=== PATIENT | female | born 1990 | race Caucasian/White ===

== ENCOUNTER 2022-11-10 21:10 | Emergency (ER) | payer OTHER, SELFPAY ==
[2022-11-10 21:17] VITALS: BP 153/91; PULSE 108; RESP 16; O2SAT 99; BMI 35.7
[2022-11-10 21:27] VITALS: TEMP 36.8
--- NOTE | 2022-11-10 22:03 | PC.NURSE ---
pt presents to ED c/o of left and right sided upper quadrant abdominal pain and swelling to bilateral lower extremities that started 2-3 days ago. pt is 18 weeks at this time. pt states that she does have spotting but her OB told her it was normal because her placenta is not attacked to the umbilical cord and pt shouldn't become concerned unless she soaks through a pad. pt also c/o sob for last 3 days. pt had chest pain 3 days ago but it is now resolved. heart tones at 164 at this time.
--- NOTE | 2022-11-10 22:37 | ED.GENADUL1 ---
HPI - General Adult General Chief complaint: Shortness of Breath/Dyspnea Stated complaint: UNDER 20-WEEKS Time Seen by Provider: 11/10/22 22:07 Source: patient Mode of arrival: walk-in History of Present Illness HPI narrative: [id number]. 18 weeks . Presents complaining of pain across her upper abdomen and lower ext. edema. Admits her lower extremity edema has improved. she feels short of breath when she is supine. She has a pulse ox at home and even when she feels short of breath supine her Pulse ox is normal. No headache. No urinary symptoms. Her last was over 11 years ago Related Data Allergies Allergy/AdvReac Type Severity Reaction Status Date / Time zonisamide [[facility] AdvReac Mild Rash Verified 11/10/22 21:25 Review of Systems ROS Status of ROS 10 or more systems reviewed and unremarkable except as noted in history and below [facility] PFS Social History Smoking status: Former smoker Exam Constitutional Vital Signs - 24 hr 11/10/22 21:17 11/10/22 21:27 11/11/22 00:09 Temperature 98.3 F Pulse Rate [Monitor] 108 H Respiratory Rate 16 Blood Pressure 136/82 H Blood Pressure [Right Arm] 153/91 H Pulse Oximetry 99 Oxygen Delivery Method Room Air 11/11/22 00:49 Temperature Pulse Rate [Monitor] Respiratory Rate Blood Pressure 137/85 H Blood Pressure [Right Arm] Pulse Oximetry Oxygen Delivery Method Common normals: no apparent distress [facility] Common normals: normocephalic and head/scalp atraumatic Eye Common normals: PERRL, EOMs intact bilaterally and conjunctivae normal Chest Common normals: inspection of chest normal Respiratory Common normals: normal respiratory effort and no retractions Cardio Common normals: regular rate, regular rhythm, S1 normal heart sound and S2 normal heart sound GI Other: gravid. Mild tenderness RUQ Extremity Common normals: normal to inspection and full ROM Other: trace ankle edema Neuro Common normals: oriented x3, CN's II-XII intact bilaterally and moves all extremities Psych Appearance: grossly normal Course Vital Signs Vital signs: Vital Signs Pulse Rate 108 H 11/10/22 21:17 Respiratory Rate 16 11/10/22 21:17 Blood Pressure 153/91 H 11/10/22 21:17 Pulse Oximetry 99 11/10/22 21:17 Oxygen Delivery Method Room Air 11/10/22 21:17 Temperature 98.3 F 11/10/22 21:27 Pulse Rate 108 H 11/10/22 21:17 Respiratory Rate 16 11/10/22 21:17 Blood Pressure 137/85 H 11/11/22 00:49 Pulse Oximetry 99 11/10/22 21:17 Oxygen Delivery Method Room Air 11/10/22 21:17 Medical Decision Making MDM Narrative Medical decision making narrative: patient 18 weeks . Presented complaining of lower extremity edema but admits the edema has improved. Also complaining of pain across her upper abdomen. labs unremarkalbe except her potassium was low and this was supplemented. Her BP initially was elevated but returned to normal without intervention. Her abdominal pain improved after GI cocktail. She was discharged home with a prescription of Protonix and working diagnosis of GERD Lab Data Labs: Lab Results 11/10/22 11/10/22 11/10/22 Range/Units 22:48 22:55 23:11 WBC 10.1 (4.0-11.0) 10^3/uL RBC 3.51 L (4.20-5.40) 10^6/uL Hgb 10.6 L (12.0-16.0) g/dL Hct 30.3 L (36.0-48.0) % MCV 86.3 (81.0-99.0) fL MCH 30.2 (26.7-34.0) pg MCHC 35.0 (29.9-35.2) g/dL RDW 14.3 (11.0-15.0) % Plt Count 173 (150-450) 10^3/uL MPV 11.3 (9.5-13.5) fL Neut % (Auto) 66.8 (43.0-75.0) % Lymph % (Auto) 25.4 (20.5-60.0) % [place] % (Auto) 4.6 (1.7-12.0) % Eos % (Auto) 1.5 (0.9-7.0) % Baso % (Auto) 0.4 (0.2-2.0) % Neut # (Auto) 6.8 H (1.4-6.5) 10^3/uL Lymph # (Auto) 2.6 (1.2-3.8) 10^3/uL [place] # (Auto) 0.5 (0.3-0.8) 10^3/uL Eos # (Auto) 0.2 (0.0-0.7) 10^3/uL Baso # (Auto) 0.0 (0.0-0.1) 10^3/uL Abs Immat Gran (auto) 0.13 H (0.00-0.03) 10^3/uL Imm/Tot Granulo (auto) 1.3 H (0.0-0.5) % Sodium 137 (136-145) mmol/L Potassium 2.5 L* (3.5-5.1) mmol/L Chloride 102 (98-107) mmol/L Carbon Dioxide 24.2 (21.0-32.0) mmol/L Anion Gap 13.3 BUN 4.0 L (7.0-18.0) mg/dL Creatinine 0.54 L (0.55-1.02) mg/dL Est GFR ( Amer) >60 (>=60) Est GFR (Non-Af Amer) >60 (>=60) BUN/Creatinine Ratio 7.4 Glucose 108 H (74-106) mg/dL Calcium 8.6 (8.5-10.1) mg/dL Total Bilirubin 0.1 L (0.2-1.0) mg/dL AST 10 L (15-37) U/L ALT 12 L (14-59) U/L Alkaline Phosphatase 54 (46-116) U/L Total Protein 6.0 L (6.4-8.2) g/dL Albumin 2.5 L (3.4-5.0) g/dL Globulin 3.5 g/dL Albumin/Globulin Ratio 0.7 Lipase 100.0 (73.0-393.0) U/L Urine Color Lt. yellow (YELLOW) Urine Clarity Clear (CLEAR) Urine pH 7.0 (5.0-9.0) Ur Specific [place] 1.010 (1.005-1.025) Urine Protein Negative (NEG/TRACE) mg/dL Urine Glucose (UA) Negative (NEGATIVE) mg/dL Urine Ketones Negative (NEGATIVE) mg/dL Urine Occult Blood Negative (NEGATIVE) Urine Nitrite Negative (NEGATIVE) Urine Bilirubin Negative (NEGATIVE) Urine Urobilinogen 0.2 (0.2-1.0) EU/dL Ur Leukocyte Esterase Small A (NEGATIVE) Urine RBC 0-2 (0-2) #/HPF Urine WBC 5-10 A (NONE SEEN) #/HPF Ur Squamous Epith Cells Many A (NONE/RARE) #/LPF Urine Crystals None seen (None Seen) #/HPF Urine Bacteria Moderate A (NONE SEEN) #/HPF Urine Casts None seen (NONE SEEN) #/LPF Urine Mucus None seen (NONE SEEN) Ur Culture Indicated? Yes Discharge Plan Discharge Chief Complaint: Shortness of Breath/Dyspnea Clinical Impression: Edema during in second trimester, Gastroesophageal reflux disease Instructions: GERD (Gastroesophageal Reflux Disease) (ED), Edema (ED) Additional Instructions: follow up with Dr Alegre for recheck Stand Alone Forms: Portal Instructions Referrals: Physician,Non-Staff, [Primary Care Provider] - 1 week
[2022-11-10 22:59] LABS: Basophils Percent Auto 0.4 % (0.2-2.0); Eosinophils Absolute Auto 0.2 10^3/uL (0.0-0.7); Eosinophils Percent Auto 1.5 % (0.9-7.0); Hematocrit 30.3 % (36.0-48.0); Hemoglobin 10.6 g/dL (12.0-16.0); Immature Granulocytes Abs Auto 0.13 10^3/uL (0.00-0.03); Immature Granulocytes Pct Auto 1.3 % (0.0-0.5); Lymphocytes Absolute Auto 2.6 10^3/uL (1.2-3.8); Lymphocytes Percent Auto 25.4 % (20.5-60.0); Mean Corpuscular Hemoglobin 30.2 pg (26.7-34.0); Mean Corpuscular Volume 86.3 fL (81.0-99.0); Mean Platelet Volume 11.3 fL (9.5-13.5); Monocytes Absolute Auto 0.5 10^3/uL (0.3-0.8); Monocytes Percent Auto 4.6 % (1.7-12.0); Neutrophils Absolute Auto 6.8 10^3/uL (1.4-6.5); Neutrophils Percent Auto 66.8 % (43.0-75.0); Platelet Count 173 10^3/uL (150-450); Red Blood Count 3.51 10^6/uL (4.20-5.40); Red Cell Distribution Width 14.3 % (11.0-15.0); White Blood Count 10.1 10^3/uL (4.0-11.0)
[2022-11-10 23:08] LABS: Bilirubin Urine NEGATIVE (NEGATIVE); Blood Urine NEGATIVE (NEGATIVE); Clarity Urine CLEAR (CLEAR); Color Urine LT. YELLOW (YELLOW); Glucose Urine UA NEGATIVE (NEGATIVE); Ketones Urine NEGATIVE (NEGATIVE); Leukocyte Esterase Urine SMALL (NEGATIVE); Nitrite Urine NEGATIVE (NEGATIVE); Protein Urine NEGATIVE (NEG/TRACE); Urobilinogen Urine 0.2 EU/dL (0.2-1.0)
[2022-11-10 23:11] LABS: Urine Microscopic Indicated YES
[2022-11-10 23:16] LABS: Bacteria Urine MODERATE #/HPF (NONE SEEN); Cast Seen? NONE SEEN #/LPF (NONE SEEN); Crystals Seen? None Seen #/HPF (None Seen); Mucus Urine NONE SEEN (NONE SEEN); RBC Urine 0-2 #/HPF (0-2); Squamous Epithelial Cell Urine MANY #/LPF (NONE/RARE); Urine Culture Indicated YES
[2022-11-10 23:26] LABS: Alanine Aminotransferase 12 U/L (14-59); Albumin Globulin Ratio 0.7; Albumin Level 2.5 g/dL (3.4-5.0); Alkaline Phosphatase 54 U/L (46-116); Anion Gap 13.3; Aspartate Amino Transferase 10 U/L (15-37); BUN Creatinine Ratio 7.4; Bilirubin Total 0.1 mg/dL (0.2-1.0); Calcium 8.6 mg/dL (8.5-10.1); Carbon Dioxide 24.2 mmol/L (21.0-32.0); Chloride 102 mmol/L (98-107); Estimated GFR (African America >60 (>=60); Estimated GFR (Non-African Ame >60 (>=60); Globulin 3.5 g/dL; Glucose 108 mg/dL (74-106); Sodium 137 mmol/L (136-145)
[2022-11-10 23:29] LABS: Potassium 2.5 mmol/L (3.5-5.1)
[2022-11-11] MEDS: POTASSIUM CHLORIDE 10 MEQ ER TABLET 40 MEQ PO (00:04)
[2022-11-11] MEDS: lidocaine HCL 15 ML, MAG HYDROX/ALUMINUM HYD/SIMETH 30 ML, HYOSCYAMINE SULFATE 0.25 MG PO (00:08)
[2022-11-11 00:09] VITALS: BP 136/82
[2022-11-11 00:49] VITALS: BP 137/85
== END 2022-11-11 01:02 | disposition home or self-care (01) ==
LOC: ER 21:23
PROVIDERS: Emergency Provider Internal Medicine
DX: O26.892 Other specified pregnancy related conditions, second trimester (principal); R60.9 Edema, unspecified; O99.612 Diseases of the digestive system complicating pregnancy, second trimester; K21.9 Gastro-esophageal reflux disease without esophagitis; Z3A.18 18 weeks gestation of pregnancy; Z87.891 Personal history of nicotine dependence
CPT/HCPCS: 36415; 80053; 81003; 81015; 83690; 85025; 87086; 99283

== ENCOUNTER 2022-11-18 11:43 | Observation (INO) | payer OTHER, SELFPAY ==
--- NOTE | 2022-11-18 12:56 | US_ITS ---
[address] [address] Patient Name: SIMIN SAUCEDA MRN: [id number] date: 1990 Sex: F Assigned Patient Location: [facility] Current Patient Location: [facility] Accession/Order Number: [id number] Exam Date: 11/18/2022 13:10 Report Date: 11/18/2022 14:44 At the request of: CORONA MCINTOSH Procedure: US OB anatomy STUDY: US OB anatomy, [id number] HISTORY: srom? COMPARISON: None. Technique: Transabdominal grayscale, Doppler, and M-mode ultrasound images of the fetus were obtained. Transvaginal images were obtained to better evaluate the cervical length. FINDINGS: number: Ortiz. position: Breech. Uterus: No fibroids. Cervical length: Closed, measuring 2.90 cm. Placenta to cervix distance: Borderline low lying placenta with the placental edge measuring 2.01 cm from the internal os. Placental location: The placenta is located anteriorly. Placental thickness: 2.47 cm (normal is less than 3.3 cm if the placenta is located anteriorly and 4 cm if located posteriorly) Placental morphology: Normal. Cord insertion: Borderline velamentous insertion with the cord inserting approximately 8 mm from the proximal edge. heart rate: 168 bpm Anatomic Survey: i. Head, face, neck: Cerebellum, choroid plexus, cisterna magna, lateral cerebral ventricles, midline falx, cavum septum pellucidum, and upper lip are sonographically within normal limits. No nuchal fold thickening. ii. Chest: Small focal area of hypoechogenicity in the membranous portion of the ventricular septum. The outflow tracts were not seen. iii. Abdomen: Stomach, kidneys, urinary bladder, umbilical cord are within normal limits. Abdominal cord insertion was not visualized. iv. Spine: Spine and overlying skin are within normal limits. v. Extremities: Legs and arms are present. biometry: Biparietal diameter (BPD): 4.60 cm, EGA: 19 weeks 6 days Head circumference (HC): 16.83 cm, EGA: 19 weeks 3 days Abdominal circumference (AC): 14.78 cm, EGA: 20 weeks 0 days Femur length (FL): 3.20 cm, EGA: 20 weeks 0 days Estimated weight: 323.16 g Estimated weight percentile ([place]lock): 88.5 percentile MAHNAZ: Measurements were obtained however, the amniotic fluid is subjectively within normal limits. Cephalic index (CI): 78.08 (normal range 70.00-86.00) Head circumference/abdominal circumference ratio (HC/AC): 1.14 (normal range 1.08-1.26) Estimated Gestational Age (EGA) by history: 19 weeks 1 day Estimated Date of Delivery (MICHAEL) by history: 04/13/2023 Estimated Gestational Age (EGA) by ULTRASOUND: 19 weeks 6 days +/- 1 week 3 days Estimated Date of Delivery (MICHAEL) by ULTRASOUND: 04/08/2023 IMPRESSION: 1. Single, viable intrauterine at 19 weeks 6 days by today's second trimester scan which is concordant with clinical dating. 2. The cervix is closed and measures 2.9 cm in length. 3. Small focal area of hypoechogenicity in the membranous portion of the ventricular septum which could represent septal defect or artifact. Recommend correlation with maternal medicine imaging. If no dedicated cardiac imaging has been obtained then recommend echocardiogram for further evaluation. 4. The cardiac outflow tracts and abdominal cord insertion not visualized on this exam. Remainder of the basic anatomic survey is within normal limits. 5. Borderline low-lying placenta which measures 2.01 cm from the internal os. 6. Borderline velamentous cord insertion with the cord inserting approximately 8 mm from the placental edge. Electronically authenticated by: ANNETTE JUAREZ Date: 11/18/2022 14:44
[2022-11-18 14:05] VITALS: BP 121/78; PULSE 100
[2022-11-18 14:39] LABS: Bilirubin Urine NEGATIVE (NEGATIVE); Blood Urine NEGATIVE (NEGATIVE); Clarity Urine CLEAR (CLEAR); Color Urine LT. YELLOW (YELLOW); Glucose Urine UA NEGATIVE (NEGATIVE); Ketones Urine NEGATIVE (NEGATIVE); Leukocyte Esterase Urine TRACE (NEGATIVE); Nitrite Urine NEGATIVE (NEGATIVE); Protein Urine NEGATIVE (NEG/TRACE); Specific Gravity Urine <=1.005 (1.005-1.025); Urobilinogen Urine 0.2 EU/dL (0.2-1.0); pH Urine 6.5 (5.0-9.0)
[2022-11-18 14:40] LABS: Urine Microscopic Indicated YES
[2022-11-18 14:50] LABS: Bacteria Urine TRACE #/HPF (NONE SEEN); Cast Seen? NONE SEEN #/LPF (NONE SEEN); Crystals Seen? None Seen #/HPF (None Seen); Mucus Urine NONE SEEN (NONE SEEN); RBC Urine 0-2 #/HPF (0-2); Squamous Epithelial Cell Urine FEW #/LPF (NONE/RARE); Urine Culture Indicated NO; WBC Urine 0-2 #/HPF (NONE SEEN)
== END 2022-11-18 14:51 | disposition home or self-care (01) ==
PROVIDERS: Admitting Provider Obstetrics & Gynecology; PCP Nurse Practitioner Family; Visit Provider Obstetrics & Gynecology
DX: Z03.71 Encounter for suspected problem with amniotic cavity and membrane ruled out (principal); O26.892 Other specified pregnancy related conditions, second trimester; M54.9 Dorsalgia, unspecified; Z3A.19 19 weeks gestation of pregnancy
CPT/HCPCS: 76805; 76817; 81003; 81015; 84112; G0378; G0379

== ENCOUNTER 2023-01-02 09:53 | Outpatient (OUT) | payer OTHER, SELFPAY ==
--- NOTE | 2023-01-02 10:14 | CT_ITS ---
The [address] [address] Patient Name: SIMIN SAUCEDA MRN: [id number] date: 1990 Sex: F Assigned Patient Location: CT Current Patient Location: CT Accession/Order Number: [id number] Exam Date: 01/02/2023 10:09 Report Date: 01/02/2023 18:48 At the request of: AMY COLEMAN Procedure: CT head/brain wo con EXAMINATION: CT head/brain wo con HISTORY: HX OF CONCUSSION. Z87.820. COMPARISON: None. TECHNIQUE: Unenhanced helical imaging was acquired from skull base to vertex. Multiplanar images are submitted. Dose reduction techniques were achieved by using: automated exposure control and/or adjustment of mA and /or kV according to patient size and/or use of iterative reconstruction technique. FINDINGS: No acute intraaxial or extraaxial mass, shift, or bleed. Kay-white junctions are well defined. The ventricles and sulci are age-appropriate. The pituitary and sella turcica are normal. The orbit and ocular contents are normal. Prominent adenoidal tissue is noted. The paranasal sinuses are clear. Calvarium is intact. CT/CT head/brain wo con IMPRESSION: 1. No acute intracranial event. 2. No calvarial injury. 3. Clear sinuses. Electronically authenticated by: DINORA CRUZ Date: 01/02/2023 18:48
== END 2023-01-02 09:54 | disposition home or self-care (01) ==
LOC: CT 09:55
PROVIDERS: PCP Nurse Practitioner Family; Visit Provider Physician Assistant
DX: Z87.820 Personal history of traumatic brain injury (principal)
CPT/HCPCS: 70450

== ENCOUNTER 2023-01-20 14:30 | Observation (INO) | payer OTHER, SELFPAY ==
[2023-01-20 15:02] VITALS: BP 125/76; PULSE 106; RESP 16; TEMP 36.2
[2023-01-20 15:33] VITALS: BP 129/62; PULSE 110
[2023-01-20 15:33] LABS: Bilirubin Urine NEGATIVE (NEGATIVE); Blood Urine NEGATIVE (NEGATIVE); Clarity Urine CLEAR (CLEAR); Color Urine LT. YELLOW (YELLOW); Glucose Urine UA 100 mg/dL (NEGATIVE); Ketones Urine NEGATIVE (NEGATIVE); Leukocyte Esterase Urine TRACE (NEGATIVE); Nitrite Urine NEGATIVE (NEGATIVE); Protein Urine NEGATIVE (NEG/TRACE); Urobilinogen Urine 0.2 EU/dL (0.2-1.0)
[2023-01-20 15:38] LABS: Urine Microscopic Indicated YES
[2023-01-20 15:47] LABS: Amphetamine Screen Urine NEGATIVE (NEGATIVE); Barbiturates Screen Urine NEGATIVE (NEGATIVE); Cannabinoid Screen Urine NEGATIVE (NEGATIVE); Cocaine Screen Urine NEGATIVE (NEGATIVE); Methadone Screen Urine NEGATIVE (NEGATIVE); Methamphetamines Screen Urine NEGATIVE (NEGATIVE); Opiate Screen Urine NEGATIVE (NEGATIVE); Oxycodone Screen Urine NEGATIVE (NEGATIVE); Phencyclidine Screen Urine NEGATIVE (NEGATIVE); Tricyclic Antidepressant Urine NEGATIVE (NEGATIVE)
[2023-01-20 15:48] LABS: Benzodiazepines Screen Urine POSITIVE (NEGATIVE); Buprenorphine Screen Urine POSITIVE (NEGATIVE)
[2023-01-20 15:53] LABS: Thyroid Stimulating Hormone 0.391 uIU/mL (0.358-3.740)
[2023-01-20 16:06] LABS: Bacteria Urine TRACE #/HPF (NONE SEEN); Cast Seen? NONE SEEN #/LPF (NONE SEEN); Crystals Seen? None Seen #/HPF (None Seen); Mucus Urine NONE SEEN (NONE SEEN); RBC Urine 0-2 #/HPF (0-2); Squamous Epithelial Cell Urine FEW #/LPF (NONE/RARE); Urine Culture Indicated NO
[2023-01-20 16:26] VITALS: BP 119/60; PULSE 106
[2023-02-22 14:08] LABS: Benzodiazepines Negative (Cutoff=300); Buprenorphine Positive (.); Buprenorphine Conf, MS, UR 16 ng/mL (Cutoff=10); Norbuprenorphine Positive (.); Norbuprenorphine Conf, MS,UR 253 ng/mL (Cutoff=10)
== END 2023-01-20 16:30 | disposition home or self-care (01) ==
PROVIDERS: Admitting Provider Obstetrics & Gynecology; PCP Nurse Practitioner Family; Visit Provider Obstetrics & Gynecology
DX: O16.9 Unspecified maternal hypertension, unspecified trimester (principal); Z3A.00 Weeks of gestation of pregnancy not specified
CPT/HCPCS: 36415; 59025; 80307; 80346; 80348; 81001; 84443; G0378; G0379

== ENCOUNTER 2023-02-08 13:10 | Observation (INO) | payer OTHER, SELFPAY ==
[2023-02-08] VITALS (12 sets, daily range): BP systolic 87–126; BP diastolic 50–75; PULSE 98–113
[2023-02-08 15:10] LABS: Bilirubin Urine NEGATIVE (NEGATIVE); Blood Urine TRACE-I (NEGATIVE); Clarity Urine SLIGHTLY CLOUDY (CLEAR); Color Urine LT. YELLOW (YELLOW); Glucose Urine UA NEGATIVE (NEGATIVE); Ketones Urine NEGATIVE (NEGATIVE); Leukocyte Esterase Urine LARGE (NEGATIVE); Nitrite Urine NEGATIVE (NEGATIVE); Protein Urine NEGATIVE (NEG/TRACE); Specific Gravity Urine <=1.005 (1.005-1.025); Urine Microscopic Indicated YES; Urobilinogen Urine 0.2 EU/dL (0.2-1.0)
[2023-02-08 15:17] LABS: Bacteria Urine TRACE #/HPF (NONE SEEN); Cast Seen? NONE SEEN #/LPF (NONE SEEN); Crystals Seen? None Seen #/HPF (None Seen); Mucus Urine NONE SEEN (NONE SEEN); RBC Urine 0-2 #/HPF (0-2); Squamous Epithelial Cell Urine RARE #/LPF (NONE/RARE); Urine Culture Indicated YES
[2023-02-08 15:23] LABS: Glucometer 124 mg/dL (74-106)
[2023-02-08 15:24] LABS: Basophils Percent Auto 0.2 % (0.2-2.0); Eosinophils Absolute Auto 0.1 10^3/uL (0.0-0.7); Eosinophils Percent Auto 1.1 % (0.9-7.0); Hematocrit 30.5 % (36.0-48.0); Hemoglobin 10.6 g/dL (12.0-16.0); Immature Granulocytes Abs Auto 0.18 10^3/uL (0.00-0.03); Immature Granulocytes Pct Auto 1.5 % (0.0-0.5); Lymphocytes Absolute Auto 2.5 10^3/uL (1.2-3.8); Lymphocytes Percent Auto 19.9 % (20.5-60.0); Mean Corpuscular HGB Conc 34.8 g/dL (29.9-35.2); Mean Corpuscular Hemoglobin 29.7 pg (26.7-34.0); Mean Corpuscular Volume 85.4 fL (81.0-99.0); Mean Platelet Volume 11.6 fL (9.5-13.5); Monocytes Absolute Auto 0.6 10^3/uL (0.3-0.8); Monocytes Percent Auto 4.9 % (1.7-12.0); Neutrophils Percent Auto 72.4 % (43.0-75.0); Platelet Count 203 10^3/uL (150-450); Red Blood Count 3.57 10^6/uL (4.20-5.40); White Blood Count 12.4 10^3/uL (4.0-11.0)
[2023-02-08 15:27] LABS: Creatinine Urine Random 17.43 mg/dL (20.00-300.00); Protein Creatinine Ratio Urine 0.59; Total Protein Urine Random 10.2 mg/dL (<=11.9)
[2023-02-08 15:39] LABS: INR 0.93; Partial Thromboplastin Time 25.8 sec (22.3-36.2); Prothrombin Time 9.9 sec (9.0-11.6)
[2023-02-08 15:45] LABS: Alanine Aminotransferase 11 U/L (14-59); Albumin Globulin Ratio 0.6; Albumin Level 2.3 g/dL (3.4-5.0); Alkaline Phosphatase 91 U/L (46-116); Anion Gap 11.2; Aspartate Amino Transferase 9 U/L (15-37); BUN Creatinine Ratio 8.1; Bilirubin Total 0.2 mg/dL (0.2-1.0); Calcium 8.8 mg/dL (8.5-10.1); Carbon Dioxide 22.8 mmol/L (21.0-32.0); Chloride 104 mmol/L (98-107); Estimated GFR (African America >60 (>=60); Estimated GFR (Non-African Ame >60 (>=60); Globulin 3.8 g/dL; Glucose 106 mg/dL (74-106); Sodium 135 mmol/L (136-145); Total Protein 6.1 g/dL (6.4-8.2)
[2023-02-08] MEDS: ACETAMINOPHEN 500 MG TABLET 1000 MG PO (15:49)
[2023-02-08 16:11] LABS: Amphetamine Screen Urine NEGATIVE (NEGATIVE); Barbiturates Screen Urine NEGATIVE (NEGATIVE); Buprenorphine Screen Urine NEGATIVE (NEGATIVE); Cannabinoid Screen Urine NEGATIVE (NEGATIVE); Cocaine Screen Urine NEGATIVE (NEGATIVE); Methadone Screen Urine NEGATIVE (NEGATIVE); Methamphetamines Screen Urine NEGATIVE (NEGATIVE); Opiate Screen Urine NEGATIVE (NEGATIVE); Oxycodone Screen Urine NEGATIVE (NEGATIVE); Phencyclidine Screen Urine NEGATIVE (NEGATIVE); Tricyclic Antidepressant Urine NEGATIVE (NEGATIVE)
[2023-02-08 16:12] LABS: Benzodiazepines Screen Urine POSITIVE (NEGATIVE)
[2023-02-12 08:12] LABS: Benzodiazepines Negative (Cutoff=300)
== END 2023-02-08 17:15 | disposition home or self-care (01) ==
LOC: FBC 13:13
PROVIDERS: Admitting Provider Obstetrics & Gynecology; PCP Nurse Practitioner Family; Visit Provider Obstetrics & Gynecology
DX: O16.3 Unspecified maternal hypertension, third trimester (principal); Z3A.30 30 weeks gestation of pregnancy
CPT/HCPCS: 36415; 59025; 80053; 80307; 80346; 81001; 82570; 84156; 85025; 85610; 85730; 87086; 87150; G0378; G0379

== ENCOUNTER 2023-02-10 10:26 | Outpatient (OUT) | payer OTHER, SELFPAY ==
[2023-02-10 10:29] VITALS: BP 119/69; PULSE 111
--- NOTE | 2023-02-10 10:56 | US_ITS ---
[address] [address] Patient Name: SIMIN SAUCEDA MRN: [id number] date: 1990 Sex: F Assigned Patient Location: [facility] Current Patient Location: Accession/Order Number: [id number] Exam Date: 02/10/2023 11:00 Report Date: 02/10/2023 15:24 At the request of: VITO CONNORS Procedure: US OB BPP w non-stress EXAMINATION: US OB BPP w non-stress HISTORY: O24.414 GESTATIONAL DIABETES MELLITUS COMPARISON: Ultrasound OB anatomy 11/18/2022 TECHNIQUE: Ultrasound biophysical profile was performed in the radiology department. BREATHING MOVEMENTS: 2.0 GROSS BODY MOVEMENTS: 2.0 TONE: 2.0 QUALITATIVE AMNIOTIC FLUID VOLUME: 2.0 PRESENTATION: CEPHALIC HEART RATE: 164.6 bpm bpm. AMNIOTIC FLUID VOLUME: 14.4 cm GESTATIONAL AGE: 30 weeks 6 days CONCLUSION: Total biophysical profile score 8.0. Electronically authenticated by: GAIL RAMSEY Date: 02/10/2023 15:24
== END 2023-02-10 11:40 | disposition home or self-care (01) ==
LOC: US 10:26 → FBC 10:26
PROVIDERS: PCP Nurse Practitioner Family; Visit Provider Obstetrics & Gynecology
DX: O24.414 Gestational diabetes mellitus in pregnancy, insulin controlled (principal); Z3A.30 30 weeks gestation of pregnancy
CPT/HCPCS: 76818

== ENCOUNTER 2023-02-13 11:40 | Outpatient (OUT) | payer OTHER, SELFPAY ==
[2023-02-13 12:02] VITALS: BP 111/63; PULSE 121
== END 2023-02-13 12:25 | disposition home or self-care (01) ==
LOC: FBCO 11:55 → FBC 11:56
PROVIDERS: PCP Nurse Practitioner Family; Visit Provider Obstetrics & Gynecology
DX: O24.414 Gestational diabetes mellitus in pregnancy, insulin controlled (principal); Z3A.00 Weeks of gestation of pregnancy not specified
CPT/HCPCS: 59025

== ENCOUNTER 2023-02-17 08:30 | Outpatient (OUT) | payer OTHER, SELFPAY ==
--- NOTE | 2023-02-17 11:00 | US_ITS ---
[address] [address] Patient Name: SIMIN SAUCEDA MRN: [id number] date: 1990 Sex: F Assigned Patient Location: [facility] Current Patient Location: [facility] Accession/Order Number: [id number] Exam Date: 02/17/2023 11:01 Report Date: 02/17/2023 18:27 At the request of: VITO CONNORS Procedure: US OB BPP w non-stress EXAMINATION: US OB BPP w non-stress HISTORY: GESTATIONAL DIABETES MELLITUS O24.414 COMPARISON: No relevant comparison available. TECHNIQUE: Ultrasound biophysical profile was performed in the radiology department. FINDINGS: BREATHING MOVEMENTS: 2.0 GROSS BODY MOVEMENTS: 2.0 TONE: 2.0 QUALITATIVE AMNIOTIC FLUID VOLUME: 2.0 PRESENTATION: CEPHALIC HEART RATE: 160.7 bpm H.B./min AMNIOTIC FLUID VOLUME: 14.0 cm cm GESTATIONAL AGE: 31 weeks 6 days CONCLUSION: Total biophysical profile score: 8.0 Electronically authenticated by: IVÁN NG Date: 02/17/2023 18:27
[2023-02-17 11:39] VITALS: BP 118/75; PULSE 113
== END 2023-02-17 12:13 | disposition home or self-care (01) ==
LOC: US 08:30 → FBC 10:56
PROVIDERS: PCP Nurse Practitioner Family; Visit Provider Obstetrics & Gynecology
DX: O24.414 Gestational diabetes mellitus in pregnancy, insulin controlled (principal); Z3A.31 31 weeks gestation of pregnancy
CPT/HCPCS: 76818

== ENCOUNTER 2023-02-20 07:30 | Outpatient (OUT) | payer OTHER, SELFPAY ==
[2023-02-20 12:00] VITALS: BP 128/66; PULSE 118
== END 2023-02-20 12:25 | disposition home or self-care (01) ==
LOC: FBCO 07:30 → FBC 11:58
PROVIDERS: PCP Nurse Practitioner Family; Visit Provider Obstetrics & Gynecology
DX: O24.414 Gestational diabetes mellitus in pregnancy, insulin controlled (principal)
CPT/HCPCS: 59025

== ENCOUNTER 2023-02-24 07:34 | Outpatient (OUT) | payer OTHER, SELFPAY ==
--- NOTE | 2023-02-24 11:02 | US_ITS ---
[address] [address] Patient Name: SIMIN SAUCEDA MRN: [id number] date: 1990 Sex: F Assigned Patient Location: US Current Patient Location: Accession/Order Number: [id number] Exam Date: 02/24/2023 11:03 Report Date: 02/24/2023 19:53 At the request of: VITO CONNORS Procedure: US OB BPP w non-stress EXAMINATION: US OB BPP w non-stress HISTORY: GESTATIONAL DIABETES MELLITUS O24.414 COMPARISON: No relevant comparison available. TECHNIQUE: Ultrasound biophysical profile was performed in the radiology department. FINDINGS: BREATHING MOVEMENTS: 2.0 GROSS BODY MOVEMENTS: 2.0 TONE: 2.0 QUALITATIVE AMNIOTIC FLUID VOLUME: 2.0 PRESENTATION: BREECH HEART RATE: 139.2 bpm H.B./min AMNIOTIC FLUID VOLUME: 17.6 cm cm GESTATIONAL AGE: 32 weeks 6 days CONCLUSION: Total biophysical profile score: 8.0 Electronically authenticated by: IVÁN NG Date: 02/24/2023 19:53
== END 2023-02-24 11:56 | disposition home or self-care (01) ==
LOC: US 07:34 → FBC 11:04
PROVIDERS: PCP Nurse Practitioner Family; Visit Provider Obstetrics & Gynecology
DX: O24.414 Gestational diabetes mellitus in pregnancy, insulin controlled (principal); Z3A.32 32 weeks gestation of pregnancy
CPT/HCPCS: 76818

== ENCOUNTER 2023-03-03 07:05 | Outpatient (OUT) | payer OTHER, SELFPAY ==
--- NOTE | 2023-03-03 10:51 | US_ITS ---
[address] [address] Patient Name: SIMIN SAUCEDA MRN: [id number] date: 1990 Sex: F Assigned Patient Location: [facility] Current Patient Location: Accession/Order Number: [id number] Exam Date: 03/03/2023 10:55 Report Date: 03/03/2023 22:20 At the request of: VITO CONNORS Procedure: US OB BPP w non-stress EXAMINATION: US OB BPP w non-stress HISTORY: INSULIN CONTROLLED GESTATIONAL DIABETES MELLITUS O24.414 COMPARISON: No relevant comparison available. TECHNIQUE: Ultrasound biophysical profile was performed in the radiology department. BREATHING MOVEMENTS: 2.0 GROSS BODY MOVEMENTS: 2.0 TONE: 2.0 QUALITATIVE AMNIOTIC FLUID VOLUME: 2.0 PRESENTATION: CEPHALIC HEART RATE: 154.3 bpm bpm. AMNIOTIC FLUID VOLUME: 19.3 cm GESTATIONAL AGE: 33 weeks 6 days CONCLUSION: Total biophysical profile score 8.0. Electronically authenticated by: GAIL RAMSEY Date: 03/03/2023 22:20
[2023-03-03 11:20] VITALS: BP 118/66; PULSE 113
== END 2023-03-03 11:45 | disposition home or self-care (01) ==
LOC: US 07:05 → FBC 10:52
PROVIDERS: PCP Nurse Practitioner Family; Visit Provider Obstetrics & Gynecology
DX: O24.414 Gestational diabetes mellitus in pregnancy, insulin controlled (principal); Z3A.33 33 weeks gestation of pregnancy
CPT/HCPCS: 76818

== ENCOUNTER 2023-03-06 09:13 | Outpatient (OUT) | payer OTHER, SELFPAY | END 2023-03-06 12:25 | disposition home or self-care (01) | LOC: FBCO 09:20 → FBC 11:59 | PROVIDERS: PCP Nurse Practitioner Family; Visit Provider Obstetrics & Gynecology Gynecology | DX: O24.414 Gestational diabetes mellitus in pregnancy, insulin controlled (principal) | CPT/HCPCS: 59025 ==

== ENCOUNTER 2023-03-10 07:13 | Outpatient (OUT) | payer OTHER, SELFPAY ==
--- NOTE | 2023-03-10 10:56 | US_ITS ---
[address] [address] Patient Name: SIMIN SAUCEDA MRN: [id number] date: 1990 Sex: F Assigned Patient Location: [facility] Current Patient Location: Accession/Order Number: [id number] Exam Date: 03/10/2023 11:00 Report Date: 03/11/2023 07:14 At the request of: VITO CONNORS Procedure: US OB BPP w non-stress EXAMINATION: US OB BPP w non-stress HISTORY: Insulin controlled gestational diabetes mellitus COMPARISON: No relevant comparison available. TECHNIQUE: Ultrasound biophysical profile was performed in the radiology department. non-reactive stress testing was performed by nursing staff in the birthing center. FINDINGS: BREATHING MOVEMENTS: 2.0 GROSS BODY MOVEMENTS: 2.0 TONE: 2.0 QUALITATIVE AMNIOTIC FLUID VOLUME: 2.0 PRESENTATION: BREECH HEART RATE: 156.1 bpm H.B./min AMNIOTIC FLUID VOLUME: 24.3 cm cm GESTATIONAL AGE: 34 weeks 6 days CONCLUSION: Total biophysical profile score: 8.0 Electronically authenticated by: IVÁN NG Date: 03/11/2023 07:14
[2023-03-10 11:16] VITALS: BP 124/83; PULSE 113; TEMP 36
== END 2023-03-10 12:03 | disposition home or self-care (01) ==
LOC: US 07:13 → FBC 10:44
PROVIDERS: PCP Nurse Practitioner Family; Visit Provider Obstetrics & Gynecology
DX: O24.414 Gestational diabetes mellitus in pregnancy, insulin controlled (principal); Z3A.34 34 weeks gestation of pregnancy
CPT/HCPCS: 76818; 87081

== ENCOUNTER 2023-03-10 21:55 | Outpatient (REF) | payer OTHER, SELFPAY | END 2023-03-10 21:56 | disposition home or self-care (01) | LOC: LAB 21:55 | PROVIDERS: PCP Nurse Practitioner Family; Visit Provider Obstetrics & Gynecology | DX: O24.414 Gestational diabetes mellitus in pregnancy, insulin controlled (principal) | CPT/HCPCS: 87081 ==

== ENCOUNTER 2023-03-13 01:41 | Outpatient (OUT) | payer OTHER, SELFPAY ==
[2023-03-13 12:08] VITALS: BP 124/63; PULSE 121
== END 2023-03-13 12:33 | disposition home or self-care (01) ==
LOC: FBCO 01:41 → FBC 12:04
PROVIDERS: PCP Nurse Practitioner Family; Visit Provider Obstetrics & Gynecology
DX: O24.414 Gestational diabetes mellitus in pregnancy, insulin controlled (principal); Z3A.00 Weeks of gestation of pregnancy not specified
CPT/HCPCS: 59025

== ENCOUNTER 2023-03-17 07:35 | Outpatient (OUT) | payer OTHER, SELFPAY ==
--- NOTE | 2023-03-17 | US_ITS ---
[address] [address] Patient Name: SIMIN SAUCEDA MRN: [id number] date: 1990 Sex: F Assigned Patient Location: [facility] Current Patient Location: Accession/Order Number: [id number] Exam Date: 03/17/2023 14:00 Report Date: 03/17/2023 21:16 At the request of: VITO CONNORS Procedure: US OB BPP w non-stress EXAMINATION: US OB BPP w non-stress HISTORY: INSULIN CONTROLLED GESTATIONAL DIABETES MELLITUS 024.414 COMPARISON: Ultrasound OB biophysical 03/10/2023 TECHNIQUE: Ultrasound biophysical profile was performed in the radiology department. BREATHING MOVEMENTS: 2.0 GROSS BODY MOVEMENTS: 2.0 TONE: 2.0 QUALITATIVE AMNIOTIC FLUID VOLUME: 2.0 PRESENTATION: CEPHALIC HEART RATE: 150.0 bpm bpm. AMNIOTIC FLUID VOLUME: 17.4 cm GESTATIONAL AGE: 35 weeks 6 days CONCLUSION: Total biophysical profile score 8.0. Electronically authenticated by: GAIL RAMSEY Date: 03/17/2023 21:16
[2023-03-17 14:29] VITALS: BP 126/63; PULSE 106
== END 2023-03-17 14:59 | disposition home or self-care (01) ==
LOC: US 07:36 → FBC 13:53
PROVIDERS: PCP Nurse Practitioner Family; Visit Provider Obstetrics & Gynecology
DX: O24.414 Gestational diabetes mellitus in pregnancy, insulin controlled (principal); Z3A.35 35 weeks gestation of pregnancy
CPT/HCPCS: 76818

== ENCOUNTER 2023-03-24 08:11 | Outpatient (OUT) | payer OTHER, SELFPAY ==
--- NOTE | 2023-03-24 11:06 | US_ITS ---
[address] [address] Patient Name: SIMIN SAUCEDA MRN: [id number] date: 1990 Sex: F Assigned Patient Location: [facility] Current Patient Location: Accession/Order Number: [id number] Exam Date: 03/24/2023 11:07 Report Date: 03/24/2023 16:44 At the request of: VITO CONNORS Procedure: US OB BPP w non-stress EXAMINATION: US OB BPP w non-stress HISTORY: Insulin controlled gestational diabetes mellitus COMPARISON: No relevant comparison available. TECHNIQUE: Ultrasound biophysical profile was performed in the radiology department. . FINDINGS: BREATHING MOVEMENTS: 2.0 GROSS BODY MOVEMENTS: 2.0 TONE: 2.0 QUALITATIVE AMNIOTIC FLUID VOLUME: 2.0 PRESENTATION: CEPHALIC HEART RATE: 139.9 bpm H.B./min AMNIOTIC FLUID VOLUME: 17.8 cm cm GESTATIONAL AGE: 36 weeks 6 days CONCLUSION: Total biophysical profile score: 8.0 Electronically authenticated by: IVÁN NG Date: 03/24/2023 16:44
[2023-03-24 11:27] VITALS: BP 132/64; PULSE 116
== END 2023-03-24 11:50 | disposition home or self-care (01) ==
LOC: US 08:11 → FBC 10:07
PROVIDERS: PCP Nurse Practitioner Family; Visit Provider Obstetrics & Gynecology
DX: O24.414 Gestational diabetes mellitus in pregnancy, insulin controlled (principal); Z3A.36 36 weeks gestation of pregnancy
CPT/HCPCS: 76818

== ENCOUNTER 2023-03-25 04:19 | Inpatient (IN) | payer OTHER, SELFPAY ==
[2023-03-25] VITALS (39 sets, daily range): BP systolic 104–149; BP diastolic 66–96; PULSE 87–110; RESP 8–27; TEMP 35.9–37; O2SAT 98–100
[2023-03-25] MEDS: 0.9 % SODIUM CHLORIDE 1,000 ML 125 ML IV (05:36)
[2023-03-25 06:15] LABS: Hematocrit 31.1 % (36.0-48.0); Hemoglobin 10.3 g/dL (12.0-16.0); Mean Corpuscular HGB Conc 33.1 g/dL (29.9-35.2); Mean Corpuscular Hemoglobin 28.1 pg (26.7-34.0); Mean Platelet Volume 11.6 fL (9.5-13.5); Platelet Count 193 10^3/uL (150-450); Red Blood Count 3.66 10^6/uL (4.20-5.40); Red Cell Distribution Width 14.8 % (11.0-15.0); White Blood Count 10.5 10^3/uL (4.0-11.0)
[2023-03-25 06:25] LABS: Amphetamine Screen Urine NEGATIVE (NEGATIVE); Barbiturates Screen Urine NEGATIVE (NEGATIVE); Benzodiazepines Screen Urine NEGATIVE (NEGATIVE); Buprenorphine Screen Urine POSITIVE (NEGATIVE); Cannabinoid Screen Urine NEGATIVE (NEGATIVE); Cocaine Screen Urine NEGATIVE (NEGATIVE); Methadone Screen Urine NEGATIVE (NEGATIVE); Methamphetamines Screen Urine NEGATIVE (NEGATIVE); Opiate Screen Urine NEGATIVE (NEGATIVE); Oxycodone Screen Urine NEGATIVE (NEGATIVE); Phencyclidine Screen Urine NEGATIVE (NEGATIVE); Tricyclic Antidepressant Urine NEGATIVE (NEGATIVE)
[2023-03-25] MEDS: OXYTOCIN/0.9 % SODIUM CHLORIDE 10 UNITS/500 ML PLAST..BAG 6 UNIT IV (06:44)
--- NOTE | 2023-03-25 07:14 | US_ITS ---
[address] [address] Patient Name: SIMIN SAUCEDA MRN: [id number] date: 1990 Sex: F Assigned Patient Location: [facility] Current Patient Location: [facility] Accession/Order Number: [id number] Exam Date: 03/25/2023 07:18 Report Date: 03/25/2023 08:10 At the request of: VITO CONNORS Procedure: US OB limited EXAMINATION: US OB limited HISTORY: Verify presentation COMPARISON: No relevant comparison available. FINDINGS: position: Breech presentation, longitudinal lie Heart rate: 124 bpm US/US OB limited IMPRESSION: Breech presentation Electronically authenticated by: IVÁN NG Date: 03/25/2023 08:10
--- NOTE | 2023-03-25 07:29 | W.PC.ACHO ---
Registration Status: ADM IN Primary Language: Australian Preferred Language: Australian Active Medications Generic Name Dose Route Start Last Admin Trade Name Micheal PRN Reason Stop Dose Admin Carboprost Tromethamine 250 mcg 03/25/23 04:22 Carboprost Tromethamine 250 Mcg/Ml 1 Ml Vial IM 03/27/23 04:22 Q15M PRN Bleeding Sodium Chloride 1,000 mls @ 125 mls/hr 03/25/23 04:30 03/25/23 05:36 Sodium Chloride 0.9% 1,000 Ml IV 125 mls/hr .Q8H ROB Administration Oxytocin/Sodium Chloride 10 units in 500 mls @ 6 mls/hr 03/25/23 04:30 03/25/23 06:44 Pitocin 10 Unit/500 Ml-Ns IV 2 milliunit/min CONT ROB 6 mls/hr Administration Protocol 2 MILLIUNIT/MIN Oxytocin/Sodium Chloride 20 units in 1,000 mls @ 125 mls/hr 03/25/23 04:30 Pitocin 20 Unit/1,000 Ml-Ns IV ONCE PRN delivery Lidocaine 5 ml 03/25/23 04:28 Lidocaine Viscous 2% 15 Ml Solution TOPICAL ONCE PRN Pain Lidocaine 1 ml 03/25/23 04:28 Lidocaine Hcl 1% 200 Mg/20 Ml Mdv INJ ONCE PRN Pain Methylergonovine Maleate 0.2 mg 03/25/23 04:22 Methylergonovine Maleate 0.2 Mg/Ml Ampule IM 03/27/23 04:22 ONCE PRN Uterine Contractility/Contract Methylergonovine Maleate 0.2 mg 03/25/23 04:22 Methylergonovine Maleate 0.2 Mg Tablet PO 03/27/23 04:22 Q4H PRN Uterine Contractility/Contract Misoprostol 600 mcg 03/25/23 04:22 Misoprostol 100 Mcg Tablet PO 03/27/23 04:22 ONCE PRN Uterine Bleeding Misoprostol 800 mcg 03/25/23 04:22 Misoprostol 100 Mcg Tablet SL 03/27/23 04:22 ONCE PRN Uterine Bleeding Misoprostol 1,000 mcg 03/25/23 04:22 Misoprostol 100 Mcg Tablet IA 03/27/23 04:22 ONCE PRN Uterine Bleeding Ondansetron HCl 4 mg 03/25/23 04:22 Ondansetron Pf 4 Mg/2 Ml Vial IV Q6H PRN Nausea And Vomiting Ondansetron HCl 4 mg 03/25/23 04:22 Ondansetron 4 Mg Rapdis Tablet SL Q6H PRN Nausea And Vomiting Oxytocin 10 unit 03/25/23 04:22 Oxytocin 10 Unit/Ml Vial IM 03/27/23 04:22 ONCE PRN Bleeding Diet Category Date Time Status Regular Consistency Diet Diet 03/25/23 04:27 Active Consults Category Date Time Status Consult to Anesthesiology Routine Cons 03/25/23 Ordered IV Insertion/Site Date of IV Line Insertion [ 03/25/23 Short PIV (<1.75 in) 20g right Antecubital] IV Insertion Time [Short PIV ( 05:20 <1.75 in) 20g right Antecubital] Neurology Patient orientation (short person,place,time,situation list) Respiratory Oxygen Delivery Method Room Air
[2023-03-25 09:29] LABS: Glucometer 102 mg/dL (74-106)
--- NOTE | 2023-03-25 09:49 | PC.NURSE ---
IV tubing changed to gravity tubing
--- NOTE | 2023-03-25 10:14 | SWNOTE1 ---
Letter from [facility] CPS was on file in FB for pt. They are requesting we notify when pt is here and baby is delivered. SW called and notified [facility] CPS that pt was here and having today. SW did review her toxicology reports with CPS, pt was positive for buprenorpine on admission. Back in January she was positive for Benzos, and back in December she was positive for norbuprenorphine, buprenorphine, and benzos. Nursing did confirm her scripts/medications and pt is prescribed subutex through [facility], and is also on xanax and gabapentin. SW did let CPS know that SW has not spoken to pt at this time as she is getting prepped for . CPS asked to be notified when baby was born. SW to notify once baby is born.
[2023-03-25] MEDS: 0.9 % SODIUM CHLORIDE 1,000 ML 1000 ML IV (10:40)
[2023-03-25 10:43] LABS: Glucometer 91 mg/dL (74-106)
[2023-03-25 11:08] LABS: Bilirubin Urine NEGATIVE (NEGATIVE); Blood Urine NEGATIVE (NEGATIVE); Clarity Urine CLEAR (CLEAR); Color Urine LT. YELLOW (YELLOW); Glucose Urine UA NEGATIVE (NEGATIVE); Ketones Urine NEGATIVE (NEGATIVE); Leukocyte Esterase Urine TRACE (NEGATIVE); Nitrite Urine NEGATIVE (NEGATIVE); Protein Urine NEGATIVE (NEG/TRACE); Urobilinogen Urine 0.2 EU/dL (0.2-1.0)
[2023-03-25 11:13] LABS: Urine Microscopic Indicated YES
[2023-03-25 11:24] LABS: Bacteria Urine TRACE #/HPF (NONE SEEN); Cast Seen? NONE SEEN #/LPF (NONE SEEN); Crystals Seen? None Seen #/HPF (None Seen); Mucus Urine NONE SEEN (NONE SEEN); Squamous Epithelial Cell Urine FEW #/LPF (NONE/RARE); Urine Culture Indicated NO
[2023-03-25] MEDS: 0.9 % SODIUM CHLORIDE 1,000 ML 999 ML IV (11:57)
[2023-03-25 12:01] LABS: Glucometer 93 mg/dL (74-106)
[2023-03-25] MEDS: CEFAZOLIN SODIUM/DEXTROSE,ISO 2 GM/50 ML PIGGYBACK IV ×2 (12:08→18:41)
[2023-03-25] MEDS: LACTATED RINGER'S SOLUTION 1,000 ML 50 ML IV (12:44)
--- NOTE | 2023-03-25 13:15 | P.ON_ITS ---
Brief Operative Note Date of procedure: 03/25/23 Pre-op diagnosis: iup at 37wks, substance abuse, type 2 dm uncontrolled, breech presentation Post-op diagnosis: same as pre-op Procedure: NAME OF PROCEDURE: [ section with bilateral salpingectomy ] PROCEDURE: Patient was taken back to the Operating Room where she was given a spinal anesthesia with Duramorph without difficulty. She was prepped and draped in the normal sterile fashion. A Pfannenstiel skin incision was then made 2?cm above the symphysis pubis and carried down to underlying rectus fascia using a Bovie. The fascia was incised in the midline and extended laterally using Guerrero scissors. Two Oscar clamps were placed on the superior aspect of the fascia and dissected off the underlying rectus muscles. The same was performed on the inferior aspect as well. The muscles were then in the midline. Peritoneum was identified and entered bluntly. The peritoneum was then extended superiorly and inferiorly with good visualization of the bladder. The bladder blade was inserted. Vesicouterine peritoneum was identified, tented up, and entered with Metzenbaum scissors. A bladder flap was then created digitally. The bladder blade was reinserted. A low transverse incision was made on the patient's uterus and extended laterally digitally. The was then delivered atraumatically after the bladder blade was removed in the transverse position. The cord was clamped and cut. Cord blood was obtained. The was handed off to awaiting team. The patient's placenta was spontaneously delivered. The uterus was then exteriorized. The uterus was cleared of all clots and debr is. The bladder blade was reinserted. The patient's uterine incision was closed using #0 Vicryl in a running lock fashion. Excellent hemostasis was assured.? The rt tube was identified and grasped with babock, the ligasure was used to transect and ligate the tube in its entirity, this was done on the contralateral side as well. The uterus was then returned to the patient's abdomen. The patient's abdomen was copiously irrigated using warm saline. Peritoneal gutters were cleared of all clots and debris. Again excellent hemostasis was assured. The patient's fascia was closed using #0 Vicryl in a running fashion. The patient's skin was closed using 4-0 Vicryl subcuticularly. The patient tolerated the procedure well. Sponge, lap, and needle counts were correct x2. The patient was taken to the Recovery Room in stable condition. Anesthesia: spinal Surgeon: Danial Alegre Metal Sprayer Protective Coating: Fay Martinez Estimated blood loss (mL): 600 Pathology: other (placenta and tubes) Condition: stable Disposition: PACU
--- NOTE | 2023-03-25 13:18 | PM.OBPRCCS ---
Procedure Pre-op/Post-op diagnoses: Pre-Op/Post-Op Diagnoses Operation Date: 03/25/23 11:00 <No data on this case meets the specified criteria> Procedure: Procedures Operation Date: 03/25/23 11:00 Actual Procedure Side Surgeon p , salpingectomy Not Applicable Danial Alegre DO Community Relations Representative: Fay Martinez Estimated blood loss (mL): 600 Disposition: PACU Anesthesia type: Spinal
[2023-03-25] MEDS: OXYTOCIN/0.9 % SODIUM CHLORIDE 20 UNITS/1,000 ML PLAST..BAG 125 UNIT IV (13:36)
--- NOTE | 2023-03-25 16:00 | SWNOTE1 ---
LEONA called [facility] CPS to update them. LEONA spoke to Isabel. LEONA let her know baby is on vapotherm at this time. LEONA to call with update tomorrow morning.
--- NOTE | 2023-03-25 16:28 | PC.NURSE ---
Pt eating at this time.
--- NOTE | 2023-03-25 16:32 | PC.NURSE ---
Pt complaining of burning sensation from incision especially on the right side. RN discussing pain management options at this time. Pt states she would like ice pack at this time for incision.
--- NOTE | 2023-03-25 16:36 | PC.NURSE ---
Carole-care and pad changed at this time.
[2023-03-25 17:16] LABS: Glucometer 148 mg/dL (74-106)
--- NOTE | 2023-03-25 17:41 | W.PC.ACHO ---
Registration Status: ADM IN Primary Language: Latvian Preferred Language: Latvian Report given to Erin Madsen at 1700. Active Medications Generic Name Dose Route Start Last Admin Trade Name Freq PRN Reason Stop Dose Admin Al Hydroxide/Mg Hydroxide 2,400 mg 03/25/23 13:10 Magnesium Hydroxide 2,400 Mg/10 Ml Oral.Susp PO Q6H PRN Dyspepsia Alprazolam 0.5 mg 03/25/23 22:00 Alprazolam 0.5 Mg Tablet PO HS ROB Baclofen 10 mg 03/25/23 22:00 Baclofen 10 Mg Tablet PO QHS ROB Carboprost Tromethamine 250 mcg 03/25/23 04:22 Carboprost Tromethamine 250 Mcg/Ml 1 Ml Vial IM 03/26/23 13:00 Q15M PRN Bleeding Diphenhydramine HCl 25 mg 03/25/23 13:10 Diphenhydramine Hcl 50 Mg/Ml (1ml) Vial IV 03/26/23 13:14 Q6H PRN Itching Docusate Sodium 100 mg 03/26/23 09:00 Docusate Sodium 100 Mg Capsule PO BID ROB Duloxetine HCl 60 mg 03/25/23 22:00 Duloxetine Hcl 60 Mg Capsule.Dr PO HS ROB Enoxaparin Sodium 40 mg 03/25/23 01:00 Enoxaparin Sodium 40 Mg/0.4 Ml Syringe SUBQ Q24H ROB Gabapentin 800 mg 03/25/23 16:00 Gabapentin 400 Mg Capsule PO TID ROB Hydroxyzine Pamoate 50 mg 03/25/23 22:00 Hydroxyzine Pamoate 25 Mg Capsule PO HS ROB Sodium Chloride 1,000 mls @ 125 mls/hr 03/25/23 04:30 03/25/23 11:57 Sodium Chloride 0.9% 1,000 Ml IV 999 mls/hr .Q8H ROB Administration Cefazolin Sodium/Dextrose 2 gm in 50 mls @ 100 mls/hr 03/25/23 18:00 Ancef IV 03/25/23 18:29 ONCE ONE Oxytocin/Sodium Chloride 20 units in 1,000 mls @ 200 mls/hr 03/25/23 13:10 Pitocin 20 Unit/1,000 Ml-Ns IV 03/25/23 18:09 ONCE ONE Protocol Ibuprofen 800 mg 03/25/23 13:10 Ibuprofen 400 Mg Tablet PO Q8H PRN Pain Insulin Human Isoph/Insulin Regular 11 unit 03/25/23 16:30 Insulin Nph Hum/Reg Insulin Hm 1,000 Unit/10 Ml Vial SUBQ 03/25/23 16:31 HS ONE Insulin Human NPH 11 unit 03/25/23 22:00 Insulin Nph Human Isophane 300 Unit/3 Ml Vial SUBQ QHS ROB Ketorolac Tromethamine 30 mg 03/25/23 13:10 Ketorolac Tromethamine 30 Mg/Ml Vial IVP 03/27/23 13:11 Q6H PRN Pain Levothyroxine Sodium 100 mcg 03/26/23 06:30 Levothyroxine Sodium 100 Mcg Tablet PO ACB ROB Methylergonovine Maleate 0.2 mg 03/25/23 04:22 Methylergonovine Maleate 0.2 Mg/Ml Ampule IM 03/26/23 13:00 ONCE PRN Uterine Contractility/Contract Methylergonovine Maleate 0.2 mg 03/25/23 04:22 Methylergonovine Maleate 0.2 Mg Tablet PO 03/26/23 13:00 Q4H PRN Uterine Contractility/Contract Misoprostol 600 mcg 03/25/23 04:22 Misoprostol 100 Mcg Tablet PO 03/26/23 13:00 ONCE PRN Uterine Bleeding Misoprostol 800 mcg 03/25/23 04:22 Misoprostol 100 Mcg Tablet SL 03/26/23 13:00 ONCE PRN Uterine Bleeding Misoprostol 1,000 mcg 03/25/23 04:22 Misoprostol 100 Mcg Tablet MS 03/26/23 13:00 ONCE PRN Uterine Bleeding Humalog Kwikpen 5 unit 03/26/23 07:00 Insulin 100 Units/Ml SUBQ QD@0700 ROB Humalog Kwikpen 6 unit 03/26/23 17:00 Insulin 100 Unit/Ml SUBQ QD@1700 ROB Humalog Kwikpen 5 unit 03/25/23 22:00 Insulin 100 Units/Ml SUBQ HS ROB Buprenorphine Hcl 8 2 each 03/26/23 09:00 Mg Tablet PO QD ROB Non-Formulary Medication 3 mg 03/25/23 22:00 Vralar PO HS ROB Mirtazipine 7.5 Mg 1 each 03/25/23 22:00 Tablet PO QHS ROB Ondansetron HCl 4 mg 03/25/23 04:22 Ondansetron Pf 4 Mg/2 Ml Vial IV Q6H PRN Nausea And Vomiting Ondansetron HCl 4 mg 03/25/23 04:22 Ondansetron 4 Mg Rapdis Tablet SL Q6H PRN Nausea And Vomiting Oxytocin 10 unit 03/25/23 04:22 Oxytocin 10 Unit/Ml Vial IM 03/25/23 18:00 ONCE PRN Bleeding Promethazine HCl 12.5 mg 03/25/23 12:02 Promethazine Hcl 25 Mg/Ml Vial IV Q6H PRN Nausea And Vomiting Ropinirole HCl 2 mg 03/25/23 22:00 Ropinirole Hcl 1 Mg Tablet PO HS [facility] Senna 17.2 mg 03/25/23 20:00 Sennosides 8.6 Mg Tablet PO QHS PRN Constipation Simethicone 80 mg 03/25/23 13:10 Simethicone 80 Mg Tab.Chew PO QID PRN Abdominal Distention Spironolactone 50 mg 03/25/23 22:00 Spironolactone 100 Mg Tablet PO HS [facility] Diet Category Date Time Status Regular Consistency Diet Diet 03/25/23 13:10 Active Consults Category Date Time Status Consult to Anesthesiology Routine Cons 03/25/23 Ordered IV Insertion/Site Date of IV Line Insertion [ 03/25/23 Short PIV (<1.75 in) 20g right Antecubital] IV Insertion Time [Short PIV ( 05:20 <1.75 in) 20g right Antecubital] IV Catheter Type [Right Peripheral IV Antecubital] IV Catheter Type [Right Peripheral IV Antecubital] IV Catheter Type [Right Peripheral IV Antecubital] Neurology Patient orientation (short person,place,time,situation list) [place] coma scale total score 15 Samir coma scale total score 15 Samir coma scale total score 15 Respiratory Lung sounds [Throughout] clear Lung sounds [Throughout] clear Lung sounds [Throughout] clear Pulse Oximetry 98 Pulse Oximetry 98 Pulse Oximetry 98 Pulse Oximetry 98 Pulse Oximetry 99 Pulse Oximetry 99 Pulse Oximetry 99 Pulse Oximetry 99 Pulse Oximetry 98 Pulse Oximetry 99 Pulse Oximetry 99 Pulse Oximetry 99 Pulse Oximetry 99 Pulse Oximetry 99 Pulse Oximetry 99 Pulse Oximetry 100 Pulse Oximetry 100 Pulse Oximetry 100 Pulse Oximetry 100 Pulse Oximetry 100 Pulse Oximetry 99 Oxygen Delivery Method Room Air Oxygen Delivery Method Room Air Oxygen Delivery Method Nasal Cannula Oxygen Delivery Method Room Air Oxygen Delivery Flow Rate 4.5
[2023-03-25] MEDS: KETOROLAC TROMETHAMINE 30 MG/ML VIAL IVP (18:41)
[2023-03-25] MEDS: ONDANSETRON 4 MG RAPDIS TABLET SL (18:44)
--- NOTE | 2023-03-25 22:50 | W.PC.ACHO ---
Registration Status: ADM IN Primary Language: Japanese Preferred Language: Japanese Active Medications Generic Name Dose Route Start Last Admin Trade Name Freq PRN Reason Stop Dose Admin Al Hydroxide/Mg Hydroxide 2,400 mg 03/25/23 13:10 Magnesium Hydroxide 2,400 Mg/10 Ml Oral.Susp PO Q6H PRN Dyspepsia Alprazolam 0.5 mg 03/25/23 22:00 Alprazolam 0.5 Mg Tablet PO HS ROB Baclofen 10 mg 03/25/23 22:00 Baclofen 10 Mg Tablet PO QHS ROB Carboprost Tromethamine 250 mcg 03/25/23 04:22 Carboprost Tromethamine 250 Mcg/Ml 1 Ml Vial IM 03/26/23 13:00 Q15M PRN Bleeding Diphenhydramine HCl 25 mg 03/25/23 13:10 Diphenhydramine Hcl 50 Mg/Ml (1ml) Vial IV 03/26/23 13:14 Q6H PRN Itching Docusate Sodium 100 mg 03/26/23 09:00 Docusate Sodium 100 Mg Capsule PO BID ROB Duloxetine HCl 60 mg 03/25/23 22:00 Duloxetine Hcl 60 Mg Capsule.Dr PO HS [facility] Enoxaparin Sodium 40 mg 03/25/23 01:00 Enoxaparin Sodium 40 Mg/0.4 Ml Syringe SUBQ Q24H [facility] Gabapentin 800 mg 03/25/23 22:00 Gabapentin 400 Mg Capsule PO TID [facility] Hydroxyzine Pamoate 50 mg 03/25/23 22:00 Hydroxyzine Pamoate 25 Mg Capsule PO HS [facility] Sodium Chloride 1,000 mls @ 125 mls/hr 03/25/23 04:30 03/25/23 11:57 Sodium Chloride 0.9% 1,000 Ml IV 999 mls/hr .Q8H ROB Administration Ibuprofen 800 mg 03/25/23 13:10 Ibuprofen 400 Mg Tablet PO Q8H PRN Pain Insulin Human NPH 11 unit 03/25/23 22:00 Insulin Nph Human Isophane 300 Unit/3 Ml Vial SUBQ QHS ROB Ketorolac Tromethamine 30 mg 03/25/23 13:10 03/25/23 18:41 Ketorolac Tromethamine 30 Mg/Ml Vial IVP 03/27/23 13:11 30 mg Q6H PRN Administration Pain Levothyroxine Sodium 100 mcg 03/26/23 06:30 Levothyroxine Sodium 100 Mcg Tablet PO ACB ROB Methylergonovine Maleate 0.2 mg 03/25/23 04:22 Methylergonovine Maleate 0.2 Mg/Ml Ampule IM 03/26/23 13:00 ONCE PRN Uterine Contractility/Contract Methylergonovine Maleate 0.2 mg 03/25/23 04:22 Methylergonovine Maleate 0.2 Mg Tablet PO 03/26/23 13:00 Q4H PRN Uterine Contractility/Contract Misoprostol 600 mcg 03/25/23 04:22 Misoprostol 100 Mcg Tablet PO 03/26/23 13:00 ONCE PRN Uterine Bleeding Misoprostol 800 mcg 03/25/23 04:22 Misoprostol 100 Mcg Tablet SL 03/26/23 13:00 ONCE PRN Uterine Bleeding Misoprostol 1,000 mcg 03/25/23 04:22 Misoprostol 100 Mcg Tablet CA 03/26/23 13:00 ONCE PRN Uterine Bleeding Humalog Kwikpen 5 unit 03/26/23 07:00 Insulin 100 Units/Ml SUBQ QD@0700 [facility] Humalog Kwikpen 6 unit 03/26/23 17:00 Insulin 100 Unit/Ml SUBQ QD@1700 [facility] Humalog Kwikpen 5 unit 03/25/23 22:00 Insulin 100 Units/Ml SUBQ HS [facility] Buprenorphine Hcl 8 2 each 03/26/23 09:00 Mg Tablet PO QD [facility] Non-Formulary Medication 3 mg 03/25/23 22:00 Vralar PO HS [facility] Mirtazipine 7.5 Mg 1 each 03/25/23 22:00 Tablet PO QHS [facility] Ondansetron HCl 4 mg 03/25/23 04:22 Ondansetron Pf 4 Mg/2 Ml Vial IV Q6H PRN Nausea And Vomiting Ondansetron HCl 4 mg 03/25/23 04:22 03/25/23 18:44 Ondansetron 4 Mg Rapdis Tablet SL 4 mg Q6H PRN Administration Nausea And Vomiting Promethazine HCl 12.5 mg 03/25/23 12:02 Promethazine Hcl 25 Mg/Ml Vial IV Q6H PRN Nausea And Vomiting Ropinirole HCl 2 mg 03/25/23 22:00 Ropinirole Hcl 1 Mg Tablet PO HS [facility] Senna 17.2 mg 03/25/23 20:00 Sennosides 8.6 Mg Tablet PO QHS PRN Constipation Simethicone 80 mg 03/25/23 13:10 Simethicone 80 Mg Tab.Chew PO QID PRN Abdominal Distention Spironolactone 50 mg 03/25/23 22:00 Spironolactone 100 Mg Tablet PO HS ROB Diet Category Date Time Status Regular Consistency Diet Diet 03/25/23 13:10 Active Consults Category Date Time Status Consult to Anesthesiology Routine Cons 03/25/23 Ordered IV Insertion/Site Date of IV Line Insertion [ 03/25/23 Short PIV (<1.75 in) 20g right Antecubital] IV Insertion Time [Short PIV ( 05:20 <1.75 in) 20g right Antecubital] IV Catheter Type [Right Peripheral IV Antecubital] IV Catheter Type [Right Peripheral IV Antecubital] IV Catheter Type [Right Peripheral IV Antecubital] Neurology Patient orientation (short person,place,time,situation list) Samir coma scale total score 15 Samir coma scale total score 15 Samir coma scale total score 15 Respiratory Lung sounds [Throughout] clear Lung sounds [Throughout] clear Lung sounds [Throughout] clear Pulse Oximetry 98 Pulse Oximetry 98 Pulse Oximetry 98 Pulse Oximetry 98 Pulse Oximetry 99 Pulse Oximetry 99 Pulse Oximetry 99 Pulse Oximetry 99 Pulse Oximetry 98 Pulse Oximetry 99 Pulse Oximetry 99 Pulse Oximetry 99 Pulse Oximetry 99 Pulse Oximetry 99 Pulse Oximetry 99 Pulse Oximetry 100 Pulse Oximetry 100 Pulse Oximetry 100 Pulse Oximetry 100 Pulse Oximetry 100 Pulse Oximetry 99 Oxygen Delivery Method Room Air Oxygen Delivery Method Room Air Oxygen Delivery Method Nasal Cannula Oxygen Delivery Method Room Air Oxygen Delivery Flow Rate 4.5
[2023-03-25] MEDS: HYDROXYZINE PAMOATE 25 MG CAPSULE 50 MG PO (22:58)
[2023-03-25] MEDS: GABAPENTIN 400 MG CAPSULE 800 MG PO (22:59)
[2023-03-25] MEDS: DULOXETINE HCL 60 MG CAPSULE.DR PO (23:00)
[2023-03-25] MEDS: ALPRAZOLAM 0.5 MG TABLET PO (23:01)
[2023-03-25] MEDS: SPIRONOLACTONE 100 MG TABLET 50 MG PO (23:05)
[2023-03-25] MEDS: ROPINIROLE HCL 1 MG TABLET 2 MG PO (23:05)
[2023-03-26 00:48] VITALS: BP 137/67; PULSE 111; RESP 16; TEMP 36.6
[2023-03-26] MEDS: ENOXAPARIN SODIUM 40 MG/0.4 ML SYRINGE SUBQ (00:51)
[2023-03-26] MEDS: BACLOFEN 10 MG TABLET PO (00:52)
[2023-03-26] MEDS: KETOROLAC TROMETHAMINE 30 MG/ML VIAL IVP (02:56)
[2023-03-26 04:45] VITALS: BP 123/63; PULSE 110
[2023-03-26 05:52] LABS: Basophils Percent Auto 0.1 % (0.2-2.0); Eosinophils Absolute Auto 0.1 10^3/uL (0.0-0.7); Eosinophils Percent Auto 0.7 % (0.9-7.0); Hemoglobin 8.8 g/dL (12.0-16.0); Immature Granulocytes Abs Auto 0.08 10^3/uL (0.00-0.03); Immature Granulocytes Pct Auto 0.8 % (0.0-0.5); Lymphocytes Absolute Auto 2.3 10^3/uL (1.2-3.8); Lymphocytes Percent Auto 21.6 % (20.5-60.0); Mean Corpuscular HGB Conc 32.6 g/dL (29.9-35.2); Mean Corpuscular Hemoglobin 28.3 pg (26.7-34.0); Mean Corpuscular Volume 86.8 fL (81.0-99.0); Mean Platelet Volume 11.2 fL (9.5-13.5); Monocytes Absolute Auto 0.6 10^3/uL (0.3-0.8); Monocytes Percent Auto 5.4 % (1.7-12.0); Neutrophils Absolute Auto 7.5 10^3/uL (1.4-6.5); Neutrophils Percent Auto 71.4 % (43.0-75.0); Platelet Count 169 10^3/uL (150-450); Red Blood Count 3.11 10^6/uL (4.20-5.40); Red Cell Distribution Width 15.2 % (11.0-15.0); White Blood Count 10.5 10^3/uL (4.0-11.0)
[2023-03-26] MEDS: GABAPENTIN 400 MG CAPSULE 800 MG PO (06:42)
--- NOTE | 2023-03-26 07:47 | P.OBPN_ITS ---
OB - PN: Subj Subjective Patient comments: no complaints and pain well controlled [place] status: doing well Exam Constitutional Vital Signs, click to edit/add: Last Vital Signs Temp 97.9 F 03/26/23 00:48 Pulse 110 H 03/26/23 04:45 Resp 16 03/26/23 00:48 BP 123/63 03/26/23 04:45 Pulse Ox 98 03/25/23 15:20 O2 Del Method Room Air 03/25/23 13:54 O2 Flow Rate 4.5 03/25/23 13:24 Documenting provider has reviewed patient's vital signs: yes Common normals: no apparent distress Respiratory Common normals: normal respiratory effort and clear to auscultation bilaterally Cardio Common normals: regular rate and regular rhythm GI Common normals: Normal to inspection, nondistended, normoactive bowel sounds present Extremity Common normals: no clubbing, cyanosis or edema Results Labs Labs: Short CBC 03/26/23 Range/Units 05:42 WBC 10.5 (4.0-11.0) 10^3/uL Hgb 8.8 L (12.0-16.0) g/dL Hct 27.0 L (36.0-48.0) % Plt Count 169 (150-450) 10^3/uL Urine 03/25/23 Range/Units 09:45 Urine Color Lt. yellow (YELLOW) Urine Clarity Clear (CLEAR) Urine pH 7.0 (5.0-9.0) Ur Specific [place] 1.010 (1.005-1.025) Urine Protein Negative (NEG/TRACE) mg/dL Urine Glucose (UA) Negative (NEGATIVE) mg/dL OB - PN: A/P Plan - Plan: routine postop care Time Spent with Patient Time: Total time spent is greater than 50% in coordination of care (as documented) at patient's floor/unit and/or counseling patient: Total time spent with greater than 50% in coordination of care (as documented) at patient's floor/unit and/or counseling patient: less than 15 minutes
[2023-03-26 07:52] VITALS: BP 125/74; PULSE 117
[2023-03-26 08:00] VITALS: RESP 18; TEMP 36.7
--- NOTE | 2023-03-26 09:38 | PC.NURSE ---
0835 refuses insulin this am, states does not take at home and did FBS this am and was 112
--- NOTE | 2023-03-26 09:40 | PC.NURSE ---
0900 Refused am insulin, fbs 128 per pt, states does not take insulin at home as it gives her blisters on her tongue, up to shower and dsg removed, steristrips dry and intact, pt anxious for discharge
--- NOTE | 2023-03-26 09:42 | PC.NURSE ---
6015 Dr Alegre in and talks with pt
--- NOTE | 2023-03-26 09:48 | SWNOTE1 ---
SW was able to speak with pt. Baby was transferred to [facility]. Pt and father of baby did move to [place] and live in [facility] now. Pt is prescribed the subutex. Initially it was Shila Owen prescribing. Pt states she now does it through a tablet through [facility]. She is also drug screened. She plans to wean off of subutex and be completely clean. 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 Pt also goes to counseling and sees Grisel at [place] in [place] 2x weekly. SW did ask how baby was doing in [place]. She stated he is on room air now and doing well. Pt voiced she is going to go up there to see him once she leaves today. Pt did voice she has a good support system. Lives with father of baby. Pt did voice they have everything at home for baby. SW did ask about her other children. She has a 14, 12, and 11 year old. She has 50/50 custody of 14 year old with the father. Pt voiced she sees her all the time. The 12 and 11 year old have a different father. Her sister has custody of them. She is working on getting custody of them. SW did let her know as mandated reported SW has to call report in to CPS. Pt did voice some frustrations with [facility] CPS. SW let her know since she is in [facility] now, the report will be made to them. No current open cases with CPS. SW called [facility] to let them know pt is in [facility] now and SW to report to them. LEONA called in report to [facility]. HIPAA form filled out and sent to Lisa. LEONA called LEONA Shoemaker at [place], to update her as well. Cord was sent out.
--- NOTE | 2023-04-12 | DS_ITS ---
DISCHARGE DATE: ??04/12/2023 PRIMARY DIAGNOSES: 1.? Intrauterine at 37 weeks. 2.? Type 2 diabetes, uncontrolled. 3.? Breech presentation. PROCEDURE:? section with bilateral salpingectomy. HOSPITAL COURSE:? As expected.? Please see chart for full details.? LABORATORY DATA:? Please see chart. COMPLICATIONS:? None. DISCHARGE CONDITION:? Stable. CONSULTATION:? Anesthesia. DISCHARGE INSTRUCTIONS: 1.? Diet:? Regular. 2.? Medications: a.? Percocet 5/325 one to two p.o. every 4-6 hours p.r.n. pain. b.? Motrin 800 one p.o. every 8 hours p.r.n. pain. 3.? Followup in one week. Restrictions:? Pelvic rest for 6 weeks.? No heavy lifting.? May drive when pain free and no longer on narcotics. MTDD
== END 2023-03-26 10:35 | disposition home or self-care (01) | DRG 539 ==
PROVIDERS: Admitting Provider Obstetrics & Gynecology; PCP Nurse Practitioner Family; Visit Provider Obstetrics & Gynecology
PROC: 10D00Z1 Extraction of Products of Conception, Low, Open Approach (ICD-10-PCS; CPT 59514; principal; 2023-03-25 11:00)
DX: O32.1XX0 Maternal care for breech presentation, not applicable or unspecified (principal); O24.414 Gestational diabetes mellitus in pregnancy, insulin controlled; O99.324 Drug use complicating childbirth; F11.20 Opioid dependence, uncomplicated; O99.344 Other mental disorders complicating childbirth; F31.9 Bipolar disorder, unspecified; F41.9 Anxiety disorder, unspecified; O99.284 Endocrine, nutritional and metabolic diseases complicating childbirth; E03.9 Hypothyroidism, unspecified; O99.62 Diseases of the digestive system complicating childbirth; K21.9 Gastro-esophageal reflux disease without esophagitis; O99.892 Other specified diseases and conditions complicating childbirth; M79.7 Fibromyalgia; Z3A.37 37 weeks gestation of pregnancy; Z37.0 Single live birth; Z30.2 Encounter for sterilization; Z82.49 Family history of ischemic heart disease and other diseases of the circulatory system; Z82.61 Family history of arthritis; Z82.5 Family history of asthma and other chronic lower respiratory diseases; Z81.8 Family history of other mental and behavioral disorders; Z80.9 Family history of malignant neoplasm, unspecified
CPT/HCPCS: 36415; 51702; 76815; 76818; 80307; 81001; 85025; 85027; 86850; 86900; 86901; 87522; 88302; 88307; 94667; 96372; 96374

== ENCOUNTER 2023-03-30 09:14 | Outpatient (OUT) | payer OTHER, SELFPAY ==
--- NOTE | 2023-03-30 12:36 | PC.NURSE ---
Doris declines to have assessment and VS completed. States is only here to get assistance with feeding the baby.
== END 2023-03-30 11:45 | disposition home or self-care (01) ==
LOC: FBCO 09:16
PROVIDERS: PCP Nurse Practitioner Family; Visit Provider Obstetrics & Gynecology
DX: Z39.2 Encounter for routine postpartum follow-up (principal)

== ENCOUNTER 2023-03-31 17:17 | Emergency (ER) | payer OTHER, SELFPAY ==
[2023-03-31 17:30] VITALS: BP 130/95; PULSE 103; RESP 18; TEMP 36.5; O2SAT 99; BMI 40.1
--- NOTE | 2023-03-31 17:54 | ECG_ITS ---
[facility] Test Date: 2023-03-31 Pat Name: SIMIN SAUCEDA Department: Room: - Gender: Female Spice Fumigator: : 1990 Requested By: MARCELA LUTZ Order Number: [id number] Reading MD: MARCELA LUTZ Measurements Intervals [place] Rate: 98 P: 67 AK: 144 QRS: 72 QRSD: 82 T: 36 QT: 362 QTc: 417 Interpretive Statements 1100 Sinus rhythm 9110 normal ECG No previous ECG available for comparison Electronically Signed On 04-02-2023 6:20:57 EST by MARCELA LUTZ
--- NOTE | 2023-03-31 18:01 | ED_ITS ---
HPI - Chest Pain General Chief Complaint: Chest Pain Stated Complaint: ABD PAIN CHEST PAIN Time Seen by Provider: 03/31/23 17:40 Source: patient Mode of arrival: walk-in Limitations: no limitations History of Present Illness HPI narrative: 33-year-old female presents with chief complaint of cough congestion chest pain. She is post on 03/25/2023. She was seen yesterday by her UNDERGROUND DISTRIBUTION ENGINEER for pain. She states she continues to have pain today and was seen by her primary care physician sent here to the emergency room for evaluation. Patient's lung sounds are clear. She does have a history of asthma. Patient is currently afebrile. Related Data Home Medications Medication Instructions Recorded Confirmed albuterol sulfate 90 mcg/actuation 2 puff inhalation Q6H PRN 11/18/22 11/18/22 aerosol inhaler (Ventolin HFA) shortness of breath or wheezing alprazolam 0.5 mg tablet 0.5 mg PO QPM PRN anxiety 11/18/22 03/25/23 baclofen 10 mg tablet 10 mg PO BEDTIME 11/18/22 03/25/23 buprenorphine 8 mg-naloxone 2 mg 2 tab sublingual QDAY 11/18/22 03/25/23 sublingual tablet buprenorphine HCl 8 mg sublingual 16 mg sublingual DAILY 11/18/22 03/25/23 tablet bupropion HCl 150 mg 24 hr tablet, 150 mg PO DAILY 11/18/22 11/18/22 extended release cariprazine 3 mg capsule (Vraylar) 3 mg PO Q24H 11/18/22 03/25/23 gabapentin 800 mg tablet 800 mg PO TID 11/18/22 03/25/23 hydrocodone 5 mg-acetaminophen 325 1 tab PO Q6H PRN pain 11/18/22 11/18/22 mg tablet hydroxyzine pamoate 50 mg capsule 50 mg PO Q8H 11/18/22 03/25/23 levothyroxine 100 mcg tablet 100 mcg PO .ACB 11/18/22 03/25/23 mirtazapine 15 mg tablet 7.5 mg PO QPM 11/18/22 03/25/23 pregabalin 150 mg capsule 450 mg PO Q12H 11/18/22 11/18/22 ropinirole 1 mg tablet 1 mg PO BEDTIME 11/18/22 11/18/22 spironolactone 100 mg tablet 50 mg PO QAM 11/18/22 03/25/23 duloxetine 60 mg capsule,delayed 60 mg PO DAILY 03/25/23 03/25/23 release (Cymbalta) hydroxyzine pamoate 50 mg capsule 50 mg PO DAILY 03/25/23 03/25/23 (Vistaril) vits no.23-iron psac 155 cap PO 03/25/23 mg iron-folic acid 1,000 mcg capsule ropinirole 2 mg tablet 2 mg PO DAILY 03/25/23 03/25/23 Previous Rx's Medication Instructions Recorded hydrocodone 5 mg-acetaminophen 325 1 tab PO Q4H PRN pain 4 days #16 03/26/23 mg tablet tabs ibuprofen 800 mg tablet 800 mg PO Q8H PRN pain 14 days #40 03/26/23 tabs Allergies Allergy/AdvReac Type Severity Reaction Status Date / Time acetaminophen [From Fioricet] Allergy Unknown Verified 03/31/23 17:30 butalbital [From Fioricet] Allergy Unknown Verified 03/31/23 17:30 caffeine [From Fioricet] Allergy Unknown Verified 03/31/23 17:30 zonisamide [From Zonegran] AdvReac Mild Rash Verified 03/31/23 17:30 Review of Systems ROS Narrative All Systems are negative except as noted/marked.All systems reviewed and otherwise negative [facility] Medical History (Updated 03/31/23 @ 19:06 by Sharron Toure) Current every day vaping ?Z72.89 - Other problems related to lifestyle (ICD-10) Diabetes ?E11.9 - Type 2 diabetes mellitus without complications (ICD-10) Drug abuse ?F19.10 - Other psychoactive substance abuse, uncomplicated (ICD-10) H/O nephrolithotomy with removal of calculi ?Z98.890 - Other specified postprocedural states (ICD-10) ?Z87.442 - Personal history of urinary calculi (ICD-10) Kim's thyroiditis ?E06.3 - Autoimmune thyroiditis (ICD-10) Hepatitis C ?B19.20 - Unspecified viral hepatitis C without hepatic coma (ICD-10) Hx LEEP (loop electrosurgical excision procedure), cervix, ?O34.40 - Maternal care for other abnormalities of cervix, unspecified trimester (ICD-10) ?Z98.890 - Other specified postprocedural states (ICD-10) Miscarriage ?O03.9 - Complete or unspecified spontaneous without complication (ICD-10) Umbilical cord, velamentous insertion ?O43.129 - Velamentous insertion of umbilical cord, unspecified trimester (ICD-10) Surgical History (Updated 03/25/23 @ 06:04 by Moses Pete) H/O dilation and curettage ?Z98.890 - Other specified postprocedural states (ICD-10) History of tonsillectomy ?Z90.89 - Acquired absence of other organs (ICD-10) Social History Smoking status: Current every day smoker Exam Narrative Exam Narrative: Nurses note and vital signs reviewed and patient is not hypoxic. General: The patient appears well and in no apparent distress. Patient is resting comfortably on cart. Skin: Warm, dry, no pallor noted. pfannenstiel incision healing well Head: Normocephalic, atraumatic Eye: Normal conjunctiva, no drainage, EOMI. PERRL Ears, Nose, Mouth, and Throat: oral mucosa is moist. Nares patent. Mouth without vesicles. Ear canals patent. Tm's without Erythema Cardiovascular: Regular Rate and Rhythm Respiratory: Patient is in no distress, no accessory muscle use, lungs are clear to auscultation, no wheezing, rales or rhonchi GI: Normal bowel sounds, no tenderness to palpation, no masses appreciated. No rebound, guarding, or rigidity noted. Musculoskeletal: Chronic bilateral lower extremity edema, no calf tenderness, lower extremities equal bilaterally Neurological: A&O x4, normal speech Psychiatric: Cooperative Constitutional Vital Signs, click to edit/add: Last Vital Signs Temp 97.7 F 03/31/23 17:30 Pulse 103 H 03/31/23 17:30 Resp 18 03/31/23 17:30 BP 130/95 H 03/31/23 17:30 Pulse Ox 99 03/31/23 17:30 O2 Del Method Room Air 03/31/23 17:30 Course Vital Signs Vital signs: Vital Signs Temperature 97.7 F 03/31/23 17:30 Pulse Rate 103 H 03/31/23 17:30 Respiratory Rate 18 03/31/23 17:30 Blood Pressure 130/95 H 03/31/23 17:30 Pulse Oximetry 99 03/31/23 17:30 Oxygen Delivery Method Room Air 03/31/23 17:30 Temperature 97.7 F 03/31/23 17:30 Pulse Rate 103 H 03/31/23 17:30 Respiratory Rate 18 03/31/23 17:30 Blood Pressure 130/95 H 03/31/23 17:30 Pulse Oximetry 99 03/31/23 17:30 Oxygen Delivery Method Room Air 03/31/23 17:30 MDM - Chest Pain Medical Records Data Attestation: I reviewed the patient's medical records. Medical records narrative: Patient presented to the emergency room chief complaint bilateral lower extremity swelling that she has had since . She is post . CBC BMP troponin are all within normal limits chest x-ray is also normal. Patient was seen by her UNDERGROUND DISTRIBUTION ENGINEER yesterday discharged home with pain medicine. She states she then followed up today with her primary care physician who sent her here to rule out cellulitis. I do not appreciate cellulitis redness or infection to her lower extremities or abdomen. Steri-Strips from her friend seal incision were removed by myself. Incision is healing well. Patient was given prescription of [place] yesterday. Patient told to take as prescribed. Follow up as necessary. Lab Data Attestation: I reviewed the patient's lab results. Labs: Lab Results 03/31/23 Range/Units 17:25 WBC 9.4 (4.0-11.0) 10^3/uL RBC 3.34 L (4.20-5.40) 10^6/uL Hgb 9.3 L (12.0-16.0) g/dL Hct 29.1 L (36.0-48.0) % MCV 87.1 (81.0-99.0) fL MCH 27.8 (26.7-34.0) pg MCHC 32.0 (29.9-35.2) g/dL RDW 14.3 (11.0-15.0) % Plt Count 289 (150-450) 10^3/uL MPV 10.6 (9.5-13.5) fL Neut % (Auto) 66.7 (43.0-75.0) % Lymph % (Auto) 23.2 (20.5-60.0) % [place] % (Auto) 6.6 (1.7-12.0) % Eos % (Auto) 1.8 (0.9-7.0) % Baso % (Auto) 0.2 (0.2-2.0) % Neut # (Auto) 6.3 (1.4-6.5) 10^3/uL Lymph # (Auto) 2.2 (1.2-3.8) 10^3/uL [place] # (Auto) 0.6 (0.3-0.8) 10^3/uL Eos # (Auto) 0.2 (0.0-0.7) 10^3/uL Baso # (Auto) 0.0 (0.0-0.1) 10^3/uL Abs Immat Gran (auto) 0.14 H (0.00-0.03) 10^3/uL Imm/Tot Granulo (auto) 1.5 H (0.0-0.5) % Sodium 137 (136-145) mmol/L Potassium 3.3 L (3.5-5.1) mmol/L Chloride 100 (98-107) mmol/L Carbon Dioxide 29.3 (21.0-32.0) mmol/L Anion Gap 11.0 BUN 9.0 (7.0-18.0) mg/dL Creatinine 0.71 (0.55-1.02) mg/dL Est GFR ( Amer) >60 (>=60) Est GFR (Non-Af Amer) >60 (>=60) BUN/Creatinine Ratio 12.7 Glucose 111 H (74-106) mg/dL Calcium 8.6 (8.5-10.1) mg/dL Total Bilirubin 0.2 (0.2-1.0) mg/dL AST 20 (15-37) U/L ALT 19 (14-59) U/L Alkaline Phosphatase 99 (46-116) U/L Troponin I High Sens 4.9 (4.0-51.3) pg/mL Total Protein 6.4 (6.4-8.2) g/dL Albumin 2.4 L (3.4-5.0) g/dL Globulin 4.0 g/dL Albumin/Globulin Ratio 0.6 Imaging Data Chest x-ray: Attestation: I have reviewed the pertinent imaging results. My impression: neg ECG Data Attestation: ?I have reviewed the pertinent ECG results. Interpretation: 1736 Sinus rhythm with a rate of 98 bpm, CA interval 144 ms qrs 82 ms, no STEMI Heart Score History: Slightly/Non-Suspicious ECG: Normal Age: <45 years Risk Factors: 1 or 2 Risk Factors Troponin: <Normal Limit Total Heart Score Recommendations & Risks:: 1 Discharge Plan Discharge Chief Complaint: Chest Pain Clinical Impression: Chest wall pain, Post-op pain Patient Disposition: Home, Self-Care Time of Disposition Decision: 19:06 Condition: Good Prescriptions / Home Meds: No Action ropinirole 1 mg tablet 1 mg PO BEDTIME hydrocodone-acetaminophen 5-325 mg tablet 1 tab PO Q6H PRN (Reason: pain) spironolactone 100 mg tablet 50 mg PO QAM hydroxyzine pamoate 50 mg capsule 50 mg PO Q8H Hold Instructions: Doctor's Order levothyroxine 100 mcg tablet 100 mcg PO .ACB alprazolam 0.5 mg tablet 0.5 mg PO QPM PRN (Reason: anxiety) gabapentin 800 mg tablet 800 mg PO TID baclofen 10 mg tablet 10 mg PO BEDTIME mirtazapine 15 mg tablet 7.5 mg PO QPM albuterol sulfate [Ventolin HFA] 90 mcg/actuation HFA aerosol inhaler 2 puff INHALATION Q6H PRN (Reason: shortness of breath or wheezing) buprenorphine-naloxone 8-2 mg tablet, sublingual 2 tab SUBLINGUAL QDAY Hold Instructions: Order Change buprenorphine HCl 8 mg tablet, sublingual 16 mg sublingual DAILY bupropion HCl 150 mg tablet extended release 24 hr 150 mg PO DAILY pregabalin 150 mg capsule 450 mg PO Q12H Vraylar 3 mg capsule 3 mg PO Q24H duloxetine [Cymbalta] 60 mg capsule,delayed release(DR/EC) 60 mg PO DAILY ropinirole 2 mg tablet 2 mg PO DAILY multivit no.50-iron comp-folic 155-1,000 mg iron-mcg capsule PO hydroxyzine pamoate [Vistaril] 50 mg capsule 50 mg PO DAILY ibuprofen 800 mg tablet 800 mg PO Q8H PRN (Reason: pain) 14 Days Qty: 40 0RF hydrocodone-acetaminophen 5-325 mg tablet 1 tab PO Q4H PRN (Reason: pain) 4 Days Qty: 16 0RF Instructions: Chest Wall Pain (ED), Pain Management After Surgery (DC) Stand Alone Forms: Portal Instructions Referrals: ROXANNE SELLERS [Primary Care Provider] - 1 week
[2023-03-31 18:06] LABS: Basophils Percent Auto 0.2 % (0.2-2.0); Eosinophils Absolute Auto 0.2 10^3/uL (0.0-0.7); Eosinophils Percent Auto 1.8 % (0.9-7.0); Hematocrit 29.1 % (36.0-48.0); Hemoglobin 9.3 g/dL (12.0-16.0); Immature Granulocytes Abs Auto 0.14 10^3/uL (0.00-0.03); Immature Granulocytes Pct Auto 1.5 % (0.0-0.5); Lymphocytes Absolute Auto 2.2 10^3/uL (1.2-3.8); Lymphocytes Percent Auto 23.2 % (20.5-60.0); Mean Corpuscular Hemoglobin 27.8 pg (26.7-34.0); Mean Corpuscular Volume 87.1 fL (81.0-99.0); Mean Platelet Volume 10.6 fL (9.5-13.5); Monocytes Absolute Auto 0.6 10^3/uL (0.3-0.8); Monocytes Percent Auto 6.6 % (1.7-12.0); Neutrophils Absolute Auto 6.3 10^3/uL (1.4-6.5); Neutrophils Percent Auto 66.7 % (43.0-75.0); Platelet Count 289 10^3/uL (150-450); Red Blood Count 3.34 10^6/uL (4.20-5.40); Red Cell Distribution Width 14.3 % (11.0-15.0); White Blood Count 9.4 10^3/uL (4.0-11.0)
[2023-03-31 18:24] LABS: Alanine Aminotransferase 19 U/L (14-59); Albumin Globulin Ratio 0.6; Albumin Level 2.4 g/dL (3.4-5.0); Alkaline Phosphatase 99 U/L (46-116); Aspartate Amino Transferase 20 U/L (15-37); BUN Creatinine Ratio 12.7; Bilirubin Total 0.2 mg/dL (0.2-1.0); Calcium 8.6 mg/dL (8.5-10.1); Carbon Dioxide 29.3 mmol/L (21.0-32.0); Chloride 100 mmol/L (98-107); Estimated GFR (African America >60 (>=60); Estimated GFR (Non-African Ame >60 (>=60); Glucose 111 mg/dL (74-106); Potassium 3.3 mmol/L (3.5-5.1); Sodium 137 mmol/L (136-145); Total Protein 6.4 g/dL (6.4-8.2)
[2023-03-31 18:26] LABS: Troponin I High Sensitivity 4.9 pg/mL (4.0-51.3)
--- NOTE | 2023-03-31 18:45 | XR_ITS ---
The [address] [address] Patient Name: SIMIN SAUCEDA MRN: [id number] date: 1990 Sex: F Assigned Patient Location: ER Current Patient Location: ED.MAIN Accession/Order Number: [id number] Exam Date: 03/31/2023 18:40 Report Date: 03/31/2023 19:16 At the request of: AMY COLEMAN Procedure: XR chest 2V EXAM: XR chest 2V HISTORY: cough COMPARISON: None. TECHNIQUE: PA and lateral views FINDINGS: The cardiovascular silhouette is normal. Lung lam are well-expanded and clear. Pleural spaces are clear. The bony structures are unremarkable. XR/XR chest 2V IMPRESSION: No evidence for acute cardiopulmonary disease. Electronically authenticated by: Brielle BRITTON Date: 03/31/2023 19:16
[2023-03-31] MEDS: KETOROLAC TROMETHAMINE 30 MG/ML VIAL IVP (19:25)
[2023-03-31 19:29] VITALS: BP 130/95; PULSE 93; RESP 18; O2SAT 97
== END 2023-03-31 19:47 | disposition home or self-care (01) ==
PROVIDERS: Physician Assistant; Emergency Provider Emergency Medicine; PCP Nurse Practitioner Family
DX: O90.89 Other complications of the puerperium, not elsewhere classified (principal); G89.18 Other acute postprocedural pain; R07.9 Chest pain, unspecified; O99.285 Endocrine, nutritional and metabolic diseases complicating the puerperium; E06.3 Autoimmune thyroiditis; Z87.442 Personal history of urinary calculi; O99.325 Drug use complicating the puerperium; F19.10 Other psychoactive substance abuse, uncomplicated; O99.335 Smoking (tobacco) complicating the puerperium; F17.290 Nicotine dependence, other tobacco product, uncomplicated; O24.93 Unspecified diabetes mellitus in the puerperium; J45.909 Unspecified asthma, uncomplicated; Z79.899 Other long term (current) drug therapy; Z98.890 Other specified postprocedural states
CPT/HCPCS: 36415; 71046; 80053; 84484; 85025; 93005; 96374; 99285

== ENCOUNTER 2023-09-13 08:09 | Emergency (ER) | payer OTHER, SELFPAY ==
[2023-09-13 08:14] VITALS: BP 121/76; PULSE 90; TEMP 36.8; O2SAT 100; BMI 40.6
--- NOTE | 2023-09-13 09:04 | ED_ITS ---
HPI HPI - General Adult General Chief complaint: Headache Stated complaint: HEADACHE/ ITCHY EYE Time Seen by Provider: 09/13/23 08:19 Source: patient Mode of arrival: walk-in History of Present Illness HPI narrative: A 33-year-old female with history of migraines in the emergency department with migraine. Patient reports that she had onset of a typical migraine over the last twenty-four hours. He has not responded to conservative therapy at home. Reports it is typical in nature for her, no vision change, numbness, weakness, tingling, difficulty walking. Patient reports that she has had some discomfort in her right upper eyelid and some redness which she believes has set off the migraines. She denies any fever, sweats, chills. Denies any neck stiffness. Related Data Home Medications ?Medication ?Instructions ?Recorded ?Confirmed albuterol sulfate 90 mcg/actuation 2 puff inhalation Q6H PRN 11/18/22 11/18/22 aerosol inhaler (Ventolin HFA) shortness of breath or wheezing alprazolam 0.5 mg tablet 0.5 mg PO QPM PRN anxiety 11/18/22 03/25/23 baclofen 10 mg tablet 10 mg PO BEDTIME 11/18/22 03/25/23 buprenorphine 8 mg-naloxone 2 mg 2 tab sublingual QDAY 11/18/22 03/25/23 sublingual tablet buprenorphine HCl 8 mg sublingual 16 mg sublingual DAILY 11/18/22 03/25/23 tablet bupropion HCl 150 mg 24 hr tablet, 150 mg PO DAILY 11/18/22 11/18/22 extended release cariprazine 3 mg capsule (Vraylar) 3 mg PO Q24H 11/18/22 03/25/23 gabapentin 800 mg tablet 800 mg PO TID 11/18/22 03/25/23 hydrocodone 5 mg-acetaminophen 325 1 tab PO Q6H PRN pain 11/18/22 11/18/22 mg tablet hydroxyzine pamoate 50 mg capsule 50 mg PO Q8H 11/18/22 03/25/23 levothyroxine 100 mcg tablet 100 mcg PO .ACB 11/18/22 03/25/23 mirtazapine 15 mg tablet 7.5 mg PO QPM 11/18/22 03/25/23 pregabalin 150 mg capsule 450 mg PO Q12H 11/18/22 11/18/22 ropinirole 1 mg tablet 1 mg PO BEDTIME 11/18/22 11/18/22 spironolactone 100 mg tablet 50 mg PO QAM 11/18/22 03/25/23 duloxetine 60 mg capsule,delayed 60 mg PO DAILY 03/25/23 03/25/23 release (Cymbalta) hydroxyzine pamoate 50 mg capsule 50 mg PO DAILY 03/25/23 03/25/23 (Vistaril) vits no.23-iron psac 155 cap PO 03/25/23 mg iron-folic acid 1,000 mcg capsule ropinirole 2 mg tablet 2 mg PO DAILY 03/25/23 03/25/23 Previous Rx's ?Medication ?Instructions ?Recorded hydrocodone 5 mg-acetaminophen 325 1 tab PO Q4H PRN pain 4 days #16 03/26/23 mg tablet tabs ibuprofen 800 mg tablet 800 mg PO Q8H PRN pain 14 days #40 03/26/23 tabs cephalexin 500 mg capsule 500 mg PO Q6H 5 days #20 caps 09/13/23 erythromycin 5 mg/gram (0.5 %) eye 1 applic ophthalmic (eye) Q6H #3.5 09/13/23 ointment grams Allergies Allergy/AdvReac Type Severity Reaction Status Date / Time acetaminophen [From Fioricet] Allergy Unknown Verified 03/31/23 17:30 butalbital [From Fioricet] Allergy Unknown Verified 03/31/23 17:30 caffeine [From Fioricet] Allergy Unknown Verified 03/31/23 17:30 zonisamide [From Zonegran] AdvReac Mild Rash Verified 03/31/23 17:30 Opioid HPI Opioid Management Most Recent Opioid Data: Last Pain Scale 6 03/26/23 02:56 Ur Phencyclidine Scrn Negative (NEGATIVE) 03/25/23 04:30 Review of Systems ROS Status of ROS 10 or more systems reviewed and unremark able except as noted in history and below [facility] Medical History (Updated 09/13/23 @ 09:55 by Wicho Christian MD) H/O nephrolithotomy with removal of calculi ?Z98.890 - Other specified postprocedural states (ICD-10) ?Z87.442 - Personal history of urinary calculi (ICD-10) Hx LEEP (loop electrosurgical excision procedure), cervix, ?O34.40 - Maternal care for other abnormalities of cervix, unspecified trimester (ICD-10) ?Z98.890 - Other specified postprocedural states (ICD-10) Umbilical cord, velamentous insertion ?O43.129 - Velamentous insertion of umbilical cord, unspecified trimester (ICD-10) Drug abuse ?F19.10 - Other psychoactive substance abuse, uncomplicated (ICD-10) Current every day vaping ?Z72.89 - Other problems related to lifestyle (ICD-10) Kim's thyroiditis ?E06.3 - Autoimmune thyroiditis (ICD-10) Miscarriage ?O03.9 - Complete or unspecified spontaneous without complication (ICD-10) Diabetes ?E11.9 - Type 2 diabetes mellitus without complications (ICD-10) Hepatitis C ?B19.20 - Unspecified viral hepatitis C without hepatic coma (ICD-10) Surgical History (Updated 03/25/23 @ 06:04 by Moses Pete) H/O dilation and curettage ?Z98.890 - Other specified postprocedural states (ICD-10) History of tonsillectomy ?Z90.89 - Acquired absence of other organs (ICD-10) Social History Smoking status: Current every day smoker Exam Narrative Exam Narrative: VITALS: I have reviewed the triage vital signs. GENERAL: Well developed, well appearing adult in no acute distress. NEURO: Alert and oriented x4. Moves all extremities. Face is symmetric and expressive. Cranial nerves II through XII grossly intact as tested. Muscular strength and sensation grossly intact upper and lower extremities bilaterally. No dysarthria. No aphasia. No ataxia. Normal gait. NIHSS 0. EYES: PERRL. No scleral icterus or conjunctival injection. No discharge. There is a small amount of redness at the margin of the right upper eyelid concerning for blepharitis/early chalazion. HENT: Normocephalic, atraumatic. Hearing is grossly intact. Nares grossly patent and without discharge. Mucous membranes moist. NECK: No JVD. Patient moves neck without restriction. CARDIO: Rhythm regular. Normal rate. No murmur, rub, or gallop. Pulses equal bilaterally in the upper and lower extremity. No lower extremity edema. PULM: Lungs clear to auscultation in all lam. No wheezes, rales, or rhonchi. No conversational dyspnea. No splinting, stridor, or accessory muscle use. GI/: Abdomen is soft and non-tender. Normoactive bowel sounds. EXTREMITIES: Symmetric muscle bulk. No joint swelling. No clubbing, cyanosis, or deformity. SKIN: Warm and dry. Normal turgor. No rash or lesions appreciated. PSYCH: Mood, affect, and interaction is appropriate to the setting. Constitutional Vital Signs, click to edit/add: Last Vital Signs Temp 98.2 F 09/13/23 08:14 Pulse 90 09/13/23 08:14 Resp 18 09/13/23 08:14 BP 121/76 09/13/23 08:14 Pulse Ox 100 09/13/23 08:14 O2 Del Method Room Air 09/13/23 08:14 Course Vital Signs Vital signs: Vital Signs Temperature 98.2 F 09/13/23 08:14 Pulse Rate 90 09/13/23 08:14 Respiratory Rate 18 09/13/23 08:14 Blood Pressure 121/76 09/13/23 08:14 Pulse Oximetry 100 09/13/23 08:14 Oxygen Delivery Method Room Air 09/13/23 08:14 Temperature 98.2 F 09/13/23 08:14 Pulse Rate 90 09/13/23 08:14 Respiratory Rate 18 09/13/23 08:14 Blood Pressure 121/76 09/13/23 08:14 Pulse Oximetry 100 09/13/23 08:14 Oxygen Delivery Method Room Air 09/13/23 08:14 Medical Decision Making [facility] Narrative Medical decision making narrative: 33-year-old female emergency department complaining of typical migraine. Concern about right eye. Stable, patient is afebrile. Neurologic examination is nonfocal. There is no indication for further imaging or workup of her typical migraines. She agrees with this plan. We'll treat with migraine cocktail. We'll proceed with fluorescein and tetracaine staining of the right eye. Patient's migraine resolved with her migraine cocktail. Fluorescein staining revealed no acute abnormality of the right eye. Will treat for Chalazion with surrounding cellulitis/ Blepharitis. She will follow-up with her eye doctor. Erythromycin and Keflex are prescribed. Return precautions were discussed. All questions were answered. The patient was discharged home. Discharge Plan Discharge Stand Alone Forms: Portal Instructions Chief Complaint: Headache Clinical Impression: Chalazion of right eyelid, Migraine, Blepharitis of eyelid of right eye Patient Disposition: Home, Self-Care Time of Disposition Decision: 09:56 Condition: Good Mode of Transportation: Private Vehicle Prescriptions / Home Meds: New cephalexin 500 mg capsule 500 mg PO Q6H 5 Days Qty: 20 0RF erythromycin 5 mg/gram (0.5 %) ointment 1 applic ophthalmic (eye) Q6H Qty: 3.5 0RF No Action ropinirole 1 mg tablet 1 mg PO BEDTIME hydrocodone-acetaminophen 5-325 mg tablet 1 tab PO Q6H PRN (Reason: pain) spironolactone 100 mg tablet 50 mg PO QAM hydroxyzine pamoate 50 mg capsule 50 mg PO Q8H Hold Instructions: Doctor's Order levothyroxine 100 mcg tablet 100 mcg PO .ACB alprazolam 0.5 mg tablet 0.5 mg PO QPM PRN (Reason: anxiety) gabapentin 800 mg tablet 800 mg PO TID baclofen 10 mg tablet 10 mg PO BEDTIME mirtazapine 15 mg tablet 7.5 mg PO QPM albuterol sulfate [Ventolin HFA] 90 mcg/actuation HFA aerosol inhaler 2 puff INHALATION Q6H PRN (Reason: shortness of breath or wheezing) buprenorphine-naloxone 8-2 mg tablet, sublingual 2 tab SUBLINGUAL QDAY Hold Instructions: Order Change buprenorphine HCl 8 mg tablet, sublingual 16 mg sublingual DAILY bupropion HCl 150 mg tablet extended release 24 hr 150 mg PO DAILY pregabalin 150 mg capsule 450 mg PO Q12H Vraylar 3 mg capsule 3 mg PO Q24H duloxetine [Cymbalta] 60 mg capsule,delayed release(DR/EC) 60 mg PO DAILY ropinirole 2 mg tablet 2 mg PO DAILY multivit no.50-iron comp-folic 155-1,000 mg iron-mcg capsule PO hydroxyzine pamoate [Vistaril] 50 mg capsule 50 mg PO DAILY ibuprofen 800 mg tablet 800 mg PO Q8H PRN (Reason: pain) 14 Days Qty: 40 0RF hydrocodone-acetaminophen 5-325 mg tablet 1 tab PO Q4H PRN (Reason: pain) 4 Days Qty: 16 0RF Print Language: Irish Instructions: Migraine Headache (ED), Chalazion (ED), Blepharitis (ED) Additional Instructions: Follow-up with your eye doctor later this week to ensure resolution. Do not wear contacts. Wear glasses this week. Referrals: ROXANNE SELLERS [Primary Care Provider] - 1 week Discharge Date/Time: 09/13/23 10:12
[2023-09-13] MEDS: DIPHENHYDRAMINE HCL 50 MG/ML (1ML) VIAL 25 MG IV (09:21)
[2023-09-13] MEDS: 0.9 % SODIUM CHLORIDE 1,000 ML 999 ML IV (09:21)
[2023-09-13] MEDS: METOCLOPRAMIDE HCL 10 MG/2 ML VIAL IVP (09:21)
[2023-09-13] MEDS: KETOROLAC TROMETHAMINE 30 MG/ML VIAL 15 MG IVP (09:21)
[2023-09-13] MEDS: TETRACAINE HCL 0.5% OP SOL 80 DROP/4 ML BOTTLE OP (09:21)
[2023-09-13] MEDS: FLUORESCEIN SODIUM 1 MG STRIP OP (09:22)
== END 2023-09-13 10:12 | disposition home or self-care (01) ==
PROVIDERS: Emergency Provider Student in an Organized Health Care Education/Training Program; PCP Nurse Practitioner Family
DX: G43.909 Migraine, unspecified, not intractable, without status migrainosus (principal); H00.11 Chalazion right upper eyelid; H01.001 Unspecified blepharitis right upper eyelid; Z79.899 Other long term (current) drug therapy; Z79.890 Hormone replacement therapy; Z98.890 Other specified postprocedural states; Z87.442 Personal history of urinary calculi; E06.3 Autoimmune thyroiditis; E11.9 Type 2 diabetes mellitus without complications; B19.20 Unspecified viral hepatitis C without hepatic coma; Z90.89 Acquired absence of other organs; F17.210 Nicotine dependence, cigarettes, uncomplicated
CPT/HCPCS: 96374; 96375; 99284

== ENCOUNTER 2024-03-10 06:44 | Outpatient (OUT) | payer OTHER, SELFPAY ==
--- OUTSIDE RECORDS SUMMARY | 2024-03-10 06:47 | XMS_ITS | CCD ---
Author Organization [facility] Care Team Providers Care Director Of Investigations Name Role Phone PHYSICIAN, DEFAULT Unavailable Unavailable PHYSICIAN, DEFAULT Unavailable Unavailable JEREMY RODRIGUEZ Referring Unavailable Unavailable Primary Care Provider UnavailTalia Gallegos Unavailable FAWWAD, BOYLE H Primary Care Unavailable JOSE, BOYLE H Attending Unavailable JOSE BOYLE H Admitting Unavailable EZEKIEL GERBER Consulting Unavailabl e [facility] Primary Care Unava jesenia SALINAS, DR DOTTIE Rush Attending Unavailabl william ASLINAS, DR DOTTIE Rush Admitting Unavailabl RADHA King Consulting Unavailable WAYLON ., DR PADRON Consulting Unavailable REQUEST, DR NONE LISTED Primary Care Unavaila ble WAYLON ., DR PADRON Attending Unavailable WAYLON ., DR PADRON Admitting Unavailable ZIEBER, DR GAIL Junior Consulting Unavailable JARED .AMY Consulting Unavailable LILY LEIJA Attending Unavailable LILY LEIJA Admitting Unavailable JOSE, BOYLE H Primary Care Unavailable BRAD, DR DOTTIE Rush Consulting Unavailabl william SALINAS, DR DOTTIE Rush Attending Unavailabl william SALINAS, DR DOTTIE Rush Admitting Unavailabl e REQUEST, NONE LISTED Primary Care Unavaila ble WAYLON ., DR PADRON Consulting Unavailable CHRISTINE ENGLAND Consulting Unavailable LILY LEIJA Consulting Unavailable PORTILLO POLO Attending Unavailable PORTILLO POLO Admitting Unavailable REQUEST, NONE LISTED Primary Care Unavaila ble STRAWSER, SHREE Consulting Unavailable JOYCE ., PORTILLO Consulting Unavailable FAWWAD, BOYLE H Primary Care Unavailable FAWWAD, BOYLE H Attending Unavailable FAWWAD, BOYLE H Admitting Unavailable FAWWAD, BOYLE H Consulting Unavailable REQUEST, DR NONE LISTED Primary Care Unavaila ble FAWWAD, BOYLE H Referring Unavailable FAWWAD, BOYLE H Attending Unavailable FAWWAD, BOYLE H Admitting Unavailable SHAMMO, OCTAVIO Consulting Unavailable FAWWAD, BOYLE H Primary Care Unavailable SHAMMO, OCTAVIO Attending Unavailable SHAMMO, OCTAVIO Admitting Unavailable FAWWAD, BOYLE H Consulting Unavailable FAWWAD, BOYLE H Primary Care Unavailable FAWWAD, BOYLE H Attending Unavailable FAWWAD, BOYLE H Admitting Unavailable REQUEST, DR NONE LISTED Primary Care Unavaila ble SHAMMO, OCTAVIO Consulting Unavailable SHAMMO, OCTAVIO Attending Unavailable SHAMMO, OCTAVIO Admitting Unavailable WAYLON ., DR PADRON Consulting Unavailable REQUEST, DR NONE LISTED Primary Care Unavaila ble WAYLON ., DR PADRON Attending Unavailable WAYLON ., DR PADRON Admitting Unavailable WAYLON ., DR PADRON Consulting Unavailable REQUEST, DR NONE LISTED Primary Care Unavaila ble WAYLON ., DR PADRON Attending Unavailable WAYLON ., DR PADRON Admitting Unavailable FAWWAD, BOYLE H Primary Care Unavailable FAWWAD, BOYLE H Attending Unavailable FAWWAD, BOYLE H Admitting Unavailable REQUEST, NONE LISTED Primary Care Unavaila ble FAWWAD, BOYLE H Attending Unavailable FAWWAD, BOYLE H Admitting Unavailable ZIEBER, DR GAIL Junior Consulting Unavailable FAWWAD, BOYLE H Attending Unavailable FAWWAD, BOYLE H Admitting Unavailable FAWWAD, BOYLE H Primary Care Unavailable STACIE ., EZEKIEL DUKE Consulting Unavailabl e FAWWAD, BOYLE H Consulting Unavailable AMANDA COOK Referring Unavailable Dallin Arteaga Primary Care Physician [phone] SARIKA OLIVAREZ Attending Unavailable REENA FLOYD Consulting Unavailable MIR BRADSHAW Referring Unavailable MIR BRADSHAW Referring Unavailable Kuns CHILD WELFARE WORKER-STEVEDORING SUPERVISOR, Raulito Sierra Primary Care Provider Urbano LAGUERRE Attending Unavailable Kera Lord Attending Unavailable Danial CONNORS Referring Unavailable YUHAS, DEWAYNE L Attending Unavailable YUHAS, DEWAYNE L Admitting Unavailable YUHAS, DEWAYNE L Primary Care Unavailable Provider, None Primary Care Unavailable Omley, Mamadou H Attending Unavailable Omley, Mamadou H Admitting Unavailable JARED, Attending Unavailable JARED, Attending Unavailable RUSHER, DANTE S Attending Unavailable YUHAS, DEWAYNE L Referring Unavailable RUSHER, DANTE S Referring Unavailable RUSHER, DANTE S Referring Unavailable JARED, Attending Unavailable KUNS, ALVA Referring Unavailable KUNS, ALVA Primary Care Unavailable ANA BANKS Attending Unavailable YUHAS, DEWAYNE L Referring Unavailable YUHAS, DEWAYNE L Primary Care Unavailable DARRENANA Attending Unavailable YUHAS, DEWAYNE L Referring Unavailable YUHAS, DEWAYNE L Primary Care Unavailable Yuhas DO, Dewayne L Primary Care Provider [phone] RAULITO SELLERS Attending Unavailable KUNS, ALVA Referring Unavailable KUNS, ALVA Primary Care Unavailable YUHAS, DEWAYNE L Attending Unavailable KUNS, ALVA Referring Unavailable KUNS, ALVA Primary Care Unavailable JOCE, RUFINO L Attending Unavailable KUNS, ALVA Referring Unavailable KUNS, ALVA Primary Care Unavailable YUHAS, DEWAYNE L Attending Unavailable YUHAS, DEWAYNE L Referring Unavailable YUHAS, DEWAYNE L Primary Care Unavailable YUHAS, DEWAYNE L Attending Unavailable YUHAS, DEWAYNE L Referring Unavailable YUHAS, DEWAYNE L Primary Care Unavailable YUHAS, DEWAYNE L Attending Unavailable YUHAS, DEWAYNE L Referring Unavailable YUHAS, DEWAYNE L Primary Care Unavailable JOCE, RUFINO L Attending Unavailable KUNSRAULITOALVA Referring Unavailable KUNS, ALVA Primary Care Unavailable KUNSRAULITO Attending Unavailable KUNSRAULITO Referring Unavailable KUNS, ALVA Primary Care Unavailable JOCE, RUFINO L Attending Unavailable KUNS, ALVA Referring Unavailable KUNS, ALVA Primary Care Unavailable KUNS, RAULITO SIERRA Attending Unavailable KUNS, ALVA Referring Unavailable KUNS, ALVA Primary Care Unavailable YUHAS, DEWAYNE L Attending Unavailable YUHAS, DEWAYNE L Referring Unavailable YUHAS, DEWAYNE L Primary Care Unavailable YUHAS, DEWAYNE L Attending Unavailable YUHAS, DEWAYNE L Referring Unavailable YUHAS, DEWAYNE L Primary Care Unavailable DEWAYNE WILLIS Attending Unavailable DEWAYNE WILLIS Referring Unavailable DEWAYNE WILLIS Primary Care Unavailable RAULITO SELLERS Referring Unavailable RAULITO SELLERS Primary Care Unavailable RAULITO SELLERS Referring Unavailable RAULITO SELLERS Primary Care Unavailable MARIBELLSDEWAYNE Referring Unavailable MARIBELLSDEWAYNE Primary Care Unavailable DEWAYNE WILLIS Referring Unavailable DEWAYNE WILLIS Primary Care Unavailable Allergies Allergy Classification Reported Allergen(s) Allergy Type Date of Onset Reaction(s) Facility (20 sources) Acetaminophen / butalbital / Caffeine; Translations: [APAP/butalbital/ caffeine] Drug Allergy [address] [facility] (20 sources) zonisamide; Translations: [zonisamide] Drug Allergy [address] [facility] (4 sources) Acetaminophen / butalbital / Caffeine; Translations: [Fioricet] Drug Allergy 6 [facility] (4 sources) zonisamide; Translations: [Zonegran] Drug Allergy 6 [facility] (1 source) ALLERGIES NOT ON FILE; Translations: [ALLERGIES NOT ON FILE] Propensity to adverse reactions (disorder) [facility] Rep[facility] (3 sources) BUTALBITAL-ACETAM INOPHEN-CAFF; Translations: [BUTALBITAL-ACETA MINOPHEN-CAFF] Propensity to adverse reactions to drug (disorder) 8 [facility] Repository Medications Current Medications Medication Drug Class(es) Dates Sig (Normalized) Sig (Original) [id number] 200 actuat albuterol 0.09 mg/actuat metered dose inhaler (20 sources) beta2-Adrenergic Agonist Start: 02-14-2024 take 3 mL by inhalation four times daily as needed for wheezing albuterol (PROVENTIL,VENTOLIN ) 2.5 mg /3 mL (0.083 %) nebulizer solution Indications: Mild intermittent asthma without complication Inhale 3 mL (2.5 mg total) by nebulization 4 (four) times a day as needed for wheezing or shortness of breath. 75 mL 1 02/14/2024 Active Start: 02-14-2024 take 2 puff(s) by in halation four times daily as needed for wheezing albuterol (PROVENTIL HFA;VENTOLIN HFA) 90 mcg/actuation inhaler Indications: Mild intermittent asthma without complication , Shortness of breath Inhale 2 puffs 4 (four) times a day as needed for wheezing or shortness of breath. 18 g 1 02/14/2024 Active Start: 07-19-2023 take 2 puff(s) by in halation every four hours as needed for wheezing albuterol (PROVENTIL HFA;VENTOLIN HFA) 90 mcg/actuation inhaler Indications: Mild intermittent asthma without complication , Shortness of breath Inhale 2 puffs every 4 (four) hours as needed for wheezing or shortness of breath. 8.5 g 1 07/19/2023 Active Start: 06-17-2023 End: 07-06-2023 take 3 mL by inhalation every six hours as needed for wheezing albuterol (PROVENTIL,VENTOLIN) 2.5 mg /3 mL (0.083 %) nebulizer solution Indications: Mild intermittent asthma without complication Inhale 3 mL (2.5 mg total) by nebulization every 6 (six) hours as needed for wheezing. 75 mL 1 07/06/2023 Active Start: 04-10-2023 End: 06-03-2023 take 2 puff(s) by mouth every six hours for wheezing albuterol (PROVENTIL HFA;VENTOLIN HFA) 90 mcg/actuation inhaler Indications: Mild intermittent asthma without complication inhale 2 puffs by mouth every 6 hours if needed for wheezing 8.5 g 1 06/03/2023 Active Start: 10-10-2020 albuterol Refi lls(s) 0 Start Date: 10/10/20 Status: Ordered ALPRAZolam 0.5 mg oral tablet (20 sources) Benzodiazepine Start: 02-21-2024 take 1 tablet by mouth twice daily as needed for anxiety ALPRAZolam (XANAX) 0.5 mg tablet Indications: Anxiety Take 1 tablet (0.5 mg total) by mouth 2 (two) times a day as needed for anxiety. 60 tablet 02/21/2024 Active Start: 07-20-2023 End: 08-24-2023 take 1 tablet by mouth twice daily as needed for anxiety ALPRAZolam (XANAX) 0.5 mg tablet Indications: Anxiety Take 1 tablet (0.5 mg total) by mouth 2 (two) times a day as needed for anxiety. 60 tablet 0 08/24/2023 Active Start: 05-04-2023 End: 07-20-2023 take 1 tablet by mouth once daily as needed for anxiety ALPRAZolam (XANAX) 0.5 mg tablet Indications: Anxiety Take 1 tablet (0.5 mg total) by mouth nightly as needed for anxiety. 30 tablet 0 07/01/2023 07/20/2023 Discontinued (Reorder) baclofen 10 mg oral tablet (20 sources) gamma-Aminobutyric Acid-ergic Agonist Start: 12-20-2023 take 1 tablet by mouth once daily at bedtime baclofen (LIORESAL) 10 mg tablet Indications: Fibromyalgia , Bilateral occipital neuralgia Take 1 tablet (10 mg total) by mouth once daily at bedtime. 90 tablet 1 12/20/2023 Active Start: 04-25-2023 End: 07-01-2023 take 1 tablet by mouth once daily at bedtime baclofen (LIORESAL) 10 mg tablet Indications: Fibromyalgia , Bilateral occipital neuralgia Take 1 tablet (10 mg total) by mouth once daily at bedtime. 90 tablet 1 07/01/2023 Active take 1 tablet by lala th every twelve hours benzocaine 7.5 mg / dextromethorphan hydrobromide 5 mg oral lozenge (9 sources) Uncompetitive A-qtuadp-I-aspartate Receptor Antagonist, Sigma-1 Agonist, Standardized Chemical Allergen Start: 07-14-2023 dextromethorphan-benzocaine (CEPACOL SORE THROAT-COUGH) 5-7.5 mg lozenge Dissolve 1 lozenge in the mouth every 4 (four) hours. 16 lozenge 1 07/14/2023 Active blood-glucose meter (TRUE METRIX AIR GLUCOSE METER) kit (20 sources) Start: 07-14-2022 blood-glucose meter (TRUE METRIX AIR GLUCOSE METER) kit See Admin Instructions. 07/14/2022 Active Start: 07-14-2022 blood-glucose meter (TRUE METRIX AIR GLUCOSE METER) kit See Admin Instructions. 0 07/14/2022 Active blood-glucose meter,continuo us (DEXCOM G7 MUSIC THERAPIST) misc (18 sources) Start: 09-10-2023 blood-glucose meter,continuous (DEXCOM G7 MUSIC THERAPIST) misc Indications: Type 2 diabetes mellitus with hyperglycemia, with long-term current use of insulin ([facility]) 1 each by miscellaneous route every 10 days. 9 each 1 09/10/2023 Active Start: 06-29-2023 blood-glucose meter,continuous (DEXCOM G7 MUSIC THERAPIST) misc Indications: Type 2 diabetes mellitus with hyperglycemia, with long-term current use of insulin (CMS-HCC) 1 each by miscellaneous route every 10 days. 12 each 1 06/29/2023 Active blood-glucose sensor (DEXCOM G7 SENSOR) device (19 sources) Start: 03-06-2024 blood-glucose sensor (DEXCOM G7 SENSOR) device Indications: Type 2 diabetes mellitus with diabetic neuropathy, with long-term current use of insulin (CMS-HCC) 1 each by miscellaneous route every 10 days. 9 each 1 03/06/2024 Active Start: 11-29-2023 End: 03-06-2024 blood-glucose sensor (DEXCOM G7 SENSOR) device Indications: Type 2 diabetes mellitus with diabetic neuropathy, with long-term current use of insulin (CMS-HCC) 1 each by miscellaneous route every 10 days. 9 each 1 11/29/2023 03/06/2024 Discontinued (Reorder) Start: 11-29-2023 blood-glucose sensor (DEXCOM G7 SENSOR) device Indications: Type 2 diabetes mellitus with diabetic neuropathy, with long-term current use of insulin ([facility]) 1 each by miscellaneous route every 10 days. 9 each 1 11/29/2023 Active Start: 06-29-2023 blood-glucose sensor (DEXCOM G7 SENSOR) device Indications: Type 2 diabetes mellitus with hyperglycemia, with long-term current use of insulin ([facility]) 1 each by miscellaneous route every 10 days. 5 each 5 06/29/2023 Active buprenorphine 8 mg sublingual tablet (19 sources) Partial Opioid Agonist Start: 09-15-2022 take 2 tablets under the tongue once daily buprenorphine (SUBUTEX) 8 mg tablet, sublingual place 2 tablets under the tongue and ALLOW to dissolve once daily 0 09/15/2022 Active buprenorphine 8 mg / naloxone 2 mg sublingual film (20 sources) Partial Opioid Agonist, Opioid Antagonist Start: 10-10-2020 buprenorphine-nalox one 8 mg-2 mg sublingual film film, SubLingual, Daily, Refill(s) 0 Start Date: 10/10/20 Status: Ordered buprenorphine-na loxone (SUBOXONE) 8-2 mg per SL tablet place 1 take under the tongue three times a day Active busPIRone hydrochloride 15 mg oral tablet (1 source) Start: 10-10-2020 take 1 mg by mouth twice daily busPIRone 15 mg Tab mg tab(s), Oral, BID, Refills(s) 0 Start Date: 10/10/20 Status: Ordered cariprazine 6 mg oral capsule (20 sources) Atypical Antipsychotic Start: 02-04-2024 take 1 capsule by mouth in the morning cariprazine (VRAYLAR) 6 mg capsule Indications: Bipolar 1 disorder ([facility]) Take 6 mg by mouth in the morning. 90 capsule 1 02/04/2024 Active Start: 05-03-2023 take 1 capsule by mo uth once daily in the morning VRAYLAR 3 mg capsule Indications: Bipolar 2 disorder ([facility]) take 1 capsule by mouth every morning 90 capsule 1 05/03/2023 Active take 1 capsule by mo uth every twenty-four hours cetirizine hydrochloride 10 mg oral tablet (20 sources) Histamine-1 Receptor Antagonist Start: 03-05-2023 take 1 tablet by mouth in the morning cetirizine (ZyrTEC) 10 mg tablet Take 1 tablet (10 mg total) by mouth in the morning. 30 tablet 03/05/2023 Active 0.5 ml dulaglutide 3 mg/ml auto-injector (20 sources) GLP-1 Receptor Agonist Start: 04-26-2023 End: 07-01-2023 dulaglutide (TRULICITY) 1.5 mg/0.5 mL pen injector Indications: Diabetes mellitus without complication ([facility]) Inject 1.5 mg under the skin every 7 days. 6 mL 1 07/01/2023 Active DULoxetine 60 mg delayed release oral capsule (20 sources) Serotonin and Norepinephrine Reuptake Inhibitor Start: 01-19-2024 take 1 capsule by mouth in the morning DULoxetine (CYMBALTA) 60 mg capsule Indications: Bipolar 2 disorder (CMS-HCC) , Bilateral occipital neuralgia Take 1 capsule (60 mg total) by mouth in the morning. 90 capsule 1 01/19/2024 Active Start: 05-03-2023 take 1 capsule by mo uth once daily in the morning DULoxetine (CYMBALTA) 60 mg capsule Indications: Bipolar 2 disorder (CMS-HCC) , Bilateral occipital neuralgia take 1 capsule by mouth every morning 90 capsule 1 05/03/2023 Active take 1 capsule by mo uth every twenty-four hours fluticasone propionate 0.05 mg/actuat metered dose nasal spray (11 sources) Corticosteroid Start: 12-20-2023 take 1 spray(s) nasal route in the morning fluticasone propionate (FLONASE) 50 mcg/actuation nasal spray Administer 1 spray into each nostril in the morning. 9.9 mL 1 12/20/2023 Active Start: 07-14-2023 take 1 spray(s) nasa l route in the morning fluticasone propionate (FLONASE) 50 mcg/actuation nasal spray Administer 1 spray into each nostril in the morning. 9.9 mL 1 07/14/2023 Active furosemide 40 mg oral tablet (20 sources) Loop Diuretic Start: 12-20-2023 take 1 tablet by mouth once daily as needed for edema furosemide (LASIX) 40 mg tablet Indications: Restless legs syndrome (RLS) Take 1 tablet (40 mg total) by mouth daily as needed (Leg edema). 30 tablet 1 12/20/2023 Active Start: 06-29-2023 take 1 tablet by lala once daily furosemide (LASIX) 20 mg tablet Indications: Localized edema take 1 tablet by mouth once daily 90 tablet 1 06/29/2023 Active Start: 04-28-2023 End: 07-18-2023 take 1 tablet by mouth once daily furosemide (LASIX) 40 mg tablet take 1 tablet by mouth once daily 30 tablet 5 07/18/2023 Active gabapentin 600 mg oral tablet (16 sources) Anti-epileptic Agent Start: 02-19-2024 take 1 tablet by mouth four times daily at mealtime gabapentin (NEURONTIN) 600 mg tablet Indications: Bilateral occipital neuralgia Take 1 tablet (600 mg total) by mouth 4 (four) times a day with meals and nightly. 120 tablet 02/19/2024 Active Start: 08-02-2023 take 1 tablet by lala th three times daily gabapentin (NEURONTIN) 800 mg tablet Indications: Bilateral occipital neuralgia Take 1 tablet (800 mg total) by mouth 3 (three) times a day. 270 tablet 0 08/02/2023 Active Start: 06-29-2023 End: 07-03-2023 take 1 capsule by mouth three times daily gabapentin (NEURONTIN) 300 mg capsule Indications: Diabetic autonomic neuropathy associated with type 2 diabetes mellitus (CMS-HCC) Take 1 capsule (300 mg total) by mouth 3 (three) times a day for 4 days. This is a weaning dose of gabapentin to be taken with an initial dose of lyrica 25 mg three times daily for 4 days, then the lyrica will be increased to 50 mg and the gabapentin will be stopped 12 capsule 0 06/29/2023 07/03/2023 Active Start: 05-04-2023 End: 06-29-2023 take 1 tablet by mouth three times daily gabapentin (NEURONTIN) 800 mg tablet Indications: Bilateral occipital neuralgia take 1 tablet by mouth three times a day 270 tablet 0 05/04/2023 06/29/2023 Discontinued Start: 10-10-2020 gabapentin Ora l, Refills(s) 0 Start Date: 10/10/20 Status: Ordered take 1 tablet by lala th every twenty-four hours Glucometer Device (1 source) hydrOXYzine pamoate 50 mg oral capsule (20 sources) Antihistamine Start: 02-04-2024 take 1 capsule by mouth twice daily as needed hydrOXYzine (VISTARIL) 50 mg capsule Indications: Bipolar 1 disorder (CMS-HCC) Take 1 capsule (50 mg total) by mouth 2 (two) times a day as needed for itching. 180 capsule 1 02/04/2024 Active Start: 11-11-2022 End: 07-29-2023 take 1 capsule by mouth once daily at bedtime hydrOXYzine (VISTARIL) 50 mg capsule Indications: Bipolar 2 disorder (CMS-HCC) Take 1 capsule (50 mg total) by mouth once daily at bedtime. 90 capsule 1 07/29/2023 Active Start: 10-10-2020 hydrOXYzine Re fills(s) 0 Start Date: 10/10/20 Status: Ordered take 1 tablet by lala th every twenty-four hours ibuprofen 800 mg oral tablet (20 sources) Nonsteroidal Anti-inflammatory Drug Start: 12-20-2023 take 1 tablet by mouth every eight hours for pain ibuprofen (MOTRIN) 800 mg tablet take 1 tablet by mouth every 8 hours if needed for pain 30 tablet 1 12/20/2023 Active Start: 03-26-2023 End: 07-14-2023 take 1 tablet by mouth every eight hours for pain ibuprofen (MOTRIN) 800 mg tablet take 1 tablet by mouth every 8 hours if needed for pain 30 tablet 1 07/14/2023 Active take 1 tablet by lala th every eight hours at mealtime as needed insulin isophane, human 100 unt/ml injectable suspension (20 sources) Start: 12-02-2023 End: 03-06-2024 inject 0.25 mL by subcutaneous injection once daily HumuLIN N NPH U-100 Insulin 100 unit/mL injection Indications: Type 2 diabetes mellitus with diabetic neuropathy, with long-term current use of insulin ([facility]) Inject 0.25 mL (25 Units total) under the skin nightly. 10 mL 1 03/06/2024 Active Start: 07-20-2023 inject 0.3 mL by sub cutaneous injection once daily HumuLIN N NPH U-100 Insulin 100 unit/mL injection Inject 0.3 mL (30 Units total) under the skin nightly. 12 mL 1 07/20/2023 Active Start: 11-20-2022 End: 07-20-2023 HumuLIN N NPH U-100 Insulin 100 unit/mL injection inject 25 units subcutaneously at bedtime 0 11/20/2022 07/20/2023 Discontinued (Reorder) isopropyl alcohol 0.7 ml/ml medicated pad (20 sources) Start: 03-06-2024 alcohol swabs pads, medicated Indications: Type 2 diabetes mellitus with diabetic neuropathy, with long-term current use of insulin ([facility]) Apply 1 Pad topically 4 (four) times a day. 400 each 3 03/06/2024 Active Start: 12-02-2023 End: 03-06-2024 alcohol swabs pads, medicate d Indications: Type 2 diabetes mellitus with diabetic neuropathy, with long-term current use of insulin ([facility]) Apply 1 Pad topically See Admin Instructions. 100 each 3 12/02/2023 03/06/2024 Discontinued (Reorder) Start: 07-20-2023 alcohol swabs pads, medicated Indications: Type 2 diabetes mellitus with hyperglycemia, with long-term current use of insulin ([facility]) Apply 1 Pad topically See Admin Instructions. 100 each 3 07/20/2023 Active Start: 11-19-2022 End: 07-20-2023 alcohol swabs pads, medicate d See Admin Instructions. 0 11/19/2022 07/20/2023 Discontinued (Reorder) Mirena (1 source) Progestin, Progestin-containing Intrauterine Device Start: 10-10-2020 Mirena IntraUteral, Once, Refills(s) 0 Start Date: 10/10/20 Status: Ordered levothyroxine sodium 0.1 mg oral tablet (20 sources) l-Thyroxine Start: 12-20-2023 take 1 tablet by mouth in the morning levothyroxine (SYNTHROID, LEVOTHROID) 100 MCG tablet Indications: Acquired hypothyroidism Take 1 tablet (100 mcg total) by mouth in the morning. 90 tablet 1 12/20/2023 Active Start: 11-11-2022 take 1 tablet by lala th in the morning levothyroxine (SYNTHROID, LEVOTHROID) 100 MCG tablet Indications: Acquired hypothyroidism Take 1 tablet (100 mcg total) by mouth in the morning. 90 tablet 1 11/11/2022 Active Start: 10-17-2018 take 1 tablet by lala th once daily Synthroid 100 mcg Tab 100 microgram = 1 tab(s), Oral, Daily, Refills(s) 0 Start Date: 10/17/18 Status: Ordered loratadine 10 mg oral tablet (11 sources) Start: 12-20-2023 take 1 tablet by mouth once daily as needed loratadine (CLARITIN) 10 mg tablet Take 1 tablet (10 mg total) by mouth daily as needed for allergies. 30 tablet 2 12/20/2023 Active Start: 07-14-2023 take 1 tablet by lala th once daily as needed loratadine (CLARITIN) 10 mg tablet Take 1 tablet (10 mg total) by mouth daily as needed for allergies. 30 tablet 2 07/14/2023 Active methocarbamol 500 mg oral tablet (1 source) Muscle Relaxant Start: 10-17-2018 take 1 tablet by mouth twice daily Robaxin 500 mg Tab 500 mg = 1 tab(s), Oral, BID, Refills(s) 0 Start Date: 10/17/18 Status: Ordered metoclopramide 10 mg oral tablet (19 sources) Dopamine-2 Receptor Antagonist Start: 02-04-2023 take 1 tablet by mouth three times daily as needed metoclopramide (REGLAN) 10 mg tablet Take 1 tablet (10 mg total) by mouth 3 (three) times a day as needed. 0 02/04/2023 Active mirtazapine 7.5 mg oral tablet (1 source) take 2 tablets by mouth every twenty-four hours mometasone furoate 1 mg/ml topical cream (2 sources) Corticosteroid Start: 01-04-2024 mometasone (ELOCON) 0.1 % cream Indications: Irritant contact dermatitis due to plants, except food Apply 1 Application topically in the morning. 45 g 01/04/2024 Active ondansetron 8 mg oral tablet (20 sources) Serotonin-3 Receptor Antagonist Start: 01-14-2024 take 1 tablet by mouth every eight hours as needed for nausea ondansetron (ZOFRAN) 8 mg tablet Indications: Gastroesophageal reflux disease without esophagitis Take 1 tablet (8 mg total) by mouth every 8 (eight) hours as needed for nausea or vomiting. 30 tablet 01/14/2024 Active Start: 03-05-2023 End: 07-01-2023 take 1 tablet by mouth every eight hours as needed for nausea and vomiting ondansetron (ZOFRAN) 8 mg tablet Take 1 tablet (8 mg total) by mouth every 8 (eight) hours as needed for nausea or vomiting. 30 tablet 1 07/01/2023 Active Start: 10-10-2020 ondansetron Re fills(s) 0 Start Date: 10/10/20 Status: Ordered pantoprazole 40 mg delayed release oral tablet (20 sources) Proton Pump Inhibitor Start: 02-08-2024 take 1 tablet by mouth in the morning pantoprazole (PROTONIX) 40 mg EC tablet Indications: Gastroesophageal reflux disease without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 Comment: METH OD TRACEABLE TO IDMS STANDARD Performed By: #### C JOB, 65625-2, THYR, 2132-01, HA1C #### [facility] ([id number]) [address], [address] [place] [address] eGFR (CKD-EPI) NON-RACE DEPENDENT >90 Normal >59 [facility] Comment on above: Result Comment: Reported eGFR is based on the CKD-EPI 2020 equation that does not use a race coefficient. Performed By: #### C JOB, 06668-5, THYR, 2132-01, HA1C #### [facility] ([id number]) [address], [address] [place] [address] Glucose [Mass/Vol] 117 mg/dL High 65-99 [facility] Comment on above: Performed By: #### C JOB, 85015-4, THYR, 2132-01, HA1C #### [facility] ([id number]) [address], [address] [place] [address] Potassium [Moles/Vol] 4.0 mmol/L Normal 3.5-5.0 [facility] Comment on above: Performed By: #### C JOB, 82755-8, THYR, 2132-01, HA1C #### [facility] ([id number]) [address], [address] [place] [address] Protein [Mass/Vol] 6.8 g/dL Normal 6.0-8.0 [facility] Comment on above: Performed By: #### C JOB, 71915-4, THYR, 2132-01, HA1C #### [facility] ([id number]) [address], [address] [place] [address] Sodium [Moles/Vol] 140 mmol/L Normal 134-146 [facility] Comment on above: Performed By: #### C JOB, 55467-2, THYR, 2132-01, HA1C #### [facility] ([id number]) [address], [address] [place] [address] Urea nitrogen [Mass/Vol] 8 mg/dL Normal 5-23 [facility] Comment on above: Performed By: #### C JOB, 37314-2, THYR, 2132-01, HA1C #### [facility] ([id number]) [address], [address] [place] [address] HGB A1C (GLYCO-HGB)on 2023 Glucose [Mass/Vol] 126 mg/dL Normal [facility] Comment on above: Performed By: #### Gwendolyn MOREL CMP, THYR, 2132-01 #### [facility] ([id number]) [address], [address] [place] [address] HbA1c (Bld) [Mass fraction] 6.0 % High 4.4-5.6 [facility] Comment on above: Result Comment: NOTE ADA Guidelines Result HgbA1c Normal : less than 5.7 % Prediabetes : 5.7 % to 6.4 % Diabetes : > 6.4 % Use with caution in patients with abnormal hemoglobin variants as the half-life of red blood cells and in vivo glycation rates are affected. Performed By: #### Gwendolyn MOREL CMP, [facility], 2132-01 #### [facility] ([id number]) [address], [address] [place] [address] Lipid 1996 panelon Cholesterol [Mass/Vol] 182 mg/dL Normal 150-200 [facility] Comment on above: Performed By: ###[place], [address]-5, THYR, 2132-01, HA1C #### [facility] ([id number]) [address], [address] [place] [address] Cholesterol in HDL [Mass/Vol] 39 mg/dL Low >39 [facility] Comment on above: Result Comment: HDL <40 mg/dL - High Risk HDL > or = 40mg/dL- Desirable HDL >60 mg/dL - Negative Risk Performed By: #### Gwendolyn KAISER, 27470-9, THYR, 2132-01, HA1C #### [facility] ([id number]) [address], [address] [place] [address] Cholesterol in LDL [Mass/Vol] 86 mg/dL Normal <130 [facility] Comment on above: Result Comment: LDL <100 mg/dL - Desirable LDL >160 mg/dL - High Risk Performed By: #### C MP, 98824-0, THYR, 2132-01, HA1C #### [facility] ([id number]) [address], [address] [place] [address] Cholesterol in VLDL [Mass/Vol] 57 mg/dL High 0-30 [facility] Comment on above: Performed By: #### C JOB, 12679-6, THYR, 2132-01, HA1C #### [facility] ([id number]) [address], [address] [place] [address] CHOLESTEROL:HDL 4.7 Normal 1.0-5.0 [facility] Comment on above: Performed By: #### C JOB, 13057-2, THYR, 2132-01, HA1C #### [facility] ([id number]) [address], [address] [place] [address] Triglyceride [Mass/Vol] 287 mg/dL High 27-150 [facility] Comment on above: Performed By: #### C MP, 96024-4, THYR, 2132-01, HA1C #### [facility] ([id number]) [address], [address] [place] [address] MICROALBUMIN - ALBUMIN:CREAT ININE URINE RATIOon 11-28-2023 ALB/CREAT RATIO 16.0 mg/g creat Normal 0.0-30.0 [facility] Comment on above: Performed By: #### C BCA, CMP, THYR, 2132-01 #### [facility] ([id number]) [address], [address] [place] [address] Albumin DL <= 20 mg/L (U) [Mass/Vol] 1.5 mg/dL Normal 0.0-1.9 [facility] Comment on above: Performed By: #### C BCA, CMP, THYR, 2132-01 #### [facility] ([id number]) [address], [address] [place] [address] URINE CREAT 93.61 mg/dL Normal [facility] Comment on above: Performed By: #### C BCA, CMP, THYR, 2132-01 #### [facility] ([id number]) [address], [address] [place] [address] THYROID PROFILEon 11-29-2023 Free T4 [Mass/Vol] 0.78 ng/dL Normal 0.61-1.60 [facility] Comment on above: Performed By: #### C JOB, 27547-4, THYR, 2132-01, HA1C #### [facility] ([id number]) [address], [address] [place] [address] TSH 1.06 uIU/mL Normal 0.49-4.67 [facility] Comment on above: Performed By: #### C JOB, 19622-9, THYR, 2132-01, HA1C #### [facility] ([id number]) [address], [address] [place] [address] VITAMIN B12on 11-29-2023 Cobalamin (Vitamin B12) [Mass/Vol] 215 pg/mL Normal 180-914 [facility] Comment on above: Performed By: #### C MP, 94234-0, THYR, 2132-01, HA1C #### [facility] ([id number]) [address], [address] [place] [address] XR LUMBAR SPINE COMPLETE 4+ VIEWSon 09-22-2023 XR LUMBAR SPINE COMPLETE 4+ VIEWS FINDINGS: Vertebral body heights are normal. Mild disc space loss thoracolumbar region. Subtle lucency pars interarticularis of L5 seen only on the lateral view, defect not confirmed on the oblique views. Sclerosis involves posterior elements of the mid and distal lumbar spine and sacroiliac joints; however, no spondylolisthesis is seen. No acute fracture is identified. Soft tissues are relatively unremarkable. IMPRESSION: Distal lumbar arthritis, normal alignment, minimal disc space loss throughout the lumbar spine. If localizing symptoms are present, MRI would be of assistance for further characterization. TRANSCRIBED BY: ELECTRONICALLY SIGNED BY: Aden Fairbanks MD Normal Not Available [facility] US PVR/SEGMENTAL PRESSU RES LOWERon 09-17-2023 [facility] US PVR/SEGMENTAL PRESSURES LOWER CLINICAL HISTORY: Left leg pain with nonpalpable pulses, atrophic appearing skin, current smoker. Concern for ischemia.. COMPARISON: None available. FINDINGS: On the right, the brachial systolic pressure is 105, index 0.95 the high thigh pressure could not be obtained the low thigh pressure is 135, index 1.23 the calf pressure is 127, index 1.15 the posterior tibial ankle pressure is 140, index 1.27 the dorsalis pedis ankle pressure is 130, index 1.18 The plethysmography waveforms are essentially normal. On the left, the brachial systolic pressure is 110, index 1.00 the high thigh pressure is 141, index 1.28 the low thigh pressure is 143, index 1.30 the calf pressure is 128, index 1.16 the posterior tibial ankle pressure is 130, index 1.18 the dorsalis pedis ankle pressure is 125, index 1.14 The plethysmography waveforms are essentially normal. IMPRESSION: NO EVIDENCE OF SIGNIFICANT ARTERIAL STENOTIC DISEASE INVOLVING THE RIGHT AND LEFT LEGS. ELECTRONICALLY SIGNED BY: Gail Ocasio MD Normal Not Available Comment on above: Order Comment: Reque sting segmental pressures with PVRs and TBIs. Thank you. Coding Summaryon 09-15-2023 Coding Summary HTMLBase 64 PkidsyteULc5mEj+PGhlYWQ+PE1 FMESxQ03sfWAaxA9nN5SCOJpRXp aoOIELOPzBZqDyxbItIN9nsBEwC XJu IC8+RP1zHIPoNtbrmXWqx1I2vZH 5C83xmd4gROawgFF0QMLbBnZaej soi1wvyUg0XTcaJnmcMnEt AODydL89JWG1kE71An92xGVxqNF js3ziiSi2QkWsDRZxQFM8hSxdHZ gyb5PtGZMdQ40zlVIrf8F4 OAZvyTagdPGpNhQdiOQ1uV2fLGc qgryfc9foeiziRzv8qb03tKHno1 P0lZH7F0QwjbT2ZSAsjDOe RmvxzWVJtJ9tmfsig1rgglriBuA gDQGjDSa5LTm8LUSclKcjEvQpKV 63GXQ5FQIzflKbK5UdJZDw aYavGsW7p9N7Iz9WY2HOIalrX0B NTUFSWTwvdGQ+LK57il78M8GeSt igRae9NAEhAXF5zWQ7jD6o BCBlOXirv0S9cZK8M7MclyDubc1 wi5xbWXVaTGqsT48luYZzg1D1KK VnbMP2MJLzvNilKfUtdH92 Oyc+OVNraKnbw3YrHxgwc0osv5c saCr5MxxkCBVtvzXstGyeANR4o6 AbGq2iNDPhyWF7uLU6nH8w MvOkDkX3GKgpF085TpWmnTQwMny qO02pD5RyvEH+HJQvNow6BZEceA ivCD2bL9BlNMDhqmavfBWx dYsoGY9vLRWwjihjHPJhxK4gTWE iI9j5BlEpBkC9PJyxU3UmBSEaho qsZy93hU2uHbHlGpY9WSxt Q6MgbmE4OWFxoFQxHAfwVIE7D51 og7H6HSQpQUUrLQF5wBT3rM2suF lnbjogbGVmdDsgdmVydGlj JReiNUmvR419VALasUnmTfGsUXi uZyBEYXRlOiAgMDQvMjQvMjAyND wvdGQ+ZNGqIGJ6oDnhZYBz bYWmYEbfUk6aoEbygCrdAI3sWPL tvjrpBOLqlB8aUYHwyKUazBzdXS 6iITEgehbac307GwUqOAM0 ZPKpjMYyO6RhgJ9kZfMfKSRjITJ pO2YywHUwXEhrH538TDcyTuE4WQ QewfOkU6YjCWEpzUbrNlP0 o6O0Lc7Kp3NeueitD2OfgOXmKqQ eThzfMOl0P5CpRzgogRF+PC90YW IiJN94YFl8MEL0xGyeKYfc BXPlN9UneX1jAeCuZLPqIUBzVrk +PHRhYmxlIHdpZHRoPScxMDAlJy RmrOfaTW2fWk4yNWYiQYMl pEbncFFrIuTzu9glIBDhFWuiQX0 deFmtR7XprHH6BXDxh5w9Ht70V9 9oV2RclZW+AWUcyZS8jDT4 rJ5jTmRsOoQ2FVkuI413LkVqhMC wMqbcq8kqm8skmNn9YyS8GPMjwh GuvYjoBFS1x3YwKo55X85f IHdpZHRoPSIxNSUiIHZhbGlnbj0 syM0yOg3+JBLviAO0iHZ0rJ2eFh RiUzI0WFxiN782VhGjkWIw Zjqfw8kmo3dgkGh4LlIxWQTgjyP irGggZQZ9x6OnFv34E6DgnYavz7 XkIbx1yi75yBEhs3S7tUA9 H7XeLLJxgcojrRTggIvyML0aJAK shqhsMQJcsT8kUXHtZ1h8GqDfMs O5RUjdE1FzczM2ZYLkkGAx BYZzkLXZmU4jtukrs6zzfnpyOgK eQAPjLVf8JTj3FPEwaGupOaJhPE E8CtR5JES4lDDtmJ7ueCzh orpesQ6yTnx+FER7iNKxiPPCZV7 lOjwvdGQ+NIXoKKT2gAzwPLkzQO CvkJ2pDAOpZ6i0RyRaGoR3 CWqkT1QbqvX1PLLhyJPeAHBucFY TzI7oyytvk3hvxixcKpEyJPWkWB y2GLy2WTJemGlyUcQjQQQ4 LbK8CWC4rFOjhO5ucPbrpmswnN3 wOyc+MocpsTdnARW2SAa8K5JcFo d3DBGqeBmvLK5ifCDkWWut Oq9yxKcogBcnXK0kTZHnrvacy50 2XiBsr7joSVPswGBmHYonQYD6I2 5ic6Y1KIGqBKBwYMT0jOS3 yY5ycIjiyfdziGFjbLjmpyNxcSr zHHluDNmxV116NFJtqBenIaEsQU g5I6XyAmu9VWUalMrjTI1l kBCtGYcsPl3flVerwRfaHM1iZNJ ilnrds510JyFoz3czPWTulICxJY xeDBJ5W87nb7O5BVIuPCXy RQJ5iFQ9qQ2mqTkwzqpekSTeuNx qaxYukWpsYSesPQrkR992CKZhaU raQrUkjXw7H8VyLma3HPAx wVajLC7eoSLtKAkaKf7bhRzxlBk sRO8lRQWdntnnb959BrUth8phDQ BmwPStDLhoWSY6Z85wh3X2 HWTlLNFuNMZ6yKW1nF6ilNzxpnc gbGVmdDsgdmVydGljYWwtYWxpZ2 46IHRvcDsnPlBhdGllbnQg YYzpHEj7P6GlLqdplQY+TC15JZD iXS61hNUtcWFju5myrLm5GaWnSR RfUQM7eFfnRMtxd2ChSAXc F56njEYxl4L7OXVqoBdkqYPhKkY itEK0pK4bVKfrmingd0ybzmudYk xie4opme82pG34T60fQDpf CVYoJSQuEKHyMNOppEcndx0wsS1 wIi8+FSUrvCG6dLY6zV4fKUAcIk O5MJzvP512VzBwaREdMyzl q8gew1htuYb5BwC0XXTitlVogUk vXYW9f1BbQo06S70gUUyoXUPyIV DjRZAoCCCdeIrvlq3dpA6z Ii8+FAIqoQD0rXR9mM6dAfHjBaT 9RQzmR081TpTuiMZhUkogD83aP5 JvdXA+HHRgCuy9VLYriYoc IW7gjIMjNUejIr2wBQQ5UcSxEjW rLUqcK6WjRONbliaqbhimkFU5UI MqENSmtA19An9moYrcIGPy cWTIcU9fircgt9diivnxTtXeDTD jPMq5ATo2MGKahKwgQkFzDYC9Bx T7HOB0cLWhcU7cfGdgehaz hW4pZ1PeOFDusbheBk77tB2oFsF bQsP8VDhqChy+QklMTEVSLCBLUk gABPXGDIMCEjB0T5XwEzw2 CBOuvYkjYS0gwTJtTCjcDu3seRp dyNcwZP7cNUEibauhSKKlnV6qQT LloCDryQmkLB0kBCHfmdom e133ScNlZUT4WCZpvVKjD3DctN6 tEhIlDONqVEIpN3WotPXyTDxmP0 56BBbpYmE4HXYpjiQqZ9Km DGSytRjqRdU5o5Q4Ng9aHQ9wXu5 iUZhiRM03WO73sZZzs8C5yAL9U1 SeMJOxkuunxmayhKY7MTCi FBNswZ92hTDqLFwkIm8lr2U6t56 1MUZwFNSoyZ19Ux9dtHeqSYVfjY TNzF9crvjsn7djsvnkUlEf DHOcQRo8BKo3IOXqvFcmUkQoEUM 1KaY8SLC9vRDjnA6ioZshnzodmU 9wOyc+MvLhHAKucvI6J2Rl Rob1CCTaaIuoPA3dqSPwJNtmKm4 wiXtleEleDV7rUGShmlnvLCNqaM 2vGVDukNRxzVfvAR8uTQYq mdqhb716NpIuQAL9QFPihKWlU5X lxN3bUwEtQDApGTWlF9VttXOtPA hlA092KRctDkC6APOdltKy M7AoIGTnpOgkVpU3q7B4Kq0REO0 HRME5D3LlXla9SAYxwBqhLW9zbI AdZGngUi3tbErbaMecSG1f RWExlhytWJCkcJ3hGMPhnJAtwBx vQH7cSCPmsgdbd039VjWjJYK8GU CenCIbF0LqjW3qOrBmHIDg GXXuZ3LkxJNzOWxmX543KUrkSnL 3ZXHsxzJiJ5RlGSFreFbeXsQ2u8 K7Oh5JAZjayTN+CD37pf25 P9OxDbblOfg5ZXWyXRG7rGS8sB3 gOGEiNZsnl5M2mDG4Y8KnvgVskg 2qi0nmFCTfGXelZ10kfKIm f5Y9TFChmCA8POUxlGfwTnAziR9 3Oyc+QUFnwCrxo2VoLknek8wzg3 gsrEf1WcRoGSLfteEkgRco KSL0g6CoWj81A08uMUskTJTdJTN nPZFqTHOcmLlvkb1whJ8pIp8+PG VexPS5gWP0yV4fYjIaCyL3 MXjwC598GxZvtVNqVqdvt0pod0p riRg7WzGdPWPipuVirYrjFMK1w5 GhPl19J8OfhTigx0QpUsv2 co94yHFtw8P2jZN6J7GqEVSebro reVWcyXynDP1sRQAzbdwwFKMasI 5dCDPvO9m1KtZqBvT8OVvl E3KiqmI8PQMgkQHgDMHdsFDRfZ8 bgzkcl7kfiuzcDtMbJSApYDr1UL j7VLGirNadWkZbCWX7BvH3 FTH9gLKrfN6sjMhhmfutcG3aVct +HZd4n9rpdSJcEX0gyUG5YQ87ZR 70kBAdv8X3pDW7S5RxLSIq jfwgspxnwTP5ZPBuVLQbbL36Lo9 euOybJq2wWHHnWIN1ZWAibMBdF6 RicG7kRbScWYHwSDMiS4Ac pNEoOItdO214WCufBvK4VUSxcsM hQ9QjEJWnwRllInT8z8G6Dl9DOC 57SF50KU18oOTth1P2wUJ0 I9PtDBUswyjwngdbgNT9HHMqVKP jtS23Ng0urEgaQg0tKGIxSTF2ZD DtxJAwA2BreK4zQkJwDCOl QHGiL2JbnLQoYIrhJ992EMacBkY 2OBIcjsOkP3VjDNDngPjiGcF1c5 V6Hw4YOd29SU67SO78iFPy u9K6kDT6B9GvDYKyhrpntswtkDY 8UOYcUTBncJ99Ni1vhMyzBw1zBU PbPBE4HXGriJPkA2OgfE4w VlXbLPUwUAYxW0ObdFHcLOooF48 0EHxyLwL4XMAgilOqB1PlGLLrdL ijRlK8p9D0Uo4SFRtqsrd5 F7IgWlhsmLD+JZ78HCXxMQ25fJB ucNNpt0levGj1HbJgOFQiGBD7qK dwAFtfk3XfIVGrE30icDBp c2U (more content not included)... [facility] Consent Formson 09-13-2023 Consent Forms [id number][facility] 09-10-2023 Provider Orders [id number]#[facility] Registration[facility] 09-08-2023 Registration [id number]#[facility] 09-01-2023 Consent [id number]#1.[facility] MICROALBUMIN - ALBUMIN:CREAT ININE URINE RATIOon 08-19-2023 ALB/CREAT RATIO 15.2 mg/g creat Normal 0.0-30.0 [facility] Comment on above: Performed By: #### M ALBU #### [facility] ([id number]) [address], [address] [place] [address] Albumin DL <= 20 mg/L (U) [Mass/Vol] 1.5 mg/dL Normal 0.0-1.9 [facility] Comment on above: Performed By: #### M ALBU #### [facility] ([id number]) [address], [address] [place] [address] URINE CREAT 98.90 mg/dL Normal [facility] Comment on above: Performed By: #### M ALBU #### [facility] ([id number]) [address] [place] [address] CBC AND AUTO DIFFon 07-20-19 24 Basophils/100 WBC (Bld) 0.3 % Normal [facility] Comment on above: Performed By: #### C BCA, CMP, THYR, 2132-01 #### [facility] ([id number]) [address], [address] [place] [address] Eosinophils (Bld) [#/Vol] 0.2 10*3/uL Normal 0.0-0.4 [facility] Comment on above: Performed By: #### C BCA, CMP, THYR, 2132-01 #### [facility] ([id number]) [address], [address] [place] [address] Eosinophils/100 WBC (Bld) 2.4 % Normal [facility] Comment on above: Performed By: #### C BCA, CMP, THYR, 2132-01 #### [facility] ([id number]) [address], [facility] [address] [place] [address] Erythrocyte distribution width (RBC) [Ratio] 15.2 % High 11.5-15.0 [facility] Comment on above: Performed By: #### C BCA, CMP, THYR, 2132-01 #### [facility] ([id number]) [address], [address] [place] [address] Hematocrit (Bld) [Volume fraction] 44.4 % Normal 35-47 [facility] Comment on above: Performed By: #### C BCA, CMP, THYR, 2132-01 #### [facility] ([id number]) [address], [address] [place] [address] Hemoglobin (Bld) [Mass/Vol] 14.8 g/dL Normal 11.7-15.5 [facility] Comment on above: Performed By: #### C BCA, CMP, THYR, 2132-01 #### [facility] ([id number]) [address], [address] [place] [address] Lymphocytes (Bld) [#/Vol] 2.8 10*3/uL Normal 1.0-3.5 [facility] Comment on above: Performed By: #### C BCA, CMP, THYR, 2132-01 #### [facility] ([id number]) [address], [address] [place] [address] Lymphocytes/100 WBC (Bld) 39.5 % Normal [facility] Comment on above: Performed By: #### C BCA, CMP, THYR, 2132-01 #### [facility] ([id number]) [address], [address] [place] [address] MCH (RBC) [Entitic mass] 27.9 pg Normal 27-34 [facility] Comment on above: Performed By: #### C BCA, CMP, THYR, 2132-01 #### [facility] ([id number]) [address], [address] [place] [address] MCHC (RBC) [Mass/Vol] 33.4 g/dL Normal 32-36 [facility] Comment on above: Performed By: #### C BCA, CMP, THYR, 2132-01 #### [facility] ([id number]) [address], [address] [place] [address] MCV (RBC) [Entitic vol] 83 fL Normal 80-100 [facility] Comment on above: Performed By: #### C BCA, CMP, THYR, 2132-01 #### [facility] ([id number]) [address], [address] [place] [address] Monocytes (Bld) [#/Vol] 0.5 10*3/uL Normal 0-0.9 [facility] Comment on above: Performed By: #### C BCA, CMP, THYR, 2132-01 #### [facility] ([id number]) [address], [address] [place] [address] Monocytes/100 WBC (Bld) 7.5 % Normal [facility] Comment on above: Performed By: #### C BCA, CMP, THYR, 2132-01 #### [facility] ([id number]) [address], [address] [place] [address] Neutrophils/100 WBC (Bld) 50.3 % Normal [facility] Comment on above: Performed By: #### C BCA, CMP, THYR, 2132-01 #### [facility] ([id number]) [address], [address] [place] [address] Platelet mean volume (Bld) [Entitic vol] 9.8 fL Normal 7-12 [facility] Comment on above: Performed By: #### C BCA, CMP, THYR, 2132-01 #### [facility] ([id number]) [address], [address] [place] [address] Platelets (Bld) [#/Vol] 226 10*3/uL Normal 150-450 [facility] Comment on above: Performed By: #### C BCA, CMP, THYR, 2132-01 #### [facility] ([id number]) [address], [address] [place] [address] ABSOLUTE BASOPHIL 0.0 X10E9/L Normal 0.0-0.2 [facility] Comment on above: Performed By: #### C BCA, CMP, THYR, 2132-01 #### [facility] ([id number]) [address], [address] [place] [address] ABSOLUTE NEUTROPHIL 3.6 X10E9/L Normal 1.5-6.6 [facility] Comment on above: Performed By: #### C BCA, CMP, THYR, 2132-01 #### [facility] ([id number]) [address], [address] [place] [address] RBC COUNT 5.33 X10E12/L High 3.80-5.20 [facility] Comment on above: Performed By: #### C BCA, CMP, THYR, 2132-01 #### [facility] ([id number]) [address], [address] [place] [address] WBC (Bld) [#/Vol] 7.1 10*3/uL Normal 4.0-11.0 [facility] Comment on above: Performed By: #### C BCA, CMP, THYR, 2132-01 #### [facility] ([id number]) [address], [address] [place] [address] CBC auto differentialon 06-25 Basophils (Bld) [#/Vol] 0.0 10*3/uL [facility] Interpretation and review of laboratory results Abnormal [facility] Neutrophils (Bld) [#/Vol] 3.6 10*3/uL [facility] RBC (Bld) [#/Vol] 5.33 10*6/uL [facility] WBC corrected for nucl RBC Auto (Bld) [#/Vol] 7.1 [facility] COMPREHENSIVE METABOLIC PANE Mihir 07-20-2023 Albumin [Mass/Vol] 4.4 g/dL Normal 3.2-5.3 [facility] Comment on above: Performed By: #### C BCA, CMP, THYR, 2132-01 #### [facility] ([id number]) [address], [address] [place] [address] ALP [Catalytic activity/Vol] 69 U/L Normal 39-130 [facility] Comment on above: Performed By: #### C BCA, CMP, THYR, 2132-01 #### [facility] ([id number]) [address], [address] [place] [address] Anion gap [Moles/Vol] 8 mmol/L Normal 5-15 [facility] Comment on above: Performed By: #### C BCA, CMP, THYR, 2132-01 #### [facility] ([id number]) [address], [address] [place] [address] AST [Catalytic activity/Vol] 22 U/L Normal 0-41 [facility] Comment on above: Performed By: #### C BCA, CMP, THYR, 2132-01 #### [facility] ([id number]) [address], [address] [place] [address] Bilirubin [Mass/Vol] 0.3 mg/dL Normal 0.3-1.2 [facility] Comment on above: Performed By: #### C BCA, CMP, THYR, 2132-01 #### [facility] ([id number]) [address], [address] [place] [address] Calcium [Mass/Vol] 9.3 mg/dL Normal 8.5-10.5 [facility] Comment on above: Performed By: #### C BCA, CMP, THYR, 2132-01 #### [facility] ([id number]) [address], [address] [place] [address] Chloride [Moles/Vol] 105 mmol/L Normal 98-109 [facility] Comment on above: Performed By: #### C BCA, CMP, THYR, 2132-01 #### [facility] ([id number]) [address], [address] [place] [address] CO2 [Moles/Vol] 28 mmol/L Normal 22-32 [facility] Comment on above: Performed By: #### C BCA, CMP, THYR, 2132-01 #### [facility] ([id number]) [address], [address] [place] [address] Creatinine [Mass/Vol] 0.61 mg/dL Normal 0.40-1.00 [facility] Comment on above: METHOD TRACEABLE TO IDMS STANDARD Result Comment: METH OD TRACEABLE TO IDMS STANDARD Performed By: #### C BCA, CMP, THYR, 2132-01 #### [facility] ([id number]) [address] [place] [address] Glucose [Mass/Vol] 83 mg/dL Normal 65-99 [facility] Comment on above: Performed By: #### C BCA, CMP, THYR, 2132-01 #### [facility] ([id number]) [address], [address] [place] [address] Potassium [Moles/Vol] 3.9 mmol/L Normal 3.5-5.0 [facility] Comment on above: Performed By: #### C BCA, CMP, THYR, 2132-01 #### [facility] ([id number]) [address], [address] [place] [address] Protein [Mass/Vol] 7.5 g/dL Normal 6.0-8.0 [facility] Comment on above: Performed By: #### C BCA, CMP, THYR, 2132-01 #### [facility] ([id number]) [address], [facility] [address] [place] [address] Sodium [Moles/Vol] 141 mmol/L Normal 134-146 [facility] Comment on above: Performed By: #### C BCA, CMP, THYR, 2132-01 #### [facility] ([id number]) [address], [address] [place] [address] Urea nitrogen [Mass/Vol] 10 mg/dL Normal 5-23 [facility] Comment on above: Performed By: #### C BCA, CMP, THYR, 2132-01 #### [facility] ([id number]) [address], [address] [place] [address] ALT [Catalytic activity/Vol] 31 U/L Normal 0-31 [facility] Comment on above: Performed By: #### C BCA, CMP, THYR, 2132-01 #### [facility] ([id number]) [address] [address] [place] [address] eGFR (CKD-EPI) NON-RACE DEPENDENT >90 Normal >59 [facility] Comment on above: Result Comment: Reported eGFR is based on the CKD-EPI 2020 equation that does not use a race coefficient. Performed By: #### C BCA, CMP, THYR, 2132-01 #### [facility] ([id number]) [address], [address] [place] [address] Cobalamin (Vitamin B12) [Mas s/Vol]on 07-20-2023 [facility] Comprehensive metabolic pane mihir 07-20-2023 ALT No additional P-5'-P [Catalytic activity/Vol] 31 U/L 0 - 31 U/L [facility] eGFR (CKD-EPI)non-race dependent - PINF [facility] Comment on above: Reported eGFR is based on the CKD-EPI 2020 equation that does not use a race coefficient. [facility] HGB A1C (GLYCO-HGB)on 2023 Glucose [Mass/Vol] 134 mg/dL Normal [facility] Comment on above: Performed By: #### C BCA, CMP, THYR, 2132-01 #### [facility] ([id number]) [address] [place] [address], [facility] [address] [place] [address] HbA1c (Bld) [Mass fraction] 6.3 % High 4.4-5.6 [facility] Comment on above: Result Comment: NOTE ADA Guidelines Result HgbA1c Normal : less than 5.7 % Prediabetes : 5.7 % to 6.4 % Diabetes : > 6.4 % Use with caution in patients with abnormal hemoglobin variants as the half-life of red blood cells and in vivo glycation rates are affected. Performed By: #### C BCA, CMP, THYR, 2132-01 #### [facility] ([id number]) [address] [place] [address], [facility] [address] [place] [address] Laboratory - Chemistry and C hemistry - challengeon 07-20-2023 Cobalamin (Vitamin B12) [Mass/Vol] 328 pg/mL Normal 180-914 [facility] Comment on above: Performed By: #### C BCA, CMP, THYR, 2132-01 #### [facility] ([id number]) [address] [place] [address], [address] [place] [address] THYROID PROFILEon 07-20-2023 Free T4 [Mass/Vol] 1.16 ng/dL Normal 0.61-1.60 [facility] Comment on above: Performed By: #### C BCA, CMP, THYR, 2132-01 #### [facility] ([id number]) [address] [facility] [place] [address] TSH 0.03 uIU/mL Low 0.49-4.67 [facility] Comment on above: Performed By: #### C BCA, CMP, THYR, 2132-01 #### [facility] ([id number]) [address] [facility] [place] [address] Thyroid profile includes TSH FT4on 07-20-2023 Interpretation and review of laboratory results Abnormal [facility] TSH Qn 0.03 m[IU]/L Low [facility] POCT Influenza A/Influenza B /SARS-COV-2 Veritoron 07-14-2023 External Poct Influenza A Antigen Negative [facility] External Poct Influenza B Antigen Negative [facility] Interpretation and review of laboratory results Normal [facility] SARS-CoV-2 (COVID-19) Ag IA.rapid Ql (Resp) Negative [facility] POCT rapid strep Aon 024 S. pyogenes Ag IA Ql (Unsp spec) Negative Negative [facility] Coding Summaryon 02-13-2023 Coding Summary HTMLBase 64 RcqzoattWEb4rOk+PGhlYWQ+PE1 FPCEgK53flPTfnD2mE9WJNFqIHh uwVZLVAOoWMjIjbkTjXV2vgZEwA XJu IC8+BK1tQMUcHsxmtIZxy5Q3yEN 7P00vhw0yZLkggZC8ZGMcWgNupg bth4tmhLe6FEcxRkejXeIu BBMptN92AEW6zA23Ku94nVYxoUS cz6dxpYc9AvObLTZcYYU5xNekBJ dkg5ZeTEKlJ23wmXPtb6U3 SLCfeKdlhSAgImPcfGF4iQ5jWTf hsoyhm9zjkbezJic2vj41gYLvc8 J7sSD5W5GjmkW4JXXhyRAh FpmbwBMRvC9icpffa2ruqlqkHtG cVLSfINv5FUi2QGCfdNdbDvFoBN 51HHX5IUKygpQjD1TyKILk mKymRmK6v4B9Sg7RT2EZMbcxF4L NTUFSWTwvdGQ+LI09yf32K6XqLh azRqo0CHUyVLJ7hXT1oD1c VHSfLNgtz1O3nLO8W0GiocAksb6 mk1tfIVBbVVqcD40dnPGik4K7FS KziEP8TRIvsHmzCoDcrC90 Oyc+LOMlzCiuz3DjFltwf9txl9s cvBx6RicvEBCsrqWvoZzcWFB1c8 DhHp0gSRMknJB2lRM7cM1h KoCpGrB3KYhcZ361RuSzmVOmMtj cF12fR6EdpAF+CKDmVby0OAPeyW osPW6dV9AuIDLqvzmdaDFf mEqzYQ6dFEBibvyaQBGeoY7sKUG fL8d5BmBjSdI7RQtvQ9OwQIVbvb kdHw08yB4xBlYzDjZ0EEql W1VqpwN0QLQgaXGaBOobIBZ1S38 wm0J4UXNzWRFtWIV5lUB6cN1ldX lnbjogbGVmdDsgdmVydGlj MGtgXUdoD759DPVnmBflOrJwAEh uZyBEYXRlOiAgMDkvMjMvMjAyMz wvdGQ+DNZqTYB4rXldRWCa yTVtNNkqTs9mnXhsbGhpQH4aFQC qwiuuXVQnbH0kSLSllCPklLjaCL 3dTXLqimkgr691AaRmMAF3 LRAmrXCzT0IcwV0cCwQtEIUfDCG kM1QndAHfMDdyS683WYkiFfT8LI DbuxJhQ7VoEWHrfDsuDiF8 t5V4Gv9Ze4VlfhmnE6KloNBkJaF mTxkqHOw4M7AyUfqmySD+PC90YW ObRV37PCr7JCQ3mPqhRQnm UDIrN9NgdT1iBmPpERYmTVReNrk +PHRhYmxlIHdpZHRoPScxMDAlJy CizBxcTC2rVv1mTWRyPQXb xPxifCCpMyTih4rfBNTrIGjmYI1 kaLqeN5SsgKQ8WEKne3e1Sh97A6 6oC5PejTL+JQZleVU0zJM3 rO1iLzSsBtQ5HZabQ516RaWknTT eVacco9otc1vzrKc7LrZ3XXTxzn LroSdhGKG5f5PcHa04O98e IHdpZHRoPSIxNSUiIHZhbGlnbj0 xjM6oKx4+GQSqeLC4zFU2dC1dFo YlXrQ1XKxgH818PfVguCFx Zinvy2cnw0mpdCg2SvNySUVzghA yhAmdKHO2z1QuKp48F3UfxBguz0 IqEnt8dw06cDQtp7R2xUJ3 H2MbGSZwsenzqYRdeLdsYY0xUOK jvskaEGGkeZ8hGJCsZ8e4YxTsBz D1TJmeP7GbqcU8RONqkDFj ODYpnBUSyY3snbhmm4polfqfXkT mCYNuGGc5YNz6MXSqlDruAoAlYU M6YrX1RCQ6sQAvhG4ogQpu ymgcxF1aSep+HGZ0mXOgdEMQWB5 lOjwvdGQ+JRFuVOE7sFezTQivCN OtaI9mQMKsF6a9IrOzPoM9 RMwgM4UrbmL4XBQhdGLyQHUiyDD ZfV8eduaql9cnvgcxQwHcGEZlCY u0CXo3SZRglXauOgJdZHG7 BoT3TLI9tZRgbZ8miVrvqlsoeP7 wOyc+HlzdtKyvYJF3RKw4S6MvAi r8HCIsnKisQU8ynFZuUEtd Tr4urSxvnEmgWY1zKUCmiuqkx84 8RiOxd7lsNGSeaOIeJYrrFSE3I9 1tk3H6RWNaXENdJAN2dTN3 mO9hzTgstsyytYDseRmstmTiiRh fLAlmJBjsD381UZJvuPdyUdQjTY f3I5HzWhp7BDUjzWyqLX0q pKKfFQgwMc2fcUqotAjjUT4bZFO kpolaw847SyUui8gcHQRlwENkRG ebYPB6W83fi1G2OGHuXHPe MIB7cMI2oA1vsOjybdhwgUBirSt qyeLcjNwbJEtrLIrsG385GGXdgQ uqRyCwpNo6X8OgJom6AMDo bNbhUR4ccDEyZNgxPf8ckGidxBm rFA8dCCFyryoel281RyXmu0gqZW YirSCkAMigAEO7K46lo9V6 MFPuKFPlMAM3xQX0mQ8znMaggnl gbGVmdDsgdmVydGljYWwtYWxpZ2 46IHRvcDsnPlBhdGllbnQg JQalTVz3H6QaVmfylJI+GH66EFF qTN45uGIkgEWfh9kpkNx6XrJzJP NjXZU1uKxyLYcpn5PtVNPy K87ytKKpv1T0JMVjxZdbgBKdApT ycLS8sV4vUDgceyuid2wouyciGe hgl4boas86qC60Y67aTUtu FYLpYHXtXFFgIVPnjEaboq7evX1 wIi8+WWJpdRG2xPJ5gG6qAJJxJx Q1ULyqZ946XcIhiQJnRssl z7fnf1eelIb7XbX9ICVdenTbxEd aHXJ3x0CvCc44L57bCPymCNJmGB EaNERcOKBagDdrpk3ptL8l Ii8+JKTddGX5uIN2nQ7aPyCsQiW 5MKuvJ508UuJfrWHpYmfiI61sL7 JvdXA+AIYfNum3MMSovHuh MJ6gbZXoAZvxNv7kCIM3QwTkIvL jPAntR5EwJYUhyxsmdowgiNF0SJ IvMDQlpI61Nk0ftOlaTHWb jUNNyN1qwqvst4avhixeVeVsDYI xYUj8XBl0VKBgpXsvLmUfHVS1Ib B1RLI0mZTtwL8kzJgvvcpe nD7mN1NsXAGktvpxEw31lY0dPoM eRyZ9JSxuRbs+QklMTEVSLCBLUk bTMUDONHKSPqJ9T5DuXsf7 RHVgtYarAN3pqTRlPVqqLt2obOc nqVpdGP1mDALougqqDZXuyL7wHI DalMDtjEshBO7eDUMvyaam d572CkCwYGQ7CGAugXCyN2XeqU7 yBxWaNUEpMNBcE2HoxEHzQXohY1 44ZTbaMuS1TAFmerOyR5Zf LZWvuZpcQgP2m9D8Yu9wSU9aSp9 xRRsnMA28IZ95wFQwb7K3aKI6E3 DyXOMnjofyytmlgUX9SAOa WUKcjK35eTEhOWwsAy8xh4M1q02 3MYIpSIXcdP11Kl2xnXbbGGIzcK DZmB8mafjwv0dtjgdqTpMy JJVsRCy5EBo6JNRsfBcgEuHiBFJ 7YcP9QFI4zLUjdT7oxAgklxtgeL 9wOyc+LqFlBZYdxeH1F9Cb Xfr2RHXofWkuDV4crMKyROrfUn7 slXvdjVcjOB0tIOKrlfaeEGVppX 2wBSMbpZHcrEwsBQ5wCRZl ejngt528GlXjCTX4VKCmgZZcN9Z ddM3fSuDrRXAyYKJsS6AfaATiQV geR610FCdeOlA0NKQydbKh K7VvCJVlpSinGrY3y3G9Gp5XVZ7 CBYV3O8YqIwm2XVUojXkzLZ1neI IlMTdzBy0hoAionUymBP4p GOUhoommDYYbkS8sVYUiiOIyqCh aJH3tZGHnziwgt806GlApYET4SO SosGFmJ6FiiT0lEsYzSPRc FTIkD0TmtKBuUDzcM251YYwbUlM 4OIXiejRwU9JxWVCbjGafVkT2w4 I5Kl5MfVXoF0HeL5k7X0Zh PjwvdHI+FI44BZZdXR91qFNcjVT cm9naaVi5OyLaWIYeBJY5uTmjNV yac3FjYDWtM75gbPOhb1F3 AHAegTpkhEPrAnAnxZQ4wT4tGNc tqjtev1ospersIxrta6eycg09gW 16X72qPNyiYFUnMHBmPOOh EVQzfXrwex0teI2rZr6+PGNvbCB 4wNI9zX0vZqUjPeJ8JQhhI202Gi YmiIQdCctah1wir5gpwRq8 ZnBeYCQsfeUrsLxeTSV4v5VwPr4 5T13rONbpJQTdALQmPQAyQLYcfA ylah0ueT0qRt0+BT6cw5dt qa08hX94yUC+TCZuVHM4jKydBVq rADHzzG9kINdyOyI6JFDtYsEjyJ 11vZMhHSadIt1krFzugCsr DM5yVQXgphzhx516MeWwm6yePMP vbMDxTCfbEYX6I02nz3I7ESJmQJ WlDSZ3yPE6jI6vcHkblsdv oMQpqPekejLdqUdbPQmqYRauP49 0PBGxkMaoVhIaoQWkX2pmwdBEVF 1lOjwvdGQ+OUUpCZS9cMba MQnuQVNpyH5bGWDaW6k0RvVeHdK 3TAqcE8GhjgQ1HEUgkAFoKAKwrE NDhC3umyemv2vydwrgXsPk VAChFBz7GWe7UMRkcXrvXjUpZNP 6UjK1ZCF2gXNpuS2hjYfrbmfjsY 9wOyc+RklOOjwvdGQ+PHRk CLB1eSldWCewFBJrhZ9rFSRlP7k 9PhDtHxX4SFxzR5AyajO4USLnaZ JsORAdvCLUxK9davxcv3pm atvwVkRwSXTsXFu3HYt8QOHjxKd nDpRvQGH2HnW4UBP9dOXayJ6ztM jphtkiiJ1oEjt+TVJOOjwv dGQ+QZLwZIF6vFrsGBvsFIOfuR2 eISHrJ4c5AwUkEiH1JJffC0Onpg F7DFHrpZQeCPGvrCIEnQ0a npucp1lckkqiGfHkMXYeKMc3LRa 0PNZslZkpGfQpIFV2CbJ4IPS1sM SxeF1ugCzlwvixsD1vDmn+ YIG7KTB3BO35BE48B5QnBxkndTF ibGU+PHRhYmxlIHdpZHRoPScxMD KiElXweMjjHJ3zWa3qKRBu LWN (more content not included)... Normal [facility] ED Clinical Summaryon 2022 ED Clinical Summary [facility] - Emergency Department [address] [place] [address] [id number] ED Clinical Summary PERSON INFORMATION Name: DORIS PAT Age: 32 Years Sex: FEMALE : 1990 MRN: Acct#: Visit Reason: Hyperglycemia; Abdominal pain; Mouth pain; Weakness or fatigue; 30 WEEKS - ABD PAIN Arrival: 02/02/2023 19:48:04 Discharge: 02/02/2023 21:15:00 LOS: 000 01:27 Check In: 02/02/2023 19:48:04 Checkout:02/02/2023 21:15:00 Address: [address] [place] [address] PCP: Provider, None PROVIDER INFORMATION Provider Role Assigned Unassigned Risa Batres [employer]AL SUPPORT EMPLOYEE Nurse 02/02/2023 19:54:13 Mamadou Penn DO ED Provider 02/02/2023 20:57:25 VITALS INFORMATION Vital Sign Triage Latest Temperature Tympanic Temperature Temporal Artery Pulse Rate O2 Sat 99 % 99 % Respiratory Rate 18 br/min 18 br/min Blood Pressure /62 mmHg /62 mmHg MEDICAL INFORMATION Medications Given: Allergy Information: Zonegran; Fioricet PHYSICIAN DOCUMENTATION DISCHARGE INFORMATION: Discharge Disposition: Against Medical Advice Discharge Location: PATIENT EDUCATION INFORMATION Instructions: Follow-Up: DIAGNOSIS: Dehydration; Patient Understands: Yes - Patient/family/caregiver verbalizes understanding of instructions given Comment: [facility] ED Note - Physicianon 2022 ED Note - Physician Patient: AMANDA PAT Age: 32 years Sex: FEMALE : 1990 Associated Diagnoses: Dehydration; Author: Mamadou Penn DO Basic Information Time seen: Date & time 02/02/2023 20:58:00. History source: Patient. Arrival mode: Private vehicle, walking. History limitation: None. History of Present Illness The patient presents with This patient presents to the emergency room for an evaluation of the tongue which she states that she occasionally takes blood on her tongue (she has not seen blood, but believes to have tasted it today), and a dry mouth, she states she has had thrush before, but does not think this is thrush because the tongue is redder today and not white. She states she had vomiting x5 and multiple episodes of diarrhea yesterday, little bit of diarrhea this morning, her blood pressure was noted to be up and down the last couple days, is currently okay. She denies any chest pain or abdominal pain urinary symptoms rash, fever, cold-like symptoms, states she vapes, states she talk to the nurse of her primary MEETING/EVENT PLANNER who said that the doctor was going to call her back regarding at home glucose and blood pressure measurements, when she called there today. She states her tongue feels dry, she has not put anything on. Her glucose has also been going up and down., Sometimes into the 300 and 400 range, she states she has never been acidotic, she has been taking her medications for her diabetes. Patient is 5, para 3, 1 spontaneous AB, and is a diabetic for about 3 years, and has a high risk professional in [place], who has been adjusting her insulins this week because of her sugar going too low at home. She states she has not contacted that doctor regarding her sugars over the past couple days. On exam, she is pleasant, well disposed, good eye contact, her neck is supple, there is no anterior posterior supraclavicular nodes, her lungs are clear, she is not tachypneic, she ventilates equally bilaterally, heart rate and rhythm is regular without murmur, PMI left chest, she has good dorsalis pedis pulses, no peripheral edema, her abdomen is soft gravid and nontender to palpate. Her skin is warm and dry; HEENT reveals no evidence of bleeding in the mouth, tongue appears to have a little glossitis to it, that is some flattening of the normal grooves of the tongue no excessive swelling, no areas of bleeding or ulceration, no sublingual masses or irritations, and flexible tongue without any pain, but no white discharge, and she moves her tongue and speaks normally, hypopharynx is without swelling or injection there is no RPA PPA or MOLASSES AND CARAMEL OPERATOR. Her dentition is excellent. There is no submandibular swelling, she has no Ludewig's. The patient in general appears as a patient who has dehydration, from vomiting and diarrhea, her blood pressure is excellent, we will check her labs to make sure she does not have any serum ketones and I think she can go home, I have told her we will see about finding something to help her glossitis.. Medical Decision Making Orders Launch Orders Laboratory: Lactic Acid (Order): Blood, Stat collect, 02/02/2023 21:00 EDT, Lab Collect Urinalysis with Culture, if indicated Standard (Order): Urine, Stat collect, 02/02/2023 21:00 EDT, Nurse collect CBC w/ Auto Diff (Order): Blood, Stat collect, 02/02/2023 20:59 EDT, Lab Collect CMP Standard (Order): Blood, Stat collect, 02/02/2023 20:59 EDT, Lab Collect Urinalysis with Culture, if indicated Standard (Order): Urine, Stat collect, 02/02/2023 20:59 EDT, Nurse collect Women's Services: Heart Tones (Order): 02/02/2023 21:00 EDT, Launch Orders Laboratory: Ketone Serum (Order): Blood, Stat collect, 02/02/2023 21:01 EDT, Lab Collect, Launch Orders Patient Care: Glucose POC (RE) (Order): 02/02/2023 21:13 EDT Pharmacy: Sodium Chloride 0.9% intravenous solution 1000 mL (Order): 500 mL/hr, IV. Impression and Plan Diagnosis Dehydration ([id number] E86.0, Discharge, Medical) ([id number] Z34.90, Discharge, Medical) Plan Disposition: Eloped. Notes: Patient was very pleasant, no acuity on exam, blood pressure 117/72, no distress; eloped after exam; Markus PENN< ER PHYSICIAN/Margot Ingram [phone]. [Electronically Signed on: 02/02/2023 21:23 EDT] Mamadou Penn DO [Electronically Signed on: 02/02/2023 21:33 EDT] Mamadou Penn DO [Verified on: 02/02/2023 21:23 EDT] Mamadou Penn DO [facility] ED Patient Education Noteon 09-12-2023 ED Patient Education Note Education Materials Normal [facility] ED Patient Summaryon 023 ED Patient Summary [facility] - Emergency Department [address] [place] [address] PATIENT DISCHARGE INSTRUCTIONS Patient Information Name: DORIS PAT Age: 32 Years Date of : 1990 Reason For Visit: Hyperglycemia; Abdominal pain; Mouth pain; Weakness or fatigue; 30 WEEKS - ABD PAIN Arrival Time: 02/02/2023 19:48:04 Primary Care Physician: Provider, None Attending Physician: Mamadou Penn DO Comment: Visit Diagnosis: Diagnoses This Visit Abdominal pain ([id number]) Dehydration (E86.0) Hyperglycemia ([id number]) Mouth pain ([id number]) (Z34.90) Weakness or fatigue ([id number]) The Pharmacy at [facility] is open Wednesday through Wednesday from 9A to 6P and Wednesday and Wednesday from 9A to 5P Prescription Information: If you have been given a prescription for narcotics, seek immediate medical attention if you have any difficulty breathing or any sudden status changes such as confusion and sleepiness. If you or anyone you know is experiencing suicidal thoughts, mental health, alcohol and/or drug addiction problems; contact the Mental Health & Recovery Board [facility] 14/12 Crisis Hotline -Text 6WGJH yz 669213. If you received any narcotics, sedation, or any other medication that causes drowsiness for the next 24 hours, unless otherwise directed: ? Do not drive a car. ? Do not operate machinery such as power tools, lawn mowers, drills, sewing machines, or stoves ? Avoid alcoholic beverages and drugs for allergies, nerves, or sleep ? Do not make important personal or business decisions or sign any legal documents Medication Information: The exam and treatment you received today in the [facility] Emergency Department were for an urgent problem and are not intended as complete care. It is important for you to follow up with a doctor, nurse practitioner, or physician?s news assistant for ongoing care. If your symptoms become worse or you do not improve as expected and you are unable to reach your usual health care provider, you should return to the Emergency Department, we are available 24 hours a day. For those patients who have received Radiology results, the interpretation of your X-ray as given to you by our Emergency Department physician is only a preliminary report. The Radiologist will review your films and if there is a change in the diagnosis you will be notified by phone. Please make sure you have provided a working phone number so we can reach you if necessary. In the event that you had a lab culture while you were a patient in the Emergency Department, you will be notified by phone if there is a need to change your antibiotic. Please make sure you have provided a working phone number so we can reach you if necessary. [facility] Emergency Department has provided you with a complete list of medications post discharge. Please inform your marketing education teacher/provider of your visit and for further instruction on these medications. Any specific questions regarding your chronic medications and dosages should be discussed with your primary care physician(s) and/or pharmacist. Medications to Continue That Have Not Changed Other Medications insulin isophane (NPH) (NovoLIN N) insulin lispro (HumaLOG 100 units/mL injectable solution) 5 unit(s) Subcutaneous 3 times a day before meals. Visit Information Allergies: Substance Reaction Symptoms Type Comments Fioricet Drug Zonegran Drug Vital Signs: Vitals and Measurements this Visit (last charted value for your 02/02/2023 visit) Vital Signs This Visit Temperature Oral: 36.6 DegC Heart Rate Monitored: 107 bpm Respiratory Rate: 18 br/min Systolic Blood Pressure: 128 mmHg Diastolic Blood Pressure: 62 mmHg SpO2: 99 % Oxygen Therapy: Room air Measurements This Visit Height/Length Dosin.400 cm Height/Length Estimated: 152.400 cm Weight Dosin.810 kg Weight Estimated: 89.810 kg Problems List: Problem Onset Comments No Problems found Patient Education Viruses or Bacteria What?s got you sick? Antibiotics only treat bacterial infections. Viral illnesses cannot be treated with antibiotics. When an antibiotic is not prescribed, ask your healthcare professional for tips on how to relieve symptoms and feel better. Usual Cause Illness Viruses Bacteria Antibiotic Needed Cold/Runny Nose ? NO Bronchitis/Chest Cold (in otherwise healthy children and adults) ? NO Whooping Cough ? Yes Flu ? NO Strep Throat ? Yes Sore Throat (except strep) ? NO Fluid in the middle ear (otitis media with effusion) ? NO Urinary Tract Infection ? Yes Antibiotics Aren?t Always the Answer www.cdc.gov/getsmart GET SMART Know When Antibiotics Work U.S. Department of Health and Human Services Centers for Disease Control and Preventi (more content not included)... [facility] AFP, Maternalon 11-22-2022 Determined by Ultrasound [facility] Comment on above: Performed By: #### A AFPM #### [address] [address] Tire Adjuster: Ruddy Carver MD [employer] [address] [place], [place] [phone] Tire Adjuster: Bob Brooks MD Due Date SEE NOTE [facility] Comment on above: Result Comment: Resu lts for Estimated Due Date: 04 15 23 Performed By: #### A AFPM #### [address] [address] Tire Adjuster: Ruddy Carver MD [facility] [address] [place] [address] Tire Adjuster: Bob Brooks MD Family History Unknown [facility] Comment on above: Performed By: #### A AFPM #### [facility] [address] [place] [id number] Tire Adjuster: Ruddy Carver MD [facility] [address] [place] [address] Tire Adjuster: Bob Brooks MD Gestat Age (exact) 19 wks, 0 days Normal [facility] Comment on above: Performed By: #### A AFPM #### [facility] [address] [place] [id number] Tire Adjuster: Ruddy Carver MD [facility] [address] [place] [phone] Tire Adjuster: Bob Brooks MD Ins Req Matern Diab Yes [facility] Comment on above: Performed By: #### A AFPM #### [address] [address] Tire Adjuster: Ruddy Carver MD [address] [phone] Tire Adjuster: Bob Brooks MD Interpretation Screen Neg [facility] Comment on above: Result Comment: (NOT E) INTERPRETATION: SCREEN NEGATIVE for open spina bifida Neural Tube Defects (NTD) Negative Pre-Test Post-Test Cutoff Neural Tube Defects Risks 1:258 1:344 1:250 Comments: The risk of an open neural tube defect is less than the screening cut-off. The information provided indicates that the patient had diabetes at the time of conception. Due to diabetic status, the risk of neural tube defect is increased 4 times. This test was developed and its performance characteristics determined by [employer]. It has not been cleared or approved by the [place] Food and Drug Administration. This test was performed in a CLIA certified laboratory and is intended for clinical purposes. Performed By: #### A AFPM #### [address] [address] Tire Adjuster: Ruddy Carver MD [address] [phone] Tire Adjuster: Bob Brooks MD [age] [facility] Comment on above: Performed By: #### A AFPM #### [address] [address] Tire Adjuster: Ruddy Carver MD [address] [phone] Tire Adjuster: Bob Brooks MD Maternal Race Nonblack [facility] Comment on above: Performed By: #### A AFPM #### [address] [address] Tire Adjuster: Ruddy Carver MD [facility] [address], [place] [id number] Tire Adjuster: Bob Brooks MD Maternal Weight 194.0 lbs. Normal [facility] Comment on above: Performed By: #### A AFPM #### [address] [address] Tire Adjuster: Ruddy Carver MD [facility] [address], [place] [phone] Tire Adjuster: Bob Brooks MD MoM for AFP 1.77 [facility] Comment on above: Performed By: #### A AFPM #### [address] [address] Tire Adjuster: Ruddy Carver MD [address] [phone] Tire Adjuster: Bob Brooks MD Number of Fetuses Ortiz Normal [facility] Comment on above: Performed By: #### A AFPM #### [address] [address] Tire Adjuster: Ruddy Carver MD [facility] [address], [place] [phone] Tire Adjuster: Bob Brooks MD Patient's AFP 61 ng/mL [facility] Comment on above: Performed By: #### A AFPM #### [address] [address] Tire Adjuster: Ruddy Carver MD [facility] [address], [place] [phone] Tire Adjuster: Bob Brooks MD Smoking No [facility] Comment on above: Performed By: #### A AFPM #### [address] [address] Tire Adjuster: Ruddy Carver MD [address] [phone] Tire Adjuster: Bob Brooks MD Specimen See Note [facility] Comment on above: Result Comment: (NOT E) Initial sample Performed by [facility], [address] [place] [address],[place] [address] [email or web address], Triston Saucedo MD, PHD, Lab. Director Performed By: #### A AFPM #### [address] [address] Tire Adjuster: Ruddy Carver MD [address] [id number] Tire Adjuster: Bob Brooks MD AFP, Maternalon 11-20-2022 Current Smoking N [facility] Comment on above: Performed By: #### A AFPM #### [address] [address] Tire Adjuster: Ruddy Carver MD [address] [phone] Tire Adjuster: Bob Brooks MD Dating [facility] Comment on above: Performed By: #### A AFPM #### [address] [address] Tire Adjuster: Ruddy Carver MD [address] [phone] Tire Adjuster: Bbo Brooks MD Diabetic YES [facility] Comment on above: Performed By: #### A AFPM #### [address] [address] Tire Adjuster: Ruddy Carver MD [facility] [address] [place] [address] Tire Adjuster: Bob Brooks MD Donor Egg INFORMATION NOT PROVIDED [facility] Comment on above: Performed By: #### A AFPM #### [address] [address] Tire Adjuster: Ruddy Carver MD [facility] [address] [place] [address] Tire Adjuster: Bob Brooks MD Estimated Due Date [facility] Comment on above: Performed By: #### A AFPM #### [address] [address] Tire Adjuster: Ruddy Carver MD [address] [address] Tire Adjuster: Bob Brooks MD Family History INFORMATION NOT PROVIDED [facility] Comment on above: Performed By: #### A AFPM #### [address] [address] Tire Adjuster: Ruddy Carver MD [facility] [address] [place] [address] Tire Adjuster: Bob Brooks MD In Vitro Fertalizat INFORMATION NOT PROVIDED [facility] Comment on above: Performed By: #### A AFPM #### [address] [address] Tire Adjuster: Ruddy Carver MD [address] [address] Tire Adjuster: Bob Brooks MD LMP date [id number] [facility] Comment on above: Performed By: #### A AFPM #### [address] [address] Tire Adjuster: Ruddy Carver MD [facility] [address] [place] [address] Tire Adjuster: Bob Brooks MD Maternal date [facility] Comment on above: Performed By: #### A AFPM #### [address] [address] Tire Adjuster: Ruddy Carver MD [facility] [address] [place] [address] Tire Adjuster: Bob Brooks MD Maternal Weight 194 Normal [facility] Comment on above: Performed By: #### A AFPM #### [address] [address] Tire Adjuster: Ruddy Carver MD [facility] [address] [place] [address] Tire Adjuster: Bob Brooks MD Monochorionic Twins INFORMATION NOT PROVIDED [facility] Comment on above: Performed By: #### A AFPM #### [address] [address] Tire Adjuster: Ruddy Carver MD [address] [address] Tire Adjuster: Bob Brooks MD Patient Weight Units LBS Normal [facility] Comment on above: Performed By: #### A AFPM #### [address] [address] Tire Adjuster: Ruddy Carver MD [address] [address] Tire Adjuster: Bob Brooks MD Race (Maternal) WHITE Normal [facility] Comment on above: Performed By: #### A AFPM #### [address] [address] Tire Adjuster: Ruddy Carver MD [facility] [address] [place] [address] Tire Adjuster: Bob Brooks MD Repeat Specimen INFORMATION NOT PROVIDED [facility] Comment on above: Performed By: #### A AFPM #### [address] [address] Tire Adjuster: Ruddy Carver MD [address] [address] Tire Adjuster: Bob Brooks MD Valproic/Carbamazep INFORMATION NOT PROVIDED [facility] Comment on above: Performed By: #### A AFPM #### [address] [address] Tire Adjuster: Ruddy Carver MD [address] [address] Tire Adjuster: Bob Brooks MD [facility]-2022 Send Out Report [employer] [facility] Comment on above: Result Comment: UNIT Y Performed By: #### V AGP #### [address] [address] Tire Adjuster: Ruddy Carver MD [facility] 11-19-2022 Test Name UNITY [facility] Comment on above: Performed By: #### V AGP #### [address] [address] Tire Adjuster: Ruddy Carver MD Lupus Anticoagulanton 2022 Dilute Gera Viper Negative Normal [facility] Comment on above: Performed By: #### U MICAO, UA #### [address] [address] Tire Adjuster: Ruddy Carver MD Protein S Activityon 023 Protein S Activity 74 % Normal 59-130 [facility] Comment on above: Result Comment: Patients on warfarin will have decreased functional protein C/S values. Warfarin therapy should be discontinued for two weeks for accurate measurement of functional protein C/S levels. Artifactually elevated levels of functional protein C/S may be seen in patients receiving heparin,rivaroxaban,apixaban,edozaban,and dabiqatran. Decreased functionality may be seen in patients with abnormally elevated levels of Factor VIII. Performed By: #### V AGP #### [address] [address] Tire Adjuster: Ruddy Carver MD Chlamydia/GC,DNA Ampon 10-12 Chlamydia Probe Negative Normal NEG [facility] Comment on above: Result Comment: CHLA MYDIA TRACHOMATIS DNA not detected by nucleic acid amplification. This test is intended for medical purposes only and is not valid for the evaluation of suspected sexual abuse or for other forensic purposes. In certain contexts, culture may be required to meet applicable laws and regulations for diagnosis of C. trachomatis and N. gonorrhoeae infections. Per 2014 CDC recommendations, this test does not include confirmation of positive results by an alternative nucleic acid target. Performed By: #### S WCGP #### [address] [address] Tire Adjuster: Ruddy Carver MD Gonorrhea Probe Negative Normal [facility] Comment on above: Result Comment: NEIS SERIA GONORRHOEAE DNA not detected by nucleic acid amplification. This test is intended for medical purposes only and is not valid for the evaluation of suspected sexual abuse or for other forensic purposes. In certain contexts, culture may be required to meet applicable laws and regulations for diagnosis of C. trachomatis and N. gonorrhoeae infections. Per 2014 CDC recommendations, this test does not include confirmation of positive results by an alternative nucleic acid target. Performed By: #### S WCGP #### [address] [address] Tire Adjuster: Ruddy Carver MD PT Mutation [id number] 10-11-19 PT [id number] VARIANT Negative Normal [facility] Comment on above: Result Comment: (NOT E) Indication for testing: Assess genetic risk for thrombosis. NEGATIVE: The Factor II, prothrombin [id number] mutation, was not detected. Other causes of elevated prothrombin levels and hereditary forms of venous thrombosis have not been excluded. Recommendations: If clinically indicated, testing for other inherited or acquired thrombophilic disorders is recommended including DNA testing for the factor V Leiden mutation, measurement of total plasma homocysteine concentration, serological assays for anticardiolipin antibodies, multiple phospholipid-dependent coagulation assays for lupus inhibitor, protein C activity, protein S activity or free protein S antigen, and antithrombin activity. This result has been reviewed and approved by Francesca Gutierrez M.D. 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 The expression of Factor II thrombophilia is impacted by coexisting genetic thrombophilic disorders, acquired thrombophilic disorders (eg, malignancy, hyperhomocysteinemia, high factor VIII levels), and circumstances including: , oral contraceptive use, hormone replacement therapy, selective estrogen receptor modulators, travel, central venous catheters, surgery, and organ transplantation. INCIDENCE: Approximately 2 percent of Caucasians and 0.3 percent of Americans are heterozygous; homozygosity occurs in 1 in 10,000 individuals. INHERITANCE: Incomplete autosomal dominant. PENETRANCE: The risk of thrombosis is increased 2-4 fold for heterozygotes and further increased for homozygotes. CAUSE: Homozygosity or heterozygosity for F2 c.*97G>A (U63436I). PATHOGENIC VARIANT TESTED: F2 c.*97G>A (K63745Q). CLINICAL SENSITIVITY FOR VENOUS THROMBOSIS: Approximately 10 percent. METHODOLOGY: Polymerase chain reaction and fluorescence monitoring. ANALYTICAL SENSITIVITY AND SPECIFICITY: 99 percent. LIMITATIONS: Diagnostic errors can occur due to rare sequence variations. F2 gene variants, other than c.*97G>A ([id number]), will not be detected. This test was developed and its performance characteristics determined by [facility]. It has not been cleared or approved by the US Food and Drug Administration. This test was performed in a CLIA certified laboratory and is intended for clinical purposes. Counseling and informed consent are recommended for genetic testing. Consent forms are available online. Performed by [facility], [address] [place] [address] [email or web address], Triston Saucedo MD, PHD, Lab. Director Performed By: #### U EDINSON CHOWDARY #### [address] [address] Tire Adjuster: Ruddy Carver MD PT PCR SPECIMEN Whole Blood Normal [facility] Comment on above: Performed By: #### U EPI UA #### [address] [address] Tire Adjuster: Ruddy Carver MD Beta Hydroxybutyrateon 10-092 Beta Hydroxybutyrate 0.08 mmol/L Normal 0.02-0.27 [facility] Comment on above: Performed By: #### V AGP #### [address] [address] Tire Adjuster: Ruddy Carver MD CBC with Diffon 10-09-2022 Abs. Basophil <0.03 Normal 0.00-0.20 [facility] Comment on above: Performed By: #### V AGP #### [address] [address] Tire Adjuster: Ruddy Carver MD Abs.Imm.Granulocyte 0.06 k/uL Normal 0.00-0.30 [facility] Comment on above: Performed By: #### V AGP #### [address] [address] Tire Adjuster: Ruddy Carver MD Abs.Neutrophil (Seg) 6.06 k/uL Normal 1.50-8.10 [facility] Comment on above: Performed By: #### V AGP #### [address] [address] Tire Adjuster: Ruddy Carver MD Basophils/100 WBC (Bld) 0 % Normal 0-2 [facility] Comment on above: Performed By: #### V AGP #### [address] [address] Tire Adjuster: Ruddy Carver MD Eosinophils (Bld) [#/Vol] 0.06 10*3/uL Normal 0.00-0.44 [facility] Comment on above: Performed By: #### V AGP #### [address] [place] [address] Tire Adjuster: Ruddy Carver MD Eosinophils/100 WBC (Bld) 1 % Normal 1-4 [facility] Comment on above: Performed By: #### V AGP #### [address] [address] Tire Adjuster: Ruddy Carver MD Erythrocyte distribution width (RBC) [Ratio] 13.3 % Normal 11.8-14.4 [facility] Comment on above: Performed By: #### V AGP #### [address] [address] Tire Adjuster: Ruddy Carver MD Hematocrit (Bld) [Volume fraction] 43.5 % Normal 36.3-47.1 [facility] Comment on above: Performed By: #### V AGP #### [address] [address] Tire Adjuster: Ruddy Carver MD Hemoglobin (Bld) [Mass/Vol] 15.4 g/dL High 11.9-15.1 [facility] Comment on above: Performed By: #### V AGP #### [address] [address] Tire Adjuster: Ruddy Carver MD Immature granulocytes/100 WBC (Bld) 1 % High 0 [facility] Comment on above: Performed By: #### V AGP #### [address] [address] Tire Adjuster: Ruddy Carver MD Lymphocytes (Bld) [#/Vol] 1.31 10*3/uL Normal 1.10-3.70 [facility] Comment on above: Performed By: #### V AGP #### [address] [address] Tire Adjuster: Ruddy Carver MD Lymphocytes/100 WBC (Bld) 17 % Low 24-43 [facility] Comment on above: Performed By: #### V AGP #### [address] [address] Tire Adjuster: Ruddy Carver MD MCH (RBC) [Entitic mass] 30.1 pg Normal 25.2-33.5 [facility] Comment on above: Performed By: #### V AGP #### [place] [address] Tire Adjuster: Ruddy Carver MD MCHC (RBC) [Mass/Vol] 35.4 g/dL High 28.4-34.8 [facility] Comment on above: Performed By: #### V AGP #### [place] [address] Tire Adjuster: Ruddy Carver MD MCV (RBC) [Entitic vol] 85.0 fL Normal 82.6-102.9 [facility] Comment on above: Performed By: #### V AGP #### [place] [address] Tire Adjuster: Ruddy Carver MD Monocytes (Bld) [#/Vol] 0.27 10*3/uL Normal 0.10-1.20 [facility] Comment on above: Performed By: #### V AGP #### [place] [address] Tire Adjuster: Ruddy Carver MD Monocytes/100 WBC (Bld) 4 % Normal 3-12 [facility] Comment on above: Performed By: #### V AGP #### [address] [address] Tire Adjuster: Ruddy Carver MD Neutrophil (Seg) 78 % High 36-65 [facility] Comment on above: Performed By: #### V AGP #### [address] [address] Tire Adjuster: Ruddy Carver MD NRBC Automated 0.0 per 100 WBC Normal 0.0 [facility] Comment on above: Performed By: #### V AGP #### [address] [address] Tire Adjuster: Ruddy Carver MD Platelet Count See Reflexed IPF Result Normal 138-453 [facility] Comment on above: Performed By: #### V AGP #### [address] [address] Tire Adjuster: Ruddy Carver MD RBC (Bld) [#/Vol] 5.12 10*6/uL High 3.95-5.11 [facility] Comment on above: Performed By: #### V AGP #### [address] [address] Tire Adjuster: Ruddy Carver MD WBC (Bld) [#/Vol] 7.8 10*3/uL Normal 3.5-11.3 [facility] Comment on above: Performed By: #### V AGP #### [address] [address] Tire Adjuster: Ruddy Carver MD Comp Metabolic Profon 2022 Albumin [Mass/Vol] 3.7 g/dL Normal 3.5-5.2 [facility] Comment on above: Performed By: #### V AGP #### [address] [address] Tire Adjuster: Ruddy Carver MD Albumin/Glob Ratio 1.4 Normal 1.0-2.5 [facility] Comment on above: Performed By: #### V AGP #### [address] [address] Tire Adjuster: Ruddy Carver MD Alkaline Phos 55 U/L Normal 35-104 [facility] Comment on above: Performed By: #### V AGP #### [address] [address] Tire Adjuster: Ruddy Carver MD ALT [Catalytic activity/Vol] 8 U/L Normal 5-33 [facility] Comment on above: Performed By: #### V AGP #### [address] [address] Tire Adjuster: Ruddy Carver MD Anion gap [Moles/Vol] 13 mmol/L Normal 9-17 [facility] Comment on above: Performed By: #### V AGP #### [address] [address] Tire Adjuster: Ruddy Carver MD AST [Catalytic activity/Vol] 11 U/L Normal <32 [facility] Comment on above: Performed By: #### V AGP #### [address] [address] Tire Adjuster: Ruddy Carver MD Bilirubin [Mass/Vol] 0.2 mg/dL Low 0.3-1.2 [facility] Comment on above: Performed By: #### V AGP #### [address] [address] Tire Adjuster: Ruddy Carver MD Calcium [Mass/Vol] 8.7 mg/dL Normal 8.6-10.4 [facility] Comment on above: Performed By: #### V AGP #### [address] [address] Tire Adjuster: Ruddy Carver MD Chloride [Moles/Vol] 101 mmol/L Normal 98-107 [facility] Comment on above: Performed By: #### V AGP #### [facility] [address] [place] [address] Tire Adjuster: Ruddy Carver MD CO2 [Moles/Vol] 21 mmol/L Normal 20-31 [facility] Comment on above: Performed By: #### V AGP #### [facility] [address] [place] [address] Tire Adjuster: Ruddy Carver MD Creatinine [Mass/Vol] 0.39 mg/dL Low 0.50-0.90 [facility] Comment on above: Performed By: #### V AGP #### [address] [address] Tire Adjuster: Ruddy Carver MD GFR/1.73 sq M.predicted among non-blacks MDRD (S/P/Bld) [Vol rate/Area] mL/min/{1.73_m2} Normal >60 [facility] Comment on above: Result Comment: These results are not intended for use in patients <18 years of age. eGFR results are calculated without a race factor using the 2020 CKD-EPI equation. Careful clinical correlation is recommended, particularly when comparing to results calculated using previous equations. The CKD-EPI equation is less accurate in patients with extremes of muscle mass, extra-renal metabolism of creatine, excessive creatine ingestion, or following therapy that affects renal tubular secretion. Performed By: #### V AGP #### [address] [address] Tire Adjuster: Ruddy Carver MD Glucose [Mass/Vol] 98 mg/dL Normal 70-99 [facility] Comment on above: Performed By: #### V AGP #### [facility] [address] [place] [address] Tire Adjuster: Ruddy Carver MD Potassium [Moles/Vol] 3.1 mmol/L Low 3.7-5.3 [facility] Comment on above: Performed By: #### V AGP #### [facility] [address] [place] [address] Tire Adjuster: Ruddy Carver MD Protein [Mass/Vol] 6.4 g/dL Normal 6.4-8.3 [facility] Comment on above: Performed By: #### V AGP #### [facility] [address] [place] [address] Tire Adjuster: Ruddy Carver MD Sodium [Moles/Vol] 135 mmol/L Normal 135-144 [facility] Comment on above: Performed By: #### V AGP #### [facility] [address] [place] [address] Tire Adjuster: Ruddy Carver MD Urea nitrogen [Mass/Vol] 10 mg/dL Normal 6-20 [facility] Comment on above: Performed By: #### V AGP #### [facility] [address] [place] [address] Tire Adjuster: Ruddy Carver MD Factor V Mutationon 10-10-19 23 F 5 SPECIMEN Whole Blood Normal [facility] Comment on above: Performed By: #### U MICAO, UA #### [address] [address] Tire Adjuster: Ruddy Carver MD FACTOR 5 MUTATION Negative Normal [facility] Comment on above: Result Comment: (NOT E) Indication for testing: Assess genetic risk for thrombosis. NEGATIVE: The factor V Leiden variant, c.1601G>A; p.Qeq131Tbz, was not detected. This does not exclude a genetic cause for thrombophilia. If this individual has had a previous venous thromboembolism, this negative result is unlikely to significantly reduce the risk for recurrence; thus, future clinical management to reduce recurrence should not be altered. This result has been reviewed and approved by Francesca Gutierrez M.D. BACKGROUND INFORMATION: Factor V Leiden (F5) R506Q Mutation CHARACTERISTICS: Venous thromboembolism (VTE) is multifactorial caused by a combination of genetic and environmental factors. The Factor V Leiden (FVL) variant is the most common cause of inherited VTEs, accounting for over 90 percent of activated protein C (APC) resistance. Because the FVL variant eliminates the APC cleavage site, factor V is inactivated slower, thus persisting longer in blood circulation, leading to more thrombin production. Other genetic risk factors for VTE include, male sex and variants in antithrombin, protein C, protein S, or factor XIII. Non-genetic risk factors include, age, smoking, prolonged immobilization, malignant neoplasms, surgery, , oral contraceptives, estrogen replacement therapy, tamoxifen and raloxifene therapy. INCIDENCE OF FACTOR V LEIDEN VARIANT: Approximately 5 percent of Caucasians, 2 percent of Hispanics, 1 percent of Americans and 0.5 percent of Asians are heterozygous; homozygosity occurs in 1 in 1500 Caucasians. INHERITANCE: Semi-dominant; both heterozygotes and homozygotes are at increased risk for VTE. PENETRANCE: Lifetime risk of VTE is 10 percent for heterozygotes and 80 percent of homozygotes. 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 Legacy nomenclature: R506Q (1691G>A) CLINICAL SENSITIVITY: 20-50 percent of individuals with an isolated VTE have the FVL variant. METHODOLOGY: Polymerase chain reaction and fluorescence monitoring. ANALYTICAL SENSITIVITY AND SPECIFICITY: 99 percent. LIMITATIONS: Diagnostic errors can occur due to rare sequence variations. F5 gene mutations, other than p.[id number], will not be detected. This test was developed and its performance characteristics determined by [facility]. It has not been cleared or approved by the [place] Food and Drug Administration. This test was performed in a CLIA certified laboratory and is intended for clinical purposes. Counseling and informed consent are recommended for genetic testing. Consent forms are available online. Performed by [facility], [address] [place] [id number] [email or web address], Triston Saucedo MD, PHD, Lab. Director Performed By: #### U EDINSON CHOWDARY #### [facility] [place] [address] Tire Adjuster: Ruddy Carver MD Lipaseon 10-09-2022 Lipase [Catalytic activity/Vol] 23 U/L Normal 13-60 [facility] Comment on above: Performed By: #### V AGP #### [facility] [address] [place] [address] Tire Adjuster: Ruddy Carver MD MTHFR Gene Mutationon 2022 MTHFR 1286 A>C Mut Negative Normal [facility] Comment on above: Performed By: #### U MICAO, UA #### [facility] [address] [place] [address] Tire Adjuster: Ruddy Carver MD MTHFR 655C>T Mut Negative Normal [facility] Comment on above: Performed By: #### U MICAO, UA #### [facility] [address] [place] [address] Tire Adjuster: Ruddy Carver MD MTHFR Interpretation See Note Normal [facility] Comment on above: Result Comment: (NOT E) Indication for testing: Determine genetic contribution to hyperhomocysteinemia. Negative: Neither of the common MTHFR gene variants tested, c.665C>T (previously designated C677T) and c.1286A>C (previously designated N0752C), were detected. Other causes of elevated homocysteine levels were not evaluated. This result has been reviewed and approved by Francesca Gutierrez M.D. Background Information: Methylenetetrahydrofolate Reductase (MTHFR) 2 Variants Characteristics: Variants in the MTHFR gene may reduce enzyme activity contributing to hyperhomocysteinemia. Although hyperhomocysteinemia was previously reported to be a risk factor for many conditions, especially venous thrombosis and cardiovascular disease, recent meta-analysis casts doubt on whether lifelong moderate homocysteine elevation has an effect on cardiovascular disease. The [employer] Practice Guidelines indicate that individuals with elevated homocysteine and two copies of the c.665C>T variant have an odds ratio of 1.27 for venous thromboembolism. Thus, they recommend MTHFR genotyping not be ordered as part of a routine evaluation for recurrent loss or thromobophilia due to questionable clinical significance. Incidence: The allele frequency of the c.665C>T variant is 0.35 in Caucasians, 0.5 in Hispanics, and 0.12 in Americans. Inheritance: Autosomal recessive; two copies of the c.665C>T variant may be a contributing factor to hyperhomocysteinemia. Variants Tested: c.665C>T(p.Rsi004Vyz) and c.1286A>C(p.Xdk990Dxu). (legacy names C677T and D7051W, respectively). Clinical Sensitivity: Undefined; hyperhomocysteinemia is caused by genetic, physiologic and environmental factors. MTHFR variants are only one contributing factor. Methodology: Polymerase chain reaction (PCR) and fluorescence monitoring. Analytical Sensitivity and Specificity: 99 percent. Limitations: Only two MTHFR gene variants (c.665C>T and c.1286A>C) are tested. Diagnostic errors can occur due to rare sequence variations. This test was developed and its performance characteristics determined by [facility]. It has not been cleared or approved by the [place] Food and Drug Administration. This test was performed in a CLIA certified laboratory and is intended for clinical purposes. Counseling and informed consent are recommended for genetic testing. Consent forms are available online. Performed by [facility], [address] [place] [id number] [email or web address], Triston Saucedo MD, PHD, Lab. Director Performed By: #### EDINSON AMBROSE #### [address] [address] Tire Adjuster: Ruddy Carver MD MTHFR SPECIMEN Whole Blood Normal [facility] Comment on above: Performed By: #### EDINSON AMBROSE #### [facility] [address] [place] [id number] Tire Adjuster: Ruddy Carver MD Osmolalityon 10-09-2022 Osmolality [Osmolality] 278 mosm/kg Normal 275-295 [facility] Comment on above: Performed By: #### O SMO #### [facility] [address] [place] [address] [employer] Adjuster: Ruddy Carver MD PLT, Immature Fract.on 10-09 Platelet, Fluoresc. Platelet clumps pres ent, count appears decreased. Normal 138-453 [facility] Comment on above: Result Comment: ORDE RED BY LAB Performed By: #### V AGP #### [address] [address] T[employer] Adjuster: Ruddy Carver MD Urinalysis, Routineon 2022 Bilirubin, SemiQt,Ur Negative Normal NEG [facility] Comment on above: Performed By: #### U MICAO, UA #### [facility] [address] [place] [address] T[employer] Adjuster: Ruddy Carver MD Blood, Urine Negative Normal NEG [facility] Comment on above: Performed By: #### U MICAO, UA #### [facility] [address] [place] [address] T[employer] Adjuster: Ruddy Carver MD Clarity (U) Clear Normal CLEAR [facility] Comment on above: Performed By: #### U MICAO, UA #### [facility] [address] [place] [address] [employer] Adjuster: Ruddy Carver MD Color (U) Yellow Normal YEL [facility] Comment on above: Performed By: #### U MICAO, UA #### [facility] [address] [place] [address] [employer] Adjuster: Ruddy Carver MD Glucose Ql (U) Negative Normal NEG [facility] Comment on above: Performed By: #### U MICAO, UA #### [facility] [address] [place] [address] T[employer] Adjuster: Ruddy Carver MD Ketones Ql (U) Negative Normal NEG [facility] Comment on above: Performed By: #### U MICAO, UA #### [facility] [address] [place] [address] T[employer] Adjuster: Ruddy Carver MD Leukocyte esterase Test strip Ql (U) SMALL Abnormal NEG [facility] Comment on above: Performed By: #### U MICAO, UA #### [facility] [address] [place] [address] T[employer] Adjuster: Ruddy Carver MD Nitrite,Ur Negative Normal NEG [facility] Comment on above: Performed By: #### U MICAO, UA #### [address] [address] T[employer] Adjuster: Ruddy Carver MD PH,Ur 6.5 Normal 5.0-8.0 [facility] Comment on above: Performed By: #### U MICAO, UA #### [address] [address] T[employer] Adjuster: Ruddy Carver MD Protein Ql (U) Negative Normal NEG [facility] Comment on above: Performed By: #### U MICAO, UA #### [address] [address] T[employer] Adjuster: Ruddy Carver MD Spec. [place],Ur 1.013 Normal 1.005-1.030 [facility] Comment on above: Performed By: #### U MICAO, UA #### [address] [address] T[employer] Adjuster: Ruddy Carver MD Urobilinogen,Ur Normal Normal NORM [facility] Comment on above: Performed By: #### U MICAO, UA #### [address] [address] T[employer] Adjuster: Ruddy Carver MD Urinalysis,Microon 3 Bacteria MODERATE Abnormal NONE [facility] Comment on above: Performed By: #### U MICAO, UA #### [address] [address] T[employer] Adjuster: Ruddy Carver MD Casts 2 TO 5 HYALINE Normal 0-8 [facility] Comment on above: Result Comment: Refe rence range defined for non-centrifuged specimen. Performed By: #### U MICAO, UA #### [address] [address] T[employer] Adjuster: Ruddy Carver MD Epithelial cells LM Ql (Urine sed) 5 TO 10 Normal 0-5 [facility] Comment on above: Performed By: #### U MICAO, UA #### [address] [address] [employer] Adjuster: Ruddy Carver MD Urine RBC's 2 TO 5 Normal 0-4 [facility] Comment on above: Result Comment: Refe rence range defined for non-centrifuged specimen. Performed By: #### U MICAO, UA #### [facility] [address] [place] [address] [employer] Adjuster: Ruddy Carver MD Urine WBC's 5 TO 10 Normal 0-5 [facility] Comment on above: Performed By: #### U MICAO, UA #### [address] [address] T[employer] Adjuster: Ruddy Carver MD Vaginitis DNA Probeon 2022 Graciela Negative Normal NEG [facility] Comment on above: Result Comment: for Graciela sp. Method of testing is a DNA probe intended for detection and identification of Graciela species, Gardnerella vaginalis, and Trichomonas vaginalis nucleic acid in vaginal fluid specimens from patients with symptoms of vaginitis/vaginosis. Performed By: #### V AGP #### [address] [address] Tire Adjuster: Ruddy Carver MD Gardnerella Negative Normal NEG [facility] Comment on above: Result Comment: for Gardnerella vaginalis Performed By: #### V AGP #### [address] [address] Tire Adjuster: Ruddy Carver MD Trichomonas Negative Normal NEG [facility] Comment on above: Result Comment: for Trichomonas Vaginalis Performed By: #### V AGP #### [address] [address] Tire Adjuster: Ruddy Carver MD Source .VAGINAL SWAB Normal [facility] Comment on above: Performed By: #### V AGP #### [facility] [address] [place] [address] T[employer] Adjuster: Ruddy Carver MD Lupus Anticoagulanton 2022 Anticardiolipin IgG 0.8 GPL Normal 0.0-10.0 [facility] Comment on above: Result Comment: Reference Range: <10.0 Negative 10.0-40.0 Equivocal >40.0 Positive Performed By: #### U FRANCYO UA #### [facility] [address] [place] [address] T[employer] Adjuster: Ruddy Carver MD SSAon 10-08-2022 SSA <0.3 Normal <7.0 [facility] Comment on above: Result Comment: Reference Range: <7.0 Negative 7.0-10.0 Equivocal >10.0 Positive Performed By: #### U FRANCYO UA #### [facility] [address] [place] [address] T[employer] Adjuster: Ruddy Carver MD SSBon 8 SSB <0.3 Normal <7.0 [facility] Comment on above: Result Comment: Reference Range: <7.0 Negative 7.0-10.0 Equivocal >10.0 Positive Performed By: #### U EPI UA #### [facility] [address] [place] [address] [employer] Adjuster: Ruddy Carver MD Antithrombin III [place] 10-07 Antithrombin III Act 91 % Normal 83-122 [facility] Comment on above: Result Comment: Patients receiving Hirudin may have a falsely decreased Antitrombin III Activity. Performed By: #### U EPI UA #### [facility] [address] [place] [address] T[employer] Adjuster: Ruddy Carver MD Hemoglobin A1Con 10-07-2022 Glucose [Mass/Vol] 100 mg/dL Normal [facility] Comment on above: Result Comment: The ADA and AACC recommend providing the estimated average glucose result to permit better patient understanding of their HBA1c result. Performed By: #### U EPI UA #### [facility] [address] [place] [address] T[employer] Adjuster: Ruddy Carver MD HbA1c (Bld) [Mass fraction] 5.1 % Normal 4.0-6.0 [facility] Comment on above: Performed By: #### U EPI UA #### [facility] [place] [address] Tire Adjuster: Ruddy Carver MD Lupus Anticoagulanton 2022 Anticardiolipin IgA 0.5 APL Normal 0.0-14.0 [facility] Comment on above: Result Comment: Reference Range: <14.0 Negative 14.0-20.0 Equivocal >20.0 Positive When results are Equivocal, it is recommended to retest after 4-6 weeks. Performed By: #### Nilesh CHOWDARY UA #### [facility] [place] [address] Tire Adjuster: Ruddy Carver MD Anticardiolipin IgM 4.2 MPL Normal 0.0-10.0 [facility] Comment on above: Result Comment: Reference Range: <10.0 Negative 10.0-40.0 Equivocal >40.0 Positive Performed By: #### U EPI UA #### [facility] [place] [address] Tire Adjuster: Ruddy Carver MD Miscellaneouson 10-07-2022 Send Out Report FORWARD UNITY Normal [facility] Comment on above: Performed By: #### C MIS #### [facility] [address] [place] [address] [employer] Adjuster: Ruddy Carvre MD Protein C Activityon 023 Protein C Activity 115 % Normal >80 [facility] Comment on above: Result Comment: Patients on warfarin will have decreased functional protein C/S values. Warfarin therapy should be discontinued for two weeks for accurate measurement of functional protein C/S levels. Artifactually elevated levels of functional protein C/S may be seen in patients receiving heparin,rivaroxaban,apixaban,edozaban,and dabiqatran. Decreased functionality may be seen in patients with abnormally elevated levels of Factor VIII. Performed By: #### Nilesh CHOWDARY UA #### [facility] [address] [place] [address] [phone] Tire Adjuster: Ruddy Carver MD Homocysteineon 10-06-2022 Homocysteine 4.8 umol/L Normal <15.0 [facility] Comment on above: Performed By: #### A PTMUT, AMTHFR, AF5MUT #### [facility] [address] [place] [address] Tire Adjuster: Bob Brooks MD #### LUPPRO, GLYHGB, AT3A, SSARO, SSBLA, HOCYS, FT4, TSH, PROCAC, PROSAC #### [facility] [address] [place] [address] [phone] T[employer] Adjuster: Ruddy Carver MD Lupus Anticoagulanton 2022 aPTT Coag (Bld) [Time] 24.6 s Normal 23.0-36.5 [facility] Comment on above: Result Comment: IV Heparin Therapy Range: 66.0-92.0 sec Performed By: #### EDINSON AMBROSE #### [facility] [address] [place] [address] [phone] T[employer] Adjuster: Ruddy Carver MD INR Coag (PPP) [Relative time] 1.0 {INR} Normal [facility] Comment on above: Result Comment: Therapeutic Range: Moderate Anticoagulant Intensity: INR = 2.0-3.0 High Anticoagulant Intensity: INR = 2.5-3.5 Performed By: #### EDINSON AMBROSE #### [facility] [address] [place] [address] [phone] Tire Adjuster: Ruddy Carver MD PT Coag (PPP) [Time] 12.7 s Normal 11.7-14.9 [facility] Comment on above: Performed By: #### U EPI UA #### [address] [address] T[employer] Adjuster: Ruddy Carver MD Miscellaneouson 10-06-2022 Test Name UNITY Normal [facility] Comment on above: Performed By: #### C MIS #### [address] [address] Tire Adjuster: Ruddy Carver MD Protein,Tot,[place] Uron 2022 Creatinine [Mass/Vol] 67.1 mg/dL Normal 28.0-217.0 [facility] Comment on above: Performed By: #### U RTPRT #### [address] [address] T[employer] Adjuster: Ruddy Carver MD Tot Prot. Conc. 7 mg/dL Normal [facility] Comment on above: Result Comment: No n ormal range established. Performed By: #### U RTPRT #### [address] [address] T[employer] Adjuster: Ruddy Carver MD TP/Cre Ratio 0.10 Normal 0.00-0.20 [facility] Comment on above: Performed By: #### U RTPRT #### [address] [address] T[employer] Adjuster: Ruddy Carver MD Thyroid Stim. Horm.on 2022 Thyroid Stim. Horm. 0.65 uIU/mL Normal 0.30-5.00 [facility] Comment on above: Performed By: #### U EPI UA #### [address] [address] T[employer] Adjuster: Ruddy Carver MD Thyroxine, Freeon 10-06-2022 Thyroxine, Free 1.2 ng/dL Normal 0.9-1.7 [facility] Comment on above: Performed By: #### A PTMUT, AMTHFR, AF5MUT #### [facility] [address] [place] [address] Tire Adjuster: Bob Brooks MD #### LUPPRO, GLYHGB, AT3A, SSARO, SSBLA, HOCYS, FT4, TSH, PROCAC, PROSAC #### [facility] [address] [place] [address] Tire Adjuster: Ruddy Carver MD CBC AUTO DIFFon 09-27-2022 BASO # 0.0 103/ul Normal 0.0-0.1 [facility] Comment on above: Performed By: #### C BC #### [facility] [address] [place] [address] Dr. Alka Camarillo Basophils/100 WBC (Bld) 0.2 % Normal 0.2-2.0 [facility] Comment on above: Performed By: #### C BC #### [facility] [address] [place] [address] Dr. Alka Camarillo EO # 0.1 103/ul Normal 0.0-0.7 [facility] Comment on above: Performed By: #### C BC #### [facility] [address] [address] [address] Alka Camarillo Eosinophils/100 WBC (Bld) 1.4 % Normal 0.9-7.0 [facility] Comment on above: Performed By: #### C BC #### [facility] [address] [place] [address] Dr. Alka Camarillo Erythrocyte distribution width (RBC) [Ratio] 13.3 % Normal 11.0-15.0 [facility] Comment on above: Performed By: #### C BC #### [facility] [address] [place] [address] Dr. Alka Camarillo Hematocrit (Bld) [Volume fraction] 33.1 % Critically low 36.0-48.0 [facility] Comment on above: Performed By: #### C BC #### [facility] [address] [place] [address] Dr. Alka Camarillo Hemoglobin (Bld) [Mass/Vol] 11.8 g/dL Critically low 12.0-16.0 [facility] Comment on above: Performed By: #### C BC #### [facility] [address] [place] [address] Dr. Alka Camarillo IG # 0.05 10e3/ul Critically high 0.00-0.03 [facility] Comment on above: Performed By: #### C BC #### [facility] [address] [place] [address] Dr. Alka Camarillo IG % 0.5 % Normal 0.0-0.5 [facility] Comment on above: Performed By: #### C BC #### [facility] [address] [place] [address] Dr. Alka Camarillo LYMPH # 2.9 103/ul Normal 1.2-3.8 [facility] Comment on above: Performed By: #### C BC #### [facility] [address] [place] [address] Dr. Alka Camarillo Lymphocytes/100 WBC (Bld) 29.0 % Normal 20.5-60.0 [facility] Comment on above: Performed By: #### C BC #### [facility] [address] [place] [address] Dr. Alka Camarillo MANUAL DIFF REQ NO Normal [facility] Comment on above: Performed By: #### C BC #### [facility] [address] [place] [address] Dr. Alka Camarillo MCH (RBC) [Entitic mass] 30.1 pg Normal 26.7-34.0 [facility] Comment on above: Performed By: #### C BC #### [facility] [address] [place] [address] Dr. Alka Camarillo MCHC (RBC) [Mass/Vol] 35.6 g/dL Critically high 29.9-35.2 [facility] Comment on above: Performed By: #### C BC #### [facility] [address] [address] [address] Alka Camarillo MCV (RBC) [Entitic vol] 84.4 fL Normal 81.0-99.0 [facility] Comment on above: Performed By: #### C BC #### [facility] [address] [address] [address] Alka Camarillo MONO # 0.5 103/ul Normal 0.3-0.8 [facility] Comment on above: Performed By: #### C BC #### [facility] [address] [place] [address] Dr. Alka Camarillo Monocytes/100 WBC (Bld) 5.3 % Normal 1.7-12.0 [facility] Comment on above: Performed By: #### C BC #### [facility] [address] [place] [address] Dr. Alka Camarillo NEUT # 6.3 103/ul Normal 1.4-6.5 [facility] Comment on above: Performed By: #### C BC #### [facility] [address] [place] [address] Dr. Alka Camarillo Neutrophils/100 WBC (Bld) 63.6 % Normal 43.0-75.0 [facility] Comment on above: Performed By: #### C BC #### [facility] [address] [place] [address] Dr. Alka Camarillo Platelet mean volume (Bld) [Entitic vol] 10.9 fL Normal 9.5-13.5 [facility] Comment on above: Performed By: #### C BC #### [facility] [address] [place] [address] Dr. Alka Camarillo PLT 184 103/ul Normal 150-450 [facility] Comment on above: Performed By: #### C BC #### [facility] [address] [place] [address] Dr. Alka Camarillo RBC 3.92 106/ul Critically low 4.20-5.40 [facility] Comment on above: Performed By: #### C BC #### [facility] [address] [place] [address] Dr. Alka Camarillo WBC 9.9 103/ul Normal 4.0-11.0 [facility] Comment on above: Performed By: #### C BC #### [facility] [address] [place] [address] Dr. Alka Camarillo ER URINE PROFILEon 3 Bilirubin Ql (U) Negative Normal NEGATIVE [facility] Comment on above: Performed By: #### R SPLUS #### [facility] [address] [place] [address] Dr. Alka Camarillo Clarity (U) CLEAR Normal CLEAR [facility] Comment on above: Performed By: #### R SPLUS #### [facility] [address] [place] [address] Dr. Alka Camarillo Color (U) LT. YELLOW Normal YELLOW [facility] Comment on above: Performed By: #### R SPLUS #### [facility] [address] [place] [address] Dr. Alka Camarillo ERUAHD A micrscopic examina tion will be performed if indicated. Normal [facility] Comment on above: Performed By: #### R SPLUS #### [facility] [address] [place] [address] Dr. Alka Camarillo Glucose Ql (U) Negative Normal NEGATIVE [facility] Comment on above: Performed By: #### R SPLUS #### [facility] [address] [place] [address] Dr. Alka Camarillo Hemoglobin Ql (U) Negative Normal NEGATIVE [facility] Comment on above: Performed By: #### R SPLUS #### [facility] [address] [place] [address] Dr. Alka Camarillo Ketones Ql (U) Negative Normal NEGATIVE [facility] Comment on above: Performed By: #### R SPLUS #### [facility] [address] [place] [address] Dr. Alka Camarillo LEUKOCYTES Negative Normal NEGATIVE [facility] Comment on above: Performed By: #### R SPLUS #### [facility] [address] [place] [address] Dr. Alka Camarillo Nitrite Ql (U) Negative Normal NEGATIVE [facility] Comment on above: Performed By: #### R SPLUS #### [facility] [address] [place] [address] Dr. Alka Camarillo pH (U) 6.5 [pH] Normal 5-9 [facility] Comment on above: Performed By: #### R SPLUS #### [facility] [address] [place] [address] Dr. Alka Camarillo SPEC GRAVITY 1.015 Normal 1.005-<=1.025 [facility] Comment on above: Performed By: #### R SPLUS #### [facility] [address] [place] [address] Dr. Alka Camarillo UA PROTEIN Negative Normal NEGATIVE/ TRACE [facility] Comment on above: Performed By: #### R SPLUS #### [facility] [address] [place] [address] Dr. Alka Camarillo UR MICRO IND NOT INDICATED Normal [facility] Comment on above: Performed By: #### R SPLUS #### [facility] [address] [place] [address] Dr. Alka Camarillo Urobilinogen Qn (U) 0.2 {Marck'U}/dL Normal 0.2 - 1. 0 [facility] Comment on above: Performed By: #### R SPLUS #### [facility] [address] [place] [address] Dr. Alka Camarillo PROF CHEM 8 (BAS METB)on Anion gap [Moles/Vol] 11.6 mmol/L Normal [facility] Comment on above: Performed By: #### B MP #### [facility] [address] [place] [address] Dr. Alka Camarillo Calcium [Mass/Vol] 9.3 mg/dL Normal 8.5-10.1 [facility] Comment on above: Performed By: #### B MP #### [facility] [address] [place] [address] Dr. Alka Camarillo Chloride [Moles/Vol] 102 mmol/L Normal 98-107 [facility] Comment on above: Performed By: #### B MP #### [facility] [address] [address] [address] Alka Camarillo CO2 [Moles/Vol] 26.3 mmol/L Normal 21.0-32.0 [facility] Comment on above: Performed By: #### B MP #### [facility] [address] [address] [address] Alka Camarillo Creatinine [Mass/Vol] 0.66 mg/dL Normal 0.55-1.02 [facility] Comment on above: Performed By: #### B MP #### [facility] [address] [address] [address] Alka Camarillo EGFR-AF BENINESE >60 Normal >=60 [facility] Comment on above: Performed By: #### B MP #### [facility] [address] [address] [address] Alka Camarillo EGFR-NON AF BENINESE >60 Normal >=60 [facility] Comment on above: Performed By: #### B MP #### [facility] [address] [address] [address] Alka Camarillo Glucose [Mass/Vol] 95 mg/dL Normal 74-106 [facility] Comment on above: Performed By: #### B MP #### [facility] [address] [place] [address] Dr. Alka Camarillo Potassium [Moles/Vol] 2.9 mmol/L Critically low 3.5-5.1 [facility] Comment on above: Performed By: #### B MP #### [facility] [address] [address] [address] Alka Camarillo Sodium [Moles/Vol] 138 mmol/L Normal 136-145 [facility] Comment on above: Performed By: #### B MP #### [facility] [address] [address] [address] Alka Camarillo Urea nitrogen [Mass/Vol] 5.0 mg/dL Critically low 7.0-18.0 [facility] Comment on above: Performed By: #### B MP #### [facility] [address] [place] [address] Dr. Alka Camarillo Urea nitrogen/Creatinine [Mass ratio] 7.6 mg/mg Normal [facility] Comment on above: Performed By: #### B MP #### [facility] [address] [place] [address] Dr. Alka Camarillo US PREG <14 WKSon 09-27-2022 US PREG <14 WKS Examination:US PREG <14 WKS INDICATION:Abnormal vaginal bleeding COMPARISON:08/27/2022 TECHNIQUE:Transabdominal sonography of the fetus was performed. The patient declined transvaginal scanning at this time. FINDINGS:There is a single live intrauterine gestation with a pole and a heartbeat of 169 bpm. The crown-rump length is 5.51 cm yielding a gestational age of 12 weeks 1 day. There has been appropriate interval growth when compared to the previous examination. Neither ovary is visualized on this examination. There is no free fluid in the cul-de-sac. There is no funneling of the cervix. Cervical length is 3.7 cm. IMPRESSION: Single live intrauterine gestation with pole and heartbeat. Gestational age is 12 weeks 1 day. There has been appropriate interval growth when compared to the previous ultrasound. Electronically authenticated by: SHREE SALVADOR Date: 2022-09-27 21:56 Normal [facility] CULTURE URINEon 09-18-2022 CULTURE URINE Culture Observations : NO GROWTH. Normal [facility] Comment on above: Performed By: #### U RCX #### [facility] [address] [place] [address] Dr. Alka Camarillo ER URINE PROFILEon 3 Bilirubin Ql (U) Negative Normal NEGATIVE [facility] Comment on above: Performed By: #### B MP #### [facility] [address] [place] [address] Dr. Alka Camarillo Clarity (U) CLEAR Normal CLEAR [facility] Comment on above: Performed By: #### B MP #### [facility] [address] [place] [address] Dr. Alka Camarillo Color (U) LT. YELLOW Normal YELLOW [facility] Comment on above: Performed By: #### B MP #### [facility] [address] [place] [address] Dr. Alka Camarillo ERUAHBarney A micrscopic examina tion will be performed if indicated. Normal [facility] Comment on above: Performed By: #### B MP #### [facility] [address] [address] [address] Alka Camarillo Glucose Ql (U) Negative Normal NEGATIVE [facility] Comment on above: Performed By: #### B MP #### [facility] [address] [address] [address] Alka Camarillo Hemoglobin Ql (U) Negative Normal NEGATIVE [facility] Comment on above: Performed By: #### B MP #### [facility] [address] [place] [address] Dr. Alka Camarillo Ketones Ql (U) Negative Normal NEGATIVE [facility] Comment on above: Performed By: #### B MP #### [facility] [address] [address] [address] Alka Camarillo LEUKOCYTES SMALL Abnormal NEGATIVE [facility] Comment on above: Performed By: #### B MP #### [facility] [address] [address] [address] Alka Camarillo Nitrite Ql (U) Negative Normal NEGATIVE [facility] Comment on above: Performed By: #### B MP #### [facility] [address] [place] [address] Dr. Alka Camarillo pH (U) 7.0 [pH] Normal 5-9 [facility] Comment on above: Performed By: #### B MP #### [facility] [address] [place] [address] Dr. Alka Camarillo SPEC GRAVITY <=1.005 Abnormal 1.005-<=1.025 [facility] Comment on above: Performed By: #### B MP #### [facility] [address] [place] [address] Dr. Alka Camarillo UA PROTEIN Negative Normal NEGATIVE/ TRACE [facility] Comment on above: Performed By: #### B MP #### [facility] [address] [place] [address] Dr. Alka Camarillo UR MICRO IND INDICATED Normal [facility] Comment on above: Performed By: #### B MP #### [facility] [address] [place] [address] Dr. Alka Camarillo Urobilinogen Qn (U) 0.2 {Marck'U}/dL Normal 0.2 - 1. 0 [facility] Comment on above: Performed By: #### B MP #### [facility] [address] [place] [address] Dr. Alka Camarillo URINE MICROSCOPIC ONLYon BACTERIA TRACE Abnormal NONE SEEN [facility] Comment on above: Performed By: #### B MP #### [facility] [address] [place] [address] Dr. Alka Camarillo Bacteria identified Cx Nom (U) INDICATED Normal [facility] Comment on above: Performed By: #### B MP #### [facility] [address] [place] [address] Dr. Alka Camarillo CAST NONE SEEN Normal NONE SEEN [facility] Comment on above: Performed By: #### B MP #### [facility] [address] [place] [address] Dr. Alka Camarillo Crystals LM Nom (Urine sed) NONE SEEN Normal NONE SEEN [facility] Comment on above: Performed By: #### B MP #### [facility] [address] [place] [address] Dr. Alka Camarillo Epithelial cells LM Ql (Urine sed) MODERATE Abnormal NONE SEEN /RARE [facility] Comment on above: Performed By: #### B MP #### [facility] [address] [place] [address] Dr. Alka Camarillo MUCOUS NONE SEEN Normal NONE SEEN [facility] Comment on above: Performed By: #### B MP #### [facility] [address] [place] [address] Dr. Alka Camarillo RBC 0-2 Normal 0-2 [facility] Comment on above: Performed By: #### B MP #### [facility] [address] [place] [address] Dr. Alka Camarillo WBC 2-5 Abnormal NONE SEEN [facility] Comment on above: Performed By: #### B MP #### [facility] [address] [address] [address] Alka Camarillo US KIDNEYSon 09-18-2022 US KIDNEYS EXAM: US KIDNEYS HISTORY: Kidney stone COMPARISON: None. TECHNIQUE: Retroperitoneal ultrasound of the bilateral kidneys was performed with saucedo scale and color Doppler imaging. FINDINGS: KIDNEYS: RIGHT KIDNEY: Maximum length: 12.7 cm. Morphology: Normal echogenicity; no nephrolithiasis identified. Solid/cystic lesions: None. Collecting system: No hydronephrosis. LEFT KIDNEY: Maximum length: 12.7 cm. Morphology: Normal echogenicity; no nephrolithiasis identified. Solid/cystic lesions: None. Collecting system: No hydronephrosis. BLADDER: Unremarkable Additional findings: None. IMPRESSION: Unremarkable renal ultrasound. No hydronephrosis. Electronically authenticated by: Acrisure Date: 2022-09-18 12:41 Normal [facility] XR KUB 1 VIEWon 09-18-2022 XR KUB 1 VIEW EXAM: XR KUB 1 VIEW HISTORY: Kidney stone COMPARISON: None. TECHNIQUE: One view of the abdomen FINDINGS: There is a 0.2 cm calcific density overlying the lower pole of the right kidney, may represent a stone. Bowel: Unremarkable bowel gas pattern. No bowel dilatation. Additional findings: None. IMPRESSION: 0.2 cm calcific density overlying the lower pole of the right kidney, may represent a stone. Electronically authenticated by: Acrisure Date: 2022-09-18 11:07 Normal [facility] BOX TEST SENT OUTon 09-11-19 23 SENT TO REF LAB 09/10/2022 Normal [facility] Comment on above: Performed By: #### R SPLUS #### [facility] [address] [address] [address] Alka Camarillo HEPATITIS C VIRUS AB W/ REFL EX QUANTon 09-04-2022 HCV AB Reactive Abnormal Non Reactive [facility] Comment on above: Performed By: #### R SPLUS #### [facility] [address] [address] [address] Alka Camarillo HCV log10 Normal [facility] Comment on above: Performed By: #### R SPLUS #### [facility] [address] [place] [address] Dr. Alka Camarillo Hep C Quantitation Not detected Normal [facility] Comment on above: Performed By: #### R SPLUS #### [facility] [address] [place] [address] Dr. Alka Camarillo Interpretation Comment Normal [facility] Comment on above: Result Comment: Posi tive HCV antibody screen without the presence of HCV RNA is consistent with a resolved past infection or a false positive HCV antibody. Consider repeat testing after one month. Performed By: #### R SPLUS #### [facility] [address] [place] [address] Dr. Alka Camarillo Test Information: Comment Normal [facility] Comment on above: Result Comment: The quantitative range of this assay is 15 IU/mL to 100 million IU/mL. Performed By: #### R SPLUS #### [facility] [address] [place] [address] Dr. Alka Camarillo HEP B SURFACE ANTIGEN SCREEN on 09-02-2022 HBsAg Screen Negative Normal Negative [facility] Comment on above: Performed By: #### C BC #### [facility] [address] [place] [address] Dr. Alka Camarillo HIV 1 AND 2 WITH REFLEXon HIV Screen 4th Generation wRfx Non-Reactive Normal Non Reactive [facility] Comment on above: Result Comment: HIV Negative HIV-1/HIV-2 antibodies and HIV-1 p24 antigen were NOT detected. There is no laboratory evidence of HIV infection. Performed By: #### T SH #### [facility] [address] [place] [address] Dr. Alka Camarillo RPR QUANTon 09-02-2022 Rapid Plasma Reagin, Quant Non-Reactive Normal NonRea<1:1 [facility] Comment on above: Result Comment: Plegurvinder alvarez Note: This test does not meet current guidelines for screening and diagnosis of syphilis. This test is intended for following treatment response in patients being treated for syphilis infection. To screen for syphilis infection, a reflex cascade that includes both RPR and a treponema-specific assay should be utilized, such as Treponema pallidum (Syphilis) Screening [place] (731374) or Rapid Plasma Reagin (RPR) Test With Reflex to Quantitative RPR and Confirmatory Treponema pallidum Antibodies (919431). Performed By: #### C BC #### [facility] [address] [place] [address] Dr. Alka Camarillo RUBELLA AB IGGon 09-02-2022 Rubella Antibodies, IgG 14.30 index Normal Immune >0.99 [facility] Comment on above: Result Comment: Non- immune <0.90 Equivocal 0.90 - 0.99 Immune >0.99 Performed By: #### T SH #### [facility] [address] [place] [address] Dr. Alka Camarillo CBC AUTO DIFFon 09-01-2022 BASO # 0.0 103/ul Normal 0.0-0.1 [facility] Comment on above: Performed By: #### C BC #### [facility] [address] [place] [address] Dr. Alka Camarillo Basophils/100 WBC (Bld) 0.2 % Normal 0.2-2.0 [facility] Comment on above: Performed By: #### C BC #### [facility] [address] [place] [address] Dr. Alka Camarillo EO # 0.1 103/ul Normal 0.0-0.7 [facility] Comment on above: Performed By: #### C BC #### [facility] [address] [place] [address] Dr. Alka Camarillo Eosinophils/100 WBC (Bld) 0.8 % Critically low 0.9-7.0 [facility] Comment on above: Performed By: #### C BC #### [facility] [address] [place] [address] Dr. Alka Camarillo Erythrocyte distribution width (RBC) [Ratio] 12.5 % Normal 11.0-15.0 [facility] Comment on above: Performed By: #### C BC #### [facility] [address] [place] [address] Dr. Alka Camarillo Hematocrit (Bld) [Volume fraction] 42.9 % Normal 36.0-48.0 [facility] Comment on above: Performed By: #### C BC #### [facility] [address] [place] [address] Dr. Alka Camarillo Hemoglobin (Bld) [Mass/Vol] 15.2 g/dL Normal 12.0-16.0 [facility] Comment on above: Performed By: #### C BC #### [facility] [address] [place] [address] Dr. Alka Camarillo IG # 0.06 10e3/ul Critically high 0.00-0.03 [facility] Comment on above: Performed By: #### C BC #### [facility] [address] [place] [address] Dr. Alka Camarillo IG % 0.5 % Normal 0.0-0.5 [facility] Comment on above: Performed By: #### C BC #### [facility] [address] [place] [address] Dr. Alka Camarillo LYMPH # 2.4 103/ul Normal 1.2-3.8 [facility] Comment on above: Performed By: #### C BC #### [facility] [address] [place] [address] Dr. Alka Camarillo Lymphocytes/100 WBC (Bld) 21.3 % Normal 20.5-60.0 [facility] Comment on above: Performed By: #### C BC #### [facility] [address] [place] [address] Dr. Alka Camarillo MANUAL DIFF REQ NO Normal [facility] Comment on above: Performed By: #### C BC #### [facility] [address] [place] [address] Dr. Alka Camarillo MCH (RBC) [Entitic mass] 29.9 pg Normal 26.7-34.0 [facility] Comment on above: Performed By: #### C BC #### [facility] [address] [place] [address] Dr. Alka Camarillo MCHC (RBC) [Mass/Vol] 35.4 g/dL Critically high 29.9-35.2 [facility] Comment on above: Performed By: #### C BC #### [facility] [address] [address] [address] Alka Camarillo MCV (RBC) [Entitic vol] 84.3 fL Normal 81.0-99.0 [facility] Comment on above: Performed By: #### C BC #### [facility] [address] [address] [address] Alka Camarillo MONO # 0.6 103/ul Normal 0.3-0.8 [facility] Comment on above: Performed By: #### C BC #### [facility] [address] [place] [address] Dr. Alka Camarillo Monocytes/100 WBC (Bld) 4.9 % Normal 1.7-12.0 [facility] Comment on above: Performed By: #### C BC #### [facility] [address] [place] [address] Dr. Alka Camarillo NEUT # 8.3 103/ul Critically high 1.4-6.5 [facility] Comment on above: Performed By: #### C BC #### [facility] [address] [place] [address] Dr. Alka Camarillo Neutrophils/100 WBC (Bld) 72.3 % Normal 43.0-75.0 [facility] Comment on above: Performed By: #### C BC #### [facility] [address] [place] [address] Dr. Alka Camarillo Platelet mean volume (Bld) [Entitic vol] 10.5 fL Normal 9.5-13.5 [facility] Comment on above: Performed By: #### C BC #### [facility] [address] [place] [address] Dr. Alka Camarillo PLT 242 103/ul Normal 150-450 [facility] Comment on above: Performed By: #### C BC #### [facility] [address] [place] [address] Dr. Alka Camarillo RBC 5.09 106/ul Normal 4.20-5.40 [facility] Comment on above: Performed By: #### C BC #### [facility] [address] [place] [address] Dr. Alka Camarillo WBC 11.4 103/ul Critically high 4.0-11.0 [facility] Comment on above: Performed By: #### C BC #### [facility] [address] [place] [address] Dr. Alka Camarillo CULTURE URINEon 09-01-2022 CULTURE URINE Culture Observations : LIGHT GROWTH OF MIXED GENITAL MONTSERRAT. NO POTENTIAL PATHOGENS SEEN. Normal [facility] Comment on above: Performed By: #### U RCX #### [facility] [address] [place] [address] Dr. Alka Camarillo GLYCOHEMOGLOBIN A1Con 2022 ADA RECOMMENDATION SEE BELOW Normal [facility] Comment on above: Result Comment: ADA RECOMMENDED LIMIT 4.0 - 6.0 ADA THERAPEUTIC TARGET < 7.0 ACTION SUGGESTED > 7.0 Performed By: #### R SPLUS #### [facility] [address] [place] [address] Dr. Alka Camarillo Glucose [Mass/Vol] 100 mg/dL Normal [facility] Comment on above: Performed By: #### R SPLUS #### [facility] [address] [place] [address] Dr. Alka Camarillo HbA1c (Bld) [Mass fraction] 5.1 % Normal 4.5-6.2 [facility] Comment on above: Performed By: #### R SPLUS #### [facility] [address] [place] [address] Dr. Alka Camarillo TSHon 09-01-2022 TSH 1.062 uIU/mL Normal 0.358-3.740 [facility] Comment on above: Performed By: #### T SH #### [facility] [address] [place] [address] Dr. Alka Camarillo TYPE AND SCREENon 09-01-2022 TYPE AND SCREEN Negative Normal [facility] Comment on above: Performed By: #### T SH #### [facility] [address] [place] [address] Dr. Alka Camarillo US PREG TVon 08-27-2022 US PREG TV EXAMINATION: US PREG TV HISTORY: Missed period COMPARISON: Ultrasound 08/17/2022 FINDINGS: GESTATIONAL SAC: Present and normal appearing. YOLK SAC: Present and normal appearing. POLE: Present and normal appearing. CARDIAC: Present. UTERUS: Normal size and appearance. OVARIES: Right: Normal. Left: Normal. CERVIX: 3.6 cm in length and closed. CUL-DE-SAC: Normal. OTHER: None. AGE BY LMP: 7 weeks 0 days MICHAEL BY LMP: 04/15/2023 AGE BY US CRL: 7 weeks 2 days MICHAEL BY US CRL: 04/13/2023 IMPRESSION: 1. Single live intrauterine . Electronically authenticated by: GAIL RAMSEY Date: 2022-08-27 15:08 Normal [facility] CULTURE THROATon 08-25-2022 CULTURE THROAT Isolate 1 Graciela tropicalis Moderate growth of Normal [facility] Comment on above: Performed By: #### T HRTCX #### [facility] [address] [place] [address] Dr. Alka Camarillo ABO AND RH TYPEon 08-17-2022 ABO and Rh group Nom (Bld) ABO Rh Typing AB Rh Positive Normal [facility] Comment on above: Performed By: #### T SH #### [facility] [address] [place] [address] Dr. Alka Camarillo CULTURE THROATon 08-17-2022 CULTURE THROAT Isolate 1 Enterobacter cloacae complex Light growth of Isolate 2 Graciela tropicalis Moderate growth of ORGANISM 1 Enterobacter cloacae complex ANTIBIOTIC M.I.C RX STATUS Piperacillin/Tazobactam <=4 S F Cefazolin >=64 R F Ceftazidime <=1 S F Ceftriaxone <=1 S F Ertapenem <=0.5 S F Imipenem <=0.25 S F Amikacin <=2 S F Gentamicin <=1 S F Tobramycin <=1 S F Ciprofloxacin <=0.25 S F Levofloxacin <=0.12 S F Trimethoprim/Sulfamethoxazo le <=20 S F Normal [facility] Comment on above: Performed By: #### T HRTCX #### [facility] [address] [place] [address] Dr. Alka Camarillo ER URINE PROFILEon 3 Bilirubin Ql (U) Negative Normal NEGATIVE [facility] Comment on above: Performed By: #### C BC #### [facility] [address] [place] [address] Dr. Alka Camarillo Clarity (U) CLEAR Normal CLEAR [facility] Comment on above: Performed By: #### C BC #### [facility] [address] [place] [address] Dr. Alka Camarillo Color (U) LT. YELLOW Normal YELLOW [facility] Comment on above: Performed By: #### C BC #### [facility] [address] [place] [address] Dr. Alka MONTANEZ A micrscopic examina tion will be performed if indicated. Normal [facility] Comment on above: Performed By: #### C BC #### [facility] [address] [place] [address] Dr. Alka Camarillo Glucose Ql (U) Negative Normal NEGATIVE [facility] Comment on above: Performed By: #### C BC #### [facility] [address] [place] [address] Dr. Alka Camarillo Hemoglobin Ql (U) Negative Normal NEGATIVE [facility] Comment on above: Performed By: #### C BC #### [facility] [address] [place] [address] Dr. Alka Camarillo Ketones Ql (U) Negative Normal NEGATIVE [facility] Comment on above: Performed By: #### C BC #### [facility] [address] [place] [address] Dr. Alka Camarillo LEUKOCYTES TRACE Abnormal NEGATIVE [facility] Comment on above: Performed By: #### C BC #### [facility] [address] [place] [address] Dr. Alka Camarillo Nitrite Ql (U) Negative Normal NEGATIVE [facility] Comment on above: Performed By: #### C BC #### [facility] [address] [place] [address] Dr. Alka Camarillo pH (U) 7.0 [pH] Normal 5-9 [facility] Comment on above: Performed By: #### C BC #### [facility] [address] [place] [address] Dr. Alka Camarillo SPEC GRAVITY <=1.005 Abnormal 1.005-<=1.025 [facility] Comment on above: Performed By: #### C BC #### [facility] [address] [place] [address] Dr. Alka Camarillo UA PROTEIN Negative Normal NEGATIVE/ TRACE [facility] Comment on above: Performed By: #### C BC #### [facility] [address] [place] [address] Dr. Alka Camarillo UR MICRO IND INDICATED Normal [facility] Comment on above: Performed By: #### C BC #### [facility] [address] [place] [address] Dr. Alka Camarillo Urobilinogen Qn (U) 0.2 {Marck'U}/dL Normal 0.2 - 1. 0 [facility] Comment on above: Performed By: #### C BC #### [facility] [address] [place] [address] Dr. Alka Camarillo PREG QUANT HCGon 08-17-2022 HCG QUANT 40590 mIU/mL Normal [facility] Comment on above: Performed By: #### B MP #### [facility] [address] [place] [address] Dr. Alka Camarillo HCG RANGE SEE BELOW Normal [facility] Comment on above: Result Comment: 5-50 0.2-1 WEEK 50-500 1-2 WEEKS 100-5,000 2-3 WEEKS 500-10,000 3-4 WEEKS 1,000-50,000 4-5 WEEKS 10,000-100,000 5-6 WEEKS 15,000-200,000 6-8 WEEKS 10,000-100,000 2-3 MONTHS Performed By: #### B MP #### [facility] [address] [place] [address] Dr. Alka Camarillo URINE MICROSCOPIC ONLYon BACTERIA NONE SEEN Normal NONE SEEN [facility] Comment on above: Performed By: #### C BC #### [facility] [address] [place] [address] Dr. Alka Camarillo Bacteria identified Cx Nom (U) NOT INDICATED Normal [facility] Comment on above: Performed By: #### C BC #### [facility] [address] [place] [address] Dr. Alka Camarillo CAST NONE SEEN Normal NONE SEEN [facility] Comment on above: Performed By: #### C BC #### [facility] [address] [place] [address] Dr. Alka Camarillo Crystals LM Nom (Urine sed) NONE SEEN Normal NONE SEEN [facility] Comment on above: Performed By: #### C BC #### [facility] [address] [place] [address] Dr. Alka Camarillo Epithelial cells LM Ql (Urine sed) FEW Abnormal NONE SEEN /RARE [facility] Comment on above: Performed By: #### C BC #### [facility] [address] [place] [address] Dr. Alka Camarillo MUCOUS NONE SEEN Normal NONE SEEN [facility] Comment on above: Performed By: #### C BC #### [facility] [address] [place] [address] Dr. Alka Camarillo RBC NONE SEEN Abnormal 0-2 [facility] Comment on above: Performed By: #### C BC #### [facility] [address] [place] [address] Dr. Alka Camarillo WBC 0-2 Abnormal NONE SEEN [facility] Comment on above: Performed By: #### C BC #### [facility] [address] [place] [address] Dr. Alka Camarillo US PREG TVon 08-17-2022 US PREG TV EXAM: US PREG TV HISTORY: Cramping, . COMPARISON: None. TECHNIQUE: Transvaginal ultrasound of the pelvis was performed using Duplex Doppler and color-flow. Transvaginal ultrasound medically necessary for optimal imaging. FINDINGS: Ultrasound images demonstrate a gravid uterus with a single intrauterine gestational sac. Mean sac diameter measures 1.03 cm, indicative of a 5 weeks 0 day gestation. Within the gestational sac is a well-defined embryo with a crown rump length measuring 0.44 cm indicative of a 6 week 1 day gestation and 04/11/2023 estimated date of delivery. Based on clinical dating estimated gestational age is 5 weeks 4 days and estimated date of delivery is 04/15/2023. Embryonic cardiac activity is noted at a rate of 112 beats per minute. There is a small focus of apparent perigestational hemorrhage measuring 1.1 x 0.2 x 0.6 cm. Cervical length measures 3.8 cm. Cervix is closed. The right ovary measures up to 3.8 x 1.8 x 1.9 cm, and the left ovary measures up to 3.1 x 1.9 x 1.6 cm. 2 simple appearing right ovarian cysts are noted, one measuring 1.1 x 1.1 x 1.1 cm and the second measuring 1.0 x 1.2 x 1.0 cm. Suspect right ovarian corpus luteum cyst. Arterial and venous flow are noted in both ovaries. No significant free fluid is noted within the pelvis. IMPRESSION: Single live intrauterine gestation at approximately 6 weeks 1 day with an estimated due date of 04/11/2023. Appropriate correlation with clinical dating. Embryonic cardiac activity is noted at a rate of 112 bpm. Apparent small 1.1 cm focus of perigestational hemorrhage. 2 small simple appearing right ovarian cysts. No significant pelvic free fluid. Electronically authenticated by: RADHA FERRER Date: 2022-08-17 16:17 Normal [facility] RESPIRATORY PANEL PLUSon Adenovirus Not detected Normal NOT DETECTED [facility] Comment on above: Performed By: #### R SPLUS #### [facility] [address] [place] [address] Dr. Alka Mueller Parapertusis Not detected Normal NOT DETECTED [facility] Comment on above: Performed By: #### R SPLUS #### [facility] [address] [address] [address] Alka Mueller Pertussis Not detected Normal NOT DETECTED [facility] Comment on above: Performed By: #### R SPLUS #### [facility] [address] [place] [address] Dr. Alka Camarillo Chlamydia Pneumoniae Not detected Normal NOT DETECTED [facility] Comment on above: Performed By: #### R SPLUS #### [facility] [address] [place] [address] Dr. Alka Camarillo Coronavirus 229E Not detected Normal NOT DETECTED [facility] Comment on above: Performed By: #### R SPLUS #### [facility] [address] [place] [address] Dr. Alka Camarillo Coronavirus HKU1 Not detected Normal NOT DETECTED [facility] Comment on above: Performed By: #### R SPLUS #### [facility] [address] [place] [address] Dr. Alka Camarillo Coronavirus NL63 Not detected Normal NOT DETECTED [facility] Comment on above: Performed By: #### R SPLUS #### [facility] [address] [place] [address] Dr. Alka Camarillo Coronavirus OC43 Not detected Normal NOT DETECTED [facility] Comment on above: Performed By: #### R SPLUS #### [facility] [address] [place] [address] Dr. Alka Camarillo Influenza A H1 Not detected Normal NOT DETECTED [facility] Comment on above: Performed By: #### R SPLUS #### [facility] [address] [place] [address] Dr. Alka Camarillo Influenza A H1 2009 Not detected Normal NOT DETECTED [facility] Comment on above: Performed By: #### R SPLUS #### [facility] [address] [place] [address] Dr. Alka Camarillo Influenza A H3 Not detected Normal NOT DETECTED [facility] Comment on above: Performed By: #### R SPLUS #### [facility] [address] [place] [address] Dr. Alka Camarillo Influenza B Not detected Normal NOT DETECTED [facility] Comment on above: Performed By: #### R SPLUS #### [facility] [address] [place] [address] Dr. Alka Camarillo Metapneumovirus Not detected Normal NOT DETECTED [facility] Comment on above: Performed By: #### R SPLUS #### [facility] [address] [place] [address] Dr. Alka Camarillo Mycoplas. Pneumoniae Not detected Normal NOT DETECTED [facility] Comment on above: Performed By: #### R SPLUS #### [facility] [address] [place] [address] Dr. Alka Camarillo Parainfluenza 1 Not detected Normal NOT DETECTED [facility] Comment on above: Performed By: #### R SPLUS #### [facility] [address] [place] [address] Dr. Alka Camarillo Parainfluenza 2 Not detected Normal NOT DETECTED [facility] Comment on above: Performed By: #### R SPLUS #### [facility] [address] [place] [address] Dr. Alka Camarillo Parainfluenza 3 Not detected Normal NOT DETECTED [facility] Comment on above: Performed By: #### R SPLUS #### [facility] [address] [place] [address] Dr. Alka Camarillo Parainfluenza 4 Not detected Normal NOT DETECTED [facility] Comment on above: Performed By: #### R SPLUS #### [facility] [address] [place] [address] Dr. Alka Camarillo Rhino/Enterovirus Not detected Normal NOT DETECTED [facility] Comment on above: Performed By: #### R SPLUS #### [facility] [address] [place] [address] Dr. Alka Camarillo RP2 Header 1 RESPIRATORY PANEL: VIRUSES Normal [facility] Comment on above: Performed By: #### R SPLUS #### [facility] [address] [place] [address] Dr. Akla ALONSO Header 2 RESPIRATORY PANEL: BACTERIA Normal [facility] Comment on above: Performed By: #### R SPLUS #### [facility] [address] [place] [address] Dr. Alka Camarillo RSV Not detected Normal NOT DETECTED [facility] Comment on above: Performed By: #### R SPLUS #### [facility] [address] [place] [address] Dr. Alka Camarillo SARS-CoV-2 (COVID-19) RNA JESSE+probe Ql (Unsp spec) Not detected Normal NOT DETECTED [facility] Comment on above: Performed By: #### R SPLUS #### [facility] [address] [place] [address] Dr. Alka Camarillo CBC AUTO DIFFon 06-27-2022 BASO # 0.0 103/ul Normal 0.0-0.1 [facility] Comment on above: Performed By: #### B MP #### [facility] [address] [place] [address] Dr. Alka Camarillo Basophils/100 WBC (Bld) 0.2 % Normal 0.2-2.0 [facility] Comment on above: Performed By: #### B MP #### [facility] [address] [place] [address] Dr. Alka Camarillo EO # 0.1 103/ul Normal 0.0-0.7 [facility] Comment on above: Performed By: #### B MP #### [facility] [address] [place] [address] Dr. Alka Camarillo Eosinophils/100 WBC (Bld) 2.2 % Normal 0.9-7.0 [facility] Comment on above: Performed By: #### B MP #### [facility] [address] [place] [address] Dr. Alka Camarillo Erythrocyte distribution width (RBC) [Ratio] 12.8 % Normal 11.0-15.0 [facility] Comment on above: Performed By: #### B MP #### [facility] [address] [place] [address] Dr. Alka Camarillo Hematocrit (Bld) [Volume fraction] 36.5 % Normal 36.0-48.0 [facility] Comment on above: Performed By: #### B MP #### [facility] [address] [place] [address] Dr. Alka Camarillo Hemoglobin (Bld) [Mass/Vol] 12.1 g/dL Normal 12.0-16.0 [facility] Comment on above: Performed By: #### B MP #### [facility] [address] [place] [address] Dr. Alka Camarillo IG # 0.02 10e3/ul Normal 0.00-0.03 [facility] Comment on above: Performed By: #### B MP #### [facility] [address] [place] [address] Dr. Alka Camarillo IG % 0.3 % Normal 0.0-0.5 [facility] Comment on above: Performed By: #### B MP #### [facility] [address] [place] [address] Dr. Alka Camarillo LYMPH # 3.1 103/ul Normal 1.2-3.8 [facility] Comment on above: Performed By: #### B MP #### [facility] [address] [place] [address] Dr. Alka Camarillo Lymphocytes/100 WBC (Bld) 47.9 % Normal 20.5-60.0 [facility] Comment on above: Performed By: #### B MP #### [facility] [address] [place] [address] Dr. Alka Camarillo MANUAL DIFF REQ NO Normal [facility] Comment on above: Performed By: #### B MP #### [facility] [address] [place] [address] Dr. Alka Camarillo MCH (RBC) [Entitic mass] 30.4 pg Normal 26.7-34.0 [facility] Comment on above: Performed By: #### B MP #### [facility] [address] [place] [address] Dr. Alka Camarillo MCHC (RBC) [Mass/Vol] 33.2 g/dL Normal 29.9-35.2 [facility] Comment on above: Performed By: #### B MP #### [facility] [address] [place] [address] Dr. Alka Camarillo MCV (RBC) [Entitic vol] 91.7 fL Normal 81.0-99.0 [facility] Comment on above: Performed By: #### B MP #### [facility] [address] [place] [address] Dr. Alka Camarillo MONO # 0.4 103/ul Normal 0.3-0.8 [facility] Comment on above: Performed By: #### B MP #### [facility] [address] [place] [address] Dr. Alka Camarillo Monocytes/100 WBC (Bld) 5.9 % Normal 1.7-12.0 [facility] Comment on above: Performed By: #### B MP #### [facility] [address] [place] [address] Dr. Alka Camarillo NEUT # 2.8 103/ul Normal 1.4-6.5 [facility] Comment on above: Performed By: #### B MP #### [facility] [address] [place] [address] Dr. Alka Camarillo Neutrophils/100 WBC (Bld) 43.5 % Normal 43.0-75.0 [facility] Comment on above: Performed By: #### B MP #### [facility] [address] [place] [address] Dr. Alka Camarillo Platelet mean volume (Bld) [Entitic vol] 10.9 fL Normal 9.5-13.5 [facility] Comment on above: Performed By: #### B MP #### [facility] [address] [place] [address] Dr. Alka Camarillo PLT 221 103/ul Normal 150-450 [facility] Comment on above: Performed By: #### B MP #### [facility] [address] [place] [address] Dr. Alka Camarillo RBC 3.98 106/ul Critically low 4.20-5.40 [facility] Comment on above: Performed By: #### B MP #### [facility] [address] [place] [address] Dr. Alka Camarillo WBC 6.4 103/ul Normal 4.0-11.0 [facility] Comment on above: Performed By: #### B MP #### [facility] [address] [place] [address] Dr. Alka Camarillo PROF CHEM 8 (BAS METB)on Anion gap [Moles/Vol] 8.5 mmol/L Normal [facility] Comment on above: Performed By: #### B MP #### [facility] [address] [address] [address] Alka Camarillo Calcium [Mass/Vol] 8.9 mg/dL Normal 8.5-10.1 [facility] Comment on above: Performed By: #### B MP #### [facility] [address] [address] [address] Alka Camarillo Chloride [Moles/Vol] 105 mmol/L Normal 98-107 [facility] Comment on above: Performed By: #### B MP #### [facility] [address] [address] [address] Alka Camarillo CO2 [Moles/Vol] 29.2 mmol/L Normal 21.0-32.0 [facility] Comment on above: Performed By: #### B MP #### [facility] [address] [place] [address] Dr. Alka Camarillo Creatinine [Mass/Vol] 0.70 mg/dL Normal 0.55-1.02 [facility] Comment on above: Performed By: #### B MP #### [facility] [address] [place] [address] Dr. Alka Camarillo EGFR-AF BENINESE >60 Normal >=60 [facility] Comment on above: Performed By: #### B MP #### [facility] [address] [place] [address] Dr. Alka Camarillo EGFR-NON AF BENINESE >60 Normal >=60 [facility] Comment on above: Performed By: #### B MP #### [facility] [address] [place] [address] Dr. Alka Camarillo Glucose [Mass/Vol] 126 mg/dL Critically high 74-106 [facility] Comment on above: Performed By: #### B MP #### [facility] [address] [place] [address] Dr. Alka Camarillo Potassium [Moles/Vol] 3.7 mmol/L Normal 3.5-5.1 [facility] Comment on above: Performed By: #### B MP #### [facility] [address] [place] [address] Dr. Alka Camarillo Sodium [Moles/Vol] 139 mmol/L Normal 136-145 [facility] Comment on above: Performed By: #### B MP #### [facility] [address] [place] [address] Dr. Alka Camarillo Urea nitrogen [Mass/Vol] 14.0 mg/dL Normal 7.0-18.0 [facility] Comment on above: Performed By: #### B MP #### [facility] [address] [place] [address] Dr. Alka Camarillo Urea nitrogen/Creatinine [Mass ratio] 20.0 mg/mg Normal [facility] Comment on above: Performed By: #### B MP #### [facility] [address] [place] [address] Dr. Alka Camarillo VANCOMYCIN TROUGHon 06-27-19 VANCOMYCIN TROUGH 10.8 ug/ml Normal 5.0-20.0 [facility] Comment on above: Performed By: #### R SPLUS #### [facility] [address] [place] [address] Dr. Alka Camarillo CBC AUTO DIFFon 06-26-2022 BASO # 0.0 103/ul Normal 0.0-0.1 [facility] Comment on above: Performed By: #### C BC #### [facility] [address] [place] [address] Dr. Alka Camarillo Basophils/100 WBC (Bld) 0.3 % Normal 0.2-2.0 [facility] Comment on above: Performed By: #### C BC #### [facility] [address] [place] [address] Dr. Alka Camarillo EO # 0.2 103/ul Normal 0.0-0.7 [facility] Comment on above: Performed By: #### C BC #### [facility] [address] [place] [address] Dr. Alka Camarillo Eosinophils/100 WBC (Bld) 2.1 % Normal 0.9-7.0 [facility] Comment on above: Performed By: #### C BC #### [facility] [address] [place] [address] Dr. Alka Camarillo Erythrocyte distribution width (RBC) [Ratio] 12.2 % Normal 11.0-15.0 [facility] Comment on above: Performed By: #### C BC #### [facility] [address] [place] [address] Dr. Alka Camarillo Hematocrit (Bld) [Volume fraction] 38.7 % Normal 36.0-48.0 [facility] Comment on above: Performed By: #### C BC #### [facility] [address] [place] [address] Dr. Alka Camarillo Hemoglobin (Bld) [Mass/Vol] 13.6 g/dL Normal 12.0-16.0 [facility] Comment on above: Performed By: #### C BC #### [facility] [address] [place] [address] Dr. Alka Camarillo IG # 0.02 10e3/ul Normal 0.00-0.03 [facility] Comment on above: Performed By: #### C BC #### [facility] [address] [place] [address] Dr. Alka Camarillo IG % 0.3 % Normal 0.0-0.5 [facility] Comment on above: Performed By: #### C BC #### [facility] [address] [place] [address] Dr. Alka Camarillo LYMPH # 2.3 103/ul Normal 1.2-3.8 [facility] Comment on above: Performed By: #### C BC #### [facility] [address] [place] [address] Dr. Alka Camarillo Lymphocytes/100 WBC (Bld) 29.1 % Normal 20.5-60.0 [facility] Comment on above: Performed By: #### C BC #### [facility] [address] [place] [address] Dr. Alka Camarillo MANUAL DIFF REQ NO Normal [facility] Comment on above: Performed By: #### C BC #### [facility] [address] [place] [address] Dr. Alka Camarillo MCH (RBC) [Entitic mass] 30.6 pg Normal 26.7-34.0 [facility] Comment on above: Performed By: #### C BC #### [facility] [address] [place] [address] Dr. Alka Camarillo MCHC (RBC) [Mass/Vol] 35.1 g/dL Normal 29.9-35.2 [facility] Comment on above: Performed By: #### C BC #### [facility] [address] [place] [address] Dr. Alka Camarillo MCV (RBC) [Entitic vol] 87.0 fL Normal 81.0-99.0 [facility] Comment on above: Performed By: #### C BC #### [facility] [address] [place] [address] Dr. Alka Camarillo MONO # 0.4 103/ul Normal 0.3-0.8 [facility] Comment on above: Performed By: #### C BC #### [facility] [address] [place] [address] Dr. Alka Camarillo Monocytes/100 WBC (Bld) 5.2 % Normal 1.7-12.0 [facility] Comment on above: Performed By: #### C BC #### [facility] [address] [place] [address] Dr. Alka Camarillo NEUT # 5.0 103/ul Normal 1.4-6.5 [facility] Comment on above: Performed By: #### C BC #### [facility] [address] [place] [address] Dr. Alka Camarillo Neutrophils/100 WBC (Bld) 63.0 % Normal 43.0-75.0 [facility] Comment on above: Performed By: #### C BC #### [facility] [address] [place] [address] Dr. Alka Camarillo Platelet mean volume (Bld) [Entitic vol] 10.2 fL Normal 9.5-13.5 [facility] Comment on above: Performed By: #### C BC #### [facility] [address] [place] [address] Dr. Alka Camarillo PLT 223 103/ul Normal 150-450 [facility] Comment on above: Performed By: #### C BC #### [facility] [address] [place] [address] Dr. Alka Camarillo RBC 4.45 106/ul Normal 4.20-5.40 [facility] Comment on above: Performed By: #### C BC #### [facility] [address] [place] [address] Dr. Alka Camarillo WBC 7.6 103/ul Normal 4.0-11.0 [facility] Comment on above: Performed By: #### C BC #### [facility] [address] [place] [address] Dr. Alka Camarillo CRPon 06-26-2022 CRP 0.4 mg/dL Normal <=1.0 [facility] Comment on above: Performed By: #### B MP #### [facility] [address] [place] [address] Dr. Alka Camarillo CULTURE BLOODon 06-26-2022 Microscopic examination of blood, culture Culture Observations: NO GROWTH AT 5 DAYS. Normal [facility] Comment on above: Performed By: #### T SH #### [facility] [address] [place] [address] Dr. Alka Camarillo Microscopic examination of blood, culture Culture Observations: NO GROWTH AT 5 DAYS. Normal [facility] Comment on above: Performed By: #### B LDCX1 #### [facility] [address] [place] [address] Dr. Alka Camarillo [facility]on SARS-CoV-2 (COVID-19) RNA JESSE+probe Ql (Unsp spec) Not detected Normal NOT DETECTED [facility] Comment on above: Result Comment: When diagnostic testing is negative, the possibility of a false negative should be considered in the context of a patient's recent exposures and the presence of clinical signs and symptoms consistent with SARS-CoV-2. This test is not yet approved or cleared by the [place] FDA. When there are no FDA-approved or cleared tests available, and other criteria are met, FDA can make tests available under an emergency access mechanism called an Emergency Use Authorization (EUA). The EUA for this test is supported by the Dell of Health and Human Service's declaration that circumstances exist to justify the emergency use of in vitro diagnostics for the detection and/or diagnosis of the virus that causes COVID-19. This EUA will remain in effect for the duration of the COVID-19 declaration justifying emergency of IVDs, unless it is terminated or revoked by the FDA (after which the test may no longer be used). Performed By: #### B MP #### [facility] [address] [place] [address] Dr. Alka Camarillo LACTATE/LACTIC ACIDon 2022 Lactate [Moles/Vol] 1.8 mmol/L Normal 0.4-1.9 [facility] Comment on above: Performed By: #### B MP #### [facility] [address] [place] [address] Dr. Alka Camarillo Lactate [Moles/Vol] 2.3 mmol/L Critically high 0.4-1.9 [facility] Comment on above: Performed By: #### R SPLUS #### [facility] [address] [place] [address] Dr. Alka Camarillo POINT OF CARE GLUCOSEon Glucose [Mass/Vol] 154 mg/dL Critically high 74-106 [facility] Comment on above: Performed By: #### R SPLUS #### [facility] [address] [place] [address] Dr. Alka Camarillo PROF CHEM 8 (BAS METB)on Anion gap [Moles/Vol] 11.4 mmol/L Normal [facility] Comment on above: Performed By: #### B MP #### [facility] [address] [place] [address] Dr. Alka Camarillo Calcium [Mass/Vol] 9.3 mg/dL Normal 8.5-10.1 [facility] Comment on above: Performed By: #### B MP #### [facility] [address] [place] [address] Dr. Alka Camarillo Chloride [Moles/Vol] 102 mmol/L Normal 98-107 [facility] Comment on above: Performed By: #### B MP #### [facility] [address] [address] [address] Alka Camarillo CO2 [Moles/Vol] 27.5 mmol/L Normal 21.0-32.0 [facility] Comment on above: Performed By: #### B MP #### [facility] [address] [address] [address] Alka Camarillo Creatinine [Mass/Vol] 0.71 mg/dL Normal 0.55-1.02 [facility] Comment on above: Performed By: #### B MP #### [facility] [address] [address] [address] Alka Camarillo EGFR-AF BENINESE >60 Normal >=60 [facility] Comment on above: Performed By: #### B MP #### [facility] [address] [address] [address] Alka Camarillo EGFR-NON AF BENINESE >60 Normal >=60 [facility] Comment on above: Performed By: #### B MP #### [facility] [address] [place] [address] Dr[address] Alka Camarillo Glucose [Mass/Vol] 157 mg/dL Critically high 74-106 [facility] Comment on above: Performed By: #### B MP #### [facility] [address] [place] [address] Dr. Alka Camarillo Potassium [Moles/Vol] 3.9 mmol/L Normal 3.5-5.1 [facility] Comment on above: Performed By: #### B MP #### [facility] [address] [address] [address] Alka Camarillo Sodium [Moles/Vol] 137 mmol/L Normal 136-145 [facility] Comment on above: Performed By: #### B MP #### [facility] [address] [address] [address] Alka Camarillo Urea nitrogen [Mass/Vol] 6.0 mg/dL Critically low 7.0-18.0 [facility] Comment on above: Performed By: #### B MP #### [facility] [address] [address] [address] Alka Camarillo Urea nitrogen/Creatinine [Mass ratio] 8.5 mg/mg Normal [facility] Comment on above: Performed By: #### B MP #### [facility] [address] [address] [address] Alka Camarillo SED RATE WESTERGRENon 2022 SED RATE 17 mm/hr Normal <=20 [facility] Comment on above: Performed By: #### T SH #### [facility] [address] [place] [address] Dr. Alka Camarillo US EXT NON VASC LIMITED RTon 06-26-2022 US EXT NON VASC LIMITED RT EXAMINATION: US EXT NON VASC LIMITED RT HISTORY: Abscess of arm COMPARISON: No relevant comparison available. FINDINGS: Ultrasound posterior right wrist demonstrates thickened hypervascular subcutaneous tissue without fluid collection or abscess. IMPRESSION: 1. Inflamed appearance of subcutaneous tissues; possible cellulitis. No abscess. Electronically authenticated by: GAIL RAMSEY Date: 2022-06-26 15:31 Normal [facility] CBC AUTO DIFFon 06-09-2022 BASO # 0.0 103/ul Normal 0.0-0.1 [facility] Comment on above: Performed By: #### B MP #### [facility] [address] [place] [address] Dr. Alka Camarillo Basophils/100 WBC (Bld) 0.4 % Normal 0.2-2.0 [facility] Comment on above: Performed By: #### B MP #### [facility] [address] [place] [address] Dr. Alka Camarillo EO # 0.1 103/ul Normal 0.0-0.7 [facility] Comment on above: Performed By: #### B MP #### [facility] [address] [address] [address] Alka Camarillo Eosinophils/100 WBC (Bld) 0.9 % Normal 0.9-7.0 [facility] Comment on above: Performed By: #### B MP #### [facility] [address] [place] [address] Dr. Alka Camarillo Erythrocyte distribution width (RBC) [Ratio] 12.5 % Normal 11.0-15.0 [facility] Comment on above: Performed By: #### B MP #### [facility] [address] [place] [address] Dr. Alka Camarillo Hematocrit (Bld) [Volume fraction] 41.1 % Normal 36.0-48.0 [facility] Comment on above: Performed By: #### B MP #### [facility] [address] [place] [address] Dr. Alka Camarillo Hemoglobin (Bld) [Mass/Vol] 14.5 g/dL Normal 12.0-16.0 [facility] Comment on above: Performed By: #### B MP #### [facility] [address] [place] [address] Dr. Alka Camarillo IG # 0.08 10e3/ul Critically high 0.00-0.03 [facility] Comment on above: Performed By: #### B MP #### [facility] [address] [place] [address] Dr. Alka Camarillo IG % 0.8 % Critically high 0.0-0.5 [facility] Comment on above: Performed By: #### B MP #### [facility] [address] [place] [address] Dr. Alka Camarillo LYMPH # 2.6 103/ul Normal 1.2-3.8 [facility] Comment on above: Performed By: #### B MP #### [facility] [address] [place] [address] Dr. Alka Camarillo Lymphocytes/100 WBC (Bld) 25.3 % Normal 20.5-60.0 [facility] Comment on above: Performed By: #### B MP #### [facility] [address] [place] [address] Dr. Alka Camarillo MANUAL DIFF REQ NO Normal [facility] Comment on above: Performed By: #### B MP #### [facility] [address] [place] [address] Dr. Alka Camarillo MCH (RBC) [Entitic mass] 29.9 pg Normal 26.7-34.0 [facility] Comment on above: Performed By: #### B MP #### [facility] [address] [place] [address] Dr. Alka Camarillo MCHC (RBC) [Mass/Vol] 35.3 g/dL Critically high 29.9-35.2 [facility] Comment on above: Performed By: #### B MP #### [facility] [address] [place] [address] Dr. Alka Camarillo MCV (RBC) [Entitic vol] 84.7 fL Normal 81.0-99.0 [facility] Comment on above: Performed By: #### B MP #### [facility] [address] [place] [address] Dr. Alka Camarillo MONO # 0.5 103/ul Normal 0.3-0.8 [facility] Comment on above: Performed By: #### B MP #### [facility] [address] [place] [address] Dr. Alka Camarillo Monocytes/100 WBC (Bld) 4.8 % Normal 1.7-12.0 [facility] Comment on above: Performed By: #### B MP #### [facility] [address] [place] [address] Dr. Alka Camarillo NEUT # 6.9 103/ul Critically high 1.4-6.5 [facility] Comment on above: Performed By: #### B MP #### [facility] [address] [place] [address] Dr. Alka Camarillo Neutrophils/100 WBC (Bld) 67.8 % Normal 43.0-75.0 [facility] Comment on above: Performed By: #### B MP #### [facility] [address] [place] [address] Dr. Alka Camarillo Platelet mean volume (Bld) [Entitic vol] 10.4 fL Normal 9.5-13.5 [facility] Comment on above: Performed By: #### B MP #### [facility] [address] [place] [address] Dr. Alka Camarillo PLT 238 103/ul Normal 150-450 [facility] Comment on above: Performed By: #### B MP #### [facility] [address] [place] [address] Dr. Alka Camarillo RBC 4.85 106/ul Normal 4.20-5.40 [facility] Comment on above: Performed By: #### B MP #### [facility] [address] [address] [address] Alka Camarillo WBC 10.2 103/ul Normal 4.0-11.0 [facility] Comment on above: Performed By: #### B MP #### [facility] [address] [place] [address] Dr. Alka Camarillo GLYCOHEMOGLOBIN A1Con 2022 ADA RECOMMENDATION SEE BELOW Normal [facility] Comment on above: Result Comment: ADA RECOMMENDED LIMIT 4.0 - 6.0 ADA THERAPEUTIC TARGET < 7.0 ACTION SUGGESTED > 7.0 Performed By: #### R SPLUS #### [facility] [address] [place] [address] Dr. Alka Camarillo Glucose [Mass/Vol] 105 mg/dL Normal [facility] Comment on above: Performed By: #### R SPLUS #### [facility] [address] [place] [address] Dr. Alka Camarillo HbA1c (Bld) [Mass fraction] 5.3 % Normal 4.5-6.2 [facility] Comment on above: Performed By: #### R SPLUS #### [facility] [address] [address] [address] Alka Camarillo PROF 14(COMP METB)on 023 Albumin [Mass/Vol] 3.7 g/dL Normal 3.4-5.0 [facility] Comment on above: Performed By: #### R SPLUS #### [facility] [address] [place] [address] Dr. Alka Camarillo Albumin/Globulin [Mass ratio] 1.1 {ratio} Normal [facility] Comment on above: Performed By: #### R SPLUS #### [facility] [address] [address] [address] Alka Camarillo ALP [Catalytic activity/Vol] 63 U/L Normal 46-116 [facility] Comment on above: Performed By: #### R SPLUS #### [facility] [address] [place] [address] Dr. Alka Camarillo ALT [Catalytic activity/Vol] 31 U/L Normal 14-59 [facility] Comment on above: Performed By: #### R SPLUS #### [facility] [address] [place] [address] Dr. Alka Camarillo Anion gap [Moles/Vol] 11.2 mmol/L Normal [facility] Comment on above: Performed By: #### R SPLUS #### [facility] [address] [place] [address] Dr. Alka Camarillo AST [Catalytic activity/Vol] 22 U/L Normal 15-37 [facility] Comment on above: Performed By: #### R SPLUS #### [facility] [address] [place] [address] Dr. Alka Camarillo Bilirubin [Mass/Vol] 0.3 mg/dL Normal 0.2-1.0 [facility] Comment on above: Performed By: #### R SPLUS #### [facility] [address] [place] [address] Dr. Alka Camarillo Calcium [Mass/Vol] 9.1 mg/dL Normal 8.5-10.1 [facility] Comment on above: Performed By: #### R SPLUS #### [facility] [address] [place] [address] Dr. Alka Camarillo Chloride [Moles/Vol] 102 mmol/L Normal 98-107 [facility] Comment on above: Performed By: #### R SPLUS #### [facility] [address] [place] [address] Dr. Alka Camarillo CO2 [Moles/Vol] 27.7 mmol/L Normal 21.0-32.0 [facility] Comment on above: Performed By: #### R SPLUS #### [facility] [address] [place] [address] Dr. Alka Camarillo Creatinine [Mass/Vol] 0.48 mg/dL Critically low 0.55-1.02 [facility] Comment on above: Performed By: #### R SPLUS #### [facility] [address] [place] [address] Dr. Alka Camarillo EGFR-AF BENINESE >60 Normal >=60 [facility] Comment on above: Performed By: #### R SPLUS #### [facility] [address] [place] [address] Dr. Alka Camarillo EGFR-NON AF BENINESE >60 Normal >=60 [facility] Comment on above: Performed By: #### R SPLUS #### [facility] [address] [place] [address] Dr. Alka Camarillo Globulin (S) [Mass/Vol] 3.5 g/dL Normal [facility] Comment on above: Performed By: #### R SPLUS #### [facility] [address] [place] [address] Dr. Alka Camarillo Glucose [Mass/Vol] 114 mg/dL Critically high 74-106 [facility] Comment on above: Performed By: #### R SPLUS #### [facility] [address] [place] [address] Dr. Alka Camarillo Potassium [Moles/Vol] 3.9 mmol/L Normal 3.5-5.1 [facility] Comment on above: Performed By: #### R SPLUS #### [facility] [address] [place] [address] Dr. Alka Camarillo Protein [Mass/Vol] 7.2 g/dL Normal 6.4-8.2 [facility] Comment on above: Performed By: #### R SPLUS #### [facility] [address] [place] [address] Dr. Alka Camarillo Sodium [Moles/Vol] 137 mmol/L Normal 136-145 [facility] Comment on above: Performed By: #### R SPLUS #### [facility] [address] [place] [address] Dr. Alka Camarillo Urea nitrogen [Mass/Vol] 9.0 mg/dL Normal 7.0-18.0 [facility] Comment on above: Performed By: #### R SPLUS #### [facility] [address] [place] [address] Dr. Alka Camarillo Urea nitrogen/Creatinine [Mass ratio] 18.8 mg/mg Normal [facility] Comment on above: Performed By: #### R SPLUS #### [facility] [address] [place] [address] Dr. Alka Camarillo TSHon 06-09-2022 TSH 0.679 uIU/mL Normal 0.358-3.740 [facility] Comment on above: Performed By: #### R SPLUS #### [facility] [address] [place] [address] Dr. Alka Camarillo FREE T3on 12-16-2021 FREE T3 2.76 pg/mlL Normal 2.18-3.98 [facility] Comment on above: Performed By: #### T SH #### [facility] [address] [place] [address] Dr. Alka Camarillo GLYCOHEMOGLOBIN A1Con 2021 ADA RECOMMENDATION SEE BELOW Normal [facility] Comment on above: Result Comment: ADA RECOMMENDED LIMIT 4.0 - 6.0 ADA THERAPEUTIC TARGET < 7.0 ACTION SUGGESTED > 7.0 Performed By: #### C BC #### [facility] [address] [place] [address] Dr. Alka Camarillo Glucose [Mass/Vol] 108 mg/dL Normal [facility] Comment on above: Performed By: #### C BC #### [facility] [address] [place] [address] Dr. Alka Camarillo HbA1c (Bld) [Mass fraction] 5.4 % Normal 4.5-6.2 [facility] Comment on above: Performed By: #### C BC #### [facility] [address] [place] [address] Dr. Alka Camarillo PROF CHEM 8 (BAS METB)on Anion gap [Moles/Vol] 11.5 mmol/L Normal [facility] Comment on above: Performed By: #### T SH #### [facility] [address] [place] [address] Dr. Alka Camarillo Calcium [Mass/Vol] 8.8 mg/dL Normal 8.5-10.1 [facility] Comment on above: Performed By: #### T SH #### [facility] [address] [address] [address] Alka Camarillo Chloride [Moles/Vol] 103 mmol/L Normal 98-107 [facility] Comment on above: Performed By: #### T SH #### [facility] [address] [place] [address] Dr. Alka Camarillo CO2 [Moles/Vol] 27.7 mmol/L Normal 21.0-32.0 [facility] Comment on above: Performed By: #### T SH #### [facility] [address] [place] [address] Dr. Alka Camarillo Creatinine [Mass/Vol] 0.64 mg/dL Normal 0.55-1.02 [facility] Comment on above: Performed By: #### T SH #### [facility] [address] [place] [address] Dr. Alka Camarillo EGFR-AF BENINESE >60 Normal >=60 [facility] Comment on above: Performed By: #### T SH #### [facility] [address] [place] [address] Dr. Alka Camarillo EGFR-NON AF BENINESE >60 Normal >=60 [facility] Comment on above: Performed By: #### T SH #### [facility] [address] [place] [address] Dr. Alka Camarillo Glucose [Mass/Vol] 135 mg/dL Critically high 74-106 [facility] Comment on above: Performed By: #### T SH #### [facility] [address] [place] [address] Dr. Akla Camarillo Potassium [Moles/Vol] 4.2 mmol/L Normal 3.5-5.1 [facility] Comment on above: Performed By: #### T SH #### [facility] [address] [place] [address] Dr. Alka Camarillo Sodium [Moles/Vol] 138 mmol/L Normal 136-145 [facility] Comment on above: Performed By: #### T SH #### [facility] [address] [place] [address] Dr. Alka Camarillo Urea nitrogen [Mass/Vol] 14.0 mg/dL Normal 7.0-18.0 [facility] Comment on above: Performed By: #### T SH #### [facility] [address] [place] [address] Dr. Alka Camarillo Urea nitrogen/Creatinine [Mass ratio] 21.9 mg/mg Normal [facility] Comment on above: Performed By: #### T SH #### [facility] [address] [place] [address] Dr. Alka Camarillo TSHon 12-16-2021 TSH 0.845 uIU/mL Normal 0.358-3.740 [facility] Comment on above: Performed By: #### T SH #### [facility] [address] [place] [address] Dr. Alka Camarillo CNOVon 10-03-2020 CNOV Office Visit (LATASHAS ) DORIS PAT ([id number]) 1990 F Date Time Provider Department 10/03/20 3:00 PM ISA HERNANDEZ During your visit today, we recorded the following information about you: Pulse Blood pressure Weight Height 107/minute 123/84 76.7 kg 1.549 m Isa Hernandez APRN.CNP 10/10/2020 5:26 PM Signed NAME: Doris Pat AGE: [age] year old Patient is referred in consultation by Self for an opinion regarding Hepatitis C and my final recommendations will be communicated back to the requesting physician by way of shared Medical Record. PRESENTING COMPLAINT AND HISTORY HPI: Doris Pat is a pleasant 30 year old year old female who presents with hepatitis C.The patient's risk factors for the contraction of viral hepatitis include IVDA, intranasal cocaine use, tattoos, alcohol and high risk sexual behavior. The hepatitis C genotype is unknown and the last viral load is unknown. Ms. Pat is currently on Suboxone, in a couple days, she will be entering rehab for 3-5 days to detox from the Suboxone. Risk Factors for Liver Disease: 1. Blood transfusions before 1991: No 2. IVDA: Yes 3. Intranasal coccaine use: Yes 4. Tattoos: Yes, professionally done 5. Service: No 6. High risk sexual behavior: No 7. Alcohol: No 8. Obesity: No 9. Hyperlipidemia: No 10. Prolonged exposure to hepatotoxic meds: No 11. Other autoimmune disorders: Lupus In the past, the patient underwent a work-up for hepatitis C which included: no workup. She has not been treated for hepatitis C (naive to therapy). Doris Pat has current symptoms attributable to hepatitis C including none. No past surgical history on file. No past medical history on file. Social History Tobacco Use - Smoking status: Not on file Substance Use Topics - Alcohol use: Not on file - Drug use: Not on file No current outpatient medications on file. No current facility-administered medications for this visit. ALLERGIES Not on File FAMILY HISTORY Liver Problems: No Colitis: No Colon Cancer: No Other Cancers: No No family history on file. GENERAL ROS Colon polyps: No Colon cancer: No Other cancer: No Radiation / Chemotherapy: No Crohn's disease / Ulcerative colitis: No High cholesterol or triglycerides: No Ulcers: No Gallstones: No Hepatitis / jaundice: Yes Heart Disease: No Lung Disease: No Liver problems: No Thyroid disease: No Kidney stones: No Pancreatitis: No Diabetes: No Arthritis: No Rheumatic fever: No Gastrointestinal bleeding: No Depression or other mental illness: No Other personal illness: No PHYSICAL EXAMINATION 10/03/20 1559 BP: 123/84 Pulse: 107 Weight: 76.7 kg (169 lb) Height: 154.9 cm (5' 1 ) General Appearance: Well appearing, alert, in no acute distress, well-hydrated, well nourished. Eyes: PERRLA, conjunctiva and sclera normal Oropharynx: Lips, tongue, and oral mucosa normal. There is no thrush or oral ulcers. Lungs:breath sounds clear to auscultation bilaterally, no crackles, rhonchi, or wheezes Heart: regular rate and rhythm, no murmurs or gallops. Abdomen: not distended, normal bowel sounds, soft and depressible, no guarding or rebound, no palpable mass, no organomegaly Extremities: no cyanosis or edema Skin: no jaundice, no spider angiomas, no palmar erythema Neuro:alert, oriented x 3, pleasant and in no acute distress Recent Labs: No results found for: HB, HCT, WBC No results found for: GLUC, K, NA, CHLOR, CO2, CREAT, BUN, ANION, CA No results found for: ALB, TBILI, CBILI, ALKPHOS, AST, ALT, TPROT Computed MELD-Na score unavailable. Necessary lab results were not found in the last year. Computed MELD score unavailable. Necessary lab results were not found in the last year. Assessment IMPRESSION Ms. Pat is a 30 year old with chronic hepatitis C genotype unknown who comes for treatment recommendations. She has never had liver fibrosis staging. She has had the following liver related complications none. I have explained the natural history of hepatitis C to the patient and mode of transmission. I have explained the current insurance guidelines regarding treatment of hepatitis C. PLAN (R76.8) Hepatitis C antibody positive in blood (primary encounter diagnosis) -Hep A Ab, FRIDA, A1A, Smooth muscle, Iron + TIBC, Ferritin, Ceruloplasmin, AMA, Hep remote panel, EBV IGG, EBV IGM, LKM, CMV, GGT to rule out causes of liver disease -Liver fibrosis and activity for liver fibrosis staging -CBC + Diff, PT, HFP -HCV quant for current viral load -Hepatitis C genotype Return to office when testing is complete During this patient visit I have spent approximately 30 minutes out of 30 in counseling regarding smoking cessation, treatment options, medications, test results and coordinating care. Gurvinder Meza (more content not included)... Normal [facility] CBCon 09-13-2019 Erythrocyte distribution width (RBC) [Ratio] 12.7 % Normal 11.8-14.4 [facility] Comment on above: Performed By: #### C BC, HCG, CP, TSH #### [facility] [address] [place], [place] [id number] T[employer] Adjuster: Charanjit Hanson MD #### FT4, PHEP, HIVCMB #### [address] [id number] [employer] Adjuster: Ruddy Carver MD Hematocrit (Bld) [Volume fraction] 48.4 % High 36.3-47.1 [facility] Comment on above: Performed By: #### C BC, HCG, CP, TSH #### [address] [place] [id number] [employer] Adjuster: Charanjit Hanson MD #### FT4, PHEP, HIVCMB #### [address] [id number] T[employer] Adjuster: Ruddy Carver MD Hemoglobin (Bld) [Mass/Vol] 16.5 g/dL High 11.9-15.1 [facility] Comment on above: Performed By: #### C BC, HCG, CP, TSH #### [address] [place] [id number] [employer] Adjuster: Charanjit Hanson MD #### FT4, PHEP, HIVCMB #### [address] [id number] [employer] Adjuster: Ruddy Carver MD MCH (RBC) [Entitic mass] 30.1 pg Normal 25.2-33.5 [facility] Comment on above: Performed By: #### C BC, HCG, CP, TSH #### [address] [place] [address] T[employer] Adjuster: Charanjit Hanson MD #### FT4, PHEP, HIVCMB #### [address] [id number] [employer] Adjuster: Ruddy Carver MD MCHC (RBC) [Mass/Vol] 34.1 g/dL Normal 28.4-34.8 [facility] Comment on above: Performed By: #### C BC, HCG, CP, TSH #### [facility] [address] [place] [address] T[employer] Adjuster: Charanjit Hanson MD #### FT4, PHEP, HIVCMB #### [address] [id number] [employer] Adjuster: Ruddy Carver MD MCV (RBC) [Entitic vol] 88.3 fL Normal 82.6-102.9 [facility] Comment on above: Performed By: #### C BC, HCG, CP, TSH #### [address] [place] [address] Tire Adjuster: Charanjit Hanson MD #### FT4, PHEP, HIVCMB #### [address] [id number] [employer] Adjuster: Ruddy Carver MD NRBC Automated 0.0 per 100 WBC Normal 0.0 [facility] Comment on above: Performed By: #### C BC, HCG, CP, TSH #### [address] [place] [address] Tire Adjuster: Charanjit Hanson MD #### FT4, PHEP, HIVCMB #### [address] [id number] [employer] Adjuster: Ruddy Carver MD Platelet mean volume (Bld) [Entitic vol] 10.9 fL Normal 8.1-13.5 [facility] Comment on above: Performed By: #### C BC, HCG, CP, TSH #### [address] [place] [address] Tire Adjuster: Charanjit Hanson MD #### FT4, PHEP, HIVCMB #### [address] [id number] [employer] Adjuster: Ruddy Carver MD Platelets (Bld) [#/Vol] 259 10*3/uL Normal 138-453 [facility] [facility] Comment on above: Performed By: #### C BC, HCG, CP, TSH #### [facility] [address] [place] [address] [place] [id number] Tire Adjuster: Charanjit Hanson MD #### FT4, PHEP, HIVCMB #### [address] [place], [place] [id number] Tire Adjuster: Ruddy Carver MD RBC (Bld) [#/Vol] 5.48 10*6/uL High 3.95-5.11 [facility] Comment on above: Performed By: #### C BC, HCG, CP, TSH #### [address] [place] [id number] Tire Adjuster: Charanjit Hanson MD #### FT4, PHEP, HIVCMB #### [address] [place], [place] [phone] Tire Adjuster: Ruddy Carver MD WBC (Bld) [#/Vol] 10.3 10*3/uL Normal 3.5-11.3 [facility] Comment on above: Performed By: #### C BC, HCG, CP, TSH #### [address] [place] [id number] Tire Adjuster: Charanjit Hanson MD #### FT4, PHEP, HIVCMB #### [address] [id number] T[employer] Adjuster: Ruddy Carver MD Erythrocyte distribution width (RBC) [Ratio] 12.7 % 11.8 - 14.4 % [place] Hematocrit (Bld) [Volume fraction] 48.4 % High 36.3 - 47.1 % [place] Hemoglobin (Bld) [Mass/Vol] 16.5 g/dL High 11.9 - 15.1 g/dL [place] Interpretation and review of laboratory results Abnormal [place] MCH (RBC) [Entitic mass] 30.1 pg 25.2 - 33.5 pg [place] MCHC (RBC) [Mass/Vol] 34.1 g/dL 28.4 - 34.8 g/dL [place] MCV (RBC) [Entitic vol] 88.3 fL 82.6 - 102.9 fL [place] Platelet mean volume (Bld) [Entitic vol] 10.9 fL 8.1 - 13.5 fL [place] Platelets (Bld) [#/Vol] 259 10*3/uL [place] RBC (Bld) [#/Vol] 5.48 10*6/uL High 3.95 - 5.1 1 m/uL [place] WBC (Bld) [#/Vol] 0.0 10*3/uL 0.0 per 10 0 WBC [place] WBC (Bld) [#/Vol] 10.3 10*3/uL [place] Comp Metabolic Profon 2019 (cont.) Normal [facility] Comment on above: Result Comment: Aver age GFR for 20-29 years old: 116 mL/min/1.73sq m Chronic Kidney Disease: <60 mL/min/1.73sq m Kidney failure: <15 mL/min/1.73sq m eGFR calculated using average adult body mass. Additional eGFR calculator available at: http://www.[employer]/multiple_crcl_2011.htm Performed By: #### C BC, HCG, CP, TSH #### [facility] [address] [place] [address] Tire Adjuster: Charanjit Hanson MD #### FT4, PHEP, HIVCMB #### [address] [place] [address] Tire Adjuster: Ruddy Carver MD Albumin [Mass/Vol] 4.4 g/dL Normal 3.5-5.2 [facility] Comment on above: Performed By: #### C BC, HCG, CP, TSH #### [facility] [address] [place], [place] [id number] Tire Adjuster: Charanjit Hanson MD #### FT4, PHEP, HIVCMB #### [address] [address] Tire Adjuster: Ruddy Carver MD Albumin/Globulin [Mass ratio] 1.3 {ratio} Normal 1.0-2.5 [facility] Comment on above: Performed By: #### C BC, HCG, CP, TSH #### [facility] [address] [place], [place] [phone] Tire Adjuster: Charanjit Hanson MD #### FT4, PHEP, HIVCMB #### [address] [id number] Tire Adjuster: Ruddy Carver MD Alkaline Phos 78 U/L Normal 35-104 [facility] Comment on above: Performed By: #### C BC, HCG, CP, TSH #### [facility] [address] [place], [place] [phone] Tire Adjuster: Charanjit Hanson MD #### FT4, PHEP, HIVCMB #### [address] [id number] Tire Adjuster: Ruddy Carver MD ALT [Catalytic activity/Vol] 15 U/L Normal 5-33 [facility] Comment on above: Performed By: #### C BC, HCG, CP, TSH #### [facility] [address] [place], [place] [phone] Tire Adjuster: Charanjit Hanson MD #### FT4, PHEP, HIVCMB #### [address] [address] Tire Adjuster: Ruddy Carver MD Anion gap [Moles/Vol] 14 mmol/L Normal 9-17 [facility] Comment on above: Performed By: #### C BC, HCG, CP, TSH #### [facility] [address] [place], [place] [phone] T[employer] Adjuster: Charanjit Hanson MD #### FT4, PHEP, HIVCMB #### [address] [place], [place] [phone] Tire Adjuster: Ruddy Carver MD AST [Catalytic activity/Vol] 25 U/L Normal <32 [facility] Comment on above: Performed By: #### C BC, HCG, CP, TSH #### [facility] [address] [place], [place] [phone] Tire Adjuster: Charanjit Hanson MD #### FT4, PHEP, HIVCMB #### [address] [id number] Tire Adjuster: Ruddy Carver MD Bilirubin Ql (U) 0.50 mg/dL Normal 0.3-1.2 [facility] Comment on above: Performed By: #### C BC, HCG, CP, TSH #### [facility] [address] [place] [address] [place], [place] [phone] Tire Adjuster: Charanjit Hanson MD #### FT4, PHEP, HIVCMB #### [address] [id number] Tire Adjuster: Ruddy Carver MD BUN/CRE Ratio 12 Normal 9-20 [facility] Comment on above: Performed By: #### C BC, HCG, CP, TSH #### [facility] [address] [place], [place] [phone] Tire Adjuster: Charanjit Hanson MD #### FT4, PHEP, HIVCMB #### [address] [phone] Tire Adjuster: Ruddy Carver MD Calcium [Mass/Vol] 9.6 mg/dL Normal 8.6-10.4 [facility] Comment on above: Performed By: #### C BC, HCG, CP, TSH #### [facility] [address] [place], [place] [phone] Tire Adjuster: Charanjit Hanson MD #### FT4, PHEP, HIVCMB #### [address] [place], [place] [phone] Tire Adjuster: Ruddy Carver MD Chloride [Moles/Vol] 98 mmol/L Normal 98-107 [facility] Comment on above: Performed By: #### C BC, HCG, CP, TSH #### [facility] [address] [place], [place] [id number] Tire Adjuster: Charanjit Hanson MD #### FT4, PHEP, HIVCMB #### [address] [place], [place] 0873208 Tire Adjuster: Ruddy Carver MD CO2 [Moles/Vol] 23 mmol/L Normal 20-31 [facility] Comment on above: Performed By: #### C BC, HCG, CP, TSH #### [facility] [address] [place], [place] [phone] Tire Adjuster: Charanjit Hanson MD #### FT4, PHEP, HIVCMB #### [address] [place], [place] [phone] Tire Adjuster: Ruddy Carver MD Creatinine [Mass/Vol] 0.49 mg/dL Low 0.50-0.90 [facility] Comment on above: Performed By: #### C BC, HCG, CP, TSH #### [facility] [address] [place], [place] [phone] Tire Adjuster: Charanjit Hanson MD #### FT4, PHEP, HIVCMB #### [address] [place], [place] 2963108 Tire Adjuster: Ruddy Carver MD GFR, Amer >60 Normal >60 [facility] Comment on above: Performed By: #### C BC, HCG, CP, TSH #### [facility] [address] [place], [place] [phone] Tire Adjuster: Charanjit Hanson MD #### FT4, PHEP, HIVCMB #### [facility] [address] [place], [place] 4924208 Tire Adjuster: Ruddy Carver MD GFR,non Amer >60 Normal >60 [facility] Comment on above: Performed By: #### C BC, HCG, CP, TSH #### [facility] [address] [place], [place] [phone] Tire Adjuster: Charanjit Hanson MD #### FT4, PHEP, HIVCMB #### [address] [place], [place] 8162108 Tire Adjuster: Ruddy Carver MD Glucose [Mass/Vol] 101 mg/dL High 70-99 [facility] Comment on above: Performed By: #### C BC, HCG, CP, TSH #### [facility] [address] [place], [place] [phone] Tire Adjuster: Charanjit Hanson MD #### FT4, PHEP, HIVCMB #### [address] [place], [place] [phone] Tire Adjuster: Ruddy Carver MD Potassium [Moles/Vol] 3.4 mmol/L Low 3.7-5.3 [facility] Comment on above: Performed By: #### C BC, HCG, CP, TSH #### [facility] [address] [place], [place] [phone] Tire Adjuster: Charanjit Hanson MD #### FT4, PHEP, HIVCMB #### [facility] [address] [place], [place] 7820108 Tire Adjuster: Ruddy Carver MD Protein [Mass/Vol] 7.7 g/dL Normal 6.4-8.3 [facility] Comment on above: Performed By: #### C BC, HCG, CP, TSH #### [facility] [address] [place] [address] Tire Adjuster: Charanjit Hanson MD #### FT4, PHEP, HIVCMB #### [address] [place], [place] [phone] Tire Adjuster: Ruddy Carver MD Sodium [Moles/Vol] 135 mmol/L Normal 135-144 [facility] Comment on above: Performed By: #### C BC, HCG, CP, TSH #### [facility] [address] [place] [address] [place] [address] Tire Adjuster: Charanjit Hanson MD #### FT4, PHEP, HIVCMB #### [address] [place], [place] [phone] Tire Adjuster: Ruddy Carver MD Staging: Normal [facility] Comment on above: Result Comment: Stag e 1: Some kidney damage normal GFR Stage 2: Mild kidney damage GFR 60-89 Stage 3: Moderate kidney damage GFR 30-59 Stage 4: Severe kidney damage GFR 15-29 Stage 5: Severe kidney damage GFR <15 ESRD - chronic treatment by dialysis or transplant Performed By: #### C BC, HCG, CP, TSH #### [address] [place] [address] Tire Adjuster: Charanjit Hanson MD #### FT4, PHEP, HIVCMB #### [address] [place], [place] [phone] Tire Adjuster: Ruddy Carver MD Urea nitrogen [Mass/Vol] 6 mg/dL Normal 6-20 [facility] Comment on above: Performed By: #### C BC, HCG, CP, TSH #### [facility] [address] [place] [address] Tire Adjuster: Charanjit Hanson MD #### FT4, PHEP, HIVCMB #### [facility] [address] [place] [address] Tire Adjuster: Ruddy Carver MD Comprehensive Metabolic Pane mihir 09-13-2019 Albumin [Mass/Vol] 4.4 g/dL 3.5 - 5.2 g/dL [place] Albumin/Globulin [Mass ratio] 1.3 {ratio} [place] ALP [Catalytic activity/Vol] 78 U/L 35 - 104 U/L [place] ALT [Catalytic activity/Vol] 15 U/L 5 - 33 U/L [place] Anion gap [Moles/Vol] 14 mmol/L 9 - 17 mmol/L [place] AST [Catalytic activity/Vol] 25 U/L <32 [place] Bilirubin Ql (U) 0.50 mg/dL 0.3 - 1.2 mg/dL [place] Bun/Cre Ratio 12 [place] Calcium [Mass/Vol] 9.6 mg/dL 8.6 - 10. 4 mg/dL [place] Chloride [Moles/Vol] 98 mmol/L 98 - 107 mmol/L [place] CO2 [Moles/Vol] 23 mmol/L 20 - 31 mmol/L [place] Creatinine [Mass/Vol] 0.49 mg/dL Low 0.5 - 0.9 mg/dL [place] GFR >60 >60 mL/min [place] GFR Non- >60 >60 mL/min [place] Glucose [Mass/Vol] 101 mg/dL High 70 - 99 mg/dL [place] Interpretation and review of laboratory results Abnormal [place] Potassium [Moles/Vol] 3.4 mmol/L Low 3.7 - 5.3 mmol/L [place] Protein [Mass/Vol] 7.7 g/dL 6.4 - 8.3 g/dL [place] Sodium [Moles/Vol] 135 mmol/L 135 - 144 mmol/L [place] Urea nitrogen [Mass/Vol] 6 mg/dL 6 - 20 mg/dL [facility] ELVI HCG Qualitative, Serumon hCG Qual Negative NEGATIVE [place] Comment on above: Specimens with hCG l evels near the threshold of the test (25 mIU/mL) may give a negative or indeterminate result. In such cases, another test should be performed with a new specimen in 48-72 hours. If early is suspected clinically in this setting, correlation with quantitative serum b-hCG level is suggested. [facility] has confirmed the use of plasma for this test. This has not been cleared or approved by the U.S. Food and Drug Administration. The FDA has determined that such clearance is not necessary. HCG Screen, Bloodon 09-13-19 20 HCG Qn Negative Normal NEG [facility] Comment on above: Result Comment: Spec imens with hCG levels near the threshold of the test (25 mIU/mL) may give a negative or indeterminate result. In such cases, another test should be performed with a new specimen in 48-72 hours. If early is suspected clinically in this setting, correlation with quantitative serum b-hCG level is suggested. [facility] has confirmed the use of plasma for this test. This has not been cleared or approved by the U.S. Food and Drug Administration. The FDA has determined that such clearance is not necessary. Performed By: #### C BC, HCG, CP, TSH #### [facility] [address] [place] [address] Tire Adjuster: Charanjit Hanson MD #### FT4, PHEP, HIVCMB #### [address] [address] Tire Adjuster: Ruddy Carver MD HIV Ag/Abon 09-13-2019 HIV Ag/Ab NONREACTIVE Normal NR [facility] Comment on above: Result Comment: No l aboratory evidence of HIV infection. If acute HIV infection is suspected, consider testing for HIV-1 RNA. Performed By: #### C BC, HCG, CP, TSH #### [facility] [address] [place] [address] Tire Adjuster: Charanjit Hanson MD #### FT4, PHEP, HIVCMB #### [address] [place] [address] Tire Adjuster: Ruddy Carver MD HIV Screenon 09-13-2019 HIV Ag/Ab NONREACTIVE NONREACTIVE [place] Comment on above: No laboratory eviden ce of HIV infection. If acute HIV infection is suspected, consider testing for HIV-1 RNA. Hepatitis Acute [facility] 09-12 Hep A Ab,IgM NONREACTIVE Normal NR [facility] Comment on above: Performed By: #### C BC, HCG, CP, TSH #### [facility] [address] [place] [address] [place]. [place], [place] [phone] Tire Adjuster: Charanjit Hanson MD #### FT4, PHEP, HIVCMB #### [address] [address] Tire Adjuster: Ruddy Carver MD Hep B Core Ab,IgM NONREACTIVE Normal [facility] Comment on above: Performed By: #### C BC, HCG, CP, TSH #### [facility] [address] [place], [place] [phone] Tire Adjuster: Charanjit Hanson MD #### FT4, PHEP, HIVCMB #### [address] [place] [address] Tire Adjuster: Ruddy Carver MD Hep B Surf Ag NONREACTIVE Normal [facility] Comment on above: Performed By: #### C BC, HCG, CP, TSH #### [facility] [address] [place] [address] Tire Adjuster: Charanjit Hanson MD #### FT4, PHEP, HIVCMB #### [address] [address] Tire Adjuster: Ruddy Carver MD Hep C Ab NONREACTIVE Normal [facility] Comment on above: Result Comment: The hepatitis C procedure used in our laboratory is a Chemiluminescent test specific for three recombinant HCV antigens. A negative anti-HCV result indicates that the antibodies to hepatitis C virus are not present at this time. Individuals with reactive anti-HCV should be considered infected and infectious until proven otherwise. Confirmation of all equivocal or reactive results is recommended by ordering HCV RNA by PCR. Performed By: #### C BC, HCG, CP, TSH #### [facility] [address] [place] [address] Tire Adjuster: Charanjit Hanson MD #### FT4, PHEP, HIVCMB #### [facility] [address] [place], [place] [phone] Tire Adjuster: Ruddy Carver MD Hepatitis Panel, Acuteon HAV IgM IA Qn (S) NONREACTIVE NONREACTIVE [place] Hep B Core Ab, IgM NONREACTIVE NONREACTIVE [place] Hepatitis B Surface Ag NONREACTIVE NONREACTIVE [place] Hepatitis C Ab NONREACTIVE NONREACTIVE [place] Comment on above: The hepatitis C procedure used in our laboratory is a Chemiluminescent test specific for three recombinant HCV antigens. A negative anti-HCV result indicates that the antibodies to hepatitis C virus are not present at this time. Individuals with reactive anti-HCV should be considered infected and infectious until proven otherwise. Confirmation of all equivocal or reactive results is recommended by ordering HCV RNA by PCR. Metabolic Panelon 09-13-2019 GFR/1.73 sq M predicted among non-blacks MDRD (S/P/Bld) [Vol rate/Area] [place] Comment on above: Stage 1: Some kidney damage normal GFR Stage 2: Mild kidney damage GFR 60-89 Stage 3: Moderate kidney damage GFR 30-59 Stage 4: Severe kidney damage GFR 15-29 Stage 5: Severe kidney damage GFR <15 ESRD - chronic treatment by dialysis or transplant Average GFR for 20-2 9 years old: 116 mL/min/1.73sq m Chronic Kidney Disease: <60 mL/min/1.73sq m Kidney failure: <15 mL/min/1.73sq m eGFR calculated using average adult body mass. Additional eGFR calculator available at: http://www.[employer]/multiple_crcl_2012.htm T4, Free[place] 09-13-2019 Thyroxine, Free 1.40 ng/dL 0.93 - 1.7 ng/dL [place] TSH without Reflexon 020 TSH Qn 1.06 m[IU]/L [place] Thyroid Stim. Horm.on 2019 TSH Qn 1.06 m[IU]/L Normal 0.30-5.00 [facility] Comment on above: Performed By: #### C BC, HCG, CP, TSH #### [facility] [address] [place] [address] [place] [address] Tire Adjuster: Charanjit Hanson MD #### FT4, PHEP, HIVCMB #### [facility] [address] [place], [place] [phone] Tire Adjuster: Ruddy Carver MD Thyroxine, Freeon 09-13-2019 Thyroxine, Free 1.40 ng/dL Normal 0.93-1.70 [facility] Comment on above: Performed By: #### C BC, HCG, CP, TSH #### [facility] [address] [place] [address] [place] [address] Tire Adjuster: Charanjit Hanson MD #### FT4, PHEP, HIVCMB #### [address] [place] [address] Tire Adjuster: Ruddy Carver MD Vital Signs Date Time Vital Sign Value Performing Clinician Facility 03-06-2024 13:43-0400 Body height 157.5 cm Dewayne Willis DO Work Phone: [facility] 03-06-2024 13:43-0400 Body mass index (BMI) [Ratio] 38.01 kg/m2 Dewayne Willis DO Work Phone: [facility] 03-06-2024 13:43-0400 Body temperature 97.59 [degF] Dewayne Willis DO Work Phone: [facility] 03-06-2024 13:43-0400 Body weight 94.26 kg Dewayne Willis DO Work Phone: [facility] 03-06-2024 13:43-0400 Diastolic blood pressure 74 mm[Hg] Dewayne Brioness DO Work Phone: [facility] 03-06-2024 13:43-0400 Heart rate 112 /min Dewayne Brioness DO Work Phone: [facility] 03-06-2024 13:43-0400 Respiratory rate 18 /min Dewayne Brioness DO Work Phone: [facility] 03-06-2024 13:43-0400 SaO2% (BldA) [Mass fraction] 98 % Dewayne Brioness DO Work Phone: [facility] 03-06-2024 13:43-0400 Systolic blood pressure 110 mm[Hg] Dewayne Brioness DO Work Phone: [facility] 02-29-2024 16:20-0400 Body height 157.5 cm Dewayne Brioness DO Work Phone: [facility] 02-29-2024 16:20-0400 Body mass index (BMI) [Ratio] 37.71 kg/m2 Dewayne Brioness DO Work Phone: [facility] 02-29-2024 16:20-0400 Body temperature 98.01 [degF] Dewayne Brioness DO Work Phone: [facility] 02-29-2024 16:20-0400 Body weight 93.53 kg Dewayne Brioness DO Work Phone: [facility] 02-29-2024 16:20-0400 Diastolic blood pressure 70 mm[Hg] Dewayne Brioness DO Work Phone: [facility] 02-29-2024 16:20-0400 Heart rate 101 /min Dewayne Brioness DO Work Phone: [facility] 02-29-2024 16:20-0400 SaO2% (BldA) [Mass fraction] 97 % Dewayne Willis DO Work Phone: [facility] 02-29-2024 16:20-0400 Systolic blood pressure 108 mm[Hg] Dewayne Willis DO Work Phone: [facility] 08-19-2023 13:00-0400 Body height 157.5 cm Raulito Sellers APRN-STEVEDORING SUPERVISOR Work Phone: [facility] 08-19-2023 13:00-0400 Body mass index (BMI) [Ratio] 37.02 kg/m2 Raulito Sellers APRN-STEVEDORING SUPERVISOR Work Phone: [facility] 08-19-2023 13:00-0400 Body temperature 98.01 [degF] Raulito Sellers APRN-STEVEDORING SUPERVISOR Work Phone: [facility] 08-19-2023 13:00-0400 Body weight 91.81 kg Raulito Sellers APRN-STEVEDORING SUPERVISOR Work Phone: [facility] 08-19-2023 13:00-0400 Diastolic blood pressure 60 mm[Hg] Raulito Sellers APRN-STEVEDORING SUPERVISOR Work Phone: [facility] 08-19-2023 13:00-0400 Heart rate 83 /min Raulito Sellers APRN-STEVEDORING SUPERVISOR Work Phone: [facility] 08-19-2023 13:00-0400 Respiratory rate 18 /min Raulito Sellers APRN-STEVEDORING SUPERVISOR Work Phone: [facility] 08-19-2023 13:00-0400 SaO2% (BldA) [Mass fraction] 98 % Raulito Sellers APRN-STEVEDORING SUPERVISOR Work Phone: [facility] 08-19-2023 13:00-0400 Systolic blood pressure 100 mm[Hg] Raulito Sellers APRN-STEVEDORING SUPERVISOR Work Phone: [facility] 07-20-2023 13:03-0500 Body height 157.5 cm Raulito Sellers APRN-STEVEDORING SUPERVISOR Work Phone: [facility] 07-20-2023 13:03-0500 Body mass index (BMI) [Ratio] 35.74 kg/m2 Raulito Sellers APRN-STEVEDORING SUPERVISOR Work Phone: [facility] 07-20-2023 13:03-0500 Body temperature 97.9 [degF] Raulito Sellers APRN-STEVEDORING SUPERVISOR Work Phone: [facility] 07-20-2023 13:03-0500 Body weight 88.63 kg Raulito Sellers APRN-STEVEDORING SUPERVISOR Work Phone: [facility] 07-20-2023 13:03-0500 Diastolic blood pressure 70 mm[Hg] Raulito Sellers APRN-STEVEDORING SUPERVISOR Work Phone: [facility] 07-20-2023 13:03-0500 Heart rate 116 /min Raulito VOSTEVEDORING SUPERVISOR Work Phone: [facility] 07-20-2023 13:03-0500 SaO2% (BldA) [Mass fraction] 97 % Raulito Sellers APRN-STEVEDORING SUPERVISOR Work Phone: [facility] 07-20-2023 13:03-0500 Systolic blood pressure 118 mm[Hg] Raulito Sellers APRN-STEVEDORING SUPERVISOR Work Phone: [facility] 07-14-2023 11:03-0500 Body height 157.5 cm Rufino Valiente CHILD WELFARE WORKER-ANALYTICS MANAGER Work Phone: [facility] 07-14-2023 11:03-0500 Body mass index (BMI) [Ratio] 36.76 kg/m2 Rufino Potteruch CHILD WELFARE WORKER-ANALYTICS MANAGER Work Phone: [facility] 07-14-2023 11:03-0500 Body temperature 97.9 [degF] Rufinojerome Potteruch CHILD WELFARE WORKER-ANALYTICS MANAGER Work Phone: [facility] 07-14-2023 11:03-0500 Body weight 91.17 kg Rufino Valiente APRN-ANALYTICS MANAGER Work Phone: [facility] 07-14-2023 11:03-0500 Diastolic blood pressure 60 mm[Hg] Rufino Valiente APRN-ANALYTICS MANAGER Work Phone: [facility] 07-14-2023 11:03-0500 Heart rate 98 /min Rufino Valiente APRN-ANALYTICS MANAGER Work Phone: [facility] 07-14-2023 11:03-0500 SaO2% (BldA) [Mass fraction] 98 % Rufino Valiente APRN-ANALYTICS MANAGER Work Phone: [facility] 07-14-2023 11:03-0500 Systolic blood pressure 98 mm[Hg] Rufino Valiente APRN-ANALYTICS MANAGER Work Phone: [facility] 06-29-2023 14:13-0500 Body height 157.5 cm Raulito Sellers CHILD WELFARE WORKER-STEVEDORING SUPERVISOR Work Phone: [facility] 06-29-2023 14:13-0500 Body mass index (BMI) [Ratio] 36.47 kg/m2 Raulito Sellers APRN-STEVEDORING SUPERVISOR Work Phone: [facility] 06-29-2023 14:13-0500 Body temperature 98.01 [degF] Raulito Sellers APRN-STEVEDORING SUPERVISOR Work Phone: [facility] [facility] 06-29-2023 14:13-0500 Body weight 90.45 kg Raulito Sellers CHILD WELFARE WORKER-STEVEDORING SUPERVISOR Work Phone: [facility] 06-29-2023 14:13-0500 Diastolic blood pressure 80 mm[Hg] Raulito Sellers APRN-STEVEDORING SUPERVISOR Work Phone: [facility] 06-29-2023 14:13-0500 Heart rate 119 /min Raulito Sellers APRN-STEVEDORING SUPERVISOR Work Phone: [facility] 06-29-2023 14:13-0500 SaO2% (BldA) [Mass fraction] 97 % Raulito Sellers CHILD WELFARE WORKER-STEVEDORING SUPERVISOR Work Phone: [facility] 06-29-2023 14:13-0500 Systolic blood pressure 120 mm[Hg] Raulito Sellers CHILD WELFARE WORKER-STEVEDORING SUPERVISOR Work Phone: [facility] Encounters Encounter Date Encounter Type Care Provider Facility Start: 03-06-2024 End: 03-06-2024 ambulatory [facility] Start: 03-06-2024 End: 03-06-2024 ambulatory [facility] Start: 03-06-2024 End: 03-06-2024 Office outpatient visit 25 minutes Dewayne Willis DO Work Phone: [facility] Comment on above: Type 2 diabetes dusty itus with diabetic neuropathy, with long- term current use of insulin ([facility]) (Primary Dx); B12 deficiency; Bipolar 2 disorder ([facility]) Start: 02-29-2024 End: 02-29-2024 Office outpatient visit 25 minutes Dewayne Willis DO Work Phone: [facility] Comment on above: Lumbar radiculopathy , chronic (Primary Dx); Radicular pain of sacrum; Trochanteric bursitis of both hips Start: 02-29-2024 End: 02-29-2024 ambulatory [facility] Start: 02-28-2024 End: 02-28-2024 ambulatory [facility] Start: 02-14-2024 End: 02-14-2024 ambulatory [facility] Start: 02-04-2024 End: 02-04-2024 ambulatory [facility] Start: 02-02-2024 End: 02-02-2024 ambulatory AMY COLEMAN Not Available Start: 01-11-2024 End: 01-11-2024 ambulatory [facility] Start: 01-04-2024 End: 01-04-2024 ambulatory [facility] Start: 11-29-2023 End: 11-29-2023 ambulatory [facility] Start: 11-29-2023 End: 11-29-2023 ambulatory [facility] Start: 09-22-2023 End: 09-22-2023 ambulatory DANTE S RUSHER Not Available Start: 09-17-2023 End: 09-17-2023 ambulatory DANTE S RUSHER Not Available Start: 09-17-2023 End: 09-17-2023 ambulatory DANTE S RUSHER Not Available Start: 09-15-2023 End: 09-15-2023 ambulatory RUFINO Reyna JOCE [facility] Start: 09-13-2023 End: 09-13-2023 ambulatory AMY COLEMAN Not Available Start: 09-10-2023 End: 09-11-2023 ambulatory [facility] Facility:[facility] Start: 09-10-2023 End: 09-10-2023 ambulatory [facility] Start: 09-01-2023 End: 09-02-2023 ambulatory [place] Facility:[facility] Start: 08-24-2023 Orders Only Alva Kuns CHILD WELFARE WORKER-STEVEDORING SUPERVISOR Work Phone: [facility] Comment on above: Anxiety Start: 08-19-2023 End: 08-19-2023 Office outpatient visit 25 minutes Alva Kuns CHILD WELFARE WORKER-STEVEDORING SUPERVISOR Work Phone: [facility] Comment on above: Type 2 diabetes dusty itus with diabetic neuropathy, with long- term current use of insulin ([facility]) (Primary Dx); Acquired hypothyroidism; Skin lesion of back; Anxiety Start: 08-19-2023 End: 08-19-2023 ambulatory [facility] Start: 08-02-2023 Refill Tracey Olvera [facility] Comment on above: Bilateral occipital neuralgia Start: 07-30-2023 Refill Alva Kuns CHILD WELFARE WORKER-STEVEDORING SUPERVISOR Work Phone: [facility] Comment on above: Gastroesophageal ref lux disease without esophagitis Start: 07-29-2023 Orders Only Raulito Sellers CHILD WELFARE WORKER-STEVEDORING SUPERVISOR Work Phone: [facility] Comment on above: Bipolar 2 disorder ( [facility]) Start: 07-27-2023 End: 08-23-2023 ambulatory ALVA [facility] Start: 07-21-2023 Orders Only Raulito Sellers CHILD WELFARE WORKER-STEVEDORING SUPERVISOR Work Phone: [facility] Comment on above: Neck pain, bilateral posterior (Primary Dx) Start: 07-20-2023 End: 07-20-2023 ambulatory ALVA [facility] Start: 07-20-2023 End: 07-20-2023 Office outpatient visit 25 minutes Raulito Sellers CHILD WELFARE WORKER-STEVEDORING SUPERVISOR Work Phone: [facility] Comment on above: Viral exanthem (Prim eric Dx); Type 2 diabetes mellitus with hyperglycemia, with long-term current use of insulin ([facility]); Neurogenic pain; Bipolar 2 disorder ([facility]); Anxiety; Angular cheilitis; Acquired hypothyroidism Start: 07-20-2023 End: 07-20-2023 ambulatory [facility] Start: 07-18-2023 Refill Raulito Sellers CHILD WELFARE WORKER-STEVEDORING SUPERVISOR Work Phone: [facility] Start: 07-14-2023 End: 07-14-2023 Office outpatient visit 15 minutes [facility] CHILD WELFARE WORKER-ANALYTICS MANAGER Work Phone: [facility] Comment on above: Fever, unspecified f ever cause (Primary Dx); Pharyngitis, unspecified etiology; Viral URI Start: 07-14-2023 End: 07-14-2023 ambulatory [facility] Start: 07-06-2023 Orders Only Raulito Sellers CHILD WELFARE WORKER-STEVEDORING SUPERVISOR Work Phone: [facility] Comment on above: Mild intermittent as thma without complication Start: 07-05-2023 Refill Rufino Maribell Valiente CHILD WELFARE WORKER-ANALYTICS MANAGER Work Phone: [facility] Comment on above: Mild intermittent as thma without complication Start: 07-01-2023 Refill Raulito Sellers CHILD WELFARE WORKER-STEVEDORING SUPERVISOR [facility]: [facility] Comment on above: Fibromyalgia; Bilateral occipital neuralgia; Diabetes mellitus without complication ([facility]) Neurogenic pain ([facility] raulito Dx) Anxiety; Diabetic autonomic neuropathy associated with type 2 diabetes mellitus ([facility]) Start: 06-29-2023 End: 06-29-2023 Office outpatient visit 25 minutes Raulito Sellers CHILD WELFARE WORKER-STEVEDORING SUPERVISOR Work Phone: [facility] Comment on above: Type 2 diabetes dusty itus with hyperglycemia, with long-term current use of insulin ([facility]) (Primary Dx); Diabetic autonomic neuropathy associated with type 2 diabetes mellitus ([facility]); Restless legs syndrome (RLS); Anxiety; Localized edema Start: 06-29-2023 Refill Raulito Sellers CHILD WELFARE WORKER-STEVEDORING SUPERVISOR Work Phone: [facility] Comment on above: Localized edema Start: 06-29-2023 End: 06-29-2023 [facility] Start: 06-17-2023 End: 06-17-2023 Office outpatient visit 15 minutes Rufino Maribell Valiente CHILD WELFARE WORKER-ANALYTICS MANAGER Work Phone: [facility] Comment on above: COVID (Primary Dx); Bipolar 2 disorder ([facility]); Mild intermittent asthma without complication Start: 06-17-2023 End: 06-17-2023 ambulatory [facility] Start: 06-14-2023 End: 06-14-2023 ambulatory AMY COLEMAN Not Available Start: 06-02-2023 Orders Only Raulito Sellers CHILD WELFARE WORKER-STEVEDORING SUPERVISOR Work Phone: [facility] Start: 06-02-2023 Refill Raulito Sellers CHILD WELFARE WORKER-STEVEDORING SUPERVISOR Work Phone: [facility] Comment on above: Anxiety; Mild intermittent asthma without complication Start: 02-02-2023 End: 02-02-2023 Emergency department patient visit None Provider Facility:[facility] Start: 12-02-2022 End: 12-03-2022 ambulatory [place]era [place] [place] Start: 12-02-2022 End: 12-02-2022 Patient encounter procedure Keraomar Jesuswilliam [facility] Start: 11-30-2022 End: 12-01-2022 ambulatory AMANDA COOK [facility] Start: 11-19-2022 End: 11-20-[address] [facility] Start: 10-09-2022 End: 10-09-2022 Emergency department patient visit SARIKA OLIVAREZ [facility] Start: 10-06-2022 End: 10-07-2022 ambulatory MIR Snow [facility] Start: 10-01-2022 ambulatory Urbano Leonard y:NICHO Tse Start: 09-27-2022 End: 09-28-2022 ambulatory LILY CARMONA . Facility:[facility] Start: 09-18-2022 End: 09-18-[address] DOTTIE SALINAS Facility:[facility] Start: 09-10-2022 End: 09-11-[address] DANIAL CONNORS . Facility:[facility] Start: 09-01-2022 End: 09-02-[address] DANIAL CONNORS . Facility:[facility] Start: 08-27-2022 End: 08-28-[address] DANIAL CONNORS . Facility:[facility] Start: 08-25-2022 End: 08-25-[address] MURDOCK LISTED REQUEST Facility:[facility] Start: 08-17-2022 End: 08-17-2022 ambulatory EZEKIEL QUINONES . [employer] Other Start: 08-17-2022 Telephone encounter Talia [facility] Start: 08-14-2022 End: 08-14-2022 ambulatory OCTAVIO POWELL Facility:[facility] Start: 06-26-2022 End: 06-27-[address] GAIL RAMSEY Facility:[facility] Start: 06-24-2022 ambulatory BOYLE H FAWWAD Facilit y:[facility] Start: 06-09-2022 End: 06-10-2022 ambulatory BOYLE H FAWWAD Facility:[facility] Start: 02-26-2022 ambulatory BOYLE H FAWWAD Facilit y:[facility] Start: 01-13-2022 End: 01-13-2022 ambulatory AMY COLEMAN . Facility:[facility] Start: 12-22-2021 ambulatory BOYLE H FAWWAD Facilit y:[facility] Start: 12-16-2021 End: 12-17-2021 ambulatory BOYLE H FAWWAD Facility:[facility] Start: 12-03-[address] COLLETTE SANCHEZ REQUEST Facility:[facility] Start: 09-13-2019 End: 09-14-2019 Patient encounter procedure [facility] Start: 09-13-2019 End: 09-13-2019 Subsequent hospital visit by physician [facility] Start: 11-15-2017 End: 11-16-2017 Ambulatory DEFAULT PHYSICIAN Facility:[facility] Procedures Date Procedure Procedure Detail Performing Clinician Start: 03-06-2024 Adult depression scr eening assessment Dewayne Hoffmanvic DO Work Phone: Start: 02-29-2024 Adult depression scr eening assessment Dewayne Willis DO Work Phone: Start: 08-19-2023 Follow-up visit Follow-up RAULITO SELLERS Start: 08-19-2023 Adult depression scr eening assessment Raulito Sellers CHILD WELFARE WORKER-STEVEDORING SUPERVISOR Work Phone: Start: 07-20-2023 Adult depression scr eening assessment Raulito Sellers CHILD WELFARE WORKER-STEVEDORING SUPERVISOR Work Phone: Start: 07-14-2023 POCT INFLUENZA A/INF LUENZA B/SARS-COV-2 VERITOR Rufino Valiente CHILD WELFARE WORKER-ANALYTICS MANAGER Work Phone: Start: 07-14-2023 Iaadiadoo streptococ cus group a Rufino Valiente CHILD WELFARE WORKER-[facility] Work Phone: Start: 07-14-2023 Adult depression scr eening assessment Rufino Valiente CHILD WELFARE WORKER-[facility] Work Phone: Start: 06-29-2023 Adult depression scr eening assessment Raulito Sellers CHILD WELFARE WORKER-[facility] Work Phone: Start: 04-28-2023 Adult depression scr eening assessment Raulito Sellers CHILD WELFARE WORKER-[facility] Work Phone: Start: 10-13-2022 Microscopic observat ion [Identifier] in Cervix by Cyto stain Raulito Sellers [facility] Work Phone: Start: 09-13-2019 Acute hepatitis panel E RNEST SHARIF Start: 09-13-2019 Antibody hiv-1&hiv-2 single result JEREMY SHARIF Start: 09-13-2019 Assay of free thyroxine JEREMY SHARIF Start: 09-13-2019 Assay of thyroid stimulating hormone tsh JEREMY SHARIF Start: 09-13-2019 Blood count complete automated JEREMY SHARIF Start: 09-13-2019 Comprehensive metabo lic panel JEREMY SHARIF Start: 09-13-2019 Gonadotropin chorion ic qualitative JEREMY SHARIF Start: 09-13-2019 Acute hepatitis panel E rnest Sharif Work Phone: Start: 09-13-2019 Antibody hiv-1&hiv-2 single result Jeremy Sharif Work Phone: Start: 09-13-2019 Assay of free thyroxine Jeremy Sharif Work Phone: Start: 09-13-2019 Assay of thyroid stimulating hormone tsh Jeremy Sharif Work Phone: Start: 09-13-2019 Blood count complete automated Jeremy Sharif Work Phone: Start: 09-13-2019 Comprehensive metabo lic panel Jeremy Sharif Work Phone: Start: 09-13-2019 Gonadotropin chorion ic qualitative Jeremy Sharif Work Phone: Start: 08-10-2017 History of tonsillectomy S/P tonsill ectomy Raulito Sellers CHILD WELFARE WORKER-STEVEDORING SUPERVISOR Work Phone: Adenoid excision Kera Lord Kidney stone (disorder) Delia Lord Comment on above: Surgical Removal Tonsillectomy Kera Lord Plan of Treatment Date Care Activity Detail Author Start: 10-13-2025 Screening for malignant neoplasm of cervix Pap Smear [facility] Start: 03-06-2025 Adult BMI Screening Adult BMI Screen ing [facility] Start: 03-06-2025 Depression Screening Depression Scre ening [facility] Start: 03-06-2025 Tobacco Screening Tobacco Screening [facility] Start: 02-27-2025 Adult BMI Screening Adult BMI Screen ing [facility] Start: 02-27-2025 Tobacco Screening Tobacco Screening [facility] Start: 11-28-2024 Depression Screening Depression Scre ening [facility] Start: 08-18-2024 Adult BMI Screening Adult BMI Screen ing [facility] Start: 08-18-2024 Depression Screening Depression Scre ening [facility] Start: 08-18-2024 Tobacco Screening Tobacco Screening [facility] Start: 08-12-2024 Tobacco Counseling Tobacco Counselin g [facility] Start: 07-20-2024 Adult BMI Screening Adult BMI Screen ing [facility] Start: 07-20-2024 Depression Screening Depression Scre ening [facility] Start: 07-20-2024 Tobacco Screening Tobacco Screening [facility] Start: 07-14-2024 Adult BMI Screening Adult BMI Screen ing [facility] Start: 07-14-2024 Depression Screening Depression Scre ening [facility] Start: 07-14-2024 Tobacco Screening Tobacco Screening [facility] Start: 06-29-2024 Adult BMI Screening Adult BMI Screen ing [facility] Start: 06-29-2024 Depression Screening Depression Scre ening [facility] Start: 06-29-2024 Tobacco Screening Tobacco Screening [facility] Start: 06-16-2024 End: 06-16-2024 Patient encounter procedure 06/16/2024 10:00 AM EST [facility] [address] [place] [address] Dewayne Willis, DO [address] [place] [address] [facility] Start: 04-28-2024 Adult BMI Screening Adult BMI Screen ing [facility] Start: 04-28-2024 Depression Screening Depression Scre ening [facility] Start: 04-28-2024 Tobacco Screening Tobacco Screening [facility] Start: 03-06-2024 End: 03-06-2024 Patient encounter procedure 03/06/2024 1:30 PM EDT [facility] [address] [place] [address] Dewayne Willis, [address] [place] [address] [facility] Start: 02-29-2024 End: 02-28-2025 MR Lumbar spine WO contrast MR lumbar spine without contrast Imaging Routine Lumbar radiculopathy, chronic Expected: 02/29/2024, Expires: 02/28/2025 [facility] Comment on above: Expected: 02/29/2024 , Expires: 02/28/2025 Start: 02-29-2024 End: 02-28-2025 MR Sacrum WO contrast MR sacrum without contrast Imaging Routine Radicular pain of sacrum Expected: 02/29/2024, Expires: 02/28/2025 [facility] Work Phone: Comment on above: Expected: 02/29/2024 , Expires: 02/28/2025 Start: 01-23-2024 Influenza vaccination Influenza Vacc ine [facility] Start: 11-12-2023 Diabetic foot examination Diabetic Foot Exam [facility] Start: 08-19-2023 End: 08-19-2023 Patient encounter procedure 08/19/2023 1:00 PM EDT Office Visit [facility] [address] [place] [address] Raulito Sellers, CHILD WELFARE WORKER-STEVEDORING SUPERVISOR [address] [place] [address] [facility] Start: 08-18-2023 End: 08-18-2023 Patient encounter procedure 08/18/2023 9:30 AM EDT Appointment [facility] [address] [place] [id number] [facility] Start: 08-05-2023 End: 08-05-2023 Patient encounter procedure 08/05/2023 3:00 PM EDT Appointment [facility] [address] [place] [id number] Neck pain, bilateral posterior [facility] Comment on above: Neck pain, bilateral posterior Start: 06-07-2023 End: 06-07-2023 Patient encounter procedure 06/07/2023 1:50 PM EST Office Visit [facility] [address] [place] [address] Raulito Sellers, CHILD WELFARE WORKER-STEVEDORING SUPERVISOR [address] [place] [address] [facility] Start: 01-22-2023 Influenza vaccination Influenza Vacc ine [facility] Start: 01-23-2020 Influenza vaccination Flu vacc ine (Season Ended) [facility], [place] Start: 09-18-2019 End: 09-18-2019 Office Visit 09/18/2019 Office Visit Neurology Rossy Simpson MD [address] [place] [id number] [facility] Start: 2011 Screening for malignant neoplasm of cervix Cervical cancer screen [place], [place] Start: 2009 DTaP,Tdap and Td Vaccines (1 - Tdap) DTaP,Tdap and Td Vaccines (1 - Tdap) [facility] Start: 2009 DTaP/Tdap/Td vaccine (1 - Tdap) DTaP/Tdap/Td vaccine (1 - Tdap) [place], [place] Start: 2008 Adult BMI Follow Up Plan Adult BMI Follow Up Plan [facility] Start: 2005 HIV screening HIV screen [place], [place] Start: 1991 Varicella vaccine (1 of 2 - 2-dose childhood series) Varicella vaccine (1 of 2 - 2-dose childhood series) [place], [place] Start: 1990 Glaucoma screening Diabetic Op hthalmology Exam [facility] End: 07-20-2024 Hemoglobin A1c/Hemoglobin.total in Blood Hemoglobin A1c Lab Routine Type 2 diabetes mellitus with hyperglycemia, with long-term current use of insulin ([facility]) 1 Occurrences starting 07/20/2023 until 07/20/2024 [facility] Work Phone: Comment on above: 1 Occurrences starti ng 07/20/2023 until 07/20/2024 Hemoglobin A1c/Hemoglobin.total in Blood Hemoglobin A1c Lab Routine Type 2 diabetes mellitus with hyperglycemia, with long-term current use of insulin ([facility]) 07/20/2023 10:37 PM EST [facility] End: 08-18-2024 Microalbumin - Albumin: Creatinine Urine Ratio Microalbumin - Albumin: Creatinine Urine Ratio Lab Routine Type 2 diabetes mellitus with diabetic neuropathy, with long-term current use of insulin ([facility]) 1 Occurrences starting 08/19/2023 until 08/18/2024 [facility] Work Phone: Comment on above: 1 Occurrences starti ng 08/19/2023 until 08/18/2024 Payers Date Payer Category Payer Medicaid [facility] MEDICA[facility] [id number] 2022-Present [phone] [address] [place] [address] [id number] 2022 Private Health Insurance [facility] [id number] 2022-Present [phone] [address] [place] [address] [id number] 2019 Private Health Insurance [employer] xxxxxxxxx 2019-Present [phone] [address] [place] [address] xxxxxxxxx [id number] 2015 Self-pay 1990 Unknown [id number] 2.16.840.1.694450.3.579. 2.173 1990 Unknown [id number] 2.16.840.1.075314.3.579. 2.593 1990 Unknown [id number] 2.16.840.1.945432.3.579. 2.593 1990 Unknown [id number] 2.16.840.1.776055.3.579. 2.593 1990 Unknown [id number] 2.16.840.1.264756.3.579. 2.593 1990 Unknown [id number] 2.16.840.1.251168.3.579. 2.593 1990 Unknown [id number] 2.16.840.1.952306.3.579. 2.593 1990 Unknown [id number] 2.16.840.1.195201.3.579. 2.593 1990 Unknown [id number] 2.16.840.1.604742.3.579. 2.593 1990 Unknown [id number] 2.16.840.1.209501.3.579. 2.593 1990 Unknown [id number] 2.16.840.1.564907.3.579. 2.593 1990 Unknown [id number] 2.16.840.1.658271.3.579. 2.593 1990 Unknown [id number] 2.16.840.1.625412.3.579. 2.593 1990 Unknown [id number] 2.16.840.1.603073.3.579. 2.593 1990 Unknown [id number] 2.16.840.1.874133.3.579. 2.593 1990 Unknown [id number] 2.16.840.1.729554.3.579. 2.593 1990 Unknown [id number] 2.16.840.1.420704.3.579. 2.593 1990 Unknown [id number] 2.16.840.1.824692.3.579. 2.175 1990 Unknown [id number] 2.16.840.1.035344.3.579. 2.175 1990 Unknown [id number] 2.16.840.1.658848.3.579. 2.175 1990 Unknown [id number] 2.16.840.1.624836.3.579. 2.727 1990 Unknown [id number] 2.16.840.1.382034.3.579. 2.727 1990 Unknown [id number] 2.16.840.1.283658.3.579. 2.727 1990 Unknown [id number] 2.16.840.1.971085.3.579. 2.718 1990 Unknown [id number] 2.16.840.1.142573.3.579. 2.718 1990 Unknown [id number] 2.16.840.1.212371.3.579. 2.1259 1990 Unknown [id number] 2.16.840.1.475282.3.579. 2.9 1990 Unknown [id number] 2.16.840.1.365535.3.579. 2.9 1990 Unknown [id number] 2.16.840.1.548571.3.579. 2.1258 1990 Unknown [id number] 2.16.840.1.171926.3.579. 2.1258 1990 Unknown [id number] 2.16.840.1.197109.3.579. 2.1258 1990 Unknown [id number] 2.16.840.1.467480.3.579. 2.1258 1990 Unknown [id number] 2.16.840.1.561457.3.579. 2.1285 1990 Unknown [id number] 2.16.840.1.352374.3.579. 2.1285 1990 Unknown [id number] 2.16.840.1.501742.3.579. 2.1285 1990 Unknown [id number] 2.16.840.1.330964.3.579. 2.1285 1990 Unknown [id number] 2.16.840.1.694258.3.579. 2.1285 1990 Unknown [id number] 2.16.840.1.168269.3.579. 2.1285 1990 Unknown [id number] 2.16.840.1.908288.3.579. 2.1285 1990 Unknown [id number] 2.16.840.1.329809.3.579. 2.1286 1990 Unknown [id number] 2.16.840.1.882529.3.579. 2.1286 1990 Unknown [id number] 2.16.840.1.711902.3.579. 2.1286 1990 Unknown [id number] 2.16.840.1.810178.3.579. 2.1286 1990 Unknown [id number] 2.16.840.1.337345.3.579. 2.1286 1990 Unknown [id number] 2.16.840.1.602670.3.579. 2.1286 1990 Unknown [id number] 2.16.840.1.750953.3.579. 2.1286 1990 Unknown [id number] 2.16.840.1.320909.3.579. 2.1286 1990 Unknown [id number] 2.16.840.1.477707.3.579. 2.128 1990 Unknown [id number] 2.16.840.1.243441.3.579. 2.1286 1990 Unknown [id number] 1990 Unknown [id number] 1990 Unknown [id number] 1959 Medicaid [id number] 1959 Private Health Insurance [id number] 1959 Self-pay [id number] 1959 Unknown [id number] Unknown Social History Date Type Detail Facility Start: 12-09-2013 [facility] ever smoked [place], [place] Start: 1990 Sex Assigned At Not on file M [place], [place] Start: 07-04-2020 End: 04-28-2023 [facility] Tobacco Cigarettes [facility] Tobacco smoking status [facility] Start: 03-31-2023 Tobacco [facility] History of tobacco use Current smoker [facility] History of tobacco use Cigarette Smoker P [facility] Start: 07-04-2020 End: 03-31-2023 Cigarettes smoked current (pack per day) - Reported 0.1 [facility] Start: 03-31-2023 End: 09-15-2023 Tobacco use and exposure Smokeless tobacco non-user [facility] Start: 04-28-2023 End: 03-06-2024 Alcohol intake Current non-drinker of alcohol (finding) [facility] How hard is it for y ou to pay for the very basics like food, housing, medical care, and heating Hard [facility] Adolescent depressio n screening assessment 8 [facility] Start: 09-15-2023 Tobacco smoking stat [facility] Smokes tobacco daily [facility] How hard is it for y ou to pay for the very basics like food, housing, medical care, and heating Somewhat hard [facility] Medical Equipment Procedure Code Equipment Code Equipment Origin al Text Equipment Identifier Dates [id number], [id number], [id number], [id number], [id number], [id number] Start: 10-08-2022 End: 03-06-2024 Goals Date Patient Goal Desired Activity /State Personal health goal Comment on above: Formatting of this n ote might be different from the original. Evaluation of progress towards goal: Safe dc transition home with family Clinical Notes 10-03-2020 to 03-06-2024 Dewayne Willis, DO - 03/06/2024 1:30 PM EDTDewayne Willis, - 02/29/2024 4:30 PM EDCHIQUIS Glass - 08/24/2023 9:17 AM CHIQUIS Mccoy - 08/19/2023 1:00 PM EDT Note Date & Type Note Facility 03-06-2024 History of Present illness Narrative IM PROGRESS NOTE Patient - Dorsi Bob Age - 33 y.o. - 1990 [facility] # - [id number] ASSESSMENT & PLAN 1. Type 2 diabetes mellitus with diabetic neuropathy, with long-term current use of insulin ([facility]) - Goals of treatment reviewed with patient - CGM report reviewed with patient - Will continue with Trulicity once weekly, NPH nightly, but decrease Humalog to twice daily, and eliminate lunch dose due to afternoon hypoglycemia. - blood-glucose sensor (DEXCOM G7 SENSOR) device; 1 each by miscellaneous route every 10 days. Dispense: 9 each; Refill: 1 - HumuLIN N NPH U-100 Insulin 100 unit/mL injection; Inject 0.25 mL (25 Units total) under the skin nightly. Dispense: 10 mL; Refill: 1 - HumaLOG KwikPen Insulin 100 unit/mL insulin pen; Take 0 units if less than 100, 101-150 5units, 151-200 10units, 201-250 15 units, 251-300 20units, more than 300 25 units Dispense: 15 mL; Refill: 1 - Basic Metabolic Panel; Future - Hemoglobin A1c; Future - insulin syr/ndl U100 half debbie (BD INSULIN SYRINGE, HALF UNIT,) 0.3 mL 31 gauge x 5/16 syringe; 1 Syringe by other route in the morning. Dispense: 100 each; Refill: 1 - pen needle, diabetic (DROPLET PEN NEEDLE) 32 gauge x 5/32 needle; Inject 1 Pen Needle under the skin 3 (three) times a day. Dispense: 300 each; Refill: 1 - alcohol swabs pads, medicated; Apply 1 Pad topically 4 (four) times a day. Dispense: 400 each; Refill: 3 2. B12 deficiency - Still with symptom on bottom of feet - Restart B12 supplement - cyanocobalamin (vitamin B-12) 1000 MCG tablet; Take 1 tablet (1,000 mcg total) by mouth in the morning. Dispense: 90 tablet; Refill: 1 3. Bipolar 2 disorder ([facility]) - Keep follow up with psychiatry - Topamax good choice, may help with weight loss and pain control as well as psych issues Subjective DIABETIC VISIT This is a follow up of a pre-existing problem. Patient self monitoring includes CGM. CGM download shows estimated A1c 7.0% Patient experiences hypoglycemia several times a week, normally in midafternoon . Patient symptoms of hyperglycemia include: none. Current prescribed diet is consistent carbohydrate. Patient is following the prescribed diet plan. Home activity includes: The patient does not participate in regular exercise at present.. Patient does experience numbness or burning in their hands or feet. Patient does not have vision changes. Last eye exam was: 2022 Patient BP monitoring is not being done. Patient reports: taking medications as instructed, no medication side effects noted, patient does not perform home BP monitoring, no chest pain on exertion, no dyspnea on exertion, no swelling of ankles, no orthostatic dizziness or lightheadedness, no palpitations, and no intermittent claudication symptoms Issues affecting compliance with diabetic self management include: Occasionally cuts back on mealtime insulin due to the low episodes. Is taking Novolog TID with meals, along with NPH at night, Trulicity once a week A review of systems was negative except for the following: General: weight loss Psychiatric: anxiety, depression, and but now going to [facility], and has a counsellor and psychiatrist. Topirimate added to regimen, with plans to wean off of alprazolam Neurological: numbness/tingling and has not been taking the cyanocobalamin for last few weeks. Exam BP 110/74 (BP Site: Left Arm, BP Postition: Sitting) Pulse 112 Temp 36.4 C (97.6 F) (Temporal) Resp 18 Ht 157.5 cm (5' 2 ) Wt 94.3 kg (207 lb 12.8 oz) SpO2 98% BMI 38.01 kg/m Physical Exam Vitals reviewed. Constitutional: General: She is not in acute distress. Appearance: She is well-developed. She is obese. She is not toxic-appearing. HENT: Head: Normocephalic. Right Ear: External ear normal. Left Ear: External ear normal. Nose: Nose normal. Mouth/Throat: Mouth: Mucous membranes are moist. Eyes: General: No scleral icterus. Neck: Vascular: No carotid bruit. Cardiovascular: Rate and Rhythm: Normal rate and regular rhythm. Pulses: Normal pulses. Heart sounds: No murmur heard. No gallop. Pulmonary: Effort: Pulmonary effort is normal. Breath sounds: No wheezing or rales. Abdominal: Palpations: Abdomen is soft. Skin: General: Skin is warm and dry. Coloration: Skin is not jaundiced. Findings: No bruising. Neurological: Mental Status: She is alert and oriented to person, place, and time. Sensory: Sensory deficit (Decreased pinprick sensation in the S1 and L4 dermatome on the right leg. Decreased pinprick sensation in the L5 dermatome of the left leg. Vibratory sensation intact all dermatomes bilateral feet. Monofilament testing variable bilaterally.) present. Motor: No weakness. Deep Tendon Reflexes: Reflexes are normal and symmetric. Psychiatric: Mood and Affect: Mood normal. Behavior: Behavior normal. Meds Current Outpatient Medications: albuterol (PROVENTIL HFA;VENTOLIN HFA) 90 mcg/actuation inhaler, Inhale 2 puffs 4 (four) times a day as needed for wheezing or shortness of breath., Disp: 18 g, Rfl: 1 albuterol (PROVENTIL,VENTOLIN) 2.5 mg /3 mL (0.083 %) nebulizer solution, Inhale 3 mL (2.5 mg total) by nebulization 4 (four) times a day as needed for wheezing or shortness of breath., Disp: 75 mL, Rfl: 1 ALPRAZolam (XANAX) 0.5 mg tablet, Take 1 tablet (0.5 mg total) by mouth 2 (two) times a day as needed for anxiety., Disp: 60 tablet, Rfl: 0 baclofen (LIORESAL) 10 mg tablet, Take 1 tablet (10 mg total) by mouth once daily at bedtime., Disp: 90 tablet, Rfl: 1 blood-glucose meter (TRUE METRIX AIR GLUCOSE METER) kit, See Admin Instructions., Disp: , Rfl: blood-glucose meter,continuous (DEXCOM G7 MUSIC THERAPIST) misc, 1 each by miscellaneous route every 10 days., Disp: 9 each, Rfl: 1 buprenorphine-naloxone (SUBOXONE) 8-2 mg per SL tablet, place 1 take under the tongue three times a day, Disp: , Rfl: cariprazine (VRAYLAR) 6 mg capsule, Take 6 mg by mouth in the morning., Disp: 90 capsule, Rfl: 1 cetirizine (ZyrTEC) 10 mg tablet, Take 1 tablet (10 mg total) by mouth in the morning., Disp: 30 tablet, Rfl: 0 DULoxetine (CYMBALTA) 60 mg capsule, Take 1 capsule (60 mg total) by mouth in the morning., Disp: 90 capsule, Rfl: 1 fluticasone propionate (FLONASE) 50 mcg/actuation nasal spray, Administer 1 spray into each nostril in the morning., Disp: 9.9 mL, Rfl: 1 furosemide (LASIX) 20 mg tablet, take 1 tablet by mouth once daily, Disp: 90 tablet, Rfl: 1 furosemide (LASIX) 40 mg tablet, Take 1 tablet (40 mg total) by mouth daily as needed (Leg edema)., Disp: 30 tablet, Rfl: 1 gabapentin (NEURONTIN) 600 mg tablet, Take 1 tablet (600 mg total) by mouth 4 (four) times a day with meals and nightly., Disp: 120 tablet, Rfl: 0 hydrOXYzine (VISTARIL) 50 mg capsule, Take 1 capsule (50 mg total) by mouth 2 (two) times a day as needed for itching., Disp: 180 capsule, Rfl: 1 ibuprofen (MOTRIN) 800 mg tablet, take 1 tablet by mouth every 8 hours if needed for pain, Disp: 30 tablet, Rfl: 1 levothyroxine (SYNTHROID, LEVOTHROID) 100 MCG tablet, Take 1 tablet (100 mcg total) by mouth in the morning., Disp: 90 tablet, Rfl: 1 loratadine (CLARITIN) 10 mg tablet, Take 1 tablet (10 mg total) by mouth daily as needed for allergies., Disp: 30 tablet, Rfl: 2 mometasone (ELOCON) 0.1 % cream, Apply 1 Application topically in the morning., Disp: 45 g, Rfl: 0 ondansetron (ZOFRAN) 8 mg tablet, Take 1 tablet (8 mg total) by mouth every 8 (eight) hours as needed for nausea or vomiting., Disp: 30 tablet, Rfl: 0 pantoprazole (PROTONIX) 40 mg EC tablet, Take 1 tablet (40 mg total) by mouth in the morning., Disp: 90 tablet, Rfl: 0 potassium chloride (K-TAB,KLOR-CON) 10 MEQ CR tablet, Take 1 tablet (10 mEq total) by mouth in the morning., Disp: , Rfl: promethazine (PHENERGAN) 12.5 mg tablet, take 1 tablet by mouth every 4 hours, Disp: , Rfl: rOPINIRole (REQUIP) 1 mg tablet, Take 2 tablets (2 mg total) by mouth nightly., Disp: 180 tablet, Rfl: 1 spironolactone (ALDACTONE) 100 mg tablet, Take 1 tablet (100 mg total) by mouth in the morning., Disp: 90 tablet, Rfl: 1 topiramate (TOPAMAX) 50 mg tablet, Take 1 tablet (50 mg total) by mouth nightly., Disp: 90 tablet, Rfl: 1 TRUE METRIX GLUCOSE TEST STRIP strip, USE 1 TEST STRIP TO TEST BLOOD SUGAR FOUR TIMES A DAY, Disp: , Rfl: TRUEPLUS LANCETS 30 gauge misc, USE 1 LANCET TO TEST BLOOD SUGAR FOUR TIMES A DAY, Disp: , Rfl: alcohol swabs pads, medicated, Apply 1 Pad topically 4 (four) times a day., Disp: 400 each, Rfl: 3 blood-glucose sensor (DEXCOM G7 SENSOR) device, 1 each by miscellaneous route every 10 days., Disp: 9 each, Rfl: 1 cyanocobalamin (vitamin B-12) 1000 MCG tablet, Take 1 tablet (1,000 mcg total) by mouth in the morning., Disp: 90 tablet, Rfl: 1 HumaLOG KwikPen Insulin 100 unit/mL insulin pen, Take 0 units if less than 100, 101-150 5units, 151-200 10units, 201-250 15 units, 251-300 20units, more than 300 25 units, Disp: 15 mL, Rfl: 1 HumuLIN N NPH U-100 Insulin 100 unit/mL injection, Inject 0.25 mL (25 Units total) under the skin nightly., Disp: 10 mL, Rfl: 1 insulin syr/ndl U100 half debbie (BD INSULIN SYRINGE, HALF UNIT,) 0.3 mL 31 gauge x 5/16 syringe, 1 Syringe by other route in the morning., Disp: 100 each, Rfl: 1 pen needle, diabetic (DROPLET PEN NEEDLE) 32 gauge x 5/32 needle, Inject 1 Pen Needle under the skin 3 (three) times a day., Disp: 300 each, Rfl: 1 Lab Results No visits with results within 1 Month(s) from this visit. Latest known visit with results is: Hospital Outpatient Visit on 11/29/2023 Component Date Value Ref Range Status Vitamin B-12 11/29/2023 215 180 - 914 pg/mL Final Hemoglobin A1C 11/29/2023 6.0 (H) 4.4 - 5.6 % Final Average glucose 11/29/2023 126 mg/dL Final Sodium 11/29/2023 140 134 - 146 mmol/L Final Potassium, Bld 11/29/2023 4.0 3.5 - 5.0 mmol/L Final Chloride 11/29/2023 102 98 - 109 mmol/L Final CO2 11/29/2023 30 22 - 32 mmol/L Final Anion gap 11/29/2023 8 5 - 15 mmol/L Final BUN 11/29/2023 8 5 - 23 mg/dL Final Creatinine 11/29/2023 0.60 0.40 - 1.00 mg/dL Final Glucose 11/29/2023 117 (H) 65 - 99 mg/dL Final Calcium 11/29/2023 9.0 8.5 - 10.5 mg/dL Final Total Protein 11/29/2023 6.8 6.0 - 8.0 g/dL Final Albumin 11/29/2023 4.1 3.2 - 5.3 g/dL Final Alkaline Phosphatase 11/29/2023 59 39 - 130 U/L Final AST 11/29/2023 25 0 - 41 U/L Final ALT 11/29/2023 28 0 - 31 U/L Final Total bilirubin 11/29/2023 0.3 0.3 - 1.2 mg/dL Final eGFR (CKD-EPI)non-race dependent 11/29/2023 >90 >59 ml/min/1.73sq.m Final Cholesterol 11/29/2023 182 150 - 200 mg/dL Final Triglycerides 11/29/2023 287 (H) 27 - 150 mg/dL Final HDL Cholesterol 11/29/2023 39 (L) >39 mg/dL Final VLDL 11/29/2023 57 (H) 0 - 30 mg/dL Final LDL (calc) 11/29/2023 86 <130 mg/dL Final Cholesterol:HDL Ratio 11/29/2023 4.7 1.0 - 5.0 Final Microalbumin urine 11/29/2023 1.5 0.0 - 1.9 mg/dL Final Urine creat 11/29/2023 93.61 mg/dL Final Alb/creat ratio 11/29/2023 16.0 0.0 - 30.0 mg/g creat Final TSH 11/29/2023 1.06 0.49 - 4.67 uIU/mL Final T4, free 11/29/2023 0.78 0.61 - 1.60 ng/dL Final Other Testing No results found. Dewayne Willis DO., [facility]: [phone] documented in this encounter [facility] 02-29-2024 History of Present illness Narrative IM PROGRESS NOTE Patient - Dorsi Bob Age - 33 y.o. - 1990 ASSESSMENT & PLAN 1. Lumbar radiculopathy, chronic -patient with ongoing numbness and tingling in the lower extremities. -EMG ordered months ago is still not done. -patient was advised to call and get this scheduled -in the meantime, she is having worsening symptoms. Proceed with imaging of the lumbosacral spine. - MR lumbar spine without contrast; Future 2. Radicular pain of sacrum -as above - MR sacrum without contrast; Future 3. Trochanteric bursitis of both hips -secondary to the pain noted in her low back causing her to lay on her hips -may use Motrin 600 mg once or twice daily as needed -advised to use ice to the greater trochanter 30 minutes 4 times daily -further recommendations pending results of above Subjective MUSCULOSKELETAL PROBLEM Location: back - lumbar/sacral, coccyx Radiation?: yes - into buttocks and hips bilaterally. Loss of bowel/urine control? No, but she feels like she can not pucker her butt if she had diarrhea. Other site(s) affected: bilateral hip(s) This is a new problem. Problem is described as aching, burning, and numbing Severity is severe It normally occurs on a daily basis. The sacral pain is current all the time, and exacerbated by sitting or bending or with pressure on the sacral coccygeal area. The hip pain is only present when she is laying on her right or left side. The dependent side is the side which develops the pain. There Is associated restricted motion in her back and hips. Morning stiffness does last more than 1 hour. Number of Joints affected is 0 Symptoms (Synovitis) have lasted since never.. Problem started gradual without a known trigger. 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 Frequency of symptoms is daily Aggravating factors include standing, lying down, touching, sitting. Symptom severity has is moderately worse. Any previous Imaging? Yes, had lumbar x-ray September 2023. Degenerative changes were noted. Previous treatments include NSAIDS and heat These treatments have not provided any relief. How problem has changed since last visit:NA A review of systems was General: sleep disturbance and is due to sacral and hip pain Musculoskeletal: joint stiffness and pain in back - bilateral, lower Neurological: Continues to have numbness and neuropathic pain in her bilateral feet. On gabapentin 600 mg 4 times daily. Still has not had her EMG done to evaluate for underlying cause. Was scheduled at [facility].. Exam BP 108/70 (BP Site: Left Arm, BP Postition: Sitting) Pulse 101 Temp 36.7 C (98 F) (Tympanic) Ht 157.5 cm (5' 2 ) Wt 93.5 kg (206 lb 3.2 oz) SpO2 97% BMI 37.71 kg/m Physical Exam Vitals reviewed. Constitutional: General: She is not in acute distress. Appearance: She is well-developed. She is obese. She is not toxic-appearing. HENT: Head: Normocephalic. Nose: Nose normal. Mouth/Throat: Mouth: Mucous membranes are moist. Eyes: General: No scleral icterus. Neck: Vascular: No carotid bruit. Cardiovascular: Rate and Rhythm: Normal rate and regular rhythm. Pulses: Normal pulses. Heart sounds: No murmur heard. No gallop. Pulmonary: Effort: Pulmonary effort is normal. Breath sounds: No wheezing or rales. Abdominal: Palpations: Abdomen is soft. Musculoskeletal: General: Tenderness (Bilateral at the SI joint, and along the sacrum and coccyx with palpation. There is mild tenderness to the greater trochanter of the bilateral hips with palpation.) present. Right lower leg: No edema. Left lower leg: No edema. Comments: Bilateral hips: No restriction in internal/external rotation. Skin: General: Skin is warm and dry. Coloration: Skin is not jaundiced. Findings: No bruising. Neurological: Mental Status: She is alert and oriented to person, place, and time. Sensory: Sensory deficit (Decreased pinprick sensation in the S1 and L4 dermatome on the right leg. Decreased pinprick sensation in the L5 dermatome of the left leg. Vibratory sensation intact all dermatomes bilateral feet. Monofilament testing variable bilaterally.) present. Motor: No weakness. Deep Tendon Reflexes: Reflexes abnormal (Patellar reflex absent bilateral. Achilles reflex absent bilaterally.). Comments: Mildly positive seated SLR on the right. Psychiatric: Mood and Affect: Mood normal. Behavior: Behavior normal. Meds Current Outpatient Medications: albuterol (PROVENTIL HFA;VENTOLIN HFA) 90 mcg/actuation inhaler, Inhale 2 puffs 4 (four) times a day as needed for wheezing or shortness of breath., Disp: 18 g, Rfl: 1 albuterol (PROVENTIL,VENTOLIN) 2.5 mg /3 mL (0.083 %) nebulizer solution, Inhale 3 mL (2.5 mg total) by nebulization 4 (four) times a day as needed for wheezing or shortness of breath., Disp: 75 mL, Rfl: 1 alcohol swabs pads, medicated, Apply 1 Pad topically See Admin Instructions., Disp: 100 each, Rfl: 3 ALPRAZolam (XANAX) 0.5 mg tablet, Take 1 tablet (0.5 mg total) by mouth 2 (two) times a day as needed for anxiety., Disp: 60 tablet, Rfl: 0 baclofen (LIORESAL) 10 mg tablet, Take 1 tablet (10 mg total) by mouth once daily at bedtime., Disp: 90 tablet, Rfl: 1 BD INSULIN SYRINGE, HALF UNIT, 0.3 mL 31 gauge x 5/16 syringe, 1 Syringe by other route in the morning., Disp: 100 each, Rfl: 1 blood-glucose meter (TRUE METRIX AIR GLUCOSE METER) kit, See Admin Instructions., Disp: , Rfl: blood-glucose meter,continuous (DEXCOM G7 MUSIC THERAPIST) misc, 1 each by miscellaneous route every 10 days., Disp: 9 each, Rfl: 1 blood-glucose sensor (DEXCOM G7 SENSOR) device, 1 each by miscellaneous route every 10 days., Disp: 9 each, Rfl: 1 buprenorphine-naloxone (SUBOXONE) 8-2 mg per SL tablet, place 1 take under the tongue three times a day, Disp: , Rfl: cariprazine (VRAYLAR) 6 mg capsule, Take 6 mg by mouth in the morning., Disp: 90 capsule, Rfl: 1 cetirizine (ZyrTEC) 10 mg tablet, Take 1 tablet (10 mg total) by mouth in the morning., Disp: 30 tablet, Rfl: 0 cyanocobalamin (vitamin B-12) 1000 MCG tablet, Take 1 tablet (1,000 mcg total) by mouth in the morning., Disp: 90 tablet, Rfl: 1 DROPLET PEN NEEDLE 32 gauge x 5/32 needle, use 1 PEN NEEDLE to inject MEDICATION subcutaneously four times a day, Disp: , Rfl: DULoxetine (CYMBALTA) 60 mg capsule, Take 1 capsule (60 mg total) by mouth in the morning., Disp: 90 capsule, Rfl: 1 fluticasone propionate (FLONASE) 50 mcg/actuation nasal spray, Administer 1 spray into each nostril in the morning., Disp: 9.9 mL, Rfl: 1 furosemide (LASIX) 20 mg tablet, take 1 tablet by mouth once daily, Disp: 90 tablet, Rfl: 1 furosemide (LASIX) 40 mg tablet, Take 1 tablet (40 mg total) by mouth daily as needed (Leg edema)., Disp: 30 tablet, Rfl: 1 gabapentin (NEURONTIN) 600 mg tablet, Take 1 tablet (600 mg total) by mouth 4 (four) times a day with meals and nightly., Disp: 120 tablet, Rfl: 0 HumaLOG KwikPen Insulin 100 unit/mL insulin pen, Take 0 units if less than 100, 101-150 5units, 151-200 10units, 201-250 15 units, 251-300 20units, more than 300 25 units, Disp: 15 mL, Rfl: 1 HumuLIN N NPH U-100 Insulin 100 unit/mL injection, Inject 0.25 mL (25 Units total) under the skin nightly., Disp: 10 mL, Rfl: 1 hydrOXYzine (VISTARIL) 50 mg capsule, Take 1 capsule (50 mg total) by mouth 2 (two) times a day as needed for itching., Disp: 180 capsule, Rfl: 1 ibuprofen (MOTRIN) 800 mg tablet, take 1 tablet by mouth every 8 hours if needed for pain, Disp: 30 tablet, Rfl: 1 levothyroxine (SYNTHROID, LEVOTHROID) 100 MCG tablet, Take 1 tablet (100 mcg total) by mouth in the morning., Disp: 90 tablet, Rfl: 1 loratadine (CLARITIN) 10 mg tablet, Take 1 tablet (10 mg total) by mouth daily as needed for allergies., Disp: 30 tablet, Rfl: 2 mometasone (ELOCON) 0.1 % cream, Apply 1 Application topically in the morning., Disp: 45 g, Rfl: 0 ondansetron (ZOFRAN) 8 mg tablet, Take 1 tablet (8 mg total) by mouth every 8 (eight) hours as needed for nausea or vomiting., Disp: 30 tablet, Rfl: 0 pantoprazole (PROTONIX) 40 mg EC tablet, Take 1 tablet (40 mg total) by mouth in the morning., Disp: 90 tablet, Rfl: 0 promethazine (PHENERGAN) 12.5 mg tablet, take 1 tablet by mouth every 4 hours, Disp: , Rfl: rOPINIRole (REQUIP) 1 mg tablet, Take 2 tablets (2 mg total) by mouth nightly., Disp: 180 tablet, Rfl: 1 spironolactone (ALDACTONE) 100 mg tablet, Take 1 tablet (100 mg total) by mouth in the morning., Disp: 90 tablet, Rfl: 1 topiramate (TOPAMAX) 50 mg tablet, Take 1 tablet (50 mg total) by mouth nightly., Disp: 90 tablet, Rfl: 1 TRUE METRIX GLUCOSE TEST STRIP strip, USE 1 TEST STRIP TO TEST BLOOD SUGAR FOUR TIMES A DAY, Disp: , Rfl: TRUEPLUS LANCETS [facility], USE 1 LANCET TO TEST BLOOD SUGAR FOUR TIMES A DAY, Disp: , Rfl: Lab Results No visits with results within 1 Month(s) from this visit. Latest known visit with results is: Hospital Outpatient Visit on 11/29/2023 Component Date Value Ref Range Status Vitamin B-12 11/29/2023 215 180 - 914 pg/mL Final Hemoglobin A1C 11/29/2023 6.0 (H) 4.4 - 5.6 % Final Average glucose 11/29/2023 126 mg/dL Final Sodium 11/29/2023 140 134 - 146 mmol/L Final Potassium, Bld 11/29/2023 4.0 3.5 - 5.0 mmol/L Final Chloride 11/29/2023 102 98 - 109 mmol/L Final CO2 11/29/2023 30 22 - 32 mmol/L Final Anion gap 11/29/2023 8 5 - 15 mmol/L Final BUN 11/29/2023 8 5 - 23 mg/dL Final Creatinine 11/29/2023 0.60 0.40 - 1.00 mg/dL Final Glucose 11/29/2023 117 (H) 65 - 99 mg/dL Final Calcium 11/29/2023 9.0 8.5 - 10.5 mg/dL Final Total Protein 11/29/2023 6.8 6.0 - 8.0 g/dL Final Albumin 11/29/2023 4.1 3.2 - 5.3 g/dL Final Alkaline Phosphatase 11/29/2023 59 39 - 130 U/L Final AST 11/29/2023 25 0 - 41 U/L Final ALT 11/29/2023 28 0 - 31 U/L Final Total bilirubin 11/29/2023 0.3 0.3 - 1.2 mg/dL Final eGFR (CKD-EPI)non-race dependent 11/29/2023 >90 >59 ml/min/1.73sq.m Final Cholesterol 11/29/2023 182 150 - 200 mg/dL Final Triglycerides 11/29/2023 287 (H) 27 - 150 mg/dL Final HDL Cholesterol 11/29/2023 39 (L) >39 mg/dL Final VLDL 11/29/2023 57 (H) 0 - 30 mg/dL Final LDL (calc) 11/29/2023 86 <130 mg/dL Final Cholesterol:HDL Ratio 11/29/2023 4.7 1.0 - 5.0 Final Microalbumin urine 11/29/2023 1.5 0.0 - 1.9 mg/dL Final Urine creat 11/29/2023 93.61 mg/dL Final Alb/creat ratio 11/29/2023 16.0 0.0 - 30.0 mg/g creat Final TSH 11/29/2023 1.06 0.49 - 4.67 uIU/mL Final T4, free 11/29/2023 0.78 0.61 - 1.60 ng/dL Final Other Testing No results found. Dewayne Willis DO., [facility]: [phone] documented in this encounter [facility] 09-10-2023 Note PROCEDURE: XR Foot C omplete Left COMPARISON: None. HISTORY: Left foot pain FINDINGS: BONES:Fragmented lateral first metatarsal sesamoid with severe degenerative changes. No acute fracture or dislocation. SOFT TISSUES:Negative. No visible soft tissue swelling. EFFUSION:None visible. OTHER: Negative. IMPRESSION: Chronic fragment lateral sesamoid first metatarsal Final Dictated by: Andriy Vargas MD Dictated DT/TM: 09/13/23 7:37 Signed (Electronic Signature): Andriy Vargas MD 09/13/23 9:36 am Technologist: [facility] 08-24-2023 History of Present illness Narrative The OARRS/MAPPS database was reviewed today and found to be appropriate. No indication of medication diversion, or non compliance. CHIQUIS Lemon 08/24/23 0919 documented in this encounter [facility] 08-19-2023 History of Present illness Narrative Subjective Patient ID: Doris Pat is a 33 y.o. female. Currently her blood sugars have been 89% in range They did stop fluctuating so much like they were for awhile and she was able to return to her 25 units of insulin she was previously taking Her lowest was 70 which she felt but nothing below this No problems with the diabetes medications - she was never able to start the trulicity as it was never in stock She is also doing better now she is back on the neurontin rather than the lyrica and she does feel like this also helps with her anxiety as well so she definitely prefers this She is stable with her anxiety medication as currently prescribed and her OAARS is reviewed today Lesion on the left mid back that causes pain when it is rubbed, it sends a stabbing sensation up and down her back She is not sure how long she has had it The following portions of the patient's history were reviewed and updated as appropriate: allergies, current medications, past family history, past medical history, past social history, past surgical history, problem list, and medication reconciliation was completed including current medication and post discharge medication. Review of Systems Constitutional: Negative. HENT: Negative. Eyes: Negative. Respiratory: Negative. Cardiovascular: Negative. Gastrointestinal: Negative. Endocrine: Negative. Genitourinary: Negative. Musculoskeletal: Positive for arthralgias and myalgias. Skin: Derm change Allergic/Immunologic: Negative. Neurological: Negative. Hematological: Negative. Psychiatric/Behavioral: The patient is nervous/anxious. Objective Physical Exam Vitals and nursing note reviewed. HENT: Head: Normocephalic. Eyes: Conjunctiva/sclera: Conjunctivae normal. Neck: Vascular: No carotid bruit. Cardiovascular: Rate and Rhythm: Normal rate and regular rhythm. Heart sounds: Normal heart sounds. No murmur heard. Pulmonary: Effort: Pulmonary effort is normal. No respiratory distress. Breath sounds: Normal breath sounds. Abdominal: General: There is no distension. Tenderness: There is no abdominal tenderness. Musculoskeletal: Cervical back: No tenderness. Right lower leg: No edema. Left lower leg: No edema. Lymphadenopathy: Cervical: No cervical adenopathy. Skin: General: Skin is warm and dry. Capillary Refill: Capillary refill takes less than 2 seconds. Findings: Lesion (flesh toned raised lesion on the left mid thoracic region that has a thumb like projection that is tender when pressed) present. Neurological: Mental Status: She is alert and oriented to person, place, and time. Psychiatric: Behavior: Behavior normal. Thought Content: Thought content normal. Judgment: Judgment normal. Assessment/Plan Doris was seen today for follow-up. Diagnoses and all orders for this visit: Type 2 diabetes mellitus with diabetic neuropathy, with long-term current use of insulin ([facility]) - Microalbumin - Albumin: Creatinine Urine Ratio; Future Acquired hypothyroidism Skin lesion of back - Ambulatory referral to Dermatology ([facility]); Future Anxiety Her A1c was done last month and was reviewed, the A1c of 6.1 seems consistent with blood sugars being in the range 89% of the time, continue monitor with dexcom, if she is able to start the trulicity at any time then she is to decrease her insulin dose by 5 and she may require further titration downward Await microalbumin today Her thyroid from Jun also reviewed and is stable Her blood pressure is stable Her neuropathic pain has improved with a return to neurontin and this has had the dual effect of helping manage her anxiety as well Will continue her other controlled substance xanax for anxiety as well and this was reviewed - she has been stable on this for quite some time - she is due for a refill next week The lesion on her back is somewhat mystifying, it may be deep in the dermis as it does cause symptoms with manipulation, will have her see dermatology for evaluation and management 3 months for dm assessment and controlled substance review The OARRS/MAPPS database was reviewed today and found to be appropriate. No indication of medication diversion, or non compliance. CHIQUIS Lemon 08/19/23 1630 documented in this encounter [facility] 08-02-2023 Miscellaneous Notes Lyrica is ran out and did not do anything for her. She stated she wanted to switch back to this medication. documented in this encounter [facility] 08-02-2023 Telephone encounter Note Lyrica is ran out and did not do anything for her. She stated she wanted to switch back to this medication. [facility] 07-20-2023 History of Present illness Narrative Subjective Patient ID: Doris Pat is a 33 y.o. female. She has a reoccurring rash and fever and congestion that is similar to her baby's that has been going on for several days This seems to have followed the uri symptoms she came in with last week The rash comes and goes and it itches and moy - it is not present at this time but she does have some residual swelling along the sides of her tongue Her anxiety level has been very high lately, she hardly slept for 3 days due to racing thoughts - she still has not been able to schedule an appt with a psychiatrist Her blood sugars now are starting to improve, they are now seldom over 200, starting to average in the 160 range, no lows, the last week 35 % were in the target range She currently is on 1.5 mg of the trulicity and it takes about 3 days for her to adjust to this after taking due to the nausea So rather than adjusting that will adjust the insulin portion She was anemic during her She hasn't had as good of results with the lyrica as she would have liked, she is having more pain now that she if off of the neurontin and on lyrica 50 mg three times daily The following portions of the patient's history were reviewed and updated as appropriate: allergies, current medications, past family history, past medical history, past social history, past surgical history, problem list, and medication reconciliation was completed including current medication and post discharge medication. Review of Systems Constitutional: Positive for fatigue. HENT: Positive for congestion and postnasal drip. Eyes: Negative. Respiratory: Positive for cough. Cardiovascular: Negative. Gastrointestinal: Negative. Endocrine: Negative. Genitourinary: Negative. Musculoskeletal: Positive for arthralgias and myalgias. Skin: Positive for rash. Psychiatric/Behavioral: Positive for decreased concentration and sleep disturbance. The patient is nervous/anxious. Objective Physical Exam Vitals and nursing note reviewed. Constitutional: Appearance: She is obese. HENT: Head: Normocephalic. Right Ear: Tympanic membrane, ear canal and external ear normal. Left Ear: Tympanic membrane, ear canal and external ear normal. Nose: Congestion and rhinorrhea present. Mouth/Throat: Comments: At the corners of her mouth there is chapping and fissuring, her tongue is somewhat smooth, swollen and at its edges it has rugated edges Eyes: Conjunctiva/sclera: Conjunctivae normal. Cardiovascular: Rate and Rhythm: Normal rate and regular rhythm. Heart sounds: Normal heart sounds. No murmur heard. Pulmonary: Effort: Pulmonary effort is normal. Breath sounds: Normal breath sounds. Musculoskeletal: Right lower leg: No edema. Left lower leg: No edema. Skin: General: Skin is warm and dry. Comments: Face is slightly flushed but no other visible sign of rash Neurological: Mental Status: She is alert and oriented to person, place, and time. Psychiatric: Mood and Affect: Mood is anxious. Thought Content: Thought content normal. Assessment/Plan Doris was seen today for rash. Diagnoses and all orders for this visit: Viral exanthem - Comprehensive metabolic panel; Future - CBC auto differential; Future Type 2 diabetes mellitus with hyperglycemia, with long-term current use of insulin ([facility]) - Hemoglobin A1c; Future - BD INSULIN SYRINGE ULTRA-FINE 0.5 mL 31 gauge x 5/16 syringe; Inject 1 Syringe under the skin nightly. - alcohol swabs pads, medicated; Apply 1 Pad topically See Admin Instructions. - Comprehensive metabolic panel; Future Neurogenic pain Bipolar 2 disorder ([facility]) - Ambulatory referral to Psychiatry ([facility]); Future Anxiety - Ambulatory referral to Psychiatry ([facility]); Future - ALPRAZolam (XANAX) 0.5 mg tablet; Take 1 tablet (0.5 mg total) by mouth 2 (two) times a day as needed for anxiety. Angular cheilitis - Vitamin B12; Future Acquired hypothyroidism - Thyroid profile includes TSH FT4; Future Other orders - HumuLIN N NPH U-100 Insulin 100 unit/mL injection; Inject 0.3 mL (30 Units total) under the skin nightly. Multiple things to address today The rash described likely is a viral exanthem, she may use her vistaril or other antihistamine for itching Her tongue and angles of mouth possibly indicate vit b12 dificiency, will check that, also she had anemia with so will recheck her cbc She is due for her thyroid check and her A1c A slighty adjustment is made in her humilin N insulin today but her blood sugars are improving with the previous adjustment A new pscych referral is made today as she has a very complex pscyh history which needs addressed, she is quite distraught today and will increase her xanax temporarily Also she is not getting as good of pain relief with the lyrica, if this continues mid July when it is due for refill will try increasing to 75 mg three times daily, if this still isn't helpful would recommend returning to the neurontin Will reevaluate one month The OARRS/MAPPS database was reviewed today and found to be appropriate. No indication of medication diversion, or non compliance. CHIQUIS Lemon 07/20/23 1425 documented in this encounter [facility] 07-14-2023 History of Present illness Narrative [address] [place] [id number] Patient: Doris Pat Date of : 1990 Encounter Date: 07/14/2023 History of Present Illness: The patient is a 33 y.o. female, an established patient, and is here for Chief Complaint Patient presents with Sore Throat Blisters in throat . 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 She did not take her temperature at home. She has had no vomiting or changes in her bowel habits. She feels like there are white patches or blisters in the back of her throat. She presents today with her 3-month-old son who does not have symptoms but many other family members she has been exposed to have had similar symptoms the past 1 week. She is not . She denies any significant shortness of breath or wheezing. Problem List Items Addressed This Visit None Visit Diagnoses Fever, unspecified fever cause - Primary Relevant Orders POCT Influenza A/Influenza B/SARS-COV-2 Veritor Pharyngitis, unspecified etiology Relevant Orders POCT rapid strep A (Completed) Viral URI Past Medical, Family, and Social History Update: The following portions of the patient's history were reviewed and updated as appropriate: allergies, current medications, past family history, past medical history, past social history, past surgical history and problem list. Past Medical History: Diagnosis Date Anxiety Asthma Bipolar 1 disorder (CMS-HCC) Bipolar 2 disorder (CMS-HCC) Carpal tunnel syndrome Chronic kidney disease kidney stones Dental disease upper partial plate Depression Fibromyalgia GERD (gastroesophageal reflux disease) Hyperlipidemia Hypothyroidism Irritable bowel syndrome (IBS) Migraines Neuropathy Numbness Numbness and tingling Obesity PTSD (post-traumatic stress disorder) Restless legs syndrome (RLS) Visual impairment contacts Wears dentures Past Surgical History: Procedure Laterality Date CERVIX SURGERY partial SECTION 03/25/2023 DENTAL SURGERY 2015 x2 DILATION AND CURETTAGE OF UTERUS KIDNEY STONE SURGERY 02/2016 TONSILLECTOMY TONSILLECTOMY Bilateral 07/21/2017 Performed by Marco Antonio Arias MD at [facility] TUBAL LIGATION Current Outpatient Medications Medication Sig Dispense Refill albuterol (PROVENTIL HFA;VENTOLIN HFA) 90 mcg/actuation inhaler inhale 2 puffs by mouth every 6 hours if needed for wheezing 8.5 g 1 albuterol (PROVENTIL,VENTOLIN) 2.5 mg /3 mL (0.083 %) nebulizer solution Inhale 3 mL (2.5 mg total) by nebulization every 6 (six) hours as needed for wheezing. 75 mL 1 alcohol swabs pads, medicated See Admin Instructions. ALPRAZolam (XANAX) 0.5 mg tablet Take 1 tablet (0.5 mg total) by mouth nightly as needed for anxiety. 30 tablet 0 baclofen (LIORESAL) 10 mg tablet Take 1 tablet (10 mg total) by mouth once daily at bedtime. 90 tablet 1 BD INSULIN SYRINGE ULTRA-FINE 0.5 mL 31 gauge x 5/16 syringe USE DIRECTED at bedtime blood-glucose meter (TRUE METRIX AIR GLUCOSE METER) kit See Admin Instructions. blood-glucose meter,continuous (DEXCOM G7 MUSIC THERAPIST) misc 1 each by miscellaneous route every 10 days. 12 each 1 blood-glucose sensor (DEXCOM G7 SENSOR) device 1 each by miscellaneous route every 10 days. 5 each 5 buprenorphine (SUBUTEX) 8 mg tablet, sublingual place 2 tablets under the tongue and ALLOW to dissolve once daily buprenorphine-naloxone (SUBOXONE) 8-2 mg per SL tablet place 1 take under the tongue three times a day cetirizine (ZyrTEC) 10 mg tablet Take 1 tablet (10 mg total) by mouth in the morning. 30 tablet 0 DROPLET PEN NEEDLE 32 gauge x 5/ needle use 1 PEN NEEDLE to inject MEDICATION subcutaneously four times a day dulaglutide (TRULICITY) 1.5 mg/0.5 mL pen injector Inject 1.5 mg under the skin every 7 days. 6 mL 1 DULoxetine (CYMBALTA) 60 mg capsule take 1 capsule by mouth every morning 90 capsule 1 furosemide (LASIX) 20 mg tablet take 1 tablet by mouth once daily 90 tablet 1 furosemide (LASIX) 40 mg tablet Take 1 tablet (40 mg total) by mouth daily. 30 tablet 2 HumaLOG KwikPen Insulin 100 unit/mL insulin pen inject 12 units subcutaneously breakfast and inject 12 units AT LUNCH and inject 18 units AT SUPPER HumuLIN N NPH U-100 Insulin 100 unit/mL injection inject 25 units subcutaneously at bedtime hydrOXYzine (VISTARIL) 50 mg capsule Take 1 capsule (50 mg total) by mouth once daily at bedtime. 90 capsule 1 levothyroxine (SYNTHROID, LEVOTHROID) 100 MCG tablet Take 1 tablet (100 mcg total) by mouth in the morning. 90 tablet 1 metoclopramide (REGLAN) 10 mg tablet Take 1 tablet (10 mg total) by mouth 3 (three) times a day as needed. ondansetron (ZOFRAN) 8 mg tablet Take 1 tablet (8 mg total) by mouth every 8 (eight) hours as needed for nausea or vomiting. 30 tablet 1 pantoprazole (PROTONIX) 40 mg EC tablet Take 1 tablet (40 mg total) by mouth in the morning. 90 tablet 1 potassium chloride (KLOR-CON M 10) 10 MEQ CR tablet Take 1 tablet (10 mEq total) by mouth in the morning. 30 tablet 11 pregabalin (LYRICA) 25 mg capsule Take 1 capsule (25 mg total) by mouth 3 (three) times a day for 30 days. This is a transitional dose to be taking with a transitional dose of gabapentin 300 mg three times daily for 4 days and then she will be weaned off of gabapentin and start lyrica 50 mg three times daily pregabalin (LYRICA) 50 mg capsule Take 1 capsule (50 mg total) by mouth 3 (three) times a day. 90 capsule 2 promethazine (PHENERGAN) 12.5 mg tablet take 1 tablet by mouth every 4 hours rOPINIRole (REQUIP) 1 mg tablet Take 2 tablets (2 mg total) by mouth nightly. 180 tablet 1 spironolactone (ALDACTONE) 100 mg tablet take 1 tablet by mouth every morning 90 tablet 1 TRUE METRIX GLUCOSE TEST STRIP strip USE 1 TEST STRIP TO TEST BLOOD SUGAR FOUR TIMES A DAY TRUEPLUS LANCETS 30 gauge misc USE 1 LANCET TO TEST BLOOD SUGAR FOUR TIMES A DAY VRAYLAR 3 mg capsule take 1 capsule by mouth every morning 90 capsule 1 dextromethorphan-benzocaine (CEPACOL SORE THROAT-COUGH) 5-7.5 mg lozenge Dissolve 1 lozenge in the mouth every 4 (four) hours. 16 lozenge 1 fluticasone propionate (FLONASE) 50 mcg/actuation nasal spray Administer 1 spray into each nostril in the morning. 9.9 mL 1 ibuprofen (MOTRIN) 800 mg tablet take 1 tablet by mouth every 8 hours if needed for pain 30 tablet 1 loratadine (CLARITIN) 10 mg tablet Take 1 tablet (10 mg total) by mouth daily as needed for allergies. 30 tablet 2 No current facility-administered medications for this visit. (All medications reviewed and updated by provider since last office visit or hospitalization) Allergies: Fioricet [cudvkphmvu-otzelohufqvyw-ojgy ] and Zonegran [zonisamide] Tobacco History: Social History Tobacco Use Smoking Status Former Packs/day: 0.10 Years: 22.00 Additional pack years: 0.00 Total pack years: 2.20 Types: Cigarettes Smokeless Tobacco Never (If patient a smoker, smoking cessation counseling offered) Social History: Social History Substance and Sexual Activity Alcohol Use No Review of Systems: Review of Systems Constitutional: Positive for appetite change and chills. Negative for fever. HENT: Positive for congestion, postnasal drip, rhinorrhea, sinus pressure and sore throat. Negative for ear discharge and ear pain. Respiratory: Positive for cough and chest tightness. Negative for shortness of breath and wheezing. Cardiovascular: Negative. Gastrointestinal: Positive for nausea. Negative for abdominal pain, diarrhea and vomiting. Musculoskeletal: Positive for myalgias (Generalized). Neurological: Negative. Physical Exam: BP 98/60 (BP Site: Left Arm, BP Postition: Sitting) Pulse 98 Temp 36.6 C (97.9 F) (Oral) Ht 157.5 cm (5' 2 ) Wt 91.2 kg (201 lb) SpO2 98% BMI 36.76 kg/m Physical Exam Vitals reviewed. Endoscopy Technician present: son in room. Constitutional: Appearance: Normal appearance. She is obese. HENT: Head: Normocephalic and atraumatic. Right Ear: Hearing, ear canal and external ear normal. A middle ear effusion is present. Left Ear: Hearing, ear canal and external ear normal. A middle ear effusion is present. Nose: Congestion and rhinorrhea present. Mouth/Throat: Pharynx: Posterior oropharyngeal erythema (with petechiae appearing spots in posterior pharynx) present. Eyes: Pupils: Pupils are equal, round, and reactive to light. Cardiovascular: Rate and Rhythm: Normal rate and regular rhythm. Heart sounds: Normal heart sounds. Pulmonary: Effort: Pulmonary effort is normal. Breath sounds: Normal breath sounds. Musculoskeletal: Right lower leg: No edema. Left lower leg: No edema. Lymphadenopathy: Cervical: No cervical adenopathy. Skin: General: Skin is warm. Capillary Refill: Capillary refill takes less than 2 seconds. Neurological: General: No focal deficit present. Mental Status: She is alert and oriented to person, place, and time. Psychiatric: Mood and Affect: Mood normal. Behavior: Behavior normal. Assessment and Plan: Doris was seen today for sore throat. Diagnoses and all orders for this visit: Fever, unspecified fever cause - POCT Influenza A/Influenza B/SARS-COV-2 Veritor Pharyngitis, unspecified etiology - POCT rapid strep A Viral URI Other orders - dextromethorphan-benzocaine (CEPACOL SORE THROAT-COUGH) 5-7.5 mg lozenge; Dissolve 1 lozenge in the mouth every 4 (four) hours. - fluticasone propionate (FLONASE) 50 mcg/actuation nasal spray; Administer 1 spray into each nostril in the morning. - ibuprofen (MOTRIN) 800 mg tablet; take 1 tablet by mouth every 8 hours if needed for pain - loratadine (CLARITIN) 10 mg tablet; Take 1 tablet (10 mg total) by mouth daily as needed for allergies. Follow-up: Patient likely has viral upper respiratory infection. She tested negative for flu, COVID, strep in the office today. She should treat her symptoms with above measures, may use humidifier at night and use her breathing treatments 3 times a day for the next 10 days. If she develops significant shortness of breath she should go to the ER. She should get plenty of rest and fluids. Follow-up with her PCP for regular wellness visit. LYNDA DAMON APRN-CNP 07/14/23 1212 documented in this encounter [facility] 07-05-2023 Miscellaneous Notes FYI - I just refilled this 2 wks ago and she is asking for another refill - I know she had recent appt with you this month documented in this encounter [facility] 07-05-2023 Telephone encounter Note FYI - I just refilled this 2 wks ago and she is asking for another refill - I know she had recent appt with you this month [facility] 06-29-2023 History of Present illness Narrative Subjective Patient ID: Doris Pat is a 33 y.o. female. Swelling is much improved it only occurs if she allows her legs to be down for long periods She is still on the 20 mg of lasix and this seems to be working well Her sugars have been up and down yesterday it was in the 650s - since she delivered her baby no one has been monitoring her blood sugar and she is unsure what to do with her insulin She is taking her gabapentin 800 mg three times per day and is still getting burning, numbness and tingling in her feet She had tried lyrica once in the past however she was started on a very high dose of 150 mg three times daily and she had side effects with it of nausea and headache She would like to try this again but at a lower dose and see if she tolerates it better as she believes the gabapentin also contributes to her swelling Her anxiety is currently well managed with her medication and her OARRs was reviewed today Her RLS is well managed on the requip The following portions of the patient's history were reviewed and updated as appropriate: allergies, current medications, past family history, past medical history, past social history, past surgical history, problem list, and medication reconciliation was completed including current medication and post discharge medication. Review of Systems Constitutional: Negative. HENT: Negative. Eyes: Negative. Respiratory: Negative. Cardiovascular: Positive for leg swelling. Endocrine: Negative. Genitourinary: Negative. Musculoskeletal: Positive for arthralgias and myalgias. Allergic/Immunologic: Negative. Neurological: Positive for headaches. Psychiatric/Behavioral: Positive for decreased concentration. The patient is nervous/anxious. Objective Physical Exam Vitals and nursing note reviewed. Constitutional: General: She is not in acute distress. Appearance: She is obese. HENT: Head: Normocephalic. Eyes: Conjunctiva/sclera: Conjunctivae normal. Neck: Vascular: No carotid bruit. Cardiovascular: Rate and Rhythm: Normal rate and regular rhythm. Heart sounds: Normal heart sounds. No murmur heard. Pulmonary: Effort: Pulmonary effort is normal. Breath sounds: Normal breath sounds. Musculoskeletal: Cervical back: Neck supple. Right lower leg: No edema. Left lower leg: No edema. Lymphadenopathy: Cervical: No cervical adenopathy. Skin: General: Skin is warm and dry. Capillary Refill: Capillary refill takes less than 2 seconds. Neurological: Mental Status: She is alert and oriented to person, place, and time. Psychiatric: Thought Content: Thought content normal. Judgment: Judgment normal. Assessment/Plan Doris was seen today for thyroid problem, leg swelling and med refill. Diagnoses and all orders for this visit: Type 2 diabetes mellitus with hyperglycemia, with long-term current use of insulin ([facility]) - Ambulatory Referral to Insulin Managment Program (Non[facility]); Future - blood-glucose sensor (DEXCOM G7 SENSOR) device; 1 each by miscellaneous route every 10 days. - blood-glucose meter,continuous (DEXCOM G7 MUSIC THERAPIST) misc; 1 each by miscellaneous route every 10 days. Diabetic autonomic neuropathy associated with type 2 diabetes mellitus ([facility]) - pregabalin (LYRICA) 25 mg capsule; Take 1 capsule (25 mg total) by mouth 3 (three) times a day for 4 days. This is a transitional dose to be taking with a transitional dose of gabapentin 300 mg three times daily for 4 days and then she will be weaned off of gabapentin and start lyrica 50 mg three times daily - gabapentin (NEURONTIN) 300 mg capsule; Take 1 capsule (300 mg total) by mouth 3 (three) times a day for 4 days. This is a weaning dose of gabapentin to be taken with an initial dose of lyrica 25 mg three times daily for 4 days, then the lyrica will be increased to 50 mg and the gabapentin will be stopped Restless legs syndrome (RLS) - rOPINIRole (REQUIP) 1 mg tablet; Take 2 tablets (2 mg total) by mouth nightly. Anxiety Localized edema Will order her a dexcom today to help her better monitor her blood sugars and also help her better administer her short acting insulin as recently she has had some real high sugars but also some real lows If blood sugar pre-meal is less than 150 no short acting 151-250 = 12 units 251 - 300 = 15 units > 300 = 20 units Also has she has a very complex history and ideally she should be something better than NPH now that she isn't will refer her to Dr Ariza for further care and management of her diabetes Her edema is much better now with the 20 mg of lasix and hopefull the change from gabapentin to lyrica will maybe even eliminate the need for this A weaning schedule for gabapentin given and a titration of lyrica started with 25 mg tid and then will increase to 50 mg tid Her anxiety medication is unchanged, reviewed OARRS Her requip is maintained at current level The OARRS/MAPPS database was reviewed today and found to be appropriate. No indication of medication diversion, or non compliance. CHIQUIS Lemon 06/29/23 1800 [facility] History of Present illness Narrative [address] [place] [id number] Patient: Doris Pat Date of : 1990 Encounter Date: 06/17/2023 History of Present Illness: The patient is a 33 y.o. female, an established patient, and is here for No chief complaint on file. . HPI Patient's symptoms started yesterday and she tested positive for COVID at home this morning. Patient is experiencing chills, shortness of breath, cough, fatigue and possibly a fever although she has not checked at home. She is using Tylenol and Motrin which do help the symptoms. She needs a note as she was supposed to go this week to court for a fine with [facility] but she does not want to go out in public while she has COVID. Thyroid labs were reviewed with patient. Problem List Items Addressed This Visit Respiratory Asthma Relevant Medications albuterol (PROVENTIL,VENTOLIN) 2.5 mg /3 mL (0.083 %) nebulizer solution Other Bipolar 2 disorder ([facility]) Relevant Medications hydrOXYzine (VISTARIL) 50 mg capsule Other Visit Diagnoses COVID - Primary Past Medical, Family, and Social History Update: The following portions of the patient's history were reviewed and updated as appropriate: allergies, current medications, past family history, past medical history, past social history, past surgical history and problem list. Past Medical History: Diagnosis Date Anxiety Asthma Bipolar 1 disorder ([facility]) Bipolar 2 disorder ([facility]) Carpal tunnel syndrome Chronic kidney disease kidney stones Dental disease upper partial plate Depression Fibromyalgia GERD (gastroesophageal reflux disease) Hyperlipidemia Hypothyroidism Irritable bowel syndrome (IBS) Migraines Neuropathy Numbness Numbness and tingling Obesity PTSD (post-traumatic stress disorder) Restless legs syndrome (RLS) Visual impairment contacts Wears dentures Past Surgical History: Procedure Laterality Date CERVIX SURGERY partial SECTION 03/25/2023 DENTAL SURGERY 2015 x2 DILATION AND CURETTAGE OF UTERUS KIDNEY STONE SURGERY 02/2016 TONSILLECTOMY TONSILLECTOMY Bilateral 07/21/2017 Performed by Marco Antonio Arias MD at [facility] Current Outpatient Medications Medication Sig Dispense Refill albuterol (PROVENTIL HFA;VENTOLIN HFA) 90 mcg/actuation inhaler inhale 2 puffs by mouth every 6 hours if needed for wheezing 8.5 g 1 albuterol (PROVENTIL,VENTOLIN) 2.5 mg /3 mL (0.083 %) nebulizer solution Inhale 3 mL (2.5 mg total) by nebulization every 6 (six) hours as needed for wheezing. 75 mL 1 alcohol swabs pads, medicated See Admin Instructions. ALPRAZolam (XANAX) 0.5 mg tablet TAKE 1 TABLET BY MOUTH NIGHTLY IF NEEDED FOR ANXIETY 30 tablet 0 baclofen (LIORESAL) 10 mg tablet take 1 tablet by mouth at bedtime 90 tablet 1 BD INSULIN SYRINGE ULTRA-FINE 0.5 mL 31 gauge x 5/16 syringe USE DIRECTED at bedtime blood-glucose meter (TRUE METRIX AIR GLUCOSE METER) kit See Admin Instructions. buprenorphine (SUBUTEX) 8 mg tablet, sublingual place 2 tablets under the tongue and ALLOW to dissolve once daily cetirizine (ZyrTEC) 10 mg tablet Take 1 tablet (10 mg total) by mouth in the morning. 30 tablet 0 DROPLET PEN NEEDLE 32 gauge x 5/32 needle use 1 PEN NEEDLE to inject MEDICATION subcutaneously four times a day DULoxetine (CYMBALTA) 60 mg capsule take 1 capsule by mouth every morning 90 capsule 1 furosemide (LASIX) 40 mg tablet Take 1 tablet (40 mg total) by mouth daily. 30 tablet 2 gabapentin (NEURONTIN) 800 mg tablet take 1 tablet by mouth three times a day 270 tablet 0 HumaLOG KwikPen Insulin 100 unit/mL insulin pen inject 12 units subcutaneously breakfast and inject 12 units AT LUNCH and inject 18 units AT SUPPER HumuLIN N NPH U-100 Insulin 100 unit/mL injection inject 25 units subcutaneously at bedtime hydrOXYzine (VISTARIL) 50 mg capsule Take 1 capsule (50 mg total) by mouth once daily at bedtime. 90 capsule 1 ibuprofen (MOTRIN) 800 mg tablet take 1 tablet by mouth every 8 hours if needed for pain 30 tablet 1 levothyroxine (SYNTHROID, LEVOTHROID) 100 MCG tablet Take 1 tablet (100 mcg total) by mouth in the morning. 90 tablet 1 metoclopramide (REGLAN) 10 mg tablet Take 1 tablet (10 mg total) by mouth 3 (three) times a day as needed. ondansetron (ZOFRAN) 8 mg tablet Take 1 tablet (8 mg total) by mouth every 8 (eight) hours as needed for nausea or vomiting. 30 tablet 1 pantoprazole (PROTONIX) 40 mg EC tablet Take 1 tablet (40 mg total) by mouth in the morning. 90 tablet 1 potassium chloride (KLOR-CON M 10) 10 MEQ CR tablet Take 1 tablet (10 mEq total) by mouth in the morning. 30 tablet 11 predniSONE (DELTASONE) 20 mg tablet Take 1 tablet (20 mg total) by mouth in the morning and 1 tablet (20 mg total) before bedtime. Do all this for 5 days. 10 tablet 0 promethazine (PHENERGAN) 12.5 mg tablet take 1 tablet by mouth every 4 hours rOPINIRole (REQUIP) 1 mg tablet Take 2 tablets (2 mg total) by mouth nightly. 90 tablet 1 spironolactone (ALDACTONE) 100 mg tablet take 1 tablet by mouth every morning 90 tablet 1 TRUE METRIX GLUCOSE TEST STRIP strip USE 1 TEST STRIP TO TEST BLOOD SUGAR FOUR TIMES A DAY TRUEPLUS LANCETS 30 gauge misc USE 1 LANCET TO TEST BLOOD SUGAR FOUR TIMES A DAY TRULICITY 1.5 mg/0.5 mL pen injector INJECT 1.5 MG UNDER THE SKIN EVERY 7 DAYS 6 mL 1 VRAYLAR 3 mg capsule take 1 capsule by mouth every morning 90 capsule 1 No current facility-administered medications for this visit. (All medications reviewed and updated by provider since last office visit or hospitalization) Allergies: Fioricet [ddtqrfpffh-iytxzeqimffib-sdvd ] and Zonegran [zonisamide] Tobacco History: Social History Tobacco Use Smoking Status Former Packs/day: 0.10 Years: 22.00 Additional pack years: 0.00 Total pack years: 2.20 Types: Cigarettes Smokeless Tobacco Never (If patient a smoker, smoking cessation counseling offered) Social History: Social History Substance and Sexual Activity Alcohol Use No Review of Systems: Review of Systems Constitutional: Positive for chills, fatigue and fever (possibly though pt has not checked). HENT: Positive for congestion, postnasal drip, rhinorrhea and sinus pressure. Negative for sore throat. Respiratory: Positive for cough, chest tightness and shortness of breath. Negative for wheezing. Cardiovascular: Negative. Gastrointestinal: Negative. Psychiatric/Behavioral: States her mental health is under good control with vraylar, hydroxyzine Physical Exam: There were no vitals taken for this visit. Physical Exam Constitutional: General: She is not in acute distress. Comments: Pt appears in no respiratory distress on video call. She coughs intermittently and I woke her up when I logged onto video, she was snoring. Assessment and Plan: Diagnoses and all orders for this visit: COVID Bipolar 2 disorder ([facility]) - hydrOXYzine (VISTARIL) 50 mg capsule; Take 1 capsule (50 mg total) by mouth once daily at bedtime. Mild intermittent asthma without complication - albuterol (PROVENTIL,VENTOLIN) 2.5 mg /3 mL (0.083 %) nebulizer solution; Inhale 3 mL (2.5 mg total) by nebulization every 6 (six) hours as needed for wheezing. Other orders - predniSONE (DELTASONE) 20 mg tablet; Take 1 tablet (20 mg total) by mouth in the morning and 1 tablet (20 mg total) before bedtime. Do all this for 5 days. - ibuprofen (MOTRIN) 800 mg tablet; take 1 tablet by mouth every 8 hours if needed for pain Follow-up: [id number] 15 min Risk and benefits of Paxlovid discussed with patient as she would have to stop her Xanax and Vraylar due to high-risk interaction. Patient opts to have symptomatic treatment with steroids and nebulized breathing treatments versus go off her mental health medications as she is so well controlled with her moods and bipolar disorder at this point. She will also use the Motrin 800 and get plenty of rest and fluids. It was recommended that patient quarantine in-house until June 20 and then she may go out in public on June 21 with a mask on for 5 days after that. If she develops severe shortness of breath she should go to the hospital. Follow-up in office for repeat thyroid function tests as Raulito did specify in her note that she wanted to see her back in 2 weeks from the visit on April 28 anyway. LYNDA DAMON APRN-CNP 06/17/23 1313 Sent pauletteharmarkus to schedule when she feels better documented in this encounter [facility] Loogla 06-02-2023 History of Present illness Narrative The OARRS/MAPPS database was reviewed today and found to be appropriate. No indication of medication diversion, or non compliance. AlvaCHIQUIS Martinez 06/02/23 1222 [facility] Note HNO ID: [id number] Author: Isa Hernandez APRN.ANALYTICS MANAGER Service: ? Author Type: Nurse Practitioner Type: Progress Notes Filed: 10/10/2020 5:26 PM Note Text: NAME: Doris Pat AGE: [age] year old Patient is referred in consultation by Self for an opinion regarding Hepatitis C and my final recommendations will be communicated back to the requesting physician by way of shared Medical Record. PRESENTING COMPLAINT AND HISTORY HPI: Doris Pat is a pleasant 30 year old year old female who presents with hepatitis C.The patient's risk factors for the contraction of viral hepatitis include IVDA, intranasal cocaine use, tattoos, alcohol and high risk sexual behavior. The hepatitis C genotype is unknown and the last viral load is unknown. Ms. Pat is currently on Suboxone, in a couple days, she will be entering rehab for 3-5 days to detox from the Suboxone. Risk Factors for Liver Disease: 1. Blood transfusions before 1991: No 2. IVDA: Yes 3. Intranasal coccaine use: Yes 4. Tattoos: Yes, professionally done 5. Service: No 6. High risk sexual behavior: No 7. Alcohol: No 8. Obesity: No 9. Hyperlipidemia: No 10. Prolonged exposure to hepatotoxic meds: No 11. Other autoimmune disorders: Lupus In the past, the patient underwent a work-up for hepatitis C which included: no workup. She has not been treated for hepatitis C (naive to therapy). Doris Pat has current symptoms attributable to hepatitis C including none. No past surgical history on file. No past medical history on file. Social History Tobacco Use - Smoking status: Not on file Substance Use Topics - Alcohol use: Not on file - Drug use: Not on file No current outpatient medications on file. No current facility-administered medications for this visit. ALLERGIES Not on File FAMILY HISTORY Liver Problems: No Colitis: No Colon Cancer: No Other Cancers: No No family history on file. GENERAL ROS Colon polyps: No Colon cancer: No Other cancer: No Radiation / Chemotherapy: No Crohn's disease / Ulcerative colitis: No High cholesterol or triglycerides: No Ulcers: No Gallstones: No Hepatitis / jaundice: Yes Heart Disease: No Lung Disease: No Liver problems: No Thyroid disease: No Kidney stones: No Pancreatitis: No Diabetes: No Arthritis: No Rheumatic fever: No Gastrointestinal bleeding: No Depression or other mental illness: No Other personal illness: No PHYSICAL EXAMINATION 10/03/20 1559 BP: 123/84 Pulse: 107 Weight: 76.7 kg (169 lb) Height: 154.9 cm (5' 1 ) General Appearance: Well appearing, alert, in no acute distress, well-hydrated, well nourished. Eyes: PERRLA, conjunctiva and sclera normal Oropharynx: Lips, tongue, and oral mucosa normal. There is no thrush or oral ulcers. Lungs:breath sounds clear to auscultation bilaterally, no crackles, rhonchi, or wheezes Heart: regular rate and rhythm, no murmurs or gallops. Abdomen: not distended, normal bowel sounds, soft and depressible, no guarding or rebound, no palpable mass, no organomegaly Extremities: no cyanosis or edema Skin: no jaundice, no spider angiomas, no palmar erythema Neuro:alert, oriented x 3, pleasant and in no acute distress Recent Labs: No results found for: HB, HCT, WBC No results found for: GLUC, K, NA, CHLOR, CO2, CREAT, BUN, ANION, CA No results found for: ALB, TBILI, CBILI, ALKPHOS, AST, ALT, TPROT Computed MELD-Na score unavailable. Necessary lab results were not found in the last year. Computed MELD score unavailable. Necessary lab results were not found in the last year. Assessment IMPRESSION Ms. Pat is a 30 year old with chronic hepatitis C genotype unknown who comes for treatment recommendations. She has never had liver fibrosis staging. She has had the following liver related complications none. I have explained the natural history of hepatitis C to the patient and mode of transmission. I have explained the current insurance guidelines regarding treatment of hepatitis C. PLAN (R76.8) Hepatitis C antibody positive in blood (primary encounter diagnosis) -Hep A Ab, FRIDA, A1A, Smooth muscle, Iron + TIBC, Ferritin, Ceruloplasmin, AMA, Hep remote panel, EBV IGG, EBV IGM, LKM, CMV, GGT to rule out causes of liver disease -Liver fibrosis and activity for liver fibrosis staging -CBC + Diff, PT, HFP -HCV quant for current viral load -Hepatitis C genotype Return to office when testing is complete During this patient visit I have spent approximately 30 minutes out of 30 in counseling regarding smoking cessation, treatment options, medications, test results and coordinating care. Isa Hernandez APRN.ANALYTICS MANAGER October 03, 2020 1:03 PM [facility] Evaluation + Plan note No data available for this section [facility] Medical Evaluation note No Information [facility] Other Evaluation note Diagnosis Anxiety Anxiety state, unspecified Mild intermittent asthma without complication [facility] this encounter [facility] Diagnosis COVID- Primary Bipolar 2 disorder ([facility]) Other bipolar disorders Mild intermittent asthma without complication [facility] Diagnosis Localized edema Edema documented [facility]* Diagnosis Type 2 diabetes mellitus with hyperglycemia, with long-term current use of insulin ([facility])- Primary Diabetic autonomic neuropathy associated with type 2 diabetes mellitus ([facility]) Type II or unspecified type diabetes mellitus with neurological manifestations, not stated as uncontrolled Restless legs syndrome (RLS) Anxiety Anxiety state, unspecified Localized edema Edema [facility]* Diagnosis Fibromyalgia Unspecified myalgia and myositis Bilateral occipital neuralgia Diabetes mellitus without complication ([facility]) Type II or unspecified type diabetes mellitus without mention of complication, not stated as uncontrolled [facility] Diagnosis Neurogenic pain- Primary [facility]* Diagnosis Anxiety Anxiety state, unspecified Diabetic autonomic neuropathy associated with type 2 diabetes mellitus ([facility]) Type II or unspecified type diabetes mellitus with neurological manifestations, not stated as uncontrolled [facility] Diagnosis Mild intermittent asthma without complication [facility] Diagnosis Mild intermittent asthma without complication documented in this encounter [facility]* Diagnosis Fever, unspecified fever cause- Primary Pharyngitis, unspecified etiology Viral URI Acute upper respiratory infections of unspecified site documented in this encounter [facility]* Diagnosis Viral exanthem- Primary Unspecified viral exanthem Type 2 diabetes mellitus with hyperglycemia, with long-term current use of insulin ([facility]) Neurogenic pain Bipolar 2 disorder ([facility]) Other bipolar disorders Anxiety Anxiety state, unspecified Angular cheilitis Diseases of lips Acquired hypothyroidism Unspecified hypothyroidism [facility] Diagnosis Neck pain, bilateral posterior- Primary [facility]* Diagnosis Bipolar 2 disorder ([facility]) Other bipolar disorders Neck pain, bilateral posterior [facility]* Diagnosis Gastroesophageal reflux disease without esophagitis Esophageal reflux Neck pain, bilateral posterior [facility]* Diagnosis Bilateral occipital neuralgia Neck pain, bilateral posterior [facility]* Diagnosis Type 2 diabetes mellitus with diabetic neuropathy, with long-term current use of insulin ([facility])- Primary Acquired hypothyroidism Unspecified hypothyroidism Skin lesion of back Unspecified disorder of skin and subcutaneous tissue Anxiety Anxiety state, unspecified [facility] Diagnosis Anxiety Anxiety state, unspecified [facility]* Diagnosis Lumbar radiculopathy, chronic- Primary Radicular pain of sacrum Trochanteric bursitis of both hips [facility]* Diagnosis Type 2 diabetes mellitus with diabetic neuropathy, with long-term current use of insulin ([facility])- Primary B12 deficiency Bipolar 2 disorder ([facility]) Other bipolar disorders [facility] N[facility] - Reported* Type Description Date Medical History hepatitis C Medical History insomnia Medical History ETOH abuse Medical History anxiety Medical History chronic depression Medical History Asthma Medical History bipolar Medical History crack cocaine use Medical History fibromyalgia Medical History hyperlipidemia Medical History Hypothyroidism Medical History irritable bowel syndrome Medical History latent tuberculosis Medical History lupus Medical History migraine headache Medical History nephrolithiasis Medical History neuropathy Medical History opiate dependence Medical History restless leg syndrome Medical History lymphadenopathy Medical History Esophageal reflux Surgical History D&C Surgical History tonsillectomy and adenoidectomy Surgical History kidney stone Hospitalization History See Above Mail'Inside Other Hospital Discharge instructions No data available for this section [facility] InstructionsNot on filedocumented in this encounter [facility] filedocumented in this encounter [facility] filedocumented in this encounter [facility] on filedocumented in this encounter [facility] on filedocumented in this encounter [facility] on filedocumented in this encounter [facility] on filedocumented in this encounter [facility] on filedocumented in this encounter [facility] on filedocumented in this encounter [facility] on filedocumented in this encounter [facility]Not on filedocumented in this encounter [facility]Not on filedocumented in this encounter [facility]Not on filedocumented in this encounter [facility]Not on filedocumented in this encounter [facility] System[facility]ructionsNot on filedocumented in this encounter [facility] No data available for this section [facility] reason for referral (narrative)* Consultation (Routine) - Pending Review Specialty Diagnoses / Procedures Referred By Keturah aparicio Referred To Contact Psychiatry Diagnoses Bipolar 2 disorder ([facility]) Anxiety Raulito Sellers APRN-FNP [address] [place] [address] Caitie Keenan MD [address] [place] [address] Referral ID Status Reason Start Date Expiration Date Visits Requested Visits Authorized [id number] Pending Review Specialty Services Required 07/20/2023 07/19/2024 1 1 * Medication Prior Authorization - Pending Review Specialty Diagnoses / Procedures Referred By Contac t Referred To Contact Raulito Sellers APRN-FNP [address] [place] [address] Referral ID Status Reason Start Date Expiration Date V isits Requested Visits Authorized [id number] Pending [facility] Consultation (Routine) - Authorized Specialty Diagnoses / Procedures Referred By Contac t Referred To Contact Rehabilitation Diagnoses Neck pain, bilateral posterior Raulito Sellers APRN-FNP [address] [place] [address] [facility] [address] [place] [address] Referral ID Status Reason Start Date Expiration Date Visits Requested Visits Authorized [id number] Authorized Specialty Services Required 07/21/2023 07/20/2024 1 1 [facility] Consultation (Routine) - Pending Review Specialty Diagnoses / Procedures Referred By Contac t Referred To Contact Dermatology Diagnoses Skin lesion of back Raulito Sellers APRN-FNP [address] [place] [address] BedEvangelina gallegos, DO [address] [place] [address] Referral ID Status Reason Start Date Expiration Date Visits Requested Visits Authorized [id number] Pending Review Specialty Services Required 08/19/2023 08/18/2024 1 1 [facility] Summary Purpose Family History No Family History Records FoundNo Family History Records FoundNo Family History Records FoundNo Family History Records FoundNo Family History Records FoundNo Family History Records FoundNo Family History Records FoundNo Family History Records FoundNo Family History Records FoundNo Family History Records FoundNo Family History Records FoundNo Family History Records Found Advance Directives Documents on File Type Date Recorded Patient String Top Sealer Expl anation Advance Directives and Living Will Power of Food Counter Attendant Latest Code Status on File Code Status Date Activated Date Inactivated Comments Full Code 06/23/2022 8:49 AM 06/23/2022 8:10 PM Latest Code Status on File Code Status Date Activated Date Inactivated Comments Full Code 06/23/2022 8:49 AM 06/23/2022 8:10 PM Date Activated Date Inactivated Comments 06/23/2022 8:49 AM 06/23/2022 8:10 PM Reason for Referral Specialty Diagnoses / Procedures Referred By Contac t Referred To Contact Diagnoses Type 2 diabetes mellitus with diabetic neuropathy, with long-term current use of insulin ([facility]) Dewayne Willis, DO [address] [place] [address] Referral ID Status Reason Start Date Expiration Date V isits Requested Visits Authorized [id number] Pending Review 1 1 Referral ID Status Reason Start Date Expiration Date V isits Requested Visits Authorized [id number] Pending Review 1 1 Specialty Diagnoses / Procedures Referred By Contac t Referred To Contact Diagnoses Lumbar radiculopathy, chronic Procedures MR lumbar spine without contrast Dewayne Willis, DO [address] [place] [address] Referral ID Status Reason Start Date Expiration Date V isits Requested Visits Authorized [id number] Pending Review 02/29/2024 02/28/2025 1 1 Specialty Diagnoses / Procedures Referred By Contac t Referred To Contact Diagnoses Radicular pain of sacrum Procedures MR sacrum without contrast Dewayne Willis, DO [address] [place] [address] Referral ID Status Reason Start Date Expiration Date V isits Requested Visits Authorized [id number] Pending Review 02/29/2024 02/28/2025 1 1 Specialty Diagnoses / Procedures Referred By Contac t Referred To Contact Diagnoses Diabetic autonomic neuropathy associated with type 2 diabetes mellitus ([facility]) Raulito Sellers, CHILD WELFARE WORKER-[employer]EVEDORING SUPERVISOR [address] [place] [address] Referral ID Status Reason Start Date Expiration Date V isits Requested Visits Authorized [id number] Pending Review 1 1 Specialty Diagnoses / Procedures Referred By Contac t Referred To Contact Family Medicine Diagnoses Type 2 diabetes mellitus with hyperglycemia, with long-term current use of insulin ([facility]) Raulito Sellers Rose, CHILD WELFARE WORKER-STEVEDORING SUPERVISOR [address] [place] [address] Bess Navarro, DO [address] [place] [address] Referral ID Status Reason Start Date Expiration Date V isits Requested Visits Authorized [id number] Pending Review 06/29/2023 06/28/2024 1 1 Specialty Diagnoses / Procedures Referred By Contac t Referred To Contact Diagnoses Localized edema Raulito Sellers, CHILD WELFARE WORKER-STEVEDORING SUPERVISOR [address] [place] [address] Referral ID Status Reason Start Date Expiration Date V isits Requested Visits Authorized [id number] Pending Review 1 1 Additional Source Comments INFORMATION SOURCE (unrecogn ized section and content) DATE CREATED AUTHOR 11/19/2017 [facility] DATE CREATED AUTHOR AUTHOR'S ORGANIZ ATION 09/13/2019 [facility] DATE CREATED AUTHOR AUTHOR'S ORGANIZ ATION 06/24/2021 [facility] DATE CREATED AUTHOR AUTHOR'S ORGANIZ ATION 10/06/2022 [facility] DATE CREATED AUTHOR AUTHOR'S ORGANIZ ATION 12/01/2022 [facility] DATE CREATED AUTHOR AUTHOR'S ORGANIZ ATION 03/20/2023 [facility] DATE CREATED AUTHOR AUTHOR'S ORGANIZ ATION 09/10/2023 [facility] DATE CREATED AUTHOR AUTHOR'S ORGANIZ ATION 09/30/2023 [facility] DATE CREATED AUTHOR AUTHOR'S ORGANIZ ATION 02/04/2024 [facility] DATE CREATED AUTHOR AUTHOR'S ORGANIZ ATION 02/28/2024 [facility] DATE CREATED AUTHOR AUTHOR'S ORGANIZ ATION 2024 [facility] DATE CREATED AUTHOR AUTHOR'S ORGANIZ ATION 2024 [facility] REASON FOR VISIT (unrecogniz ed section and content) Reason Comments Med Refill Reason Comments Med Refill Reason Comments Thyroid Problem Leg Swelling Med Refill Having issue the [place] apention Reason Onset Date Comments Med Refill 07/01/2023 Reason Comments Sore Throat Blisters in throat Reason Comments Rash Reason Onset Date Comments Med Refill 07/30/2023 Reason Onset Date Comments Med Refill 08/02/2023 Reason Comments Follow-up Reason Comments Hip Pain Reason Comments Diabetes controlled Patient Care team informatio n (unrecognized section and content) Director Of Investigations Relationship Specialty Start Date End Date Raulito Sellers, CHILD WELFARE WORKER-[facility] [address] [place] [address] PCP - General Internal Medicine 11/11/22 Director Of Investigations Relationship Specialty Start Date End Date Raulito Sellers CHILD WELFARE WORKER-[facility] [address] [place] [address] PCP - General Internal Medicine 11/11/22 Director Of Investigations Relationship Specialty Start Date End Date Raulito Sellers CHILD WELFARE WORKER-[facility] [address] [place] [address] PCP - General Internal Medicine 11/11/22 Director Of Investigations Relationship Specialty Start Date End Date Raulito Sellers, CHILD WELFARE WORKER-[facility] [address] [place] [address] PCP - General Internal Medicine 11/11/22 Director Of Investigations Relationship Specialty Start Date End Date Raulito Sellers CHILD WELFARE WORKER-STEVEDORING SUPERVISOR [address] [place] [address] PCP - General Internal Medicine 11/11/22 Director Of Investigations Relationship Specialty Start Date End Date Raulito Sellers CHILD WELFARE WORKER-STEVEDORING SUPERVISOR [address] [place] [address] PCP - General Internal Medicine 11/11/22 Director Of Investigations Relationship Specialty Start Date End Date Raulito Sellers CHILD WELFARE WORKER-STEVEDORING SUPERVISOR [address] [place] [address] PCP - General Internal Medicine 11/11/22 Director Of Investigations Relationship Specialty Start Date End Date Raulito Sellers CHILD WELFARE WORKER-STEVEDORING SUPERVISOR [address] [place] [place] [address] PCP - General Internal Medicine 11/11/22 Director Of Investigations Relationship Specialty Start Date End Date Raulito Sellers CHILD WELFARE WORKER-STEVEDORING SUPERVISOR [address] [place] [address] PCP - General Internal Medicine 11/11/22 Director Of Investigations Relationship Specialty Start Date End Date Raulito Sellers CHILD WELFARE WORKER-STEVEDORING SUPERVISOR [address] [facility] [place] [address] PCP - General Internal Medicine 11/11/22 Director Of Investigations Relationship Specialty Start Date End Date Raulito Sellers CHILD WELFARE WORKER-STEVEDORING SUPERVISOR [address] [place] [address] PCP - General Internal Medicine 11/11/22 Director Of Investigations Relationship Specialty Start Date End Date Raulito Sellers, CHILD WELFARE WORKER-STEVEDORING SUPERVISOR [address] [place] [address] PCP - General Internal Medicine 11/11/22 Director Of Investigations Relationship Specialty Start Date End Date Raulito Sellers, CHILD WELFARE WORKER-STEVEDORING SUPERVISOR [address] [place] [address] PCP - General Internal Medicine 11/11/22 Director Of Investigations Relationship Specialty Start Date End Date Raulito Sellers, CHILD WELFARE WORKER-STEVEDORING SUPERVISOR [address] [place] [address] PCP - General Internal Medicine 11/11/22 Director Of Investigations Relationship Specialty Start Date End Date Dewayne Willis DO [address] [place] [address] PCP - General Internal Medicine 11/10/23 Director Of Investigations Relationship Specialty Start Date End Date Dewayne Willis DO [address] [place] [address] PCP - General Internal Medicine 11/10/23 FOR RECORDS PERTAINING TO PATIENTS WHO ARE OR HAVE BEEN ENROLLED IN A CHEMICAL DEPENDENCY/SUBSTANCEABUSE PROGRAM, SOME INFORMATION MAY BE OMITTED. This clinical summary was aggregated from multiple sources. Caution should be exercised in using it in the provision of clinical care. This summary normalizes information from multiple sources, and as a consequence, information in this document may materially change the coding, format and clinical context of patient data. In addition, data may be omitted in some cases. CLINICAL DECISIONS SHOULD BE BASED ON THE PRIMARY CLINICAL RECORDS. [facility]. provides no warranty or guarantee of the accuracy or completeness of information in this document.
--- NOTE | 2024-03-10 06:52 | MR_ITS ---
The [address] [address] Patient Name: SIMIN MURRIETA MRN: [id number] date: 1990 Sex: F Assigned Patient Location: MRI Current Patient Location: Accession/Order Number: [id number] Exam Date: 03/10/2024 07:00 Report Date: 03/13/2024 08:45 At the request of: DEWAYNE WILLIS Procedure: MR pelvis wo con EXAM: MR pelvis wo con REASON FOR EXAM: Spondylosis, Radicular Pain Of Sacrum M54.16. TECHNIQUE: Multiplanar, multisequence imaging of the sacrum was performed without contrast COMPARISON: No recent relevant imaging. FINDINGS: Overall, the bone marrow signal is heterogeneous, favoring red marrow reconversion. Minimal broad-based disc bulge is noted at the L4-L5 level without spinal canal or severe neural foraminal stenosis. The sacroiliac joints appear congruent with mild joint space narrowing marginal osteophytes. Trace effusions are present bilaterally. Visualized hips appear congruent. Limited evaluation of the pelvic viscera is without acute or suspicious abnormality. MR/MR pelvis wo con IMPRESSION: 1. 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 No fracture. 2. Minimal broad-based disc bulge at the L4-L5 level. 3. No acute fracture Electronically authenticated by: IESHA WYLIE Date: 03/13/2024 08:45
== END 2024-03-10 06:45 | disposition home or self-care (01) ==
PROVIDERS: PCP Nurse Practitioner Family; Visit Provider Internal Medicine
DX: M54.18 Radiculopathy, sacral and sacrococcygeal region (principal); M46.1 Sacroiliitis, not elsewhere classified
CPT/HCPCS: 72195